=== PATIENT | female | born 1950 | race Caucasian/White ===

== ENCOUNTER → 2017-01-23 | Outpatient (CLI) | payer MEDICARE, BC ==
[2017-01-19 13:43] VITALS: BMI 47.7
[2017-01-23 12:02] VITALS: BP 133/73; PULSE 64; RESP 16
--- NOTE | 2017-01-23 12:37 | P.PN ---
Progress Note - Text Progress Note Date: 01/23/17 Patient returns for followup for chronic back pain without significant radiation and neck pain with mild radiation to left shoulder. Patient last went bilateral lumbar RFA in 2014 with excellent results and good pain relief. Patient continues on no regular pain medications and is requesting more injections. Patient denies adverse drug effects from medications. Today, pt denies new-onset weakness, bowel/bladder incontinence, or any other signs or symptoms of cauda equina syndrome. There are no signs of acute intoxication, and no indications of medication diversion or overuse. In addition to above, 13-point review of systems is also negative for chest pain , shortness of breath, changes in vision, changes in hearing, new onset weakness , abdominal pain, diarrhea, extreme fatigue, malaise, fever, skin changes, homicidal or suicidal ideation, or bowel or bladder incontinence. Vital Signs: Reviewed in EMR Gen: WDWN, AAOx3, NAD HEENT: NCAT, EOMI, hearing grossly normal Pulm: resp unlabored Abd: soft, NT, ND, obese Neck: supple, trachea midline ROM in flexion lumbar spine: reduced ROM in extension lumbar spine: reduced Lumbar paravertebral tenderness: + Facet loading: + bilateral, L > R SI joint tenderness: + bilateral Jasen's test: + L > R Straight leg raise: neg Neuro: CN II-XII grossly intact, muscle strength lower extremities PRESERVED Imaging: Reviewed in EMR Assessment: 1. lumbar spondylosis without myelopathy 2. morbid obesity 3. chronic pain syndrome Plan: 1. Explanation: Opioid and psychological risk scores were reviewed. Diagnoses , prognoses, and multiple treatment options including but not limited to physical therapy, interventional therapies, adjuvant medical therapies, narcotic medication therapies, and surgery were discussed with the patient and all questions were answered to the patient's satisfaction. 2. Opioid agreement: no opioids prescribed today 3. Counseling: The patient was counseled extensively on BODY MASS INDEX, EXERCISE. Specifically, the patient was instructed regarding the importance of weight control, and exercise in the context of both chronic pain and overall health. 4. Procedures: bilateral lumbar MBB L3-S1 5. Consultations: None 6. Investigations: None 7. Medications: none prescribed 8. Disposition: f/u for procedure as scheduled PQRS measures: 1-Patient's medications are documented in the chart. 2-Tobacco use is negative 3-Patient has had a pneumococcal vaccine. 4-Advanced care planning discussed, patient unable to give. 5-Opioid contract NOT signed with the patient. 6-Pain positive, follow-up visit or procedure scheduled 7-Patient's blood pressure measured and documented, and patient will follow up with the primary care due to hypertension. 8-Patient's weight was measured, and body mass index ABOVE the normal limits, and counseling was done. Patient instructed to follow up with PCP. 9-Patient WAS NOT identified as an unhealthy alcohol user.
== END | disposition home or self-care (01) ==
LOC: PNWHC3 11:23
PROVIDERS: ATTEND Anesthesiology
DX: M47.816 Spondylosis without myelopathy or radiculopathy, lumbar region (principal); E66.01 Morbid (severe) obesity due to excess calories; G89.4 Chronic pain syndrome
CPT/HCPCS: 99211

== ENCOUNTER → 2017-02-27 | Outpatient (CLI) | payer MEDICARE, BC ==
[2017-02-27 14:04] LABS: Appearance,Urine Clear (Clear); Bacteria,Urine Rare /hpf; Bilirubin,Urine Negative (Negative); Glucose,Urine (UA) Negative (Negative); Ketones,Urine Negative (Negative); Leukocyte Esterase,Urine Small (Negative); Nitrite,Urine Negative (Negative); PH, Urine 6.5 (5.0-8.0); Particle Count 1854; Protein,Urine Negative (Negative); RBC,Urine <1 /hpf (0-5); Specific Gravity,Urine 1.022 (1.001-1.035); Squamous Epithelial Cell,Urine 2 /hpf (0-4); UA Billing (MACRO vs. MICRO) MICRO; Urobilinogen,Urine <2.0 mg/dL (<2.0); WBC,Urine 29 /hpf (0-5)
== END | disposition home or self-care (01) ==
LOC: LABWHC1 13:27
PROVIDERS: ATTEND Internal Medicine
DX: N39.0 Urinary tract infection, site not specified (principal)
CPT/HCPCS: 81001; 87077; 87086; 87186

== ENCOUNTER → 2017-02-27 | Outpatient (CLI) | payer MEDICARE, BC ==
--- NOTE | 2017-02-27 14:54 | BD ---
EXAMINATION TYPE: MG DEXA axial skeleton. DATE OF EXAM: 02/27/2017 COMPARISON: Prior DEXA bone scan August 24, 2011 CLINICAL HISTORY: Disorder of bone density per order. Height: 65 Weight: 309.3 FRAX RISK QUESTIONS: Alcohol (3 or more units per day): NO Family History (Parent hip fracture): no Glucocorticoids (More than 3mos): no (Ex: prednisone, prednisolone, methylprednisolone, dexamethasone, and hydrocortisone). History of Fracture in Adulthood: no Secondary Osteoporosis: 1. Type 1 Diabetes: no 2. Hyperthyroidism: no 3. Menopause before 45: no 4. Malnutrition: no 5. Chronic liver disease: no Rheumatoid Arthritis: yes Current Tobacco Use: RISK FACTORS HISTORY OF: Hip Fracture (Right/Left): no Spine Fracture: no History of Wrist Fracture: no Surgery to Spine/Hip(right/left)/Wrist (right/left): no Family History of Osteoporosis: no Active: no Diet low in dairy products/other sources of calcium: no Postmenopausal woman: hysterectomy 45 Lost more than 2 inches in height since high school: no Frequent falls: no Poor Health: no Hyperparathyroidism: no Adrenal Insufficiency: no MEDICATIONS: Gabapentin Additional History: EXAM MEASUREMENTS: Bone mineral densitometry was performed using the [employer] System. Bone mineral density as measured about the Lumbar spine is: ----- L1-L4(G/cm2): 1.207 T Score Values are as follows: ----- L2: -0.6 ----- L3: 0.2 ----- L4: 0.7 ----- L1-L4: 0.2 Bone mineral density has: Decreased 6.3 % since study of: 08.24.2011 Bone mineral density about the R hip (g/cm2): 0.767 Bone mineral density about the L hip (g/cm2): 0.768 T Score values are as follows: -----R Neck: -2.0 -----L Neck: -1.9 -----R Total: -1.5 -----L Total: -0.9 Bone mineral density has: decreased -11.5 % since study of: 08.24.2011 IMPRESSION: Osteopenia (T Score between -2.5 and -1 as noted by T score values left femoral neck level of both hi ps is redemonstrated. Bone density is decreased or diminished from prior. There remains slightly incr eased risk of fracture and the patient may be considered for treatment. Re-Screen 2-5 years. NOTE: T-SCORE=SD OF THE YOUNG ADULT MEAN.
--- NOTE | 2017-03-01 14:02 | MM ---
Reason for exam: screening (asymptomatic). Last mammogram was performed 1 year and 4 months ago. History: Patient is postmenopausal, history of high-risk lesion on a previous biopsy, and had first child at age 34. Family history of breast cancer in grandmother at age 60. Silicone gel implants in both breasts, 2005. Saline implants in both breasts, 1995. Reduction of the left breast. Reduction of the right breast. 4 excisional biopsies of the left breast. 2 excisional biopsies of the right breast. Took estrogen for 13 years beginning at age 45. Physical Findings: A clinical breast exam by your physician is recommended on an annual basis and results should be correlated with mammographic findings. MG Screening Mammo Implant/CAD Bilateral CC, MLO, and ID view(s) were taken. Prior study comparison: November 11, 2015, bilateral MG 3d diag mammo imp w/cad [facility]. May 21, 2014, bilateral MG diagnostic mammo w CAD [facility]. There are scattered fibroglandular densities. No significant changes when compared with prior studies. ASSESSMENT: Benign, BI-RAD 2 RECOMMENDATION: Follow-up diagnostic mammogram of both breasts in 1 year.
== END | disposition home or self-care (01) ==
LOC: RADMAMWWP 13:28
PROVIDERS: ATTEND Obstetrics & Gynecology
DX: Z12.31 Encounter for screening mammogram for malignant neoplasm of breast (principal); M85.88 Other specified disorders of bone density and structure, other site
CPT/HCPCS: 77080; G0202

== ENCOUNTER → 2017-04-18 | Outpatient (CLI) | payer MEDICARE, BC ==
--- NOTE | 2017-04-18 15:05 | P.PN ---
Progress Note - Text Progress Note Date: 04/18/17 Patient returns for followup for chronic back pain without significant radiation and neck pain with mild radiation to left shoulder. Patient last underwent bilateral LMBB x 2 with good relief after undergoing bilateral lumbar RFA in 2014 with excellent relief for > 18 months. Patient continues on no regular pain medications and is requesting more injections; patient is still on Coumadin for A-fib. Patient denies adverse drug effects from medications. Today, pt denies new-onset weakness, bowel/bladder incontinence, or any other signs or symptoms of cauda equina syndrome. There are no signs of acute intoxication, and no indications of medication diversion or overuse. In addition to above, 13-point review of systems is also negative for chest pain , shortness of breath, changes in vision, changes in hearing, new onset weakness , abdominal pain, diarrhea, extreme fatigue, malaise, fever, skin changes, homicidal or suicidal ideation, or bowel or bladder incontinence. Vital Signs: Reviewed in EMR Gen: WDWN, AAOx3, NAD HEENT: NCAT, EOMI, hearing grossly normal Pulm: resp unlabored Abd: soft, NT, ND, obese Neck: supple, trachea midline ROM in flexion lumbar spine: reduced ROM in extension lumbar spine: reduced Lumbar paravertebral tenderness: + Facet loading: + bilateral, L > R SI joint tenderness: + bilateral Jasen's test: + L > R Straight leg raise: neg Neuro: CN II-XII grossly intact, muscle strength lower extremities PRESERVED Imaging: Reviewed in EMR Assessment: 1. lumbar spondylosis without myelopathy 2. morbid obesity 3. chronic pain syndrome Plan: 1. Explanation: Opioid and psychological risk scores were reviewed. Diagnoses , prognoses, and multiple treatment options including but not limited to physical therapy, interventional therapies, adjuvant medical therapies, narcotic medication therapies, and surgery were discussed with the patient and all questions were answered to the patient's satisfaction. 2. Opioid agreement: no opioids prescribed today 3. Counseling: The patient was counseled extensively on BODY MASS INDEX, EXERCISE. Specifically, the patient was instructed regarding the importance of weight control, and exercise in the context of both chronic pain and overall health. 4. Procedures: right lumbar RFA, then left lumbar RFA 5. Consultations: None 6. Investigations: None 7. Medications: naproxen 500 mg #10 with one refill 8. Disposition: f/u for procedure as scheduled PQRS measures: 1-Patient's medications are documented in the chart. 2-Tobacco use is negative 3-Patient has had a pneumococcal vaccine. 4-Advanced care planning discussed, patient unable to give. 5-Opioid contract NOT signed with the patient. 6-Pain positive, follow-up visit or procedure scheduled 7-Patient's blood pressure measured and documented, and patient will follow up with the primary care due to hypertension. 8-Patient's weight was measured, and body mass index ABOVE the normal limits, and counseling was done. Patient instructed to follow up with PCP. 9-Patient WAS NOT identified as an unhealthy alcohol user.
[2017-04-18 23:31] VITALS: BP 136/77; PULSE 57; RESP 16
== END | disposition home or self-care (01) ==
LOC: PNWHC3 14:19
PROVIDERS: ATTEND Anesthesiology
DX: M47.816 Spondylosis without myelopathy or radiculopathy, lumbar region (principal); E66.01 Morbid (severe) obesity due to excess calories; G89.4 Chronic pain syndrome; I48.91 Unspecified atrial fibrillation; Z79.01 Long term (current) use of anticoagulants; Z68.43 Body mass index [BMI] 50.0-59.9, adult
CPT/HCPCS: 99211

== ENCOUNTER 2017-06-12 06:59 | Day surgery (SDC) | payer MEDICARE, BC ==
[2017-06-07 15:15] VITALS: BMI 48.0
[2017-06-12] MEDS ORDERED: LACTATED RINGERS 1,000 ML IV SCH (07:15)
[2017-06-12 08:07] VITALS: TEMP 97.4
[2017-06-12] MEDS ORDERED: LIDOCAINE 1% 20 ML VIAL (10MG/ML) FOR IV START INTRADERMA ONE (08:22)
--- NOTE | 2017-06-12 09:36 | P.PCN ---
Date of Procedure: 06/12/17 Surgeon: Juan Sawyer Pathology: none sent Condition: stable Disposition: PACU Description of Procedure: PREOPERATIVE DIAGNOSIS: Lumbar spondylosis without myelopathy and facet arthropathy POSTOPERATIVE DIAGNOSIS: Lumbar spondylosis without myelopathy and facet arthropathy PROCEDURES: Right Radiofrequency thermocoagulation, L3-L4, L4-L5, and L5-S1 medial branch, with fluoroscopic guidance. ANESTHESIA: 1% lidocaine plain; Conscious sedation with versed/fentanyl EBL: Minimal PROCEDURE INDICATION: The patient with low back pain secondary to lumbar arthropathy who had more than 50% relief of pain with previous diagnostic lumbar medial branch block with bupivacaine. Patient presents for R lumbar RFA today; off Coumadin five days, INR 1.2. PROCEDURE DESCRIPTION / TECHNIQUE: The patient was seen and identified in the preoperative area. Risks, benefits, complications, and alternatives were discussed with the patient (including but not limited to incomplete pain relief , bleeding, infection, nerve damage, and allergies to medications), the patient agreed to proceed with the procedure and signed the consent after all questions were answered. Patient was taken to the OR and time out was completed to verify proper patient , position, laterality of pain, and allergies. Pt was placed in the prone position. IV was started. Vital signs remained stable throughout the procedure. A pillow was placed under the patients chest to decrease lordosis. The lumbosacral area was prepped and draped in the usual sterile fashion. Vital signs were closely monitored during the procedure. Conscious sedation was used during the procedure to decrease patients anxiety. Using AP and then oblique fluoroscopy, the eye of the Shelton dog corresponding to the connection between the superior and transverse articular processes of right L3, L4, L5 and top of the sacrum were identified, marked, and localized with 1% lidocaine. Subsequently, a 20 gauge, 150-mm radiofrequency cannula with a 10-mm active tip was advanced guided by fluoroscopy to each of the eyes of the Shelton dog at the levels of all four medial branches. Each site then underwent sensory testing at 50 Hz and 0 to 1 volt and motor testing at 2 Hz and 0 to 3 volt with local stimulation, but no radicular symptoms down the legs. Thereafter all four medial branch sites underwent radiofrequency thermocoagulation at 80 degrees Celsius for 90 seconds after injecting 0.5 ml of PF lidocaine 1%. After thermocoagulation, 1 ml of the block solution containing Kenalog 40 mg and 2 mL of preservative-free normal saline was injected at all four medial branch levels after negative aspiration of CSF and blood and with no paresthesias. Cannulas were retracted while injecting lidocaine 1% until the needles were removed. At the end of the procedure, the skin was cleansed and bandages were applied. COMPLICATIONS: Patient did have significant decrease in HR down to 30s and BP down to 80s systolic, but after the procedure was completed and the patient turned supine, her vital signs recovered without any intervention and she felt substantially better. DISPOSITION / PLANS: The patient was placed in a supine position and transferred to the recovery area in a stable condition for observation and was discharged from the recovery room after meeting discharge criteria. Home discharge instructions given to the patient by the staff. The patient was reexamined prior to discharge. The patient will schedule a left lumbar RFA at next visit.
[2017-06-12 09:39] VITALS: BP 141/68; PULSE 59; RESP 18
--- NOTE | 2017-06-12 13:41 | FL ---
EXAMINATION TYPE: FL guided pain mgmt statistic DATE OF EXAM: 06/12/2017 FLUOROSCOPY Fluoroscopy time of 24 seconds was used during right lumbar radiofrequency ablation. 3 image/s docum ent/s the procedure.
== END 2017-06-12 09:50 | disposition home or self-care (01) ==
LOC: ORPAIN 06:59
PROVIDERS: ATTEND Anesthesiology
DX: M47.816 Spondylosis without myelopathy or radiculopathy, lumbar region (principal); R00.1 Bradycardia, unspecified; I48.91 Unspecified atrial fibrillation; E66.9 Obesity, unspecified; Z68.42 Body mass index [BMI] 45.0-49.9, adult; Z79.01 Long term (current) use of anticoagulants; Z91.09 Other allergy status, other than to drugs and biological substances
CPT/HCPCS: 64635; 64636; J2250; J3301; J3010; 99152

== ENCOUNTER → 2017-06-12 | Outpatient (CLI) | payer MEDICARE, BC ==
[2017-06-12 07:04] LABS: INR 1.2 (<1.2); Prothrombin Time 11.1 sec (9.0-12.0)
== END | disposition home or self-care (01) ==
LOC: LABWHC1 06:43
PROVIDERS: ATTEND Anesthesiology
DX: Z51.81 Encounter for therapeutic drug level monitoring (principal); Z79.01 Long term (current) use of anticoagulants
CPT/HCPCS: 36415; 85610

== ENCOUNTER 2017-07-11 07:00 | Day surgery (SDC) | payer MEDICARE, BC ==
[2017-07-09 13:34] VITALS: BMI 48.2
[~2017-07-11 07:00] MED LIST: LACTATED RINGERS 1,000 ML IV SCH
[2017-07-11 07:14] LABS: INR 1.1 (<1.2); Prothrombin Time 10.8 sec (9.0-12.0)
[2017-07-11 07:53] VITALS: TEMP 97.9
[2017-07-11] MEDS ORDERED: LIDOCAINE 1% 20 ML VIAL (10MG/ML) FOR IV START INTRADERMA ONE (07:53)
[2017-07-11] MEDS ORDERED: LACTATED RINGERS 1,000 ML IV ONE (07:53)
--- NOTE | 2017-07-11 09:53 | P.PCN ---
Date of Procedure: 07/11/17 Procedure(s) Performed: PREOPERATIVE DIAGNOSIS: 1-Lumbar Spondylosis with Facet Arthropathy without myelopathy. 2- Lumber degenerative disc disease. POSTOPERATIVE DIAGNOSIS: 1- Lumbar Spondylosis with Facet Arthropathy without myelopathy. 2- Lumber degenerative disc disease. PROCEDURES : Left Radiofrequency thermocoagulation, L3-L4, L4-L5, and L5-S1 medial branch, with fluoroscopic guidance ANESTHESIA: Moderate sedation with intravenous versed 2 mg and fentaneyl 100 mcg and local infiltration with lidocaine 1% 6 ml EBL: Minimal PROCEDURE INDICATION: The patient with low back pain secondary to lumbar facet arthropathy who had more than 50% relief of her pain with previous diagnostic lumbar medial branch block with bupivacaine. PROCEDURE DESCRIPTION / TECHNIQUE: The patient was seen and identified in the preoperative area. Risks, benefits, complications, including but not limited to risk of infection ,bleeding , allergic reactions to the medications and no complete pain releife , and alternatives were discussed with the patient, the patient agreed to proceed with the procedure and signed the consent. IV was started. Vital signs remained stable throughout the procedure. Patient was taken to the OR and time out was completed. The patient was placed in the prone position on the procedure table. The lumber area was prepped and draped in the usual sterile fashion. . Vital signs were closely monitored during the procedure .IV sedation was used during the procedure to decrease patients anxiety. Using AP and then oblique fluoroscopy, the ``eye of the Shelton dog corresponding to the connection between the superior and transverse articular processes of left L3, L4, and L5 were identified, marked, and localized with 1 % lidocaine. Subsequently, a [id number] radiofrequency cannula with a 10- mm active tip was advanced guided by fluoroscopy to each of the ``eyes of the Shelton dog at left L3, L4, and L5. Each site then underwent sensory testing at 50 Hz and 0 to 1 volt and motor testing at 2.5 Hz and 0 to 3 volt with local stimulation, but no radicular symptoms down the legs. Thereafter the left L3-4, L4-5, and L5-S1 sites underwent radiofrequency thermocoagulation at 80 degrees celsius for 90 seconds after injecting 0.5 ml of PF lidocaine 1%. then After the thermocoagulation done , 1 ml of the block solution containing Kenalog 40 mg and 3 ml of marcain 0.5% was injected at the left L3-4 , L4-5 , and L5-S1, levels after negative aspiration of CSF and blood and with no paresthesias. Cannulas were retracted while injecting lidocaine 1% until the needle is out At the end of the procedure, the skin was cleansed and bandages were applied. COMPLICATIONS: No acute complications. DISPOSITION / PLANS: The patient was placed in a supine position and transferred to the recovery area in a stable condition for observation and was discharged from the recovery room after meeting discharge criteria. Home discharge instructions given to the patient by the staff. The patient was reexamined prior to discharge. The patient will schedule a follow up in the clinic in 2-4 weeks.
[2017-07-11] MEDS ORDERED: IV FLUID CONTINUATION 50 ML IV ONE (10:00)
[2017-07-11 10:15] VITALS: RESP 16
[2017-07-11 10:17] VITALS: BP 127/79; PULSE 59
--- NOTE | 2017-07-11 10:49 | FL ---
Fluoroscopy HISTORY: Pain 17 seconds fluoroscopy time supplied to the referring clinician. 4 intraoperative C-arm images docum ent the procedure. See dictated report from anesthesia.
== END 2017-07-11 10:30 | disposition home or self-care (01) ==
LOC: ORPAIN 07:00
PROVIDERS: ATTEND Specialist
DX: M47.816 Spondylosis without myelopathy or radiculopathy, lumbar region (principal); M51.36 Other intervertebral disc degeneration, lumbar region; I48.91 Unspecified atrial fibrillation; I10 Essential (primary) hypertension; G47.33 Obstructive sleep apnea (adult) (pediatric); M06.9 Rheumatoid arthritis, unspecified; Z79.01 Long term (current) use of anticoagulants; Z88.5 Allergy status to narcotic agent
CPT/HCPCS: 85610; 64635; 64636 ×2; J2250; J3301; J3010; 99152; 99153

== ENCOUNTER → 2017-08-07 | Outpatient (CLI) | payer MEDICARE, BC ==
[2017-08-07 11:49] VITALS: PULSE 69; RESP 18
--- NOTE | 2017-08-07 12:38 | P.PN ---
Progress Note - Text Progress Note Date: 08/07/17 Patient returns for followup for chronic back pain patient is status post bilateral lumbar efficiency ablations at L3 to S1. Patient reported good pain relief with the bilateral radio frequency ablation. Patient has 0 out of 10 pain with flexion and extension which was not the case prior to the RFA. Patient however is complaining of new type low back pain along this sacroiliac joint that radiates to her hip or groin and the lateral aspect of her thigh. She states that the pain is about a 5 out of 10 in severity. I discussed with her that her low back pain caused by facet arthropathy and spondylosis could've likely been masking her sacroiliac related joint pain. I discussed with her bilateral sacroiliac joint diagnostic injections, patient understands the risks and benefits and wishes to proceed the next available appointment. Patient is still on Coumadin for A-fib, and a request to hold anticoagulants to her prescribing physician and will be sent today. Patient denies adverse drug effects from medications. Today, pt denies new-onset weakness, bowel/bladder incontinence, or any other signs or symptoms of cauda equina syndrome. There are no signs of acute intoxication, and no indications of medication diversion or overuse. In addition to above, 13-point review of systems is also negative for chest pain , shortness of breath, changes in vision, changes in hearing, new onset weakness , abdominal pain, diarrhea, extreme fatigue, malaise, fever, skin changes, homicidal or suicidal ideation, or bowel or bladder incontinence. Vital Signs: Reviewed in EMR Gen: WDWN, AAOx3, NAD HEENT: NCAT, EOMI, hearing grossly normal Pulm: resp unlabored Abd: soft, NT, ND, obese Neck: supple, trachea midline ROM in flexion lumbar spine: Improved from previous exam ROM in extension lumbar spine: Improved from previous exam Lumbar paravertebral tenderness: Mild Facet loading: Mild bilateral facet loading SI joint tenderness: + bilateral Jasen's test: + L > R Straight leg raise: neg Neuro: CN II-XII grossly intact, muscle strength lower extremities PRESERVED Imaging: Reviewed in EMR Assessment: 1. Lumbar spondylosis without myelopathy 2. Sacroiliac joint dysfunction 3. Lumbosacral spondylosis 4.. morbid obesity 5. chronic pain syndrome Plan: 1. Explanation: Opioid and psychological risk scores were reviewed. Diagnoses , prognoses, and multiple treatment options including but not limited to physical therapy, interventional therapies, adjuvant medical therapies, narcotic medication therapies, and surgery were discussed with the patient and all questions were answered to the patient's satisfaction. 2. Opioid agreement: no opioids prescribed today 3. Counseling: The patient was counseled extensively on BODY MASS INDEX, EXERCISE. Specifically, the patient was instructed regarding the importance of weight control, and exercise in the context of both chronic pain and overall health. 4. Procedures: Sacroiliac joint injection, bilateral 5. Consultations: None 6. Investigations: Maps reviewed and appropriate with patient history 7. Medications: No medication given 8. Disposition: Bilateral sacroiliac joint injection, next available PQRS measures: 1-Patient's medications are documented in the chart. 2-Tobacco use is negative 3-Patient has had a pneumococcal vaccine. 4-Advanced care planning discussed, patient unable to give. 5-Opioid contract NOT signed with the patient. 6-Pain positive, follow-up visit or procedure scheduled 7-Patient's blood pressure measured and documented, and patient will follow up with the primary care due to hypertension. 8-Patient's weight was measured, and body mass index ABOVE the normal limits, and counseling was done. Patient instructed to follow up with PCP. 9-Patient WAS NOT identified as an unhealthy alcohol user.
== END | disposition home or self-care (01) ==
LOC: PNWHC3 11:27
PROVIDERS: ATTEND Anesthesiology
DX: G89.4 Chronic pain syndrome (principal); M54.9 Dorsalgia, unspecified; M47.817 Spondylosis without myelopathy or radiculopathy, lumbosacral region; M53.88 Other specified dorsopathies, sacral and sacrococcygeal region; E66.01 Morbid (severe) obesity due to excess calories; Z98.890 Other specified postprocedural states
CPT/HCPCS: 99211

== ENCOUNTER 2017-08-13 07:00 | Day surgery (SDC) | payer MEDICARE, BC ==
[2017-08-08 11:14] VITALS: BMI 48.1
[2017-08-13] MEDS ORDERED: LIDOCAINE 1% 20 ML VIAL (10MG/ML) FOR IV START INTRADERMA ONE (08:45)
[2017-08-13 08:59] VITALS: RESP 18; TEMP 97.9
[2017-08-13 09:18] LABS: INR 1.1 (<1.2); Prothrombin Time 10.7 sec (9.0-12.0)
--- NOTE | 2017-08-13 09:38 | P.PCN ---
Date of Procedure: 08/13/17 Procedure(s) Performed: Preoperative diagnoses= 1-lumbar spondylosis 2-bilateral sacroiliac joint dysfunction. Postoperative diagnoses= same as preoperative diagnosis. Procedure= bilateral sacroiliac joint steroid injection under fluoroscopic guidance. Anesthesia= moderate sedation with Versed 2 mg and fentanyl 100 micrograms and local infiltration with lidocaine 1% 4 ml Estimated blood loss=minimal. Procedure indication= the patient had a history of severe chronic low back pain , diagnosed with sacroiliac joint dysfunction, and lumbar sacral facet arthropathy unresponsive to conservative treatment. Procedure description= the patient was seen and identified in the preoperative holding area, risks and benefits and alternative of the procedure and possible complications discussed with the patient, and he agreed with the preceding, patient signed the consent, an IV was started, and vital signs were monitored and were stable throughout the procedure, patient was placed in the prone position or table and the lumbosacral area was prepped and draped with a sterile fashion, vital signs were closely monitored during the procedure, the fluoroscopy camera was placed in the contralateral oblique view on the right sacroiliac joint and the lower part of the joint was identified, local infiltration of the skin and subcutaneous tissue with lidocaine 1% 2 mL then a 22-gauge Quincke-type spinal needle advanced slowly under fluoroscopy and placed in the posterior and inferior border of the right sacroiliac joint, placement confirmed with AP and lateral view, and after appropriate needle placement confirmed and after negative aspiration for heme and CSF and there was no paresthesia during the injection, 3 ml of Marcaine 0.5% and 20 mg of Kenalog injected after negative aspiration, the needle removed, and the entire same procedure was repeated for the left sacroiliac joint Patient tolerated the procedure well without any complication, The patient returned to supine position after the back was cleaned and a Band- Aid applied, the patient transported to recovery room in stable condition and he was monitored for 30 minutes before he was discharged home and then patient was reexamined before going home and patient was discharged in stable condition and patient will follow up with the pain clinic in a few weeks
--- NOTE | 2017-08-13 09:47 | FL ---
EXAMINATION TYPE: FL guided pain mgmt statistic DATE OF EXAM: 08/13/2017 CLINICAL HISTORY: Low back and sacroiliac joint pain. TECHNIQUE: Fluoroscopy. COMPARISON: None. FINDINGS: Fluoroscopic guidance was provided during pain relief procedure performed by Dr. Sykes . A total of 16 seconds of fluoroscopic time was utilized during the procedure and two spot images a re acquired. Images acquired shows needle localization at level of bilateral sacroiliac joints. IMPRESSION: As Above.
[2017-08-13 09:49] VITALS: PULSE 62
[2017-08-13 10:04] VITALS: BP 112/67
[2017-08-13] MEDS ORDERED: IV FLUID CONTINUATION 1,000 ML IV ONE (10:04)
== END 2017-08-13 10:16 | disposition home or self-care (01) ==
LOC: ORPAIN 07:00
PROVIDERS: ATTEND Specialist
DX: M47.816 Spondylosis without myelopathy or radiculopathy, lumbar region (principal); M53.3 Sacrococcygeal disorders, not elsewhere classified; I10 Essential (primary) hypertension; I48.91 Unspecified atrial fibrillation; J45.909 Unspecified asthma, uncomplicated; Z88.5 Allergy status to narcotic agent
CPT/HCPCS: 85610; J2250; J3301; J3010; G0260

== ENCOUNTER 2017-08-30 08:59 | Day surgery (SDC) | payer MEDICARE, BC ==
[2017-08-27 13:29] VITALS: BMI 48.1
--- NOTE | 2017-08-30 10:52 | P.PCN ---
Date of Procedure: 08/30/17 Surgeon: Ronal Rodriguez Description of Procedure: Preoperative diagnoses: Bilateral sacroilitis Postoperative diagnoses: Bilateral sacroilitis. Procedure: Bilateral sacroiliac joint steroid injection under fluoroscopic guidance. Surgeon: Ronal Rodriguez MD Anesthesia: IV sedation per hospital guidelines EBL: None Procedure indication: The patient had a history of severe chronic low back pain , diagnosed with sacroiliitis and lumbar sacral facet arthropathy unresponsive to conservative treatment. Procedure description: The patient was seen and identified in the preoperative holding area, risks and benefits and alternative of the procedure and possible complications discussed with the patient, and he agreed with the preceding, patient signed the consent, an IV was started, and vital signs were monitored and were stable throughout the procedure, patient was placed in the prone position or table and the lumbosacral area was prepped and draped with a sterile fashion, vital signs were closely monitored during the procedure, the fluoroscopy camera was placed in the contralateral oblique view on the right sacroiliac joint and the lower part of the joint was identified a 2 mL then a 25 -gauge Quincke-type spinal needle advanced slowly under fluoroscopy and placed in the posterior and inferior border of the right sacroiliac joint, placement confirmed with AP and lateral view, and after appropriate needle placement confirmed and after negative aspiration for heme and CSF and there was , 3 ml of Marcaine 0.5% and 40 mg of Kenalog injected after negative aspiration, no paresthesia during the injection, no resistance to injection, and the needle was removed. The entire same procedure was repeated for the left sacroiliac joint Patient tolerated the procedure well without any complication. The patient returned to supine position after the back was cleaned and a Band- Aid applied, the patient transported to recovery room in stable condition and he was monitored for 30 minutes before he was discharged home and then patient was reexamined before going home and patient was discharged in stable condition and patient will follow up with the pain clinic in a few weeks
[2017-08-30 11:00] VITALS: TEMP 97.9
[2017-08-30] MEDS ORDERED: LACTATED RINGERS 1,000 ML IV ONE (11:05)
[2017-08-30] MEDS ORDERED: LIDOCAINE 1% 20 ML VIAL (10MG/ML) FOR IV START INTRADERMA ONE (11:06)
[2017-08-30 11:33] VITALS: BP 114/77
[2017-08-30] MEDS ORDERED: IV FLUID CONTINUATION 1,000 ML IV ONE (11:34)
[2017-08-30 11:41] VITALS: PULSE 61; RESP 18
--- NOTE | 2017-08-30 12:13 | FL ---
EXAMINATION TYPE: FL guided pain mgmt statistic DATE OF EXAM: 08/30/2017 COMPARISON: NONE HISTORY: Sacroiliac joint pain TECHNIQUE: Fluoroscopy. FINDINGS/IMPRESSION: Fluoroscopic guidance was provided during procedure performed by Dr. Rodriguez. A total of 4 seconds of fluoroscopic time was utilized during the procedure and 2 spot images was acqu ired demonstrating localization of the sacroiliac joint.
== END 2017-08-30 12:00 | disposition home or self-care (01) ==
LOC: ORPAIN 08:59
PROVIDERS: ATTEND Anesthesiology
DX: G89.29 Other chronic pain (principal); M46.1 Sacroiliitis, not elsewhere classified; M46.97 Unspecified inflammatory spondylopathy, lumbosacral region; Z88.5 Allergy status to narcotic agent; Z79.01 Long term (current) use of anticoagulants
CPT/HCPCS: J2250; J1030; G0260; 99152

== ENCOUNTER → 2017-08-30 | Outpatient (CLI) | payer MEDICARE, BC | END | disposition home or self-care (01) | LOC: LABWHC1 08:43 | PROVIDERS: ATTEND Specialist | DX: Z51.81 Encounter for therapeutic drug level monitoring (principal); Z79.01 Long term (current) use of anticoagulants | CPT/HCPCS: 36415; 85610 ==

== ENCOUNTER → 2017-09-26 | Outpatient (CLI) | payer MEDICARE, BC ==
[2017-09-26 12:39] VITALS: BP 145/84; PULSE 60; RESP 18
--- NOTE | 2017-09-26 13:01 | P.PN ---
Progress Note - Text Progress Note Date: 09/26/17 Patient returns for followup for chronic back pain without radiation to hips and neck pain with mild radiation to left shoulder. Patient last underwent bilateral SIJ injection x 2 with good relief. Patient continues on no regular pain medications and is requesting more injections; patient is still on Coumadin for A-fib. Patient denies adverse drug effects from medications. Today, pt denies new-onset weakness, bowel/bladder incontinence, or any other signs or symptoms of cauda equina syndrome. There are no signs of acute intoxication, and no indications of medication diversion or overuse. In addition to above, 13-point review of systems is also negative for chest pain , shortness of breath, changes in vision, changes in hearing, new onset weakness , abdominal pain, diarrhea, extreme fatigue, malaise, fever, skin changes, homicidal or suicidal ideation, or bowel or bladder incontinence. Vital Signs: Reviewed in EMR Gen: WDWN, AAOx3, NAD HEENT: NCAT, EOMI, hearing grossly normal Pulm: resp unlabored Abd: soft, NT, ND, obese Neck: supple, trachea midline ROM in flexion lumbar spine: reduced ROM in extension lumbar spine: reduced Lumbar paravertebral tenderness: + Facet loading: + bilateral, R > L SI joint tenderness: + bilateral Jasen's test: + R > L Straight leg raise: neg Neuro: CN II-XII grossly intact, muscle strength lower extremities PRESERVED Imaging: Reviewed in EMR Assessment: 1. lumbar spondylosis without myelopathy 2. morbid obesity 3. chronic pain syndrome Plan: 1. Explanation: Opioid and psychological risk scores were reviewed. Diagnoses , prognoses, and multiple treatment options including but not limited to physical therapy, interventional therapies, adjuvant medical therapies, narcotic medication therapies, and surgery were discussed with the patient and all questions were answered to the patient's satisfaction. 2. Opioid agreement: no opioids prescribed today 3. Counseling: The patient was counseled extensively on BODY MASS INDEX, EXERCISE. Specifically, the patient was instructed regarding the importance of weight control, and exercise in the context of both chronic pain and overall health. 4. Procedures: SIJ injection #3 bilateral 5. Consultations: None 6. Investigations: None 7. Medications: naproxen 500 mg #10 with one refill 8. Disposition: f/u for procedure as scheduled PQRS measures: 1-Patient's medications are documented in the chart. 2-Tobacco use is negative 3-Patient has had a pneumococcal vaccine. 4-Advanced care planning discussed, patient unable to give. 5-Opioid contract NOT signed with the patient. 6-Pain positive, follow-up visit or procedure scheduled 7-Patient's blood pressure measured and documented, and patient will follow up with the primary care due to hypertension. 8-Patient's weight was measured, and body mass index ABOVE the normal limits, and counseling was done. Patient instructed to follow up with PCP. 9-Patient WAS NOT identified as an unhealthy alcohol user.
== END | disposition home or self-care (01) ==
LOC: PNWHC3 12:06
PROVIDERS: ATTEND Anesthesiology
DX: G89.4 Chronic pain syndrome (principal); M54.9 Dorsalgia, unspecified; M47.816 Spondylosis without myelopathy or radiculopathy, lumbar region; E66.01 Morbid (severe) obesity due to excess calories; I48.91 Unspecified atrial fibrillation; Z79.01 Long term (current) use of anticoagulants
CPT/HCPCS: 99211

== ENCOUNTER 2017-10-04 07:10 | Day surgery (SDC) | payer MEDICARE, BC ==
[2017-10-01 14:47] VITALS: BMI 47.3
[2017-10-04 09:36] VITALS: TEMP 98.1
[2017-10-04] MEDS ORDERED: IV FLUID CONTINUATION 1,000 ML IV ONE (10:22)
--- NOTE | 2017-10-04 10:22 | P.PCN ---
Date of Procedure: 10/04/17 Procedure(s) Performed: Preoperative diagnoses= 1-bilateral sacroiliitis. 2-lumbar spondylosis with lumbar facet arthropathy without myelopathy Postoperative diagnoses= same as preoperative diagnosis. Procedure= bilateral sacroiliac joint steroid injection under fluoroscopic guidance. Anesthesia= moderate sedation with Versed 2 mg and fentanyl 100 micrograms and local infiltration with lidocaine 1% 4 ml Estimated blood loss=minimal. Procedure indication= the patient had a history of severe chronic low back pain , diagnosed with sacroiliitis and lumbar sacral facet arthropathy unresponsive to conservative treatment. Procedure description= the patient was seen and identified in the preoperative holding area, risks and benefits and alternative of the procedure and possible complications discussed with the patient, and he agreed with the preceding, patient signed the consent, an IV was started, and vital signs were monitored and were stable throughout the procedure, patient was placed in the prone position or table and the lumbosacral area was prepped and draped with a sterile fashion, vital signs were closely monitored during the procedure, the fluoroscopy camera was placed in the contralateral oblique view on the right sacroiliac joint and the lower part of the joint was identified, local infiltration of the skin and subcutaneous tissue with lidocaine 1% 2 mL then a 22-gauge 5 inches long Quincke-type spinal needle advanced slowly under fluoroscopy and placed in the posterior and inferior border of the right sacroiliac joint, placement confirmed with AP and lateral view, and after appropriate needle placement confirmed and after negative aspiration for heme and CSF and there was no paresthesia during the injection, 3 ml of Marcaine 0.5 % and 40 mg of Kenalog injected after negative aspiration, the needle removed, and the entire same procedure was repeated for the left sacroiliac joint Patient tolerated the procedure well without any complication, The patient returned to supine position after the back was cleaned and a Band- Aid applied, the patient transported to recovery room in stable condition and he was monitored for 30 minutes before he was discharged home and then patient was reexamined before going home and patient was discharged in stable condition and patient will follow up with the pain clinic in a few weeks
[2017-10-04 10:32] VITALS: RESP 16
[2017-10-04 10:44] VITALS: BP 107/61; PULSE 62
--- NOTE | 2017-10-04 13:12 | FL ---
Fluoroscopy INDICATION: Pain FINDINGS: Fluoroscopy time: 6 seconds. Images obtained: 1. IMPRESSIONS: 1. Documentation of fluoroscopy.
== END 2017-10-04 11:01 | disposition home or self-care (01) ==
LOC: ORPAIN 07:10
PROVIDERS: ATTEND Specialist
DX: G89.29 Other chronic pain (principal); M46.1 Sacroiliitis, not elsewhere classified; M47.816 Spondylosis without myelopathy or radiculopathy, lumbar region; I48.91 Unspecified atrial fibrillation; I10 Essential (primary) hypertension; J45.909 Unspecified asthma, uncomplicated; G47.33 Obstructive sleep apnea (adult) (pediatric); Z88.5 Allergy status to narcotic agent
CPT/HCPCS: J2250; J3301; J3010; G0260; 99152

== ENCOUNTER → 2017-10-04 | Outpatient (CLI) | payer MEDICARE, BC ==
[2017-10-04 07:26] LABS: INR 1.1 (<1.2); Prothrombin Time 10.9 sec (9.0-12.0)
== END | disposition home or self-care (01) ==
LOC: LABWHC1 06:50
PROVIDERS: ATTEND Anesthesiology
DX: Z01.812 Encounter for preprocedural laboratory examination (principal)
CPT/HCPCS: 36415; 85610

== ENCOUNTER → 2017-11-06 | Outpatient (CLI) | payer MEDICARE, BC ==
[2017-11-06 13:45] VITALS: BP 135/65; PULSE 64; RESP 16
--- NOTE | 2017-11-06 14:21 | P.PN ---
Subjective Progress Note Date: 11/06/17 This is a 67-year-old morbidly obese female with history of axial lower back pain and occasional radiation down to the left calf with no paresthesia in the lower extremities. She denies any bowel or bladder dysfunction or any new weakness in the lower extremities. She had immediate relief of pain after the last secreted injected steroid injection however she fell 3 days after the injection and her pain came back with vengeance. patient is still on Coumadin for A-fib. Patient denies adverse drug effects from medications. Today, pt denies new-onset weakness, bowel/bladder incontinence, or any other signs or symptoms of cauda equina syndrome. In addition to above, 13-point review of systems is also negative for chest pain , shortness of breath, changes in vision, changes in hearing, new onset weakness , abdominal pain, diarrhea, extreme fatigue, malaise, fever, skin changes, homicidal or suicidal ideation, or bowel or bladder incontinence. Vital Signs: Reviewed in EMR Gen: AAOx3, NAD HEENT: NCAT, EOMI, hearing grossly normal Pulm: resp unlabored Neck: supple, trachea midline Neuro exam of the lower extremities showed decreased but symmetrical muscle strength to 4 out of 5 bilaterally. Absent ankle and knee reflexes bilaterally. She has tenderness around the sacroiliac joint and at the lower part of the sacrum. Neuro: CN II-XII grossly intact Imaging: Reviewed in EMR Assessment: 1. lumbar spondylosis without myelopathy 2. morbid obesity 3. chronic pain syndrome 4. Left sacroiliitis Plan: 1. Explanation: Opioid and psychological risk scores were reviewed. Diagnoses , prognoses, and multiple treatment options including but not limited to physical therapy, interventional therapies, adjuvant medical therapies, narcotic medication therapies, and surgery were discussed with the patient and all questions were answered to the patient's satisfaction. 2. Opioid agreement: no opioids prescribed today 3. Counseling: The patient was counseled extensively on BODY MASS INDEX, EXERCISE. Specifically, the patient was instructed regarding the importance of weight control, and exercise in the context of both chronic pain and overall health. 4. Procedures: Left sacroiliac joint RFA under fluoroscopic guidance. I asked the patient to hold her Coumadin for 5 days as she did previously, however I told her to take aspirin once a day during this period of no Coumadin. 5. Consultations: None 6. Investigations: None 7. Medications: None 8. Disposition: f/u for procedure as scheduled Objective - Vital Signs Vital signs: Vital Signs Temp Pulse 64 11/06/17 13:41 Resp 16 11/06/17 13:41 BP 135/65 11/06/17 13:41 Pulse Ox 95 11/06/17 13:41 Intake & Output 11/05/17 11/06/17 11/06/17 18:59 06:59 18:59 Weight 134.717 kg
== END | disposition home or self-care (01) ==
LOC: PNWHC3 13:22
PROVIDERS: ATTEND Anesthesiology
DX: G89.4 Chronic pain syndrome (principal); M54.5 Low back pain; M47.816 Spondylosis without myelopathy or radiculopathy, lumbar region; M46.1 Sacroiliitis, not elsewhere classified; I48.91 Unspecified atrial fibrillation; E66.01 Morbid (severe) obesity due to excess calories; Z79.01 Long term (current) use of anticoagulants; Z68.42 Body mass index [BMI] 45.0-49.9, adult
CPT/HCPCS: 99211

== ENCOUNTER → 2017-12-05 | Outpatient (CLI) | payer MEDICARE, BC ==
[2017-12-05 14:32] LABS: Basophils % (A) 0 %; Eosinophils # (A) 0.1 k/uL (0-0.7); Eosinophils % (A) 2 %; HCT 42.5 % (34.0-46.0); HGB 13.4 gm/dL (11.4-16.0); Lymphocytes # (A) 1.1 k/uL (1.0-4.8); Lymphocytes % (A) 14 %; MCH 30.8 pg (25.0-35.0); MCHC 31.6 g/dL (31.0-37.0); MCV 97.4 fL (80.0-100.0); Mean Platelet Volume 8.3; Monocytes # (A) 0.5 k/uL (0-1.0); Monocytes % (A) 6 %; Neutrophils # (A) 6.3 k/uL (1.3-7.7); Neutrophils % (A) 77 %; Platelet Count 197 k/uL (150-450); RBC 4.36 m/uL (3.80-5.40); WBC 8.1 k/uL (3.8-10.6)
[2017-12-05 14:52] LABS: Albumin 3.6 g/dL (3.5-5.0); Calcium 9.1 mg/dL (8.4-10.2); Potassium 4.8 mmol/L (3.5-5.1); Total Bilirubin 1.6 mg/dL (0.2-1.3); Total Protein 6.1 g/dL (6.3-8.2)
[2017-12-05 15:08] LABS: T4, Free (Free Thyroxine) 1.13 ng/dL (0.78-2.19)
== END | disposition home or self-care (01) ==
LOC: LABWHC1 13:55
PROVIDERS: ATTEND Internal Medicine
DX: J45.20 Mild intermittent asthma, uncomplicated (principal); M06.00 Rheumatoid arthritis without rheumatoid factor, unspecified site; E78.00 Pure hypercholesterolemia, unspecified; M15.9 Polyosteoarthritis, unspecified; I48.91 Unspecified atrial fibrillation; Z86.59 Personal history of other mental and behavioral disorders
CPT/HCPCS: 36415; 80053; 80061; 82306; 84439; 84443; 85025

== ENCOUNTER → 2017-12-06 | Outpatient (CLI) | payer MEDICARE, BC ==
[2017-12-06 14:18] VITALS: BP 126/75; PULSE 58; RESP 16
--- NOTE | 2017-12-07 12:18 | P.PAINPG ---
Subjective Progress Note Date: 12/06/17 This is follow-up visit for this patient with a history of severe and chronic low back pain secondary to lumbar degenerative disc disease, lumbar facet arthropathy, sacroiliitis We have done an interventional pain procedure radiofrequency ablation of the medial branch lumbar area L3-S! , And recently we did bilateral sacroiliac joint steroid injectionsx2 He gets good pain relief after the sacroiliac joint steroid injection, currenely she is complaining of low back pain with radiation to the lower extremities, patient denies any excessive drowsiness or sleepiness, patient denies any suicidal ideation, Patient reported that the current medication is helping to control the pain and improve the activity of daily livings, Patient denies any motor or sensory deficit, denies any change in the bowel movement or urination, patient denies any fever or night sweats. Objective - Vital Signs Vital signs: Vital Signs Temp Pulse 58 L 12/06/17 14:07 Resp 16 12/06/17 14:07 BP 126/75 12/06/17 14:07 Pulse Ox 94 L 12/06/17 14:07 Intake & Output 12/06/17 12/07/17 12/07/17 18:59 06:59 18:59 Weight 135.171 kg - Exam Physical Examinations : 1-Constitutiona : Cooperative , not in acute distress . 2-HEENT : nech ; supple , no Lymphadenopathy , normal thyroid size . eyes : no ptosis , no icterus , no photophobia . ENT : normal of hearing , normal oropharynx , no Thrush . 3- Respiratory : Chest clear to auscultations Bilaterally , no wheezing , no Rhonchi . 4- Cardiovascular : regular rate and rhythem , S1 , S2 , no S3 , no S4. 5- Gastrointestinal : abdomen soft no tenderness , bowel sounds , no organomegally . 6- Genitourinary : Defferred . 7- neurologic : Cranial nerve II to XII intact , no focal neurological deffecit . 8-psychatric : alert , oriented X 3 , appropriate affect , intact judgment and insight . 9-Lymphatic : no Lymphadenopathy . 10- musculoskeltal : Lumber spine moter stegnth lower extremities ,thigh and legs 5/5 Right side , 5/5 Left side deep tendon reflexes : normal Knee Jerk , normal ankle Jerk positive lumber facet Loading Test Range of motion of the lumbar spine Flexion 30 degrees, extension 10 degrees strait leg raising test , positive at degree Fabere test positive RT and positive LT . Sever tenderness over the Sacroiliac joint on the R and L sides Assessment and Plan Plan: Assessment and plan= chronic low back pain secondary to lumbar degenerative disc disease , lumbar spondylosis with lumbar facet arthropathy . Sacroiliitis Status post radiofrequency ablation of the median branch lumbar area done more than 6 months ago, and status post bilateral sacroiliac joint steroid injections she had good results with the sacroiliac joint steroid injection but only for short term, Patient would be a good candidate to have lumbar epidural steroid injections under fluoroscopy guidance, we have to hold Coumadin for 5 days before the procedure, and we will check PT/INR for the procedure Time with Patient: Less than 30 PQRS Measure Charge Sheet Measure #130: Documentation of Current Meds in Medical Chart: Patient's medications documented in chart Measure #226: Tobacco Use: Screen & Cessation Intervention: Pt not a tobacco user Measure #111: Pneumonia Vaccination: Pneumococcal vaccine administered or previously received Measure #47: Advance Care Plan: Advance care planning discussed & documented, pt chose/unable to give Measure #412: Opioid Treatment Agreement: No documentation of signed opioid treatment agreement Measure #408: Opioid Therapy Follow-up Evaluation: Patient had NO f/u eval minimum every 3 months during opioid therapy Measure #317: Preventitive Care & Scrn High Bld Press & F/U: Normal blood pressure, f/u not required Measure #128: Body Mass Index (BMI) Screening & Follow-up: BMI documented ABOVE normal parameters - f/u documented Measure #131: Pain Assessment & Follow-up: Pain positive & plan documented, Follow-up scheduled Measure #431: Unhealthy Alcohol Use Preventative Care & Scrn: Patient not identified as an unhealthy alcohol user PQRS Narrative: Smoking Status Never smoker Do You Want the Pneumonia No Vaccine AT THIS TIME? Blood Pressure 126/75 Pain Intensity [Bilateral 4 Lower Back] Scale Used Numeric (1 - 10) Hx Alcohol Use (MH) No Home Medications: Ambulatory Orders Metoprolol Tartrate [Lopressor] 50 mg PO BID 02/10/14 Fexofenadine/Pseudoephedrine [Emma-D 12 Hour Tablet] 1 each PO BID PRN Simvastatin [Zocor] 20 mg PO HS 12/09/14 Cholecalciferol [Vitamin D3] 5,000 unit PO DAILY 01/19/17 Citalopram Hydrobromide [CeleXA] 40 mg PO DAILY 01/19/17 Gabapentin [Neurontin] 400 mg PO BID 01/19/17 LORazepam [Ativan] 0.5 mg PO HS 01/19/17 Meloxicam [Mobic] 7.5 mg PO DAILY 01/19/17 Mometasone Furoate [Nasonex Nasal [place]] 1 - 2 spray EA NOSTRIL DAILY PRN Warfarin Sodium [Coumadin] 4 mg PO MOFR 01/19/17 Warfarin Sodium [Coumadin] 8 mg PO SUTUWETHSA 01/19/17 amLODIPine [Norvasc] 5 mg PO BID 01/19/17 Fluticasone/Salmeterol [Advair 250-50 Diskus] 1 inhalation PO BID PRN 02/14/17 Metoprolol Tartrate [Lopressor] 25 mg PO AC-LUNCH 08/27/17 Controlled Substance Measures - Controlled Substance Measures Is patient prescribed a controlled substance at discharge?: No When asked, does pt state using other controlled substances?: No If prescribed controlled substance>3 days was MAPS reviewed?: No If Rx opioid, was Start Talking consent form obtained?: No If opioid is for acute pain is fill amount 7 days or less?: No Was information provided regarding opioid addiction?: No
== END | disposition home or self-care (01) ==
LOC: PNWHC3 13:53
PROVIDERS: ATTEND Specialist
DX: G89.29 Other chronic pain (principal); M51.36 Other intervertebral disc degeneration, lumbar region; M47.816 Spondylosis without myelopathy or radiculopathy, lumbar region; M46.96 Unspecified inflammatory spondylopathy, lumbar region; M46.1 Sacroiliitis, not elsewhere classified; Z98.890 Other specified postprocedural states; Z79.899 Other long term (current) drug therapy; Z79.1 Long term (current) use of non-steroidal anti-inflammatories (NSAID); Z79.01 Long term (current) use of anticoagulants
CPT/HCPCS: 99211

== ENCOUNTER 2017-12-10 07:12 | Day surgery (SDC) | payer MEDICARE, BC ==
[2017-12-07 11:59] VITALS: BMI 47.3
[2017-12-10 07:32] LABS: INR 1.1 (<1.2); Prothrombin Time 10.6 sec (9.0-12.0)
[2017-12-10 08:16] VITALS: RESP 16; TEMP 98
[2017-12-10] MEDS ORDERED: LIDOCAINE 1% 20 ML VIAL (10MG/ML) FOR IV START INTRADERMA ONE (08:25)
--- NOTE | 2017-12-10 08:48 | P.PCN ---
Date of Procedure: 12/10/17 Procedure(s) Performed: PREOPERATIVE DIAGNOSIS: 1- Lumbar Degenerative Disc Diseases 2-Lumbar spondylosis with Facet arthropathy without myelopathy 3-sacroiliitis POSTOPERATIVE DIAGNOSIS: 1-Lumber Degenerative Disc Diseases 2-Lumbar spondylosis with Facet arthropathy without myelopathy. 3-sacroiliitis PROCEDURE 1. Lumbar epidural steroid injection under fluoroscopic guidance at the L4-5 level. 2. Lumbar epidurogram. ANESTHESIA: Local with 1% lidocaine 3 ml and , moderate sedation with intravenous Versed 2 mg ,and fentanyle 100 Mcg EBL: Minimal PROCEDURE INDICATION: The patient with low back pain and radiculitis symptoms unresponsive to conservative treatment. Fluoroscopy was used to optimize visualization of the needle placement and to maximize safety. PROCEDURE DESCRIPTION / TECHNIQUE: The patient was seen and identified in the preoperative area. Risks, benefits , complications including but not limited to infections ,bleeding ,allergic reaction to the medications ,nerve damage and not complete pain releife , and alternatives were discussed with the patient. The patient agreed to proceed with the procedure and signed the consent. IV was started, and vital signs were stable. Patient was taken to the OR and time out was completed. The patient was placed in the prone position on procedure table and a pillow was placed under the abdomen to reduce lumbar lordosis. The lumbosacral area was prepped and draped in the usual sterile fashion.ere closely monitored during the procedure. Conscious sedation was used during the procedure to decrease patients anxiety. Vital signs was monitered during the entire procedure. Using anterior-posterior fluoroscopy, the L5-S1 interlaminar space was identified and the skin over this site was marked and then infiltrated with 1% lidocaine subcutaneously. Subsequently, a 20-gauge Tuohy epidural needle was inserted and advanced toward the epidural space using the ``Loss of resistance technique and guided by AP and lateral fluoroscopy. The correct needle position in the epidural space was verified with the injection of 2 mL of the water soluble contrast dye Isovue 200 contrast and observing an excellent epidurogram with the epidural spread of the dye, after negative aspiration for blood and CSF and in the absence of paresthesias. Again after negative aspiration, a 6 ml mixture containing 80 mg Depo- Medrol , and 2 ml of preservative free Normal Saline, and 2 ml of preservative free lidocaine 1% solution was injected and a washout of epidurogram was seen. Needle was withdrawn intact, skin was cleansed, and bandages were applied. COMPLICATIONS: None DISPOSITION / PLANS: The patient was placed in a supine position and transferred to the recovery area in a stable condition for observation. There was no evidence of lower extremity motor or sensory deficit after the procedure. Patient was discharged from the recovery room after meeting discharge criteria. Home discharge instructions were given to the patient by the staff. The patient was reexamined prior to discharge. The patient will schedule a follow up in the clinic in 2-4 weeks.
--- NOTE | 2017-12-10 08:57 | FL ---
EXAMINATION TYPE: FL guided pain mgmt statistic DATE OF EXAM: 12/10/2017 FLUOROSCOPY Fluoroscopy time of 5 seconds was used during lumbar epidural injection. 1 image/s document/s the pr jose juan.
[2017-12-10] MEDS ORDERED: IV FLUID CONTINUATION 1,000 ML IV ONE ×2 (09:00)
[2017-12-10 09:47] VITALS: BP 108/50; PULSE 88
== END 2017-12-10 09:59 | disposition home or self-care (01) ==
LOC: ORPAIN 07:12
PROVIDERS: ATTEND Specialist
DX: M47.816 Spondylosis without myelopathy or radiculopathy, lumbar region (principal); M46.1 Sacroiliitis, not elsewhere classified; M51.36 Other intervertebral disc degeneration, lumbar region; Z79.01 Long term (current) use of anticoagulants; Z79.899 Other long term (current) drug therapy
CPT/HCPCS: 99152; 85610; 36415; 62323; J2250; J1030; J3010; Q9966

== ENCOUNTER → 2018-01-11 | Outpatient (CLI) | payer MEDICARE, BC ==
--- NOTE | 2018-01-11 11:00 | XR ---
EXAMINATION TYPE: XR knee complete LT DATE OF EXAM: 01/11/2018 CLINICAL HISTORY: pain TECHNIQUE: Three views of the left knee are obtained. COMPARISON: None. FINDINGS: There is no acute fracture/dislocation. The tri-compartment joint spaces appear within no rmal limits. The overlying soft tissue appears unremarkable. IMPRESSION: There is no acute fracture or dislocation ICD 10 NO FRACTURE, INITIAL EVALUATION
--- NOTE | 2018-01-11 11:01 | XR ---
EXAMINATION TYPE: XR Hip Complete LT DATE OF EXAM: 01/11/2018 CLINICAL HISTORY: pain TECHNIQUE: AP and frogleg views of the left hip are obtained. COMPARISON: None. FINDINGS: There is no acute fracture/dislocation evident. The joint space appears [id number] joint space narrowing.. The overlying soft tissue appears unremarkable. IMPRESSION: 1. There is no acute fracture or dislocation.ICD 10 NO FRACTURE, INITIAL EVALUATION
--- NOTE | 2018-01-11 11:35 | XR ---
EXAMINATION TYPE: XR lumbosacral spine min 4V DATE OF EXAM: 01/11/2018 CLINICAL HISTORY: pain COMPARISON: NONE TECHNIQUE: Frontal, lateral, and oblique images of the lumbar spine are obtained. FINDINGS: There are 5 lumbar type vertebral bodies identified. The lumbar spine shows satisfactory alignment without evidence of acute fracture or dislocation. Vertebral body heights are within normal limits. Severe multilevel degenerative disc space narrowing and spondylosis. The overlying soft ti ssue appears unremarkable. IMPRESSION: No acute fracture or dislocation is seen in the lumbar spine.ICD 10 NO FRACTURE, INITIAL EVALUATION
== END ==
LOC: RADXRMAIN 09:36
PROVIDERS: ATTEND Internal Medicine
DX: M25.562 Pain in left knee (principal); M54.5 Low back pain; M25.552 Pain in left hip
CPT/HCPCS: 72110; 73502

== ENCOUNTER 2018-01-31 09:25 | Day surgery (SDC) | payer MEDICARE, BC ==
[2018-01-28 11:10] VITALS: BMI 47.3
[~2018-01-31 09:25] MED LIST changes: -LACTATED RINGERS 1,000 ML IV SCH; +SODIUM CHLORIDE 0.9% 500 ML 500 ML IV SCH
[2018-01-31 11:28] VITALS: RESP 16; TEMP 97.7
[2018-01-31] MEDS ORDERED: SODIUM CHLORIDE 0.9% 1,000 ML IV ONE (11:28)
--- NOTE | 2018-01-31 12:08 | P.PCN ---
Date of Procedure: 01/31/18 Procedure(s) Performed: PREOPERATIVE DIAGNOSIS: 1- Lumbar Degenerative Disc Diseases 2-Lumbar spondylosis with Facet arthropathy without myelopathy. 3-sacroiliitis POSTOPERATIVE DIAGNOSIS: 1-Lumber Degenerative Disc Diseases 2-Lumbar spondylosis with Facet arthropathy without myelopathy. 3-sacroiliitis PROCEDURE 1. Lumbar epidural steroid injection under fluoroscopic guidance at the L5-S1 level. 2. Lumbar epidurogram. ANESTHESIA: Local with 1% lidocaine 3 ml and , moderate sedation with intravenous Versed 2 mg ,and fentanyle 100 Mcg EBL: Minimal PROCEDURE INDICATION: The patient with low back pain and radiculitis symptoms unresponsive to conservative treatment. Fluoroscopy was used to optimize visualization of the needle placement and to maximize safety. PROCEDURE DESCRIPTION / TECHNIQUE: The patient was seen and identified in the preoperative area. Risks, benefits , complications including but not limited to infections ,bleeding ,allergic reaction to the medications ,nerve damage and not complete pain releife , and alternatives were discussed with the patient. The patient agreed to proceed with the procedure and signed the consent. IV was started, and vital signs were stable. Patient was taken to the OR and time out was completed. The patient was placed in the prone position on procedure table and a pillow was placed under the abdomen to reduce lumbar lordosis. The lumbosacral area was prepped and draped in the usual sterile fashion.ere closely monitored during the procedure. Conscious sedation was used during the procedure to decrease patients anxiety. Vital signs was monitered during the entire procedure. Using anterior-posterior fluoroscopy, the L5-S1 interlaminar space was identified and the skin over this site was marked and then infiltrated with 1% lidocaine subcutaneously. Subsequently, a 20-gauge Tuohy epidural needle was inserted and advanced toward the epidural space using the ``Loss of resistance technique and guided by AP and lateral fluoroscopy. The correct needle position in the epidural space was verified with the injection of 2 mL of the water soluble contrast dye Isovue 200 contrast and observing an excellent epidurogram with the epidural spread of the dye, after negative aspiration for blood and CSF and in the absence of paresthesias. Again after negative aspiration, a 6 ml mixture containing 80 mg of Depo-medrol ,and 2 ml of preservative free Normal Saline, and 2 ml of preservative free lidocaine 1% solution was injected and a washout of epidurogram was seen. Needle was withdrawn intact, skin was cleansed, and bandages were applied. COMPLICATIONS: None DISPOSITION / PLANS: The patient was placed in a supine position and transferred to the recovery area in a stable condition for observation. There was no evidence of lower extremity motor or sensory deficit after the procedure. Patient was discharged from the recovery room after meeting discharge criteria. Home discharge instructions were given to the patient by the staff. The patient was reexamined prior to discharge. The patient will schedule a follow up in the clinic in 2-4 weeks.
[2018-01-31 12:39] VITALS: BP 125/68; PULSE 69
--- NOTE | 2018-01-31 15:08 | FL ---
EXAMINATION TYPE: FL guided pain mgmt statistic DATE OF EXAM: 01/31/2018 COMPARISON: NONE HISTORY: Back pain TECHNIQUE: Fluoroscopy. FINDINGS/IMPRESSION: Fluoroscopic guidance was provided during procedure performed by Dr. Ann. A total of 4 seconds of fluoroscopic time was utilized during the procedure and 1 spot images was ac quired demonstrating localization of the lumbosacral spine.
== END 2018-01-31 13:01 | disposition home or self-care (01) ==
LOC: ORPAIN 09:25
PROVIDERS: ATTEND Specialist
DX: M51.16 Intervertebral disc disorders with radiculopathy, lumbar region (principal); M47.26 Other spondylosis with radiculopathy, lumbar region; M46.1 Sacroiliitis, not elsewhere classified; I48.91 Unspecified atrial fibrillation; Z88.5 Allergy status to narcotic agent; Z79.01 Long term (current) use of anticoagulants
CPT/HCPCS: 62323; J2250; J1030; J3010; Q9966; 36415; 85610

== ENCOUNTER → 2018-01-31 | Outpatient (CLI) | payer MEDICARE, BC ==
[2018-01-31 10:13] LABS: Prothrombin Time 9.7 sec (9.0-12.0)
== END ==
LOC: LABWHC1 09:14
PROVIDERS: ATTEND Specialist
DX: Z51.81 Encounter for therapeutic drug level monitoring (principal); Z79.01 Long term (current) use of anticoagulants
CPT/HCPCS: 36415; 85610

== ENCOUNTER → 2018-03-04 | Outpatient (CLI) | payer MEDICARE, BC ==
[2018-03-04 11:35] VITALS: BP 147/84; PULSE 96; RESP 18
--- NOTE | 2018-03-04 12:25 | P.PN ---
Subjective Progress Note Date: 03/04/18 Lisbet presents for follow-up today. She continues to have limited low back pain with pain down her left leg and into her left thigh. She reports the left thigh pain began after having a fall in December and she feels it is getting better. She had 2 epidural steroid injections over the past few months and feels significantly better. She denies any pain going down her leg to the foot. She continues to work out 3 times a week aqua therapy and is going physical therapy. She is also working on weight loss via [employer]. She does not use any pain medications at this time. Objective - Vital Signs Vital signs: Vital Signs Temp Pulse 96 03/04/18 11:22 Resp 18 03/04/18 11:22 BP 147/84 03/04/18 11:22 Pulse Ox 96 03/04/18 11:22 Intake & Output 03/03/18 03/04/18 03/04/18 18:59 06:59 18:59 Weight 135.171 kg - Exam General: Awake and alert oriented 3 no distress, obese Respiratory exam: No audible wheezing no accessory muscle usage Cardiovascular exam: regular rate, palpable bilateral pulses, 1+ lower extremity edema bilateral Abdominal exam: No distention nontender to palpation Cervical spine: Normal alignment, Spurling's negative, facet loading negative Lumbar spine: Loss of lumbar lordosis, normal alignment, tender to palpation over bilateral paraspinal muscles, facet loading is positive bilaterally. Straight leg raise is negative. Sacroiliac joints: Nontender to palpation, BRIANNA is negative, Gaenselon negative. + Tenderness to palpation left lateral thigh. Neuro exam: Normal sensation in bilateral upper extremities, deep tendon reflexes are 2+ bilateral upper extremities. Normal sensation in bilateral lower extremities. Deep tendon reflexes are 2+ in lower extremities Psych exam: Cooperative, appropriate mood Assessment and Plan Assessment: Lumbar spondylosis without myelopathy Lumbar radiculopathy Trochanteric bursitis of the left leg Plan: Plan is to follow up in May 2018. At that time we will reevaluate to see if her back pain is improved she may require repeat radiofrequency ablation of the lumbar spine. I have advised her to continue physical therapy and workout as described by the physical therapist. I advised continuing her weight loss efforts. I will also advise her to wear compression stockings through the day she has some swelling in her bilateral lower extremities. Time with Patient: Less than 30
== END | disposition home or self-care (01) ==
LOC: PNWHC3 11:08
PROVIDERS: ATTEND Hospitalist
DX: M47.26 Other spondylosis with radiculopathy, lumbar region (principal); M70.62 Trochanteric bursitis, left hip
CPT/HCPCS: 99211

== ENCOUNTER → 2018-04-26 | Outpatient (CLI) | payer MEDICARE, BC ==
--- NOTE | 2018-04-28 08:16 | MM ---
Reason for exam: additional evaluation requested from prior study. Last mammogram was performed 1 year and 2 months ago. History: Patient is postmenopausal, history of high-risk lesion on a previous biopsy, and had first child at age 34. Family history of breast cancer in grandmother at age 60. Silicone gel implants in both breasts, 2005. Saline implants in both breasts, 1995. Reduction of the left breast. Reduction of the right breast. 4 excisional biopsies of the left breast. 2 excisional biopsies of the right breast. Took estrogen for 13 years beginning at age 45. Physical Findings: Nurse did not find any significant physical abnormalities on exam. MG 3D Diag Mammo Imp W/Cad VANESSA Bilateral CC, MLO, and ID view(s) were taken. Prior study comparison: February 27, 2017, bilateral MG screening mammo implant/CAD. November 11, 2015, bilateral MG 3d diag mammo imp w/cad VANESSA. There are scattered fibroglandular densities. There are benign-appearing left breast calcifications. Bilateral saline implants are noted. No suspicious abnormality. No significant new finding when compared with prior studies. These results were verbally communicated with the patient and result sheet given to the patient on 04/26/18. ASSESSMENT: Negative, BI-RAD 1 RECOMMENDATION: Routine screening mammogram of both breasts in 1 year.
== END ==
LOC: RADMAMWWP 12:31
PROVIDERS: ATTEND Obstetrics & Gynecology
DX: Z09 Encounter for follow-up examination after completed treatment for conditions other than malignant neoplasm (principal); Z98.82 Breast implant status
CPT/HCPCS: 77066; G0279; 77062

== ENCOUNTER → 2018-05-07 | Outpatient (CLI) | payer MEDICARE, BC ==
[2018-05-07 11:09] VITALS: BP 110/72; PULSE 78; RESP 18
--- NOTE | 2018-05-07 15:25 | P.PN ---
Subjective Progress Note Date: 05/07/18 This is follow-up visit for this patient with a history of severe and chronic low back pain secondary to lumbar degenerative disc disease, lumbar facet arthropathy, sacroiliitis We have done an interventional pain procedure radiofrequency ablation of the medial branch lumbar area L3-S! , Which was done in May and June 2017 , , currenely she is complaining of low back pain with radiation to the buttock area bilaterally,, patient denies any excessive drowsiness or sleepiness, patient denies any suicidal ideation, Patient reported that the current medication is helping to control the pain and improve the activity of daily livings, Patient denies any motor or sensory deficit, denies any change in the bowel movement or urination, patient denies any fever or night sweats. Physical Examinations : 1-Constitutiona : Cooperative , not in acute distress . 2-HEENT : nech ; supple , no Lymphadenopathy , normal thyroid size . eyes : no ptosis , no icterus , no photophobia . ENT : normal of hearing , normal oropharynx , no Thrush . 3- Respiratory : Chest clear to auscultations Bilaterally , no wheezing , no Rhonchi . 4- Cardiovascular : regular rate and rhythem , S1 , S2 , no S3 , no S4. 5- Gastrointestinal : abdomen soft no tenderness , bowel sounds , no organomegally . 6- Genitourinary : Defferred . 7- neurologic : Cranial nerve II to XII intact , no focal neurological deffecit . 8-psychatric : alert , oriented X 3 , appropriate affect , intact judgment and insight . 9-Lymphatic : no Lymphadenopathy . 10- musculoskeltal : Lumber spine moter stegnth lower extremities ,thigh and legs 5/5 Right side , 5/5 Left side deep tendon reflexes : normal Knee Jerk , normal ankle Jerk positive lumber facet Loading Test Range of motion of the lumbar spine Flexion 30 degrees, extension 10 degrees strait leg raising test , positive at 60 degree Fabere test positive RT and positive LT . Sever tenderness over the Sacroiliac joint on the R and L sides Assessment and plan= chronic low back pain secondary to lumbar degenerative disc disease , lumbar spondylosis with lumbar facet arthropathy . Sacroiliitis Status post radiofrequency ablation of the median branch lumbar area done more than 6 months ago, currently patient having pain mostly secondary to sacroiliitis, she could benefit from bilateral sacroiliac joint steroid injection, if she continued to have pain after the sacroiliac joint steroid injection ,then we will schedule her to have radiofrequency ablation of the medial branch lumbar area , we have to hold Coumadin for 5 days before the procedure, and we will check PT/INR for the procedure Recommend to change Neurontin dose from 600 mg daily to 400 mg twice a day, patient getting prescription refill for her Neurontin from Time with Patient: Less than 30 PQRS Measure Charge Sheet Measure #130: Documentation of Current Meds in Medical Chart: Patient's medications documented in chart Measure #226: Tobacco Use: Screen & Cessation Intervention: Pt not a tobacco user Measure #111: Pneumonia Vaccination: Pneumococcal vaccine administered or previously received Measure #47: Advance Care Plan: Advance care planning discussed & documented, pt chose/unable to give Measure #412: Opioid Treatment Agreement: No documentation of signed opioid treatment agreement Measure #408: Opioid Therapy Follow-up Evaluation: Patient had NO f/u eval minimum every 3 months during opioid therapy Measure #317: Preventitive Care & Scrn High Bld Press & F/U: Normal blood pressure, f/u not required Measure #128: Body Mass Index (BMI) Screening & Follow-up: BMI documented ABOVE normal parameters - f/u documented Measure #131: Pain Assessment & Follow-up: Pain positive & plan documented, Follow-up scheduled Measure #431: Unhealthy Alcohol Use Preventative Care & Scrn: Patient not identified as an unhealthy alcohol user PQRS Narrative: - Controlled Substance Measures Is patient prescribed a controlled substance at discharge?: No When asked, does pt state using other controlled substances?: No If prescribed controlled substance>3 days was MAPS reviewed?: No If Rx opioid, was Start Talking consent form obtained?: No If opioid is for acute pain is fill amount 7 days or less?: No Was information provided regarding opioid addiction?: No Objective - Vital Signs Vital signs: Vital Signs Temp Pulse 78 05/07/18 11:02 Resp 18 05/07/18 11:02 BP 110/72 05/07/18 11:02 Pulse Ox 95 05/07/18 11:02 Intake & Output 05/06/18 05/07/18 05/07/18 18:59 06:59 18:59 Weight 135.171 kg
== END ==
LOC: PNWHC3 10:55
PROVIDERS: ATTEND Specialist
DX: G89.29 Other chronic pain (principal); M51.36 Other intervertebral disc degeneration, lumbar region; M47.816 Spondylosis without myelopathy or radiculopathy, lumbar region; M46.96 Unspecified inflammatory spondylopathy, lumbar region; M46.1 Sacroiliitis, not elsewhere classified; Z79.899 Other long term (current) drug therapy
CPT/HCPCS: 99211

== ENCOUNTER 2018-05-16 06:32 | Day surgery (SDC) | payer MEDICARE, BC ==
[2018-05-15 08:22] VITALS: BMI 48.1
[2018-05-16] MEDS ORDERED: SODIUM CHLORIDE 0.9% 500 ML 500 ML IV SCH (07:00)
[2018-05-16 07:43] VITALS: TEMP 97.5
[2018-05-16] MEDS ORDERED: LACTATED RINGERS 1,000 ML IV ONE (07:43)
[2018-05-16] MEDS ORDERED: LIDOCAINE 1% 20 ML VIAL (10MG/ML) FOR IV START INTRADERMA ONE (07:43)
--- NOTE | 2018-05-16 08:48 | P.PCN ---
Date of Procedure: 05/16/18 Procedure(s) Performed: Procedure= bilateral sacral iliac joints steroid injection under fluoroscopy guidance Preoperative diagnosis= 1-sacroiliitis 2-lumbar degenerative disc disease 3- lumbar facet arthropathy . Postoperative diagnosis=1-sacroiliitis 2-lumbar degenerative disc disease 3- lumbar facet arthropathy Complication = none Condition= stable Anesthesia= moderate sedation with intravenous Versed 2mg , and fentanyl 100 micrograms and local infiltration with lidocaine 1% 5 mL Indication for the procedure= patient complaining of low back pain , examination was positive for severe tenderness over the sacroiliac joints bilaterally and patient diagnosed with sacroiliitis, for this reason he/ she was good candidate for sacroiliac joint steroid injection. Description of the procedure= procedure risk and benefits discussed with the patient, including but not limited, risk of infection and bleeding, and ALLERGIC reaction to the medication and not complete pain relief and patient agreed with the preceding patient taken to the operating room, placed in prone position or standard monitors applied to the patient then after induction of anesthesia back prepped with chlorhexidine 3 times , Then under strict sterile technique, first I did the right sacroiliac joint the which was identified under fluoroscopy guidance been local infiltration of the skin and subcu interstitial with lidocaine 1% then 22-gauge Quincke Needle advanced slowly under fluoroscopy and placed in the right sacroiliac joint needle placement confirmed with AP and oblique and lateral view and after appropriate needle placement confirmed and after negative aspiration, or heme , then Ropivacaine 0.5% 4 mL, and 40 mg of Depo-Medrol mixed together and injected in the right sacroiliac joint after negative aspiration patient tolerated the procedure well without any complication. Then the left sacroiliac joint steroid injection done under strict sterile technique local infiltration of the skin and subcu interstitial at the location of the left sacroiliac joint then a 22-gauge Quincke Needle advanced slowly under fluoroscopy time placed in the left sacroiliac joint, needle placement confirmed with AP and oblique and lateral view then after appropriate needle placement confirmed and after negative aspiration 0.5% Marcaine 3 mL and 40 mg of Depo-Medrol injected in the left sacroiliac joint after negative aspiration patient tolerated the procedure well that any complications and she will follow up in clinic 3 weeks
[2018-05-16] MEDS ORDERED: IV FLUID CONTINUATION 1,000 ML IV ONE (08:52)
[2018-05-16] MEDS ORDERED: ONDANSETRON 4 MG/2 ML VIAL IVP ONE (09:09)
[2018-05-16 09:15] VITALS: BP 131/63; PULSE 65; RESP 18
== END 2018-05-16 09:30 | disposition home or self-care (01) ==
LOC: ORPAIN 06:32
PROVIDERS: ATTEND Specialist
DX: M46.1 Sacroiliitis, not elsewhere classified (principal); M51.36 Other intervertebral disc degeneration, lumbar region; M46.96 Unspecified inflammatory spondylopathy, lumbar region; Z88.5 Allergy status to narcotic agent; Z79.01 Long term (current) use of anticoagulants
CPT/HCPCS: J2250; J2405; J3010; G0260; 36415; 85610; 99152

== ENCOUNTER → 2018-05-16 | Outpatient (CLI) | payer MEDICARE, BC ==
[2018-05-16 06:58] LABS: INR 0.9 (<1.2); Prothrombin Time 10.1 sec (9.0-12.0)
--- NOTE | 2018-05-16 11:56 | FL ---
EXAMINATION TYPE: FL guided pain mgmt statistic DATE OF EXAM: 05/16/2018 FLUOROSCOPY Fluoroscopy time of 11 seconds was used during bilateral SI joint injection. 2 image/s document/s th e procedure.
== END | disposition home or self-care (01) ==
LOC: LABPAT 06:36 → LABWHC1 06:39
PROVIDERS: ATTEND Specialist
DX: Z51.81 Encounter for therapeutic drug level monitoring (principal); Z79.01 Long term (current) use of anticoagulants
CPT/HCPCS: 36415; 85610

== ENCOUNTER 2018-06-13 07:34 | Day surgery (SDC) | payer MEDICARE, BC ==
[2018-06-11 09:18] VITALS: BMI 47.9
[2018-06-13 09:01] VITALS: RESP 18; TEMP 96.7
[2018-06-13] MEDS ORDERED: LACTATED RINGERS 1,000 ML IV ONE (09:09)
[2018-06-13] MEDS ORDERED: LIDOCAINE 1% 20 ML VIAL (10MG/ML) FOR IV START INTRADERMA ONE (09:09)
[2018-06-13] MEDS ORDERED: ONDANSETRON 4 MG/2 ML VIAL IVP ONE (09:10)
--- NOTE | 2018-06-13 09:58 | P.PCN ---
Date of Procedure: 06/13/18 Surgeon: Marck Lewis Pathology: none sent Condition: stable Disposition: PACU Description of Procedure: Preoperative diagnoses= B/Lsacroiliac joint dysfunction and sacroiliitis Postoperative diagnoses= same as preoperative diagnosis. Procedure= B/L sacroiliac joint steroid injection under fluoroscopic guidance. Anesthesia= local anesthesia with lidocaine 1% and IV moderate conscious sedation with fentanyl and Versed Estimated blood loss=minimal. Procedure indication= the patient had a history of severe chronic low back pain , diagnosed with sacroiliitis and lumbar sacral facet arthropathy unresponsive to conservative treatment. Procedure description= the patient was seen and identified in the preoperative holding area, risks and benefits and alternative of the procedure and possible complications discussed with the patient, patient signed the consent. an IV was started, and vital signs were monitored and were stable throughout the procedure , patient was placed in the prone position or table and the lumbosacral area was prepped and draped with a sterile fashion, vital signs were closely monitored during the procedure.The Rt sacroiliac joint was identified on the AP view of fluoroscopy then the C-arm was tilted to the Lt oblique position to superimpose the anterior and posterior joint lines on each other and to have a unified joint line with the target point at the inferior one third of this line. I used 22-gauge 3-1/2 inch Quincke spinal needle for this procedure and after getting into the sacroiliac joint I injected 20 mg of Kenalog +1.5 MLS of Ropivacaine 0.5%. The procedure was repeated in the same way on the left side. The total dose of steroids used were 40 mg of Kenalog. Patient tolerated the procedure well without any complication, The patient returned to supine position after the back was cleaned and a Band- Aid applied, the patient transported to recovery room in stable condition and he was monitored for 30 minutes before he was discharged home and then patient was reexamined before going home and patient was discharged in stable condition and patient will follow up with the pain clinic in a few weeks
[2018-06-13] MEDS ORDERED: IV FLUID CONTINUATION 650 ML IV ONE (10:01)
[2018-06-13 10:39] VITALS: BP 110/66; PULSE 55
--- NOTE | 2018-06-13 12:13 | FL ---
Fluoroscopy HISTORY: Pain 10 seconds fluoroscopy time supplied to the referring clinician. 2 intraoperative C-arm images docum ent the procedure. See dictated report from anesthesia.
== END 2018-06-13 10:31 | disposition home or self-care (01) ==
LOC: ORPAIN 07:34
PROVIDERS: ATTEND Anesthesiology
DX: G89.29 Other chronic pain (principal); M46.1 Sacroiliitis, not elsewhere classified; I48.91 Unspecified atrial fibrillation; Z79.01 Long term (current) use of anticoagulants; E66.9 Obesity, unspecified; Z68.42 Body mass index [BMI] 45.0-49.9, adult
CPT/HCPCS: J2250; J3301; J2405; J3010; G0260

== ENCOUNTER → 2018-06-13 | Outpatient (CLI) | payer MEDICARE, BC ==
[2018-06-13 08:05] LABS: INR 0.9 (<1.2)
== END | disposition home or self-care (01) ==
LOC: LABWHC1 07:41
PROVIDERS: ATTEND Specialist
DX: Z51.81 Encounter for therapeutic drug level monitoring (principal); Z79.01 Long term (current) use of anticoagulants
CPT/HCPCS: 36415; 85610

== ENCOUNTER → 2018-07-02 | Outpatient (CLI) | payer MEDICARE, BC ==
[2018-07-02 12:12] VITALS: BP 100/71; PULSE 62; RESP 18
--- NOTE | 2018-07-02 12:43 | P.PAINPG ---
Subjective Progress Note Date: 07/02/18 Principal diagnosis: Bilateral sacroiliitis This is a very pleasant 67-year-old woman with a history of bilateral sacroiliac pain. She is recently undergone 2 sets of sacroiliac joint injections. She reports these been very helpful reducing her pain. They have reduced her pain by well more than 50% each time she had them done. She is interested in pursuing radio frequency ablation. She's had this done over her lumbar facet joints in the past and is been very helpful. She does take Coumadin. She would need to discontinue this for her injections. She has done this in the past. Objective - Vital Signs Vital signs: Vital Signs Temp Pulse 62 07/02/18 12:04 Resp 18 07/02/18 12:04 BP 100/71 07/02/18 12:04 Pulse Ox 94 L 07/02/18 12:04 Intake & Output 07/01/18 07/02/18 07/02/18 18:59 06:59 18:59 Weight 139.253 kg - Exam General: The patient is alert and oriented. Patient is not sedated Patient answers all question appropriately. Cardiac: Heart is regular in rate and rhythm Respiratory: Clear to auscultation. No audible wheezes. Abdomen: Soft nontender nondistended. Musculoskeletal: Strength is normal bilaterally. Sensation is normal bilaterally. Straight leg raise is negative bilaterally. She is tender to palpation over her sacroiliac joints bilaterally. Neurological: Reflexes are preserved and symmetric bilaterally. Assessment and Plan (1) Bilateral sacroiliitis Narrative/Plan: We will schedule the patient for bilateral sacroiliac joint injections. She will need to discontinue her Coumadin. She does have approval from her prescribing physician to do this. I have again discussed with her the risks of discontinuing her medication including blood clots, heart attack stroke and . I would recommend that she have both sides of her radiofrequency done at the same time. This will minimize her time off of anticoagulants. We will give her a prescription to have her INR checked prior to the procedure. We will also allow for extra time for this procedure given the bilateral nature of the planned event. Current Visit: Yes Status: Acute Code(s): M46.1 - SACROILIITIS, NOT ELSEWHERE CLASSIFIED SNOMED Code(s): 44885820 PQRS Measure Charge Sheet Measure #130: Documentation of Current Meds in Medical Chart: Patient not eligible for medications to be documented Measure #226: Tobacco Use: Screen & Cessation Intervention: Pt not a tobacco user Measure #111: Pneumonia Vaccination: Pneumococcal vaccine administered or previously received Measure #47: Advance Care Plan: Advance care planning discussed & documented, plan or surrogate given Measure #412: Opioid Treatment Agreement: No documentation of signed opioid treatment agreement Measure #408: Opioid Therapy Follow-up Evaluation: Patient had NO f/u eval minimum every 3 months during opioid therapy Measure #317: Preventitive Care & Scrn High Bld Press & F/U: Pre-hypertensive or hypertensive BP documented, pt will f/u with PCP Measure #128: Body Mass Index (BMI) Screening & Follow-up: BMI documented ABOVE normal parameters - f/u documented Measure #131: Pain Assessment & Follow-up: Pain positive & plan documented Measure #431: Unhealthy Alcohol Use Preventative Care & Scrn: Patient not identified as an unhealthy alcohol user PQRS Narrative: Smoking Status Never smoker Do You Want the Pneumonia Vaccine Up to Date Vaccine AT THIS TIME? Blood Pressure 100/71 Pain Intensity [Bilateral 4 Lower Back] Scale Used Numeric (1 - 10) Hx Alcohol Use (MH) No Home Medications: Ambulatory Orders Metoprolol Tartrate [Lopressor] 50 mg PO BID 02/10/14 Fexofenadine/Pseudoephedrine [Emma-D 12 Hour Tablet] 1 each PO BID PRN 12/09/14 Simvastatin [Zocor] 20 mg PO HS 12/09/14 Cholecalciferol [Vitamin D3] 5,000 unit PO DAILY 01/19/17 Citalopram Hydrobromide [CeleXA] 40 mg PO DAILY 01/19/17 LORazepam [Ativan] 0.5 mg PO HS 01/19/17 Meloxicam [Mobic] 7.5 mg PO DAILY 01/19/17 Mometasone Furoate [Nasonex Nasal [place]] 1 - 2 spray EA NOSTRIL DAILY PRN 01/19/17 amLODIPine [Norvasc] 5 mg PO BID 01/19/17 Fluticasone/Salmeterol [Advair 250-50 Diskus] 1 inhalation PO BID PRN 02/14/17 Metoprolol Tartrate [Lopressor] 25 mg PO AC-LUNCH 08/27/17 Gabapentin 1 tab PO DAILY 05/07/18 Warfarin Sodium [Coumadin] 4 mg PO MOWEFR 05/15/18 Warfarin Sodium [Coumadin] 8 mg PO SUTUTHSA 05/15/18 Controlled Substance Measures - Controlled Substance Measures Is patient prescribed a controlled substance at discharge?: No
== END ==
LOC: PNWHC3 11:42
PROVIDERS: ATTEND Pain Medicine Pain Medicine
DX: M46.1 Sacroiliitis, not elsewhere classified (principal); Z79.891 Long term (current) use of opiate analgesic; Z79.899 Other long term (current) drug therapy; Z79.1 Long term (current) use of non-steroidal anti-inflammatories (NSAID); Z79.01 Long term (current) use of anticoagulants
CPT/HCPCS: 99211

== ENCOUNTER 2018-07-08 05:54 | Day surgery (SDC) | payer MEDICARE, BC ==
[2018-07-04 18:03] VITALS: BMI 49.5
[2018-07-08] MEDS ORDERED: SODIUM CHLORIDE 0.9% 500 ML 500 ML IV SCH (06:45)
[2018-07-08 07:07] LABS: Glucose,Whole Blood 103 mg/dL (75-99)
[2018-07-08] MEDS ORDERED: LACTATED RINGERS 1,000 ML IV ONE (07:08)
[2018-07-08 07:11] VITALS: RESP 20; TEMP 98.3
[2018-07-08 07:25] LABS: INR 0.9 (<1.2); Prothrombin Time 10.1 sec (9.0-12.0)
[2018-07-08] MEDS ORDERED: IV FLUID CONTINUATION 1,000 ML IV ONE (08:30)
--- NOTE | 2018-07-08 08:31 | P.PCN ---
Date of Procedure: 07/08/18 Procedure(s) Performed: PREOPERATIVE DIAGNOSIS: 1-Lumbosacral spondylosis with facet arthropathy without myelopathy. 2-Bilateral sacroiliit. post operative Diagnosis: . 1-Lumbosacral spondylosis with facet arthropathy without myelopathy. 2-Bilateral sacroiliit. PROCEDURES: 1- Left radiofrequency thermocoagulation/ablation of the L5 dorsal ramus. 2- Left multi-site radiofrequency thermocoagulation/ablation of the S1, S2, lateral branchs. ( S3 was not done ,Because I did not visualize the S3 foramina ) The procedure was performed using fluoroscopic guidance during needle placement to assure proper position and maximize safety . ANESTHESIA: LOCAL ANESTHESIA = moderate sedation with intravenous versed 1 mg and Fentanyle 50 mcg EBL: NONE INDICATION/MEDICAL NECESSITY: History of low back pain secondary to left right bilateral sacroiliitis and lumbosacral arthropathy unresponsive to more conservative treatments. The patient reported more than 50% relief of pain symptoms following 2 previous diagnostic blocks with Bupivacaine. PROCEDURE DESCRIPTION: The patient was seen and identified in the preoperative area. Risks, benefits, complications, and alternatives were discussed with the patient. The patient agreed to proceed with the procedure and signed the consent. Vital signs were checked before and after the procedure and they remained stable. Patient ambulated to the procedure room and time out was completed. The patient was placed in the prone position on the procedure table and a pillow was placed under the abdomen to reduce lumbar lordosis. The lumbosacral area was prepped and draped in the usual sterile fashion. Critical pause was taken. L5 Dorsal Ramus RF: Using right oblique fluoroscopy, the junction of the transverse process and the superior articular process of the Left S1 vertebra, which correspond to the fluoroscopic image of the "eye of the Shel[place] dog" was identified. Subsequently, a 10-cm 20 -gauge radiofrequency cannula with a 10-mm active tip was advanced under fluoroscopic guidance until contact was made with periosteum. At this level, the Sensory testing of the L5 dorsal ramus was performed at 50 Hz and 0 to 1 volt with production of concordant pain starting at 0.5 volt. Motor stimulation was done at 2.5 Hz with stimulation of mulitifidus muscle contra tion . No radicular symptoms or paresthesias were produced during the testing. Subsequently, the L5 dorsal ramus was subjected to a radiofrequency ablation at 80 degree celsius for 90 seconds . after 0.5% Ropivacaine 1 ml injected at each level after negative aspirations .. S1, S2 Lateral Branch RF: The lateral margins of the Left S1, S2, foramina were identified using AP fluoroscopy. Under fluoroscopic guidance, three 10-cm 20 -gauge radiofrequency cannula with a 10-mm active tip were inserted at 8-10 mm peripheral to the posterior S1 foramen, at various locations using clock-face coordinates. The center of the clock was registered at the lateral margin of the foramen. The 9:30, 8:00, and 6:30 oclock positions were used. At this level, the sensory testing of the S1 lateral branch was performed at 50 Hz and 0 to 1 volt at the three levels with production of concordant pain starting at 0.5 volt. Motor stimulation was done at 2.5 Hz. No radicular symptoms or paresthesias were produced during the testing. Subsequently, the S1 lateral branch was subjected to a radiofrequency ablation at a mode of 90 seconds at 80 degrees Celsius at the 3 levels after negative motor and sensory testing and after injecting 0.5 ml of preservative free Ropivacaine 0.5 %. The same procedure was performed at the level of the S2 foramen. ( I was not able to Visualize the S3 Foramina ) The needle was withdrawn intact after each injection. COMPLICATIONS: The patient tolerated the procedure well without any acute compli cations. DISPOSTION/PLAN: The patient ambulated to the recovery area after the procedure in a stable condition for observation. Patient was reexamined prior to discharge. Patient was observed for 30 minutes in the recovery area and was discharged home, accompanied by an adult, after meeting discharged criteria. Discharge instructions were give to the patient by the staff. Patient was specifically instructed not to drive today and to rest for the rest of the day. The patient will schedule a follow up visit in the clinic in weeks or earlier if needed.
--- NOTE | 2018-07-08 08:50 | FL ---
Fluoroscopy INDICATION: Pain FINDINGS: Fluoroscopy time: 35 seconds. Images obtained: 9. IMPRESSIONS: 1. Documentation of fluoroscopy.
[2018-07-08 08:53] VITALS: BP 119/79; PULSE 62
== END 2018-07-08 09:09 | disposition home or self-care (01) ==
LOC: ORPAIN 05:54
PROVIDERS: ATTEND Specialist
DX: M46.1 Sacroiliitis, not elsewhere classified (principal); M47.817 Spondylosis without myelopathy or radiculopathy, lumbosacral region; I48.91 Unspecified atrial fibrillation; Z79.01 Long term (current) use of anticoagulants; I10 Essential (primary) hypertension; G47.33 Obstructive sleep apnea (adult) (pediatric); J45.909 Unspecified asthma, uncomplicated; Z88.5 Allergy status to narcotic agent
CPT/HCPCS: 85610; 64640 ×2; 64635; J2250; J3010; 64636; 99152; 99153

== ENCOUNTER 2018-07-25 05:57 | Day surgery (SDC) | payer MEDICARE, BC ==
[2018-07-23 11:51] VITALS: BMI 49.2
[~2018-07-25 05:57] MED LIST changes: +LACTATED RINGERS 1,000 ML IV SCH; -SODIUM CHLORIDE 0.9% 500 ML 500 ML IV SCH
[2018-07-25 06:47] VITALS: TEMP 97.3
[2018-07-25 07:05] LABS: Prothrombin Time 10.7 sec (9.0-12.0)
--- NOTE | 2018-07-25 08:16 | P.PCN ---
Date of Procedure: 07/25/18 Procedure(s) Performed: PREOPERATIVE DIAGNOSIS: 1-Lumbosacral spondylosis with facet arthropathy without myelopathy. 2-Bilateral sacroiliit. post operative Diagnosis: . 1-Lumbosacral spondylosis with facet arthropathy without myelopathy. 2-Bilateral sacroiliit. PROCEDURES: 1- Right radiofrequency thermocoagulation/ablation of the L5 dorsal ramus. 2- Right multi-site radiofrequency thermocoagulation/ablation of the S1, S2, lateral branchs. ( S3 was not done ,Because I did not visualize the S3 foramina ) The procedure was performed using fluoroscopic guidance during needle placement to assure proper position and maximize safety . ANESTHESIA: LOCAL ANESTHESIA = moderate sedation with intravenous versed 1 mg and Fentanyle 50 mcg EBL: NONE INDICATION/MEDICAL NECESSITY: History of low back pain secondary to left right bilateral sacroiliitis and lumbosacral arthropathy unresponsive to more conservative treatments. The patient reported more than 50% relief of pain symptoms following 2 previous diagnostic blocks with Bupivacaine. PROCEDURE DESCRIPTION: The patient was seen and identified in the preoperative area. Risks, benefits, complications, and alternatives were discussed with the patient. The patient agreed to proceed with the procedure and signed the consent. Vital signs were checked before and after the procedure and they remained stable. Patient ambulated to the procedure room and time out was completed. The patient was placed in the prone position on the procedure table and a pillow was placed under the abdomen to reduce lumbar lordosis. The lumbosacral area was prepped and draped in the usual sterile fashion. Critical pause was taken. Right L5 Dorsal Ramus RF: Using right oblique fluoroscopy, the junction of the transverse process and the superior articular process of the Right S1 vertebra, which correspond to the fluoroscopic image of the "eye of the Shel[place] dog" was identified. Subsequently, a 10-cm 20 -gauge radiofrequency cannula with a 10-mm active tip was advanced under fluoroscopic guidance until contact was made with periosteum. At this level, the Sensory testing of the L5 dorsal ramus was performed at 50 Hz and 0 to 1 volt with production of concordant pain starting at 0.5 volt. Motor stimulation was done at 2.5 Hz with stimulation of mulitifidus muscle contration . No radicular symptoms or paresthesias were produced during the testing. Subsequently, the L5 dorsal ramus was subjected to a radiofrequency ablation at 80 degree celsius for 90 seconds . after 0.5% Ropivacaine 1 ml injected at each level after negative aspirations .. Right S1, S2 Lateral Branch RF: The lateral margins of the Right S1, S2, foramina were identified using AP fluoroscopy. Under fluoroscopic guidance, three 10-cm 20 -gauge radiofrequency cannula with a 10-mm active tip were inserted at 8-10 mm peripheral to the posterior S1 foramen, at various locations using clock-face coordinates. The center of the clock was registered at the lateral margin of the foramen. The 5:30, 4:00, and 2:30 oclock positions were used. At this level, the sensory testing of the S1 lateral branch was performed at 50 Hz and 0 to 1 volt at the three levels with production of concordant pain starting at 0.5 volt. Motor stimulation was done at 2.5 Hz. No radicular symptoms or paresthesias were produced during the testing. Subsequently, the S1 lateral branch was subjected to a radiofrequency ablation at a mode of 90 seconds at 80 degrees Celsius at the 3 levels after negative motor and sensory testing and after injecting 0.5 ml of preservative free Ropivacaine 0.5 %. The same procedure was performed at the level of the S2 foramen. ( I was not able to Visualize the S3 Foramina ) The needle was withdrawn intact after each injection. COMPLICATIONS: The patient tolerated the procedure well without any acute complications. DISPOSTION/PLAN: The patient ambulated to the recovery area after the procedure in a stable condition for observation. Patient was reexamined prior to discharge. Patient was observed for 30 minutes in the recovery area and was discharged home, accompanied by an adult, after meeting discharged criteria. Discharge instructions were give to the patient by the staff. Patient was specifically instructed not to drive today and to rest for the rest of the day. The patient will schedule a follow up visit in the clinic in weeks or earlier if needed.
[2018-07-25 08:27] VITALS: PULSE 57; RESP 18
[2018-07-25] MEDS ORDERED: IV FLUID CONTINUATION 1,000 ML IV ONE (08:32)
[2018-07-25 08:51] VITALS: BP 132/78
--- NOTE | 2018-07-25 10:21 | FL ---
Fluoroscopy INDICATION: Pain FINDINGS: Fluoroscopy time: 44 seconds. Images obtained: 7. IMPRESSIONS: 1. Documentation of fluoroscopy.
== END 2018-07-25 08:56 | disposition home or self-care (01) ==
LOC: ORPAIN 05:57
PROVIDERS: ATTEND Specialist
DX: M47.817 Spondylosis without myelopathy or radiculopathy, lumbosacral region (principal); M46.1 Sacroiliitis, not elsewhere classified; I48.91 Unspecified atrial fibrillation; Z79.01 Long term (current) use of anticoagulants; Z88.5 Allergy status to narcotic agent
CPT/HCPCS: 85610; 64635; 64636; J2250; J1030; J3010; 99152; 99153

== ENCOUNTER → 2018-08-19 | Outpatient (CLI) | payer MEDICARE, BC ==
[2018-08-19 13:25] VITALS: BP 117/72; PULSE 67; RESP 16
--- NOTE | 2018-08-19 13:53 | P.PN ---
Subjective Progress Note Date: 08/19/18 This is follow-up visit for this patient with a history of severe and chronic low back pain secondary to lumbar degenerative disc disease, lumbar facet arthropathy, sacroiliitis We have done an interventional pain procedure radiofrequency ablation of the medial branch lumbar area L3-S1 , And radiofrequency of the sacroiliac joint she had gets good pain relief after the radiofrequency of the sacroiliac joint, and she is complaining of severe neck pain mainly on the left side radiated to the left shoulder blade area the pain is constant and increases with any neck movement ,patient denies any excessive drowsiness or sleepiness, patient denies any suicidal ideation, Patient currently uses Neurontin 600 mg daily at bedtime ,and she reported that she had side effects from it and she has no benefit during the daytime Patient denies any motor or sensory deficit, denies any change in the bowel movement or urination, patient denies any fever or night sweats. Physical Examinations : -Constitutiona : Cooperative , not in acute distress . -HEENT : nech ; supple , no Lymphadenopathy , normal thyroid size . eyes : no ptosis , no icterus, no photophobia . ENT : normal of hearing , normal oropharynx , no Thrush . - Respiratory : Chest clear to auscultations Bilaterally , no wheezing , no Rhonchi . - Cardiovascula : regular rate and rhythem , S1 , S2 , no S3 , no S4. - Gastrointestina : abdomen soft no tenderness , bowel sounds , no organomegally . - Genitourinary : Defferred . - neurologic : Cranial nerve II to XII intact , no focal neurological deffecit . -psychatric : alert , oriented X 3 , appropriate affect , intact judgment and insight . -Lymphatic : no Lymphadenopathy . - musculoskeltal : Cervical Spine motor stregnth in the deltoid and biceps, normal right side , normal Left side motor stregnth biceps and the wrist extensors normal right side ,normal left side . motor stregnth in the triceps muscle . normal Right side , normal Left side deep tendon reflexes normal at the biceps , normal at Brachioradialis , normal at triceps. cervical facet loading test . Positive the left side, negative on the right side Spurling test negative bilaterally. Lumber spine moter stegnth lower extremities ,thigh and legs 5/5 Right side , 5/5 Left side Assessment and plan= chronic low back pain secondary to lumbar degenerative disc disease , lumbar spondylosis with lumbar facet arthropathy . Sacroiliitis Low back pain improved after the radiofrequency ablation of the medial branch lumbar area on the left than the radiofrequency of the sacroiliac joint Currently patient have symptoms of cervical spondylosis with cervical facet arthropathy, we'll order a computed tomography scan of the cervical spine without contrast And she will come for follow-up visit, after reconfirming the results of the computed tomography scan. Initial currently getting prescription for Neurontin 600 mg daily at bedtime, she reported that she had side effects from it and she feels that she is not benefiting from the Neurontin during the daytime, I recommend to change the dose of Neurontin to 300 mg twice a day and it could be increased To 300 Mg Every 8 Hours PQRS Measure Charge Sheet Measure #130: Documentation of Current Meds in Medical Chart: Patient's medications documented in chart Measure #226: Tobacco Use: Screen & Cessation Intervention: Pt not a tobacco user Measure #111: Pneumonia Vaccination: Pneumococcal vaccine administered or previously received Measure #47: Advance Care Plan: Advance care planning discussed & documented, pt chose/unable to give Measure #412: Opioid Treatment Agreement: No documentation of signed opioid treatment agreement Measure #408: Opioid Therapy Follow-up Evaluation: Patient had NO f/u eval minimum every 3 months during opioid therapy Measure #317: Preventitive Care & Scrn High Bld Press & F/U: Normal blood pressure, f/u not required Measure #128: Body Mass Index (BMI) Screening & Follow-up: BMI documented ABOVE normal parameters - f/u documented Measure #131: Pain Assessment & Follow-up: Pain positive & plan documented, Follow-up scheduled Measure #431: Unhealthy Alcohol Use Preventative Care & Scrn: Patient not identified as an unhealthy alcohol user PQRS Narrative: Objective - Vital Signs Vital signs: Vital Signs Temp Pulse 67 08/19/18 13:22 Resp 16 08/19/18 13:22 BP 117/72 08/19/18 13:22 Pulse Ox 95 08/19/18 13:22 Intake & Output 08/18/18 08/19/18 08/19/18 18:59 06:59 18:59 Weight 138.346 kg
== END | disposition home or self-care (01) ==
LOC: PNWHC3 12:55
PROVIDERS: ATTEND Specialist
DX: G89.29 Other chronic pain (principal); M51.36 Other intervertebral disc degeneration, lumbar region; M47.816 Spondylosis without myelopathy or radiculopathy, lumbar region; M46.96 Unspecified inflammatory spondylopathy, lumbar region; M46.1 Sacroiliitis, not elsewhere classified; Z98.890 Other specified postprocedural states; Z79.899 Other long term (current) drug therapy
CPT/HCPCS: 99211

== ENCOUNTER → 2018-08-21 | Outpatient (CLI) | payer MEDICARE, BC ==
--- NOTE | 2018-08-21 16:33 | CT ---
EXAMINATION TYPE: CT cervical spine wo con DATE OF EXAM: 08/21/2018 COMPARISON: None HISTORY: Spondylosis w/out myelopathy or radiculopathy. PT c/o of pain in cervical region on Lt side, anamaria. when in pushing up/ reaching motion CT DLP: 635.[address] of the cervical spine was performed with bone and soft tissue window settings submitted . Coronal and sagittal reconstruction is obtained. C2-3, C3-4 and C4-5: Within normal limits At C5-6: Severe degenerative disc space narrowing. Posterior disc bulge with a partial encapsulating spur resulting in disc endplate complex posterocentrally. No evidence for herniation or central steno sis. Degenerative change cervical apophyseal joints with foraminal encroachment right greater than le ft. C6-7:Severe degenerative disc space narrowing. Posterior disc bulge with a partial encapsulating spur resulting in disc endplate complex posterocentrally. There is mild central stenosis noted. Right gre ater than left foraminal encroachment. C7-T1: Mild degenerative disc space narrowing. Mild posterior disc bulge. No herniation or central st enosis. Foramina are patent. Some of this blood left apical region. IMPRESSION: 1. Multilevel degenerative disc disease with disc bulging and disc endplate complex. Mild central kamini nosis at C6-7. Bilateral foraminal encroachment as noted.
== END ==
LOC: RADCTMAIN 15:51
PROVIDERS: ATTEND Specialist
DX: M47.812 Spondylosis without myelopathy or radiculopathy, cervical region (principal); M50.30 Other cervical disc degeneration, unspecified cervical region; M48.02 Spinal stenosis, cervical region
CPT/HCPCS: 72125

== ENCOUNTER → 2018-09-19 | Outpatient (CLI) | payer MEDICARE, BC ==
[2018-09-19 11:55] VITALS: BP 93/67; PULSE 68; RESP 20
--- NOTE | 2018-09-19 12:11 | P.PN ---
Subjective Progress Note Date: 09/19/18 Lisbet's a very pleasant 68-year-old female presenting today for follow-up. Our last visit she was given a description to have a computed tomography scan of her cervical spine done. She presents today with the report for evaluation. The computed tomography scan shows significant degeneration of the cervical spine including C6-C7 and C7-T1 degenerative disc disease. She presents with a chief complaint of pain across her neck mostly over the left side and into the left shoulder. She denies any numbness or tingling down her arm. She denies any weakness in her hand. She does have limited range of motion when raising the left arm above her head. She reports that she is in pool therapy sometimes has challenges lifting her arm above her head. Denies any headaches. Denies any lower extremity weakness. Denies any bowel or bladder incontinence. Objective - Vital Signs Vital signs: Vital Signs Temp Pulse 68 09/19/18 11:48 Resp 20 09/19/18 11:48 BP 93/67 09/19/18 11:48 Pulse Ox 95 09/19/18 11:48 - Exam General: Awake and alert oriented 3 no distress Respiratory exam: No audible wheezing no accessory muscle usage Cardiovascular exam: regular rate, palpable bilateral pulses, no lower extremity edema Abdominal exam: No distention nontender to palpation Cervical spine: Normal alignment, Spurling's negative, facet loading negative, there is limited range of motion with left lateral sidebending Process Controller strength is 5/5, mae negative, independent crop consultant strength is normal Right shoulder: Tender palpation over the clavicle. There is limited range of motion in the abduction and overhead range of motion. Impingement signs are negative. Lumbar spine: Loss of lumbar lordosis, normal alignment, tender to palpation over bilateral paraspinal muscles, facet loading is positive bilaterally. Straight leg raise is negative. Limited range of motion due to pain with flexion, extension and side bending. Sacroiliac joints: Nontender to palpation, BRIANNA is negative, Ga[place]elon negative Neuro exam: Normal sensation in bilateral upper extremities, deep tendon reflexes are 2+ bilateral upper extremities. Normal sensation in bilateral lower extremities. Deep tendon reflexes are 2+ in lower extremities Psych exam: Cooperative, appropriate mood Assessment and Plan Assessment: #1 lumbar spondylosis without myelopathy #2 cervical degenerative disc disease #3 shoulder osteoarthritis Plan: At this point she reports that her shoulder pain and neck pain are not that severe. She like to hold off on having any interventions. She reports that her clammer Dr. Velazco has given HER-2 injections in her shoulder which improved her pain. At this point she does not wanted do anything and we will follow-up with her as needed. Computed tomography scan is in the EMR
== END ==
LOC: PNWHC3 11:24
PROVIDERS: ATTEND Hospitalist
DX: M50.30 Other cervical disc degeneration, unspecified cervical region (principal); M47.816 Spondylosis without myelopathy or radiculopathy, lumbar region; M19.012 Primary osteoarthritis, left shoulder
CPT/HCPCS: 99211

== ENCOUNTER 2019-08-26 15:04 | Emergency (ER) | payer MEDICARE, BC ==
[2019-08-26 16:36] LABS: Basophils % (A) 0 %; Eosinophils # (A) 0.3 k/uL (0-0.7); Eosinophils % (A) 4 %; HCT 41.9 % (34.0-46.0); HGB 13.4 gm/dL (11.4-16.0); Lymphocytes # (A) 1.1 k/uL (1.0-4.8); Lymphocytes % (A) 16 %; MCH 31.7 pg (25.0-35.0); MCHC 32.1 g/dL (31.0-37.0); MCV 98.8 fL (80.0-100.0); Mean Platelet Volume 9.4; Monocytes # (A) 0.5 k/uL (0-1.0); Monocytes % (A) 8 %; Neutrophils # (A) 4.8 k/uL (1.3-7.7); Neutrophils % (A) 68 %; Platelet Count 190 k/uL (150-450); RBC 4.24 m/uL (3.80-5.40); RDW 13.2 % (11.5-15.5)
[2019-08-26 16:39] LABS: Albumin 3.7 g/dL (3.5-5.0); Calcium 9.1 mg/dL (8.4-10.2); Magnesium 1.7 mg/dL (1.6-2.3); Phosphorus 4.4 mg/dL (2.5-4.5); Potassium 4.4 mmol/L (3.5-5.1); Total Bilirubin 1.4 mg/dL (0.2-1.3); Total Protein 6.5 g/dL (6.3-8.2)
--- NOTE | 2019-08-26 16:44 | CT ---
EXAMINATION TYPE: CT brain wo con DATE OF EXAM: 08/26/2019 COMPARISON: None HISTORY: Hypotension CT DLP: 1137.[address] of the brain was performed. The ventricles, basal cisterns and sulci overlying the cerebral convexities demonstrate mild enlargem ent. There is no evidence for intracranial hemorrhage or sulcal effacement. There is decreased attenuation about the periventricular white matter and deep white matter of both c erebral hemispheres, compatible with chronic small vessel ischemia. Differential diagnosis does inclu de demyelination. No mass effects are seen.No midline shift. Osseous calvarium is intact. If symptoms persist consider MRI. IMPRESSION: 1. Age related atrophic and chronic small vessel ischemic change without acute intracranial process s een at this time.
[2019-08-26 17:55] VITALS: TEMP 98.5
--- NOTE | 2019-08-26 18:32 | ED ---
General Adult HPI - General Chief complaint: Headache Stated complaint: headaches/low BP-sent by Time Seen by Provider: 08/26/19 15:43 Source: patient, RN notes reviewed, old records reviewed Mode of arrival: ambulatory Limitations: no limitations - History of Present Illness Initial comments: 69-year-old female patient presents to ED for chief complaint of headache. Patient reports that she has been experiencing for the last few days when she exerts herself she has been having a generalized headache radiating down to her left neck injuring the left shoulder as well. Denies any chest pain. Patient reports that she does take her blood pressure was noted to be low. Reports that with restlessness resolves. At time of evaluation patient did not have any complaints and is asymptomatic. Systemic: Pt denies fatigue, fever/chills, rash. Pt denies weakness, night sweats, weight loss. Neuro: Pt denies headache, visual disturbances, syncope or pre-syncope. HEENT: Pt denies ocular discharge or irritation, otalgia, rhinorrhea, pharyngitis or notable lymphadenopathy. Cardiopulmonary: Pt denies chest pain, SOB, heart palpitations, dyspnea on e xertion. Abdominal/GI: Pt denies abdominal pain, n/v/d. : Pt denies dysuria, burning w/ urination, frequency/urgency. Denies new onset urinary or bowel incontinence. MSK: Pt denies myalgia, loss of strength or function in extremities. Neuro: Pt denies new onset weakness, paresthesias. - Related Data Home Medications Medication Instructions Recorded Confirmed Metoprolol Tartrate [Lopressor] 50 mg PO BID 02/10/14 08/19/18 Fexofenadine/Pseudoephedrine 1 each PO BID PRN 12/09/14 08/19/18 [Emma-D 12 Hour Tablet] Simvastatin [Zocor] 20 mg PO HS 12/09/14 08/19/18 Cholecalciferol [Vitamin D3] 5,000 unit PO DAILY 01/19/17 08/19/18 Citalopram Hydrobromide [CeleXA] 40 mg PO DAILY 01/19/17 08/19/18 LORazepam [Ativan] 0.5 mg PO HS 01/19/17 08/19/18 Meloxicam [Mobic] 7.5 mg PO DAILY 01/19/17 08/19/18 Mometasone Furoate [Nasonex Nasal 1 - 2 spray EA NOSTRIL DAILY PRN 01/19/17 08/19/18 [place]] amLODIPine [Norvasc] 5 mg PO BID 01/19/17 08/19/18 Fluticasone/Salmeterol [Advair 1 inhalation PO BID PRN 02/14/17 08/19/18 250-50 Diskus] Metoprolol Tartrate [Lopressor] 25 mg PO AC-LUNCH 08/27/17 08/19/18 Gabapentin 600 mg PO DAILY 05/07/18 08/19/18 Warfarin Sodium [Coumadin] 4 mg PO MOWEFR 05/15/18 08/19/18 Warfarin Sodium [Coumadin] 8 mg PO SUTUTHSA 05/15/18 08/19/18 Allergies Allergy/AdvReac Type Severity Reaction Status Date / Time meperidine HCl [From Demerol] AdvReac Nausea Verified 08/26/19 15:19 Review of Systems ROS Statement: Those systems with pertinent positive or pertinent negative responses have been documented in the HPI. ROS Other: All systems not noted in ROS Statement are negative. Past Medical History Past Medical History: Atrial Fibrillation, Asthma, Eye Disorder, Hearing Disorder / Deafness, Hyperlipidemia, Hypertension, Osteoarthritis (OA), Rheumatoid Arthritis (RA), Sleep Apnea/CPAP/BIPAP Additional Past Medical History / Comment(s): BACK PAIN, current Sciaticia bilateral legs. Hx FX back. ADIE[employer]S TONIC PUPIL/FIXED PUPILS; HAS IMPLANT RT EYE. HX "PRE-CA OF BREAST." OVERACTIVE BLADDER. DEAF RT EAR. CPAP use. Fall 01/01. History of Any Multi-Drug Resistant Organisms: None Reported Past Surgical History: Bladder Surgery, Cholecystectomy, Heart Catheterization, Hysterectomy, Joint Replacement, Orthopedic Surgery Additional Past Surgical History / Comment(s): RT KNEE REPLACEMENT, VANESSA BREAST MASTECTOMY W/ RECONSTRUCTION. IMPLANTS VANESSA BREAST, RT EYE LENS IMPLANT, EXC VANESSA CATARACTS WITH LENS IMPLANT. RT. CARPAL TUNNEL RELEASE, arthroscopy of knee. pain clinic Past Anesthesia/Blood Transfusion Reactions: Family History of Problems w/ Anesthesia, Postoperative Nausea & Vomiting (PONV) Additional Past Anesthesia/Blood Transfusion Reaction / Comment(s): Mother- PONV. Past Psychological History: Anxiety, Panic Disorder Smoking Status: Never smoker Past Alcohol Use History: Rare Past Drug Use History: None Reported - Past Family History Brother(s) Family Medical History: Cancer Additional Family Medical History / Comment(s): Testicular Cancer. General Exam - General Exam Comments Initial Comments: Constitutional: NAD, AOX3, Pt has pleasant affect. HEENT: NC/AT, trachea midline, neck supple, no lymphadenopathy. Posterior pharynx non erythematous, without exudates. External ears appear normal, without discharge. Mucous membranes moist. Eyes PERRLA, EOM intact. There is no scleral icterus. No pallor noted. Cardiopulmonary: RRR, no murmurs, rubs or gallops, no JVD noted. Lungs CTAB in anterior and posterior watson. No peripheral edema. Abdominal exam: Abdomen soft and non-distended. Abdomen non-tender to palpation in all 4 quadrants. Bowel sounds active in LLQ. No hepatosplenomegaly. No ecchymosis Neuro: CN II-XII intact. No nuchal rigidity. No raccon eyes, no bee sign, no hemotympanum. No cervical spinal tenderness. NIH 0. MSK: No posterior calf tenderness bilaterally, homans sign negative bilaterally. Posterior tibialis and radial pulse +2 bilaterally. Sensation intact in upper and lower extremities. Full active ROM in upper and lower extremities, 5/5 stregnth. Limitations: no limitations Course Vital Signs 08/26/19 08/26/19 08/26/19 15:15 15:36 16:00 Temperature 98.6 F Pulse Rate 75 72 72 Pulse Rate [ Manager Van ] Respiratory 18 18 17 Rate Blood Pressure 108/75 124/66 124/66 Blood Pressure [Right Arm Sitting] Blood Pressure [Right Arm Standing] Blood Pressure [Right Arm Supine] O2 Sat by Pulse 99 93 L 95 Oximetry 08/26/19 08/26/19 08/26/19 16:09 16:30 17:00 Temperature Pulse Rate 70 71 Pulse Rate [ Manager Van ] Respiratory 17 17 Rate Blood Pressure 103/61 115/60 Blood Pressure 110/70 [Right Arm Sitting] Blood Pressure 103/61 [Right Arm Standing] Blood Pressure 108/69 [Right Arm Supine] O2 Sat by Pulse 95 93 L Oximetry 08/26/19 08/26/19 08/26/19 17:30 17:54 18:00 Temperature 98.5 F Pulse Rate 70 70 Pulse Rate [ 73 Manager Van ] Respiratory 17 17 18 Rate Blood Pressure 118/61 104/57 Blood Pressure [Right Arm Sitting] Blood Pressure 118/61 [Right Arm Standing] Blood Pressure [Right Arm Supine] O2 Sat by Pulse 95 95 93 L Oximetry 08/26/19 18:30 Temperature Pulse Rate 74 Pulse Rate [ Manager Van ] Respiratory 18 Rate Blood Pressure 110/63 Blood Pressure [Right Arm Sitting] Blood Pressure [Right Arm Standing] Blood Pressure [Right Arm Supine] O2 Sat by Pulse 92 L Oximetry Medical Decision Making - Medical Decision Making 69-year-old female patient presents to ED for chief complaint of headache. Patient reports that she has been experiencing for the last few days when she exerts herself she has been having a generalized headache radiating down to her left neck injuring the left shoulder as well. Denies any chest pain. Patient reports that she does take her blood pressure was noted to be low. Reports that with restlessness resolves. At time of evaluation patient did not have any complaints and is asymptomatic. Physical exam didn't sleep acute pathology. Neurologic exam is within normal limits. Orthostatics did not display significant change. Labs are investigations are unremarkable. BUN is mildly elevated. Troponin is negative. EKG is nonischemic. CT brain without contrast displayed age-related atrophic and chronic small vessel ischemic changes without acute cranial process noted. Patient is asymptomatic. Patient request to be discharged. Will follow up with primary care provider tomorrow and will return to ER if condition worsens in any way. - Lab Data Result diagrams: 08/26/19 16:00 08/26/19 16:00 Lab Results 08/26/19 08/26/19 08/26/19 Range/Units 16:00 16:00 16:00 WBC 7.0 (3.8-10.6) k/uL RBC 4.24 (3.80-5.40) m/uL Hgb 13.4 (11.4-16.0) gm/dL Hct 41.9 (34.0-46.0) % MCV 98.8 (80.0-100.0) fL MCH 31.7 (25.0-35.0) pg MCHC 32.1 (31.0-37.0) g/dL RDW 13.2 (11.5-15.5) % Plt Count 190 (150-450) k/uL Neutrophils % 68 % Lymphocytes % 16 % Monocytes % 8 % Eosinophils % 4 % Basophils % 0 % Neutrophils # 4.8 (1.3-7.7) k/uL Lymphocytes # 1.1 (1.0-4.8) k/uL Monocytes # 0.5 (0-1.0) k/uL Eosinophils # 0.3 (0-0.7) k/uL Basophils # 0.0 (0-0.2) k/uL PT (9.0-12.0) sec INR (<1.2) Sodium 136 L (137-145) mmol/L Potassium 4.4 (3.5-5.1) mmol/L Chloride 105 (98-107) mmol/L Carbon Dioxide 25 (22-30) mmol/L Anion Gap 6 mmol/L BUN 33 H (7-17) mg/dL Creatinine 1.04 (0.52-1.04) mg/dL Est GFR (CKD-EPI)AfAm 63 (>60 ml/min/1.73 sqM) Est GFR (CKD-EPI)NonAf 54 (>60 ml/min/1.73 sqM) Glucose 122 H (74-99) mg/dL Calcium 9.1 (8.4-10.2) mg/dL Phosphorus 4.4 (2.5-4.5) mg/dL Magnesium 1.7 (1.6-2.3) mg/dL Total Bilirubin 1.4 H (0.2-1.3) mg/dL AST 26 (14-36) U/L ALT 16 (4-34) U/L Alkaline Phosphatase 63 (38-126) U/L Troponin I <0.012 (0.000-0.034) ng/mL Total Protein 6.5 (6.3-8.2) g/dL Albumin 3.7 (3.5-5.0) g/dL 08/26/19 Range/Units 16:00 WBC (3.8-10.6) k/uL RBC (3.80-5.40) m/uL Hgb (11.4-16.0) gm/dL Hct (34.0-46.0) % MCV (80.0-100.0) fL MCH (25.0-35.0) pg MCHC (31.0-37.0) g/dL RDW (11.5-15.5) % Plt Count (150-450) k/uL Neutrophils % % Lymphocytes % % Monocytes % % Eosinophils % % Basophils % % Neutrophils # (1.3-7.7) k/uL Lymphocytes # (1.0-4.8) k/uL Monocytes # (0-1.0) k/uL Eosinophils # (0-0.7) k/uL Basophils # (0-0.2) k/uL PT 20.9 H (9.0-12.0) sec INR 2.1 H (<1.2) Sodium (137-145) mmol/L Potassium (3.5-5.1) mmol/L Chloride (98-107) mmol/L Carbon Dioxide (22-30) mmol/L Anion Gap mmol/L BUN (7-17) mg/dL Creatinine (0.52-1.04) mg/dL Est GFR (CKD-EPI)AfAm (>60 ml/min/1.73 sqM) Est GFR (CKD-EPI)NonAf (>60 ml/min/1.73 sqM) Glucose (74-99) mg/dL Calcium (8.4-10.2) mg/dL Phosphorus (2.5-4.5) mg/dL Magnesium (1.6-2.3) mg/dL Total Bilirubin (0.2-1.3) mg/dL AST (14-36) U/L ALT (4-34) U/L Alkaline Phosphatase (38-126) U/L Troponin I (0.000-0.034) ng/mL Total Protein (6.3-8.2) g/dL Albumin (3.5-5.0) g/dL - EKG Data -: EKG Interpreted by Me (and Dr. Kay ) EKG Comments: Ventricular rate 68,. Flow 188, QRS 1:30, QT/QTc 436 S4 63. Normal sinus rhythm, left axis deviation, LVH with qrs widening. No concern for acute ischemia at this time. Disposition Clinical Impression: Headache Disposition: HOME SELF-CARE Condition: Stable Instructions (If sedation given, give patient instructions): Acute Headache (ED) Additional Instructions: Follow-up with primary care provider tomorrow. Return to ER if condition worsens in any way. Is patient prescribed a controlled substance at d/c from ED?: No Referrals: Lucia Gonzalez MD [Primary Care Provider] - 1-2 days
[2019-08-26 18:42] VITALS: BP 110/63; PULSE 74; RESP 18
[2019-08-26 18:55] LABS: INR 2.1 (<1.2); Prothrombin Time 20.9 sec (9.0-12.0)
== END 2019-08-26 18:52 | disposition home or self-care (01) ==
LOC: EC 15:04
DX: R51 Headache (principal); R79.89 Other specified abnormal findings of blood chemistry; G31.9 Degenerative disease of nervous system, unspecified; I67.82 Cerebral ischemia; E78.5 Hyperlipidemia, unspecified; F41.9 Anxiety disorder, unspecified; J45.909 Unspecified asthma, uncomplicated; I48.91 Unspecified atrial fibrillation; I10 Essential (primary) hypertension; M06.9 Rheumatoid arthritis, unspecified; G47.30 Sleep apnea, unspecified; H91.92 Unspecified hearing loss, left ear; Z79.1 Long term (current) use of non-steroidal anti-inflammatories (NSAID); Z79.01 Long term (current) use of anticoagulants; Z79.51 Long term (current) use of inhaled steroids; Z79.899 Other long term (current) drug therapy; Z88.5 Allergy status to narcotic agent; Z95.5 Presence of coronary angioplasty implant and graft; Z99.89 Dependence on other enabling machines and devices; Z85.3 Personal history of malignant neoplasm of breast; Z96.651 Presence of right artificial knee joint; Z90.13 Acquired absence of bilateral breasts and nipples
CPT/HCPCS: 36415; 70450; 80053; 83735; 84100; 84484; 85025; 85610; 93005; 99285

== ENCOUNTER → 2019-09-18 | Outpatient (CLI) | payer MEDICARE, BC ==
[2019-09-18 11:29] LABS: Basophils % (A) 0 %; Eosinophils # (A) 0.1 k/uL (0-0.7); Eosinophils % (A) 2 %; HGB 13.8 gm/dL (11.4-16.0); Lymphocytes # (A) 1.1 k/uL (1.0-4.8); Lymphocytes % (A) 16 %; MCH 30.5 pg (25.0-35.0); MCHC 30.7 g/dL (31.0-37.0); MCV 99.4 fL (80.0-100.0); Mean Platelet Volume 9.3; Monocytes # (A) 0.4 k/uL (0-1.0); Monocytes % (A) 6 %; Neutrophils # (A) 5.3 k/uL (1.3-7.7); Neutrophils % (A) 75 %; Platelet Count 249 k/uL (150-450); RBC 4.52 m/uL (3.80-5.40); RDW 12.9 % (11.5-15.5); WBC 7.1 k/uL (3.8-10.6)
[2019-09-18 12:51] LABS: Erythrocyte Sedimentation Rate 13 mm/hr (0-20)
[2019-09-18 18:10] LABS: ALT 21 U/L (8-44); AST 24 U/L (13-35); African American GFR (CKD) 65.6 (60.0-200.0); C Reactive Protein <0.4 mg/dL (0.0-0.8); Cholesterol 176 mg/dL (0-200); Non-African American GFR(CKD) 56.6 (60.0-200.0)
== END | disposition home or self-care (01) ==
LOC: LABWHC1 11:01
PROVIDERS: ATTEND Nurse Practitioner Family
DX: M06.9 Rheumatoid arthritis, unspecified (principal)
CPT/HCPCS: 36415; 82465; 82565; 84450; 84460; 84520; 85025; 85652; 86140

== ENCOUNTER → 2019-10-23 | Outpatient (CLI) | payer MEDICARE, BC ==
--- NOTE | 2019-10-23 13:46 | XR ---
EXAMINATION TYPE: XR cervical spine w flex/ext DATE OF EXAM: 10/23/2019 TECHNIQUE: Frontal, lateral, oblique, swimmers, and open mouth view of the cervical spine are obtaine d. Additional flexion and extension views are submitted. HISTORY: M54.2 NECK PAIN COMPARISON: None FINDINGS: There is severe degenerative narrowing noted at C5-6 and C6-7 with ventral and dorsal spond ylosis. Mild degenerative narrowing at C4-5. There is a 3 mm anterior subluxation of C4 and C5 which is stable at flexion however reduces at extension. No evidence for fracture. Scattered ventral spondy losis. Bilateral C5-6 foraminal encroachment. IMPRESSION: Degenerative changes with anterior subluxation at C4-5 which reduces upon extension.
== END | disposition home or self-care (01) ==
LOC: RADXRMAIN 13:04
PROVIDERS: ATTEND Internal Medicine Rheumatology
DX: M47.812 Spondylosis without myelopathy or radiculopathy, cervical region (principal); S13.150A Subluxation of C4/C5 cervical vertebrae, initial encounter
CPT/HCPCS: 72052

== ENCOUNTER → 2019-11-17 | Outpatient (CLI) | payer MEDICARE, BC ==
--- NOTE | 2019-11-18 06:52 | US ---
EXAMINATION TYPE: US thyroid st tissue head/neck DATE OF EXAM: 11/17/2019 COMPARISON: x-ray dated 10/23/2019 CLINICAL HISTORY: ABN Findings R93.89. Order states please see lesion posterior jane on imaging from 10/23/2019 Patient's left posterior neck was scanned, no definite abnormality noted. IMPRESSION: Distinct abnormalities appreciated.
== END | disposition home or self-care (01) ==
LOC: RADUSWWP 16:07
PROVIDERS: ATTEND Nurse Practitioner Family
DX: R93.89 Abnormal findings on diagnostic imaging of other specified body structures (principal)
CPT/HCPCS: 76536

== ENCOUNTER → 2019-12-25 | Outpatient (CLI) | payer MEDICARE, BC ==
[2019-12-25 11:13] LABS: Basophils % (A) 1 %; Eosinophils # (A) 0.3 k/uL (0-0.7); Eosinophils % (A) 6 %; HCT 48.4 % (34.0-46.0); Lymphocytes # (A) 1.3 k/uL (1.0-4.8); Lymphocytes % (A) 28 %; MCHC 31.1 g/dL (31.0-37.0); MCV 99.9 fL (80.0-100.0); Mean Platelet Volume 9.1; Monocytes # (A) 0.4 k/uL (0-1.0); Monocytes % (A) 9 %; Neutrophils # (A) 2.4 k/uL (1.3-7.7); Neutrophils % (A) 53 %; Platelet Count 172 k/uL (150-450); RBC 4.84 m/uL (3.80-5.40); RDW 13.1 % (11.5-15.5); WBC 4.6 k/uL (3.8-10.6)
[2019-12-25 15:32] LABS: ALT 19 U/L (8-44); AST 21 U/L (13-35); African American GFR (CKD) 52.7 (60.0-200.0); C Reactive Protein <0.4 mg/dL (0.0-0.8); Non-African American GFR(CKD) 45.4 (60.0-200.0)
[2019-12-25 21:08] LABS: Erythrocyte Sedimentation Rate 2 mm/Hr (0-30)
== END | disposition home or self-care (01) ==
LOC: LABWHC1 10:20
PROVIDERS: ATTEND Nurse Practitioner Family
DX: M05.79 Rheumatoid arthritis with rheumatoid factor of multiple sites without organ or systems involvement (principal); M06.09 Rheumatoid arthritis without rheumatoid factor, multiple sites
CPT/HCPCS: 36415; 82565; 84450; 84460; 84520; 85025; 85652; 86140

== ENCOUNTER → 2020-03-26 | Outpatient (CLI) | payer MEDICARE, BC ==
[2020-03-26 08:10] LABS: Basophils % (A) 1 %; Eosinophils # (A) 0.5 k/uL (0-0.7); Eosinophils % (A) 9 %; HGB 16.1 gm/dL (11.4-16.0); Lymphocytes # (A) 1.5 k/uL (1.0-4.8); Lymphocytes % (A) 28 %; MCH 32.1 pg (25.0-35.0); MCHC 32.7 g/dL (31.0-37.0); MCV 98.1 fL (80.0-100.0); Mean Platelet Volume 9.3; Monocytes # (A) 0.6 k/uL (0-1.0); Monocytes % (A) 11 %; Neutrophils # (A) 2.6 k/uL (1.3-7.7); Neutrophils % (A) 48 %; Platelet Count 183 k/uL (150-450); WBC 5.5 k/uL (3.8-10.6)
[2020-03-26 09:34] LABS: Erythrocyte Sedimentation Rate 3 mm/hr (0-20)
[2020-03-26 11:17] LABS: ALT 22 U/L (8-44); AST 27 U/L (13-35); African American GFR (CKD) 52.7 (60.0-200.0); C Reactive Protein <0.4 mg/dL (0.0-0.8); Calcium 9.8 mg/dL (8.7-10.3); Non-African American GFR(CKD) 45.4 (60.0-200.0)
== END | disposition home or self-care (01) ==
LOC: LABWHC1 07:03
PROVIDERS: ATTEND Nurse Practitioner Family
DX: M05.79 Rheumatoid arthritis with rheumatoid factor of multiple sites without organ or systems involvement (principal); M06.09 Rheumatoid arthritis without rheumatoid factor, multiple sites
CPT/HCPCS: 36415; 82306; 82310; 82565; 84450; 84460; 84520; 85025; 85652; 86140; 86480

== ENCOUNTER → 2020-06-16 | Outpatient (CLI) | payer MEDICARE, BC ==
[2020-06-16 23:42] LABS: Basophils # (A) 0.04 X 10*3/uL (0.00-0.10); Basophils % (A) 0.8 %; Eosinophils # (A) 0.57 X 10*3/uL (0.04-0.35); Eosinophils % (A) 12.1 %; HCT 47.6 % (37.2-46.3); HGB 15.2 g/dL (12.0-15.0); Lymphocytes # (A) 1.28 X 10*3/uL (0.90-5.00); Lymphocytes % (A) 27.2 %; MCH 31.1 pg (27.0-32.0); MCHC 31.9 g/dL (32.0-37.0); MCV 97.5 fL (80.0-97.0); Mean Platelet Volume 12.6 fL (9.5-12.2); Monocytes # (A) 0.79 X 10*3/uL (0.20-1.00); Monocytes % (A) 16.8 %; Neutrophils # (A) 2.02 X 10*3/uL (1.80-7.70); Neutrophils % (A) 42.9 %; Platelet Count 157 X 10*3/uL (140-440); RBC 4.88 X 10*6/uL (4.10-5.20); RDW 12.7 % (11.5-14.5); WBC 4.71 X 10*3/uL (4.50-10.00)
[2020-06-17 00:22] LABS: Erythrocyte Sedimentation Rate 1 mm/Hr (0-30)
[2020-06-17 01:24] LABS: ALT 23 U/L (8-44); AST 26 U/L (13-35); African American GFR (CKD) 58.5 (60.0-200.0); C Reactive Protein <0.4 mg/dL (0.0-0.8); Non-African American GFR(CKD) 50.5 (60.0-200.0)
== END | disposition home or self-care (01) ==
LOC: LABWHC1 14:29
PROVIDERS: ATTEND Nurse Practitioner Family
DX: M05.79 Rheumatoid arthritis with rheumatoid factor of multiple sites without organ or systems involvement (principal); M06.09 Rheumatoid arthritis without rheumatoid factor, multiple sites
CPT/HCPCS: 36415; 82565; 84450; 84460; 84520; 85025; 85652; 86140

== ENCOUNTER → 2020-08-30 | Outpatient (CLI) | payer MEDICARE, BC ==
[2020-08-30 12:47] VITALS: BP 131/80; PULSE 68; RESP 16; TEMP 97.9
--- NOTE | 2020-08-30 13:27 | P.PAINPG ---
Subjective Progress Note Date: 08/30/20 And this is a 70 years old female with a chronic history of severe neck pain with radiation to the upper extremity associated with numbness and tingling sensation, after several months ago she denies any initiating event she denies any history of abnormal or heavy lifting, he reported that the intensity of the pain increased over time and currently is constant, increases with any neck movement associated with numbness and tingling sensation, she has no motor or sensory deficit, she denies any change in the bowel movement or urination, Objective - Vital Signs Vital signs: Vital Signs Temp 97.9 F 08/30/20 12:43 Pulse 68 08/30/20 12:43 Resp 16 08/30/20 12:43 BP 131/80 08/30/20 12:43 Pulse Ox 95 08/30/20 12:43 - Exam Physical Examinations : -Constitutiona : Cooperative , not in acute distress . -HEENT : nech : supple , no Lymphadenopathy , normal thyroid size . : eyes : no ptosis , no icterus, no photophobia . - neurologic : Cranial nerve II to XII intact , no focal neurological deffecit . -psychatric : alert , oriented X 3 , appropriate affect , intact judgment and insight . -Lymphatic : no Lymphadenopathy . - musculoskeltal : Cervical Spine motor stregnth in the deltoid and biceps, normal right side , normal Left side motor stregnth biceps and the wrist extensors normal right side ,normal left side . motor stregnth in the triceps muscle . normal Right side , normal Left side deep tendon reflexes normal at the biceps , normal at Brachioradialis , normal at triceps. cervical facet loading test: Positive Bilaterally Spurling test= positive Right , positive left. Neck distraction test= positive Right , positive left. Lito sign= positive right, positive left . Lumber spine moter stegnth lower extremities ,thigh and legs 5/5 Right side , 5/5 Left side Assessment and Plan Plan: Assessment and plan=1-cervical radiculopathy. 2-cervical spondylosis with cervical facet arthropathy. 3-atrial fibrillation ,chronic use of Coumadin. I will order MRI of the cervical spine. Patient will follow up in the pain clinic in 3 weeks Time with Patient: Greater than 30 PQRS Measure Charge Sheet Measure #130: Documentation of Current Meds in Medical Chart: Patient's medications documented in chart Measure #226: Tobacco Use: Screen & Cessation Intervention: Pt not a tobacco user Measure #111: Pneumonia Vaccination: Pneumococcal vaccine NOT administered or previously given Measure #47: Advance Care Plan: Advance care planning discussed & documented, pt chose/unable to give Measure #412: Opioid Treatment Agreement: No documentation of signed opioid treatment agreement Measure #408: Opioid Therapy Follow-up Evaluation: Patient had NO f/u eval minimum every 3 months during opioid therapy Measure #317: Preventitive Care & Scrn High Bld Press & F/U: Normal blood pressure, f/u not required Measure #128: Body Mass Index (BMI) Screening & Follow-up: BMI documented ABOVE normal parameters - f/u documented Measure #131: Pain Assessment & Follow-up: Pain positive & plan documented, Follow-up scheduled Measure #431: Unhealthy Alcohol Use Preventative Care & Scrn: Patient not identified as an unhealthy alcohol user PQRS Narrative: Smoking Status Never smoker Blood Pressure 131/80 Pain Intensity [Neck] 4 Scale Used Numeric (1 - 10) Hx Alcohol Use (MH) Yes: Rare Home Medications: Ambulatory Orders Simvastatin [Zocor] 20 mg PO HS 12/09/14 Cholecalciferol [Vitamin D3] 3,000 unit PO DAILY 01/19/17 LORazepam [Ativan] 0.5 mg PO HS PRN 01/19/17 Meloxicam [Mobic] 7.5 mg PO Q48H 01/19/17 Mometasone Furoate [Nasonex Nasal [place]] 1 - 2 spray EA NOSTRIL DAILY PRN 01/19/17 amLODIPine [Norvasc] 5 mg PO DAILY 01/19/17 Albuterol Inhaler [Ventolin Hfa Inhaler] 1 puff INHALATION DIRECTED PRN 08/24/20 DULoxetine HCL [Cymbalta] 30 mg PO BID 08/24/20 Fexofenadine/Pseudoephedrine [Emma-D 24 Hour Tablet] 1 each PO DAILY PRN 08/24/20 Metoprolol Tartrate [Lopressor] 50 mg PO TID 08/24/20 Warfarin [Coumadin] 6 mg PO DAILY 08/24/20 Controlled Substance Measures - Controlled Substance Measures Is patient prescribed a controlled substance at discharge?: No
== END ==
LOC: PNWHC3 12:25
PROVIDERS: ATTEND Specialist
DX: M47.22 Other spondylosis with radiculopathy, cervical region (principal); I48.91 Unspecified atrial fibrillation; Z79.01 Long term (current) use of anticoagulants; Z88.6 Allergy status to analgesic agent
CPT/HCPCS: 99211

== ENCOUNTER → 2020-08-30 | Outpatient (CLI) | payer MEDICARE, BC ==
[2020-08-30 19:23] LABS: HCT 45.5 % (37.2-46.3); HGB 14.2 g/dL (12.0-15.0); MCH 30.7 pg (27.0-32.0); MCHC 31.2 g/dL (32.0-37.0); MCV 98.5 fL (80.0-97.0); Mean Platelet Volume 12.5 fL (9.5-12.2); Platelet Count 234 X 10*3/uL (140-440); RBC 4.62 X 10*6/uL (4.10-5.20); WBC 6.83 X 10*3/uL (4.50-10.00)
[2020-08-30 21:28] LABS: African American GFR (CKD) 85.4 (60.0-200.0); Albumin/Globulin Ratio 1.54 (1.60-3.17); Anion Gap 8.8 mmol/L (4.00-12.00); BUN/Creat Ratio 21.25 Ratio (12.00-20.00); Calcium 9.2 mg/dL (8.7-10.3); Carbon Dioxide 27.2 mmol/L (21.6-31.8); Chol/HDL Ratio 3.26; Globulin 2.6 g/dL (1.6-3.3); Magnesium 1.8 mg/dL (1.5-2.4); Non-African American GFR(CKD) 73.7 (60.0-200.0); Potassium 4.4 mmol/L (3.5-5.5); Total Bilirubin 1.5 mg/dL (0.2-1.2); Total Protein 6.6 g/dL (6.2-8.2)
== END | disposition home or self-care (01) ==
LOC: LABWHC1 13:35
PROVIDERS: ATTEND Nurse Practitioner Adult Health
DX: I10 Essential (primary) hypertension (principal); I48.0 Paroxysmal atrial fibrillation; E78.5 Hyperlipidemia, unspecified
CPT/HCPCS: 36415; 80053; 80061; 83735; 84443; 84481; 85027

== ENCOUNTER → 2020-09-22 | Outpatient (CLI) | payer MEDICARE, BC ==
[2020-09-22 12:15] VITALS: BP 128/79; PULSE 70; RESP 18; TEMP 98
--- NOTE | 2020-09-22 12:37 | P.PN ---
Subjective Progress Note Date: 09/22/20 This is a 70 years old female with a chronic history of severe neck pain with radiation to the upper extremity associated with numbness and tingling sensation, started several months ago, she denies any initiating event, she denies any history of heavy lifting, she reported, that the intensity of the pain increased over time ,and currently is constant, increases with any neck movement associated with numbness, and tingling sensation, she has no motor or sensory deficit, she denies any change in the bowel movement or urination, patient had MRI of the cervical spine done recently and she is here to review the MRI report Objective - Vital Signs Vital signs: Vital Signs Temp 98.0 F 09/22/20 12:09 Pulse 70 09/22/20 12:09 Resp 18 09/22/20 12:09 BP 128/79 09/22/20 12:09 Pulse Ox 92 L 09/22/20 12:09 - Exam Physical Examinations : -Constitutiona : Cooperative , not in acute distress . -HEENT : nech : supple , no Lymphadenopathy , normal thyroid size . : eyes : no ptosis , no icterus, no photophobia . - neurologic : Cranial nerve II to XII intact , no focal neurological deffecit . -psychatric : alert , oriented X 3 , appropriate affect , intact judgment and insight . -Lymphatic : no Lymphadenopathy . - musculoskeltal : Cervical Spine motor stregnth in the deltoid and biceps, normal right side , normal Left side motor stregnth biceps and the wrist extensors normal right side ,normal left side . motor stregnth in the triceps muscle . normal Right side , normal Left side deep tendon reflexes normal at the biceps , normal at Brachioradialis , normal at triceps. cervical facet loading test: Positive Bilaterally Spurling test= positive Right , positive left. Neck distraction test= positive Right , positive left. Lito sign= positive right, positive left . Lumber spine moter stegnth lower extremities ,thigh and legs 5/5 Right side , 5/5 Left shakeel MRI of the cervical spine C3 4 right paracentral foraminal spur disc complex and facet joint degeneration C4 5 cervical degenerative disc disease and facet joint degeneration C5 6 cervical spondylosis and facet joint degeneration Assessment and Plan Plan: Assessment and plan= 1-cervical radiculopathy. 2-cervical spondylosis with cervical facet arthropathy. 3-atrial fibrillation ,chronic use of Coumadin. Patient will be good candidate for diagnostic medial branch block cervical area at C3, C4, C5 x2 if is possible proceed with RFA Description has to hold her Coumadin for 4 days before the procedure Time with Patient: Greater than 30 PQRS Measure Charge Sheet Measure #130: Documentation of Current Meds in Medical Chart: Patient's medications documented in chart Measure #226: Tobacco Use: Screen & Cessation Intervention: Pt not a tobacco user Measure #111: Pneumonia Vaccination: Pneumococcal vaccine NOT administered or previously given Measure #47: Advance Care Plan: Advance care planning discussed & documented, pt chose/unable to give Measure #412: Opioid Treatment Agreement: No documentation of signed opioid treatment agreement Measure #408: Opioid Therapy Follow-up Evaluation: Patient had NO f/u eval minimum every 3 months during opioid therapy Measure #317: Preventitive Care & Scrn High Bld Press & F/U: Normal blood pressure, f/u not required Measure #128: Body Mass Index (BMI) Screening & Follow-up: BMI documented ABOVE normal parameters - f/u documented Measure #131: Pain Assessment & Follow-up: Pain positive & plan documented, Follow-up scheduled Measure #431: Unhealthy Alcohol Use Preventative Care & Scrn: Patient not identified as an unhealthy alcohol user PQRS Narrative: Time with Patient: Less than 30
== END ==
LOC: PNWHC3 11:55
PROVIDERS: ATTEND Specialist
DX: M47.22 Other spondylosis with radiculopathy, cervical region (principal); I48.91 Unspecified atrial fibrillation; Z79.01 Long term (current) use of anticoagulants; Z88.6 Allergy status to analgesic agent; Z88.8 Allergy status to other drugs, medicaments and biological substances
CPT/HCPCS: 99211

== ENCOUNTER 2020-10-12 06:19 | Day surgery (SDC) | payer MEDICARE, BC ==
[2020-10-07 15:13] VITALS: BMI 48.2
[2020-10-12 07:10] VITALS: RESP 16; TEMP 98.7
[2020-10-12 07:17] LABS: INR 1.1 (<1.2); Prothrombin Time 11.8 sec (9.0-12.0)
[2020-10-12] MEDS ORDERED: LIDOCAINE 1% (10MG/ML) FOR IV START INTRADERMA ONE (07:17)
[2020-10-12] MEDS ORDERED: methylPREDNISolone ACETATE 40 MG/ML 1 ML VIAL ONE (07:43)
[2020-10-12] MEDS ORDERED: MIDAZOLAM 2 MG/2 ML VIAL ONE (07:43)
[2020-10-12] MEDS ORDERED: fentaNYL (PF) 50 MCG/ML 2 ML AMP ONE (07:43)
[2020-10-12] MEDS ORDERED: ROPIVACAINE 5MG/ML 20ML VIAL ONE (07:43)
--- NOTE | 2020-10-12 08:14 | P.PCN ---
Date of Procedure: 10/12/20 Procedure(s) Performed: PREOPERATIVE DIAGNOSIS: Cervical Spondylosis with Facet Arthropathy.without myelopathy POSTOPERATIVE DIAGNOSIS: Cervical Spondylosis Facet Arthropathy. Without myelopathy. PROCEDURES: Diagnostic bilateral C3, C4 , C5 medial branch blocks, with fluoroscopic guidance (fluoroscopy images available in radiology department ) ( to target the facet joint at bilateral C3-4 , C4- 5 ) ANESTHESIA: moderate sedation with Versed 1 mg , and fentanyl 50 micrograms EBL: Minimal PROCEDURE INDICATION: The patient with neck pain secondary to cervical arthropathy unresponsive to more conservative treatments. PROCEDURE DESCRIPTION / TECHNIQUE: The patient was seen and identified in the preoperative area. Risks, benefits, complications, and alternatives were discussed with the patient, the patient agreed to proceed with the procedure and signed the consent. IV was started. Vital signs remained stable throughout the procedure. Patient was taken to the OR and time out was completed. The patient was placed in the supine position on the procedure table.. The cervical area was prepped and draped in the usual sterile fashion. Critical pause was taken. Vital signs were closely monitored during the procedure. Conscious sedation was used during the procedure to decrease patients anxiety. Using cross-table lateral fluoroscopy, the centroid of the trapezoid of right C3, C4 , C5 was identified, marked, and localized with 1% lidocaine 1 ml at each level for skin and Sub Q infiltrations . Subsequently, a 25 G 3 spinal needle was advanced guided by fluoroscopy to the centroid of the trapezoid of Right C3, C4 , C5, [place] tip position was confirmed at the centroid of the trapezoids of Right C3 , C4 , C5 , with anteroposterior fluoroscopy. Subsequently, 1.5 ml of preservative-free Ropivacaine 0.5% mixed with Depo- Medrol 20 mg and half ml of the mixture was injected after negative aspiration for blood and CSF. [place] was then removed intact the same procedure was repeated at the left C3 , C4 , C5 levels. COMPLICATIONS: No acute complications. DISPOSITION / PLANS: The patient was placed in a supine position and transferred to the recovery area in a stable condition for observation and was discharged from the recovery room after meeting discharge criteria. Home discharge instructions given to the patient by the staff. The patient was reexamined prior to discharge. The patient will schedule a follow up in the clinic in 2-4 weeks.
[2020-10-12] MEDS ORDERED: IV FLUID CONTINUATION 400 ML IV ONE (08:17)
[2020-10-12 08:36] VITALS: BP 126/74; PULSE 65
--- NOTE | 2020-10-12 09:16 | FL ---
EXAMINATION TYPE: FL guided pain mgmt statistic DATE OF EXAM: 10/12/2020 HISTORY: [place] Cerv Facet Inj 13sec fluoro time 2 images to PACS
== END 2020-10-12 09:05 | disposition home or self-care (01) ==
LOC: ORPAIN 06:19
PROVIDERS: ATTEND Specialist
DX: M47.812 Spondylosis without myelopathy or radiculopathy, cervical region (principal); Z88.5 Allergy status to narcotic agent; I48.91 Unspecified atrial fibrillation
CPT/HCPCS: 64490; 64491; 85610; J2250; J1030; J3010; J2795; 99152; 99153

== ENCOUNTER → 2020-11-25 | Outpatient (CLI) | payer MEDICARE, BC ==
[2020-11-25 15:14] LABS: INR 1.1 (<1.2); Prothrombin Time 11.8 sec (9.0-12.0)
== END | disposition home or self-care (01) ==
LOC: LABWHC1 14:52
PROVIDERS: ATTEND Internal Medicine Gastroenterology
DX: Z79.01 Long term (current) use of anticoagulants (principal)
CPT/HCPCS: 36415; 85610

== ENCOUNTER 2020-11-26 06:04 | Day surgery (SDC) | payer MEDICARE, BC ==
[2020-11-25 09:50] VITALS: BMI 48.7
[2020-11-26] MEDS ORDERED: LACTATED RINGERS 1,000 ML IV ONE (06:23)
[2020-11-26 06:24] VITALS: TEMP 97.8
[2020-11-26] MEDS ORDERED: MIDAZOLAM 2 MG/2 ML VIAL ONE (07:00)
[2020-11-26] MEDS ORDERED: ROPIVACAINE 5MG/ML 20ML VIAL ONE (07:00)
[2020-11-26] MEDS ORDERED: DEXAMETHASONE SOD PHOSPHATE 10 MG/ML 1 ML VIAL ONE (07:00)
[2020-11-26] MEDS ORDERED: fentaNYL (PF) 50 MCG/ML 2 ML AMP ONE (07:00)
--- NOTE | 2020-11-26 07:21 | P.PCN ---
Date of Procedure: 11/26/20 Description of Procedure: PREOPERATIVE DIAGNOSIS: Cervical Spondylosis with Facet Arthropathy.without myelopathy POSTOPERATIVE DIAGNOSIS: Cervical Spondylosis Facet Arthropathy. Without myelopathy. PROCEDURES: Diagnostic bilateral C3, C4 , C5 medial branch blocks, with fluoroscopic guidance (fluoroscopy images available in radiology department ) ( to target the facet joint at bilateral C3-4 , C4- 5 ) #2 ANESTHESIA: moderate sedation with anesthesia team EBL: Minimal PROCEDURE INDICATION: The patient with neck pain secondary to cervical arthropathy unresponsive to more conservative treatments. PROCEDURE DESCRIPTION / TECHNIQUE: The patient was seen and identified in the preoperative area. Risks, benefits, complications, and alternatives were discussed with the patient, the patient agreed to proceed with the procedure and signed the consent. IV was started. Vital signs remained stable throughout the procedure. Patient was taken to the OR and time out was completed. The patient was placed in the supine position on the procedure table.. The cervical area was prepped and draped in the usual sterile fashion. Critical pause was taken. Vital signs were closely monitored during the procedure. Conscious sedation was used during the procedure to decrease patients anxiety. Using cross-table lateral fluoroscopy, the centroid of the trapezoid of right C3, C4 , C5 was identified, marked, and localized with 1% lidocaine 1 ml at each level for skin and Sub Q infiltrations . Subsequently, a 25 G 3 spinal needle was advanced guided by fluoroscopy to the centroid of the trapezoid of Right C3, C4 , C5, [place] tip position was confirmed at the centroid of the trapezoids of Right C3 , C4 , C5 , with anteroposterior fluoroscopy. Subsequently, 1.5 ml of preservative-free with 5 mg dexamethasone mixed, and half ml of the mixture was injected after negative aspiration for blood and CSF. [place] was then removed intact the same procedure was repeated at the left C3 , C4 , C5 levels. COMPLICATIONS: No acute complications. DISPOSITION / PLANS: The patient was placed in a supine position and transferred to the recovery area in a stable condition for observation and was discharged from the recovery room after meeting discharge criteria. Home discharge instructions given to the patient by the staff. The patient was reexamined prior to discharge. The patient will schedule a follow up in the clinic in 2-4 weeks.
[2020-11-26 07:31] VITALS: RESP 16
--- NOTE | 2020-11-26 07:32 | FL ---
EXAMINATION TYPE: FL guided pain mgmt statistic DATE OF EXAM: 11/26/2020 CLINICAL HISTORY: Neck pain. TECHNIQUE: Fluoroscopy. COMPARISON: None. FINDINGS: Fluoroscopic guidance was provided during pain relief procedure performed by Dr. Sykes . A total of 21 seconds of fluoroscopic time was utilized during the procedure and 6 spot images are acquired. Images acquired shows needle localization at several levels in the cervical spine. IMPRESSION: As Above.
[2020-11-26 07:47] VITALS: BP 105/70; PULSE 60
[2020-11-26] MEDS ORDERED: IV FLUID CONTINUATION 1,000 ML IV ONE (07:48)
== END 2020-11-26 08:08 | disposition home or self-care (01) ==
LOC: ORPAIN 06:04
PROVIDERS: ATTEND Anesthesiology
DX: M47.812 Spondylosis without myelopathy or radiculopathy, cervical region (principal); Z88.5 Allergy status to narcotic agent; I10 Essential (primary) hypertension; I48.91 Unspecified atrial fibrillation; Z79.01 Long term (current) use of anticoagulants; K21.9 Gastro-esophageal reflux disease without esophagitis; G47.33 Obstructive sleep apnea (adult) (pediatric); Z79.899 Other long term (current) drug therapy
CPT/HCPCS: 64490; 64491; J2250; J1100; J3010; J2795

== ENCOUNTER → 2021-01-05 | Outpatient (CLI) | payer MEDICARE, BC ==
[2021-01-05 13:00] VITALS: BP 136/82; PULSE 66; RESP 18; TEMP 98.4
--- NOTE | 2021-01-05 13:32 | P.PN ---
Subjective Progress Note Date: 01/05/21 This is a visit for this 70 years old female, with a chronic history of severe neck pain , she is diagnosed with cervical spondylosis with cervical facet arthropathy, recently we have done diagnostic medial branch block cervical area , her VAS before the block was 7-8/10 dropped to 0/10 after the block, and the pain relief was for a few days and she gets similar result after the second diagnostic medial branch block, she denies any initiating event, she denies any history of heavy lifting, she reported, that the intensity of the pain increased over time ,and currently is constant, increases with any neck movement associated with numbness, and tingling sensation, she has no motor or sensory deficit, she denies any change in the bowel movement or urination. Physical Examinations : -Constitutiona : Cooperative , not in acute distress . -HEENT : nech : supple , no Lymphadenopathy , normal thyroid size . : eyes : no ptosis , no icterus, no photophobia . - neurologic : Cranial nerve II to XII intact , no focal neurological deffecit . -psychatric : alert , oriented X 3 , appropriate affect , intact judgment and insight . -Lymphatic : no Lymphadenopathy . - musculoskeltal : Cervical Spine motor stregnth in the deltoid and biceps, normal right side , normal Left side motor stregnth biceps and the wrist extensors normal right side ,normal left side . motor stregnth in the triceps muscle . normal Right side , normal Left side deep tendon reflexes normal at the biceps , normal at Brachioradialis , normal at triceps. cervical facet loading test: Positive Bilaterally Spurling test= positive Right , positive left. Neck distraction test= positive Right , positive left. Lito sign= positive right, positive left . Lumber spine moter stegnth lower extremities ,thigh and legs 5/5 Right side , 5/5 Left shakeel MRI of the cervical spine C3 4 right paracentral foraminal spur disc complex and facet joint degeneration C4 5 cervical degenerative disc disease and facet joint degeneration C5 6 cervical spondylosis and facet joint degeneration Assessment and plan= 1-cervical radiculopathy. 2-cervical spondylosis with cervical facet arthropathy. 3-atrial fibrillation ,chronic use of Coumadin. Patient will be good candidate for RFA medial branch block cervical area at C3, C4, C5 (She had 100% relief of her pain after diagnostic medial branch block done twice ) Description has to hold her Coumadin for 4 days before the procedure Time with Patient: Greater than 30 PQRS Measure Charge Sheet Measure #130: Documentation of Current Meds in Medical Chart: Patient's medications documented in chart Measure #226: Tobacco Use: Screen & Cessation Intervention: Pt not a tobacco user Measure #111: Pneumonia Vaccination: Pneumococcal vaccine NOT administered or previously given Measure #47: Advance Care Plan: Advance care planning discussed & documented, pt chose/unable to give Measure #412: Opioid Treatment Agreement: No documentation of signed opioid treatment agreement Measure #408: Opioid Therapy Follow-up Evaluation: Patient had NO f/u eval minimum every 3 months during opioid therapy Measure #317: Preventitive Care & Scrn High Bld Press & F/U: Normal blood pressure, f/u not required Measure #128: Body Mass Index (BMI) Screening & Follow-up: BMI documented ABOVE normal parameters - f/u documented Measure #131: Pain Assessment & Follow-up: Pain positive & plan documented, Follow-up scheduled Measure #431: Unhealthy Alcohol Use Preventative Care & Scrn: Patient not iden Objective - Vital Signs Vital signs: Vital Signs Temp 98.4 F 01/05/21 12:55 Pulse 66 01/05/21 12:55 Resp 18 01/05/21 12:55 BP 136/82 01/05/21 12:55 Pulse Ox 94 L 01/05/21 12:55 Intake & Output 01/04/21 01/05/21 01/05/21 18:59 06:59 18:59 Weight 135.624 kg
== END ==
LOC: PNWHC3 12:48
PROVIDERS: ATTEND Specialist
DX: M47.22 Other spondylosis with radiculopathy, cervical region (principal); I48.91 Unspecified atrial fibrillation; Z79.01 Long term (current) use of anticoagulants; Z88.1 Allergy status to other antibiotic agents; Z88.8 Allergy status to other drugs, medicaments and biological substances
CPT/HCPCS: 99211

== ENCOUNTER 2021-02-04 07:23 | Day surgery (SDC) | payer MEDICARE, BC ==
[2021-02-03 09:26] VITALS: BMI 48.2
[2021-02-04] MEDS ORDERED: LACTATED RINGERS 1,000 ML IV ONE (08:01)
[2021-02-04] MEDS ORDERED: ONDANSETRON 4 MG/2 ML VIAL ONE (08:46)
[2021-02-04] MEDS ORDERED: fentaNYL (PF) 50 MCG/ML 2 ML AMP ONE (08:46)
[2021-02-04] MEDS ORDERED: MIDAZOLAM 2 MG/2 ML VIAL ONE (08:46)
[2021-02-04] MEDS ORDERED: TRIAMCINOLONE ACETONIDE 40 MG/ML 1 ML VIAL ONE (08:46)
[2021-02-04] MEDS ORDERED: ROPIVACAINE 5MG/ML 20ML VIAL ONE (08:46)
--- NOTE | 2021-02-04 09:37 | P.PCN ---
Date of Procedure: 02/04/21 Procedure(s) Performed: PREOPERATIVE DIAGNOSIS: Cervical spondylosis with Facet Arthropathy without myelopathy. POSTOPERATIVE DIAGNOSIS: Cervical spondylosis with Facet Arthropathy without myelopathy. PROCEDURES: Radiofrequency thermocoagulation,Bilateral C3, C4, C5 medial branch with Fluroscopy [place](fluoroscopy was available in etiology department ) (to denervate the facet joint at bilateral C3- 4 , C4- 5 ) ANESTHESIA: monitered anesthesia care. EBL: Minimal PROCEDURE INDICATION: The patient with neck pain secondary to cervical arthropathy who had more than 50% relief of her pain with previous diagnostic cervical medial branch block. PROCEDURE DESCRIPTION / TECHNIQUE: The patient was seen and identified in the preoperative area. Risks, benefits, complications, and alternatives were discussed with the patient, the patient agreed to proceed with the procedure and signed the consent. IV was started. Vital signs remained stable throughout the procedure. Patient was taken to the OR and time out was completed. The patient was placed in the supine position on the procedure table. The cervical area was prepped and draped in the usual sterile fashion. Critical pause was taken. Vital signs were closely monitored during the procedure. Conscious sedation was used during the procedure to decrease patients anxiety. Using cross-table lateral fluoroscopy, the centroid of the trapezoid of left C3, C4, C5, were identified, marked, and localized with 1% lidocaine. Subsequently, a 20 -fs radiofrequency cannula with a 10-mm active tip was advanced guided by fluoroscopy to the centroid of the trapezoid of left C3, C4, C5 . Needle tip position was confirmed at the centroid of the trapezoids of left C3, C4, C5, with anteroposterior fluoroscopy. Each site then underwent sensory testing at 50 Hz and 0 to 1 volt and motor testing at 2 Hz and 0 to 3 volt with local stimulation, but no radicular symptoms down the arm. Thereafter each sites underwent radiofrequency thermocoagulation at 80 degrees celsius for 90 seconds after injecting 0.5 ml of PF Ropivacaine 0.5 %. After thermocoagulation, 1 ml of the block solution containing Kenalog 20 mg and 3 mL of preservative-free normal saline was injected at the left C3, C4, C5, levels after negative aspiration of CSF and blood and with no paresthesias. Cannulas were retracted while injecting lidocaine 1% until the needle is out. Then the exact same procedure was done for the right side the right side C3 ,C4 and C5 the end of the procedure ,the Skin was cleansed and bandages were applied. COMPLICATIONS: No acute complications. DISPOSITION / PLANS: The patient was placed in a supine position and transferred to the recovery area in a stable condition for observation and was discharged from the recovery room after meeting discharge criteria. Home discharge instructions given to the patient by the staff. The patient was reexamined prior to discharge. The patient will schedule a follow up in the clinic in 2-4 weeks.
[2021-02-04] MEDS ORDERED: IV FLUID CONTINUATION 1,000 ML IV ONE (09:39)
[2021-02-04 09:56] VITALS: BP 120/84; PULSE 71; RESP 20
== END 2021-02-04 10:08 | disposition home or self-care (01) ==
LOC: ORPAIN 07:23
PROVIDERS: ATTEND Specialist
DX: M47.812 Spondylosis without myelopathy or radiculopathy, cervical region (principal)
CPT/HCPCS: 64633; 64634; 85610; 36415; J2250; J3301; J2405; J3010; J2795

== ENCOUNTER → 2021-02-04 | Outpatient (CLI) | payer MEDICARE, BC ==
--- NOTE | 2021-02-04 10:33 | FL ---
EXAMINATION TYPE: FL guided pain mgmt statistic DATE OF EXAM: 02/04/2021 FLUOROSCOPY Fluoroscopy time of 22 seconds was used during cervical region frequency ablation. 4 image/s documen t/s the procedure.
== END | disposition home or self-care (01) ==
LOC: LABWHC1 06:58
PROVIDERS: ATTEND Specialist
DX: Z79.01 Long term (current) use of anticoagulants (principal)
CPT/HCPCS: 36415; 85610

== ENCOUNTER → 2021-02-23 | Outpatient (CLI) | payer MEDICARE, BC ==
[2021-02-23 13:01] VITALS: BP 130/64; PULSE 64; RESP 18; TEMP 97
--- NOTE | 2021-02-23 13:27 | P.PN ---
Subjective Progress Note Date: 02/23/21 Lisbet is a 70-year-old female presented to clinic today for follow-up appointment after a bilateral cervical radiofrequency ablation at C3 4 and C4 5. She had this procedure 02/04/2021. SHe has a history of cervical spondylosis and facet arthropathy without myelopathy and cervical radiculopathy. Since procedure she reports greater than 80% pain relief which is allowed to do her daily activities without interruption from pain. She increases her activity supine does increase. She rates that pain as 5 out of 10 on a 0-to-10 scale. Pain is made better with interventions [id number] Tylenol and eating patterns. Reports that she has upcoming follow-up appointment with rheumatology and is still trying different biologic's be most effective for her. She denies any bowel or bladder dysfunction, saddle anesthesia, or any other red flag symptoms. She had no other questions or concerns at this point. Objective - Exam Physical Examinations : -Constitutiona : Cooperative , not in acute distress . -HEENT : nech : supple , no Lymphadenopathy , normal thyroid size . : eyes : no ptosis , no icterus, no photophobia . - neurologic : Cranial nerve II to XII intact , no focal neurological deffecit . -psychatric : alert , oriented X 3 , appropriate affect , intact judgment and insight . -Lymphatic : no Lymphadenopathy . - musculoskeltal : Cervical Spine motor stregnth in the deltoid and biceps, normal right side , normal Left side motor stregnth biceps and the wrist extensors normal right side ,normal left side . motor stregnth in the triceps muscle . normal Right side , normal Left side deep tendon reflexes normal at the biceps , normal at Brachioradialis , normal at triceps. cervical facet loading test: Negative Bilaterally Lito sign= negative. Assessment and Plan Assessment: Assessment and plan Assessment: Cervical spondylosis and facet arthropathy without myelopathy Cervical radiculopathy Obesity Rheumatoid arthritis SLE Plan: Return to clinic as needed for repeat cervical radiofrequency ablation bilaterally at C3 [address] Sykes was available by phone for consultation during his visit. I have spent 20 minutes on patient care today. The time was used to review the medical records including relevant urine studies and Prescription history (MAPs) , review of the available imaging, evaluation and examination of the patient, coordination of care with the medical staff and if applicable referring physicians, as well as creation of the medical record. - PQRS measures = - Patient's medications are documented in the chart. -Tobacco use is negative -Patient's has not received pneumococcal vaccine. -Advanced care planning discussed, patient not eligible. -Opiate contract not signed. -Pain positive and follow-up visit/procedure is scheduled. -Patient's blood pressure measured 130/64, and documented in the record ,and patient will follow up with the primary care. -Patient was not identified as an unhealthy alcohol user Time with Patient: Less than 30
== END ==
LOC: PNWHC3 12:49
PROVIDERS: ATTEND Student in an Organized Health Care Education/Training Program
DX: M47.22 Other spondylosis with radiculopathy, cervical region (principal); M06.9 Rheumatoid arthritis, unspecified; E66.9 Obesity, unspecified; M32.9 Systemic lupus erythematosus, unspecified; Z88.5 Allergy status to narcotic agent; Z88.8 Allergy status to other drugs, medicaments and biological substances; Z68.42 Body mass index [BMI] 45.0-49.9, adult
CPT/HCPCS: 99211

== ENCOUNTER 2021-03-03 09:40 | Emergency (ER) | payer MEDICARE, BC ==
[~2021-03-03 09:40] MED LIST changes: -LACTATED RINGERS 1,000 ML IV SCH; +SODIUM CHLORIDE 0.9% 500 ML 500 ML in EMPTY BAG 1 BAG IV PRN
[2021-03-03 10:03] VITALS: RESP 18
--- NOTE | 2021-03-03 10:03 | ED ---
General Adult HPI - General Stated complaint: Covid+, here for antibodies Time Seen by Provider: 03/03/21 09:45 Source: patient, RN notes reviewed Mode of arrival: ambulatory Limitations: no limitations - History of Present Illness Initial comments: 70-year-old female presents emergency Department with chief complaint of COVID- 19. Patient states she just tested positive. Patient did have prior vaccination. Patient was sent here for antibodies. She has mild cough, congestion, fevers chills body aches. No chest pain or shortness breath - Related Data Home Medications Medication Instructions Recorded Confirmed Simvastatin [Zocor] 20 mg PO HS 12/09/14 03/03/21 Cholecalciferol [Vitamin D3] 3,000 unit PO DAILY 01/19/17 03/03/21 LORazepam [Ativan] 0.5 mg PO HS PRN 01/19/17 03/03/21 Meloxicam [Mobic] 7.5 mg PO Q48H 01/19/17 03/03/21 Mometasone Furoate [Nasonex Nasal 1 - 2 spray EA NOSTRIL DAILY PRN 01/19/17 03/03/21 [place]] amLODIPine [Norvasc] 5 mg PO DAILY 01/19/17 03/03/21 Albuterol Inhaler [Ventolin Hfa 1 puff INHALATION DIRECTED PRN 08/24/20 03/03/21 Inhaler] Fexofenadine/Pseudoephedrine 1 each PO DAILY PRN 08/24/20 03/03/21 [Emma-D 24 Hour Tablet] Metoprolol Tartrate [Lopressor] 50 mg PO TID 08/24/20 03/03/21 Warfarin [Coumadin] 6 mg PO HS 08/24/20 03/03/21 Citalopram Hydrobromide [CeleXA] 40 mg PO DAILY 11/25/20 03/03/21 Allergies Allergy/AdvReac Type Severity Reaction Status Date / Time tocilizumab [From Actemra] Allergy Severe Dyspnea, Verified 03/03/21 11:02 sores, itching, sore throat meperidine HCl [From Demerol] AdvReac Nausea Verified 03/03/21 11:02 Review of Systems ROS Statement: Those systems with pertinent positive or pertinent negative responses have been documented in the HPI. ROS Other: All systems not noted in ROS Statement are negative. Past Medical History Past Medical History: Atrial Fibrillation, Asthma, Eye Disorder, GERD/Reflux, Hearing Disorder / Deafness, Hyperlipidemia, Hypertension, Osteoarthritis (OA), Rheumatoid Arthritis (RA), Sleep Apnea/CPAP/BIPAP Additional Past Medical History / Comment(s): HX BACK PAIN, hx Sciaticia bilateral legs. Hx FX lower back. ADIE'S TONIC PUPIL/FIXED PUPILS- BILATERAL EYES, HAS LENS IMPLANT IN RT EYE. HX "PRE-CANCER OF BREAST." OVERACTIVE BLADDER. DEAF RT EAR. CPAP use., Varicose veins. Swelling in top of feet, di scoloration around left ankle, neck pain radiates to arms and hands. History of Any Multi-Drug Resistant Organisms: None Reported Past Surgical History: Bladder Surgery, Cholecystectomy, Heart Catheterization, Hysterectomy, Joint Replacement, Orthopedic Surgery Additional Past Surgical History / Comment(s): RT KNEE REPLACEMENT, VANESSA BREAST MASTECTOMY W/ RECONSTRUCTION. IMPLANTS VANESSA BREAST, RT EYE LENS IMPLANT, EXC VANESSA CATARACTS WITH LENS IMPLANT. RT. CARPAL TUNNEL RELEASE, arthroscopy of knee, pain clinic procedure. Past Anesthesia/Blood Transfusion Reactions: Postoperative Nausea & Vomiting (PONV) Additional Past Anesthesia/Blood Transfusion Reaction / Comment(s): Mother- PONV. Past Psychological History: Anxiety, Panic Disorder Smoking Status: Never smoker Past Alcohol Use History: Rare Past Drug Use History: None Reported - Past Family History Brother(s) Family Medical History: Cancer Additional Family Medical History / Comment(s): Testicular Cancer. Prostate cancer. General Exam General appearance: alert, in no apparent distress Head exam: Present: atraumatic, normocephalic, normal inspection Eye exam: Present: normal appearance, PERRL, EOMI. Absent: scleral icterus, conjunctival injection, periorbital swelling ENT exam: Present: normal exam, normal oropharynx, mucous membranes moist Neck exam: Present: normal inspection, full ROM. Absent: tenderness, meningismus, lymphadenopathy Respiratory exam: Present: normal lung sounds bilaterally. Absent: respiratory distress, wheezes, rales, rhonchi, stridor Cardiovascular Exam: Present: regular rate, normal rhythm, normal heart sounds. Absent: systolic murmur, diastolic murmur, rubs, gallop, clicks GI/Abdominal exam: Present: soft, normal bowel sounds. Absent: distended, tenderness, guarding, rebound, rigid Medical Decision Making - Medical Decision Making She received monoclonal antibodies will be discharged in stable condition Disposition Clinical Impression: COVID-19 Disposition: HOME SELF-CARE Condition: Stable Is patient prescribed a controlled substance at d/c from ED?: No Time of Disposition: 10:03
[2021-03-03] MEDS ORDERED: BAMLANIVIMAB (EUA) 700 MG, ETESEVIMAB (EUA) 1,400 MG in SODIUM CHLORIDE 0.9% 50 ML IVPB ONE (10:30)
[2021-03-03] MEDS ORDERED: SODIUM CHLORIDE 0.9% 50 ML IVPB ONE (10:30)
[2021-03-03] MEDS ORDERED: SODIUM CHLORIDE 0.9% 500 ML 500 ML in EMPTY BAG 1 BAG IV PRN ×2 (10:38→10:39)
[2021-03-03 11:26] VITALS: BP 147/88; PULSE 54
[2021-03-03 11:41] VITALS: TEMP 98.6
== END 2021-03-03 12:30 | disposition home or self-care (01) ==
LOC: PROCWHC3 09:40 → EC 09:40 → EDSTATUS 09:41 → PROCWHC3 12:30
DX: U07.1 COVID-19 (principal); I48.91 Unspecified atrial fibrillation; J45.909 Unspecified asthma, uncomplicated; K21.9 Gastro-esophageal reflux disease without esophagitis; E78.5 Hyperlipidemia, unspecified; I10 Essential (primary) hypertension; M19.90 Unspecified osteoarthritis, unspecified site; F41.9 Anxiety disorder, unspecified; Z79.01 Long term (current) use of anticoagulants; Z88.1 Allergy status to other antibiotic agents; Z85.3 Personal history of malignant neoplasm of breast; Z90.49 Acquired absence of other specified parts of digestive tract; Z90.710 Acquired absence of both cervix and uterus; Z96.651 Presence of right artificial knee joint
CPT/HCPCS: 99283; 96360; J3490; M0243

== ENCOUNTER → 2021-03-18 | Outpatient (CLI) | payer MEDICARE, BC ==
--- NOTE | 2021-03-18 15:44 | XR ---
EXAMINATION TYPE: XR foot complete bilateral DATE OF EXAM: 03/18/2021 COMPARISON: None HISTORY: Chronic pain, fibromyalgia TECHNIQUE: 3 view bilateral feet FINDINGS: Right foot: Degenerative joint changes are present. There is loss of joint space first metatarsophala ngeal joint space. Subluxation of the proximal phalanx on the metatarsal is evident at the second thi rd and fourth digits. Tiny curvilinear calcifications adjacent to the proximal phalanx second digit c ould be a small avulsion. There is mild soft tissue swelling over the dorsum of foot. Tarsal metatar kae junction hypertrophy is present. Plantar calcaneal heel spur is present. Left foot: Mild degenerative joint changes present throughout the left foot. Mild soft tissue swellin g over the dorsum of the foot distally. Small plantar calcaneal heel spurs present. IMPRESSION: 1. Small avulsion from the proximal phalanx second digit right foot may be present. Cord of the loca tion of the patient's pain. 2. Multiple degenerative joint changes through the right foot. Subluxation of the second through four th digits may be present on the right foot. 3. Milder degenerative joint changes. 4. Bilateral plantar calcaneal heel spurs.
--- NOTE | 2021-03-18 16:01 | XR ---
EXAMINATION TYPE: XR hand complete bilateral DATE OF EXAM: 03/18/2021 COMPARISON: None HISTORY: Chronic pain TECHNIQUE: 3 view right foot FINDINGS: Right hand: Advanced degenerative joint changes present at the first carpal carpal junction. There is mild diffuse degenerative joint changes at the metacarpophalangeal joint spaces and the proximal dis bharati interphalangeal joint spaces. Structures appear somewhat osteopenic. This could be correlated wit h bone density. No acute fractures or dislocations are evident. Soft tissues appear normal. Left hand: There is diffuse narrowing of the proximal and distal interphalangeal joint spaces. No acu te fracture or dislocation is evident. There is advanced degenerative change first carpal metacarpal junction. Soft tissues appear normal. IMPRESSION: 1. Diffuse degenerative joint changes, greatest at the first carpal metacarpal junctions bilateral h ands.
== END | disposition home or self-care (01) ==
LOC: RADXRMAIN 13:41
PROVIDERS: ATTEND Internal Medicine Rheumatology
DX: M18.0 Bilateral primary osteoarthritis of first carpometacarpal joints (principal); M77.31 Calcaneal spur, right foot; M77.32 Calcaneal spur, left foot; M19.071 Primary osteoarthritis, right ankle and foot; M19.072 Primary osteoarthritis, left ankle and foot

== ENCOUNTER 2021-04-17 00:30 | Inpatient (IN) | payer MEDICARE, BC ==
[2021-04-17] MEDS ORDERED: SODIUM CHLORIDE 0.9% 500 ML 500 ML IV STA (00:55)
[2021-04-17] MEDS ORDERED: DILTIAZEM DRIP BOLUS FROM BAG 1 MG SOLN IV ONE (01:08)
[2021-04-17] MEDS ORDERED: ONDANSETRON 4 MG/2 ML VIAL IVP STA (01:08)
[2021-04-17 01:23] LABS: Basophils % (A) 0 %; Eosinophils % (A) 0 %; HCT 46.3 % (34.0-46.0); HGB 14.8 gm/dL (11.4-16.0); Lymphocytes # (A) 0.6 k/uL (1.0-4.8); Lymphocytes % (A) 7 %; MCH 30.9 pg (25.0-35.0); MCHC 31.9 g/dL (31.0-37.0); MCV 96.6 fL (80.0-100.0); Mean Platelet Volume 9.8; Monocytes # (A) 0.7 k/uL (0-1.0); Monocytes % (A) 8 %; Neutrophils # (A) 7.6 k/uL (1.3-7.7); Neutrophils % (A) 83 %; Platelet Count 154 k/uL (150-450); RBC 4.79 m/uL (3.80-5.40); RDW 13.2 % (11.5-15.5); WBC 9.1 k/uL (3.8-10.6)
--- NOTE | 2021-04-17 01:26 | XR ---
EXAMINATION TYPE: XR chest 2V DATE OF EXAM: 04/17/2021 COMPARISON: 08/29/2019 HISTORY: Chest pain TECHNIQUE: 2 views FINDINGS: There is no heart failure nor confluent pneumonic infiltrate. Costophrenic angles are clear . There are chest leads. There are no hilar masses. Heart appears slightly enlarged. IMPRESSION: No active cardiopulmonary disease. There is clearing of a small infiltrate right lung bas e compared to old exam.
[2021-04-17] MEDS: DILTIAZEM 125 MG in SODIUM CHLORIDE 0.9% 100 ML IV SCH (01:30)
[2021-04-17 01:38] LABS: ALT 16 U/L (4-34); AST 34 U/L (14-36); African American GFR (CKD) >90 (>60 ml/min/1.73 sqM); Albumin 3.8 g/dL (3.5-5.0); Alkaline Phosphatase 75 U/L (38-126); Anion Gap 9 mmol/L; Blood Urea Nitrogen 19 mg/dL (7-17); Calcium 8.8 mg/dL (8.4-10.2); Carbon Dioxide 25 mmol/L (22-30); Chloride 100 mmol/L (98-107); Glucose 156 mg/dL (74-99); Magnesium 1.5 mg/dL (1.6-2.3); Non-African American GFR(CKD) 85 (>60 ml/min/1.73 sqM); Potassium 4.4 mmol/L (3.5-5.1); Sodium 134 mmol/L (137-145); Total Bilirubin 2.3 mg/dL (0.2-1.3); Total Protein 6.9 g/dL (6.3-8.2)
[2021-04-17 01:40] LABS: INR 1.7 (<1.2); Partial Thromboplastin Time 28.9 sec (22.0-30.0); Prothrombin Time 17.2 sec (9.0-12.0)
--- NOTE | 2021-04-17 01:43 | ED ---
General Adult HPI - General Chief complaint: Shortness of Breath Stated complaint: Shortness of Breath Time Seen by Provider: 04/17/21 00:55 Source: patient, EMS, RN notes reviewed Mode of arrival: EMS Limitations: no limitations - History of Present Illness Initial comments: 70-year-old female presents emergency from chief complaint of shortness breath, weakness, nausea and fever. Patient states symptoms started last couple days. She states she just has not felt well. She did take it at home covid test which was negative. Patient states that she saw her has been racing. Patient did take Tylenol approximately 4 hours ago. Patient states that she's had nausea and vomiting. Patient states she just she'll week. Patient states she is on Coumadin for her atrial fibrillation. - Related Data Home Medications Medication Instructions Recorded Confirmed Simvastatin [Zocor] 20 mg PO HS 12/09/14 03/03/21 Cholecalciferol [Vitamin D3] 3,000 unit PO DAILY 01/19/17 03/03/21 LORazepam [Ativan] 0.5 mg PO HS PRN 01/19/17 03/03/21 Meloxicam [Mobic] 7.5 mg PO Q48H 01/19/17 03/03/21 Mometasone Furoate [Nasonex Nasal 1 - 2 spray EA NOSTRIL DAILY PRN 01/19/17 03/03/21 [place]] amLODIPine [Norvasc] 5 mg PO DAILY 01/19/17 03/03/21 Albuterol Inhaler [Ventolin Hfa 1 puff INHALATION DIRECTED PRN 08/24/20 03/03/21 Inhaler] Fexofenadine/Pseudoephedrine 1 each PO DAILY PRN 08/24/20 03/03/21 [Emma-D 24 Hour Tablet] Metoprolol Tartrate [Lopressor] 50 mg PO TID 08/24/20 03/03/21 Warfarin [Coumadin] 6 mg PO HS 08/24/20 03/03/21 Citalopram Hydrobromide [CeleXA] 40 mg PO DAILY 11/25/20 03/03/21 Allergies Allergy/AdvReac Type Severity Reaction Status Date / Time tocilizumab [From Actemra] Allergy Severe Dyspnea, Verified 04/17/21 00:40 sores, itching, sore throat meperidine HCl [From Demerol] AdvReac Nausea Verified 04/17/21 00:40 Review of Systems ROS Statement: Those systems with pertinent positive or pertinent negative responses have been documented in the HPI. ROS Other: All systems not noted in ROS Statement are negative. Past Medical History Past Medical History: Atrial Fibrillation, Asthma, Eye Disorder, GERD/Reflux, Hearing Disorder / Deafness, Hyperlipidemia, Hypertension, Osteoarthritis (OA), Rheumatoid Arthritis (RA), Sleep Apnea/CPAP/BIPAP Additional Past Medical History / Comment(s): HX BACK PAIN, hx Sciaticia bilateral legs. Hx FX lower back. ADIE'S TONIC PUPIL/FIXED PUPILS- BILATERAL EYES, HAS LENS IMPLANT IN RT EYE. HX "PRE-CANCER OF BREAST." OVERACTIVE BLADDER. DEAF RT EAR. CPAP use., Varicose veins. Swelling in top of feet, discoloration around left ankle, neck pain radiates to arms and hands. History of Any Multi-Drug Resistant Organisms: None Reported Past Surgical History: Bladder Surgery, Cholecystectomy, Heart Catheterization, Hysterectomy, Joint Replacement, Orthopedic Surgery Additional Past Surgical History / Comment(s): RT KNEE REPLACEMENT, VANESSA BREAST MASTECTOMY W/ RECONSTRUCTION. IMPLANTS VANESSA BREAST, RT EYE LENS IMPLANT, EXC VANESSA CATARACTS WITH LENS IMPLANT. RT. CARPAL TUNNEL RELEASE, arthroscopy of knee, pain clinic procedure. Past Anesthesia/Blood Transfusion Reactions: Postoperative Nausea & Vomiting (PONV) Additional Past Anesthesia/Blood Transfusion Reaction / Comment(s): Mother- PONV. Past Psychological History: Anxiety, Panic Disorder Smoking Status: Never smoker Past Alcohol Use History: Rare Past Drug Use History: None Reported - Past Family History Brother(s) Family Medical History: Cancer Additional Family Medical History / Comment(s): Testicular Cancer. Prostate cancer. General Exam Limitations: no limitations General appearance: alert, in no apparent distress Head exam: Present: atraumatic, normocephalic, normal inspection Eye exam: Present: normal appearance, PERRL, EOMI. Absent: scleral icterus, conjunctival injection, periorbital swelling ENT exam: Present: normal exam, normal oropharynx, mucous membranes moist Neck exam: Present: normal inspection, full ROM. Absent: tenderness, meningismus, lymphadenopathy Respiratory exam: Present: normal lung sounds bilaterally. Absent: respiratory distress, wheezes, rales, rhonchi, stridor Cardiovascular Exam: Present: tachycardia, irregular rhythm, normal heart sounds. Absent: regular rate, normal rhythm, systolic murmur, diastolic murmur, rubs, gallop, clicks GI/Abdominal exam: Present: soft, normal bowel sounds. Absent: distended, tenderness, guarding, rebound, rigid Neurological exam: Present: alert, oriented X3 Skin exam: Present: warm, dry, intact, normal color. Absent: rash Course Vital Signs 04/17/21 04/17/21 00:32 01:30 Temperature 98.7 F Pulse Rate 73 132 H Respiratory 18 20 Rate Blood Pressure 120/76 117/76 O2 Sat by Pulse 92 L 94 L Oximetry EKG Findings - EKG Comments: EKG Findings:: EKG performed at 0:50 atrial fibrillation with RVR rate of 144 QRS 108 QT/QTC 3:30/505 Medical Decision Making - Medical Decision Making 70-year-old presented for shortness breath denies feeling well. Patient's found in A. fib RVR. Patient is on warfarin. INR is 1.7 patient was started on Cardizem including bolus of Cardizem. Patient found to have mild hypo-magnesium anemia patient's magnesium was replaced will be admitted for rate control. - Lab Data Result diagrams: 04/17/21 01:01 04/17/21 01:01 Lab Results 04/17/21 04/17/21 04/17/21 Range/Units 01:01 01:01 01:01 WBC 9.1 (3.8-10.6) k/uL RBC 4.79 (3.80-5.40) m/uL Hgb 14.8 (11.4-16.0) gm/dL Hct 46.3 H (34.0-46.0) % MCV 96.6 (80.0-100.0) fL MCH 30.9 (25.0-35.0) pg MCHC 31.9 (31.0-37.0) g/dL RDW 13.2 (11.5-15.5) % Plt Count 154 (150-450) k/uL MPV 9.8 Neutrophils % 83 % Lymphocytes % 7 % Monocytes % 8 % Eosinophils % 0 % Basophils % 0 % Neutrophils # 7.6 (1.3-7.7) k/uL Lymphocytes # 0.6 L (1.0-4.8) k/uL Monocytes # 0.7 (0-1.0) k/uL Eosinophils # 0.0 (0-0.7) k/uL Basophils # 0.0 (0-0.2) k/uL PT 17.2 H (9.0-12.0) sec INR 1.7 H (<1.2) APTT 28.9 (22.0-30.0) sec Sodium 134 L (137-145) mmol/L Potassium 4.4 (3.5-5.1) mmol/L Chloride 100 (98-107) mmol/L Carbon Dioxide 25 (22-30) mmol/L Anion Gap 9 mmol/L BUN 19 H (7-17) mg/dL Creatinine 0.72 (0.52-1.04) mg/dL Est GFR (CKD-EPI)AfAm >90 (>60 ml/min/1.73 sqM) Est GFR (CKD-EPI)NonAf 85 (>60 ml/min/1.73 sqM) Glucose 156 H (74-99) mg/dL Calcium 8.8 (8.4-10.2) mg/dL Magnesium 1.5 L (1.6-2.3) mg/dL Total Bilirubin 2.3 H (0.2-1.3) mg/dL AST 34 (14-36) U/L ALT 16 (4-34) U/L Alkaline Phosphatase 75 (38-126) U/L Troponin I (0.000-0.034) ng/mL Total Protein 6.9 (6.3-8.2) g/dL Albumin 3.8 (3.5-5.0) g/dL Coronavirus (PCR) (Not Detectd) 04/17/21 04/17/21 Range/Units 01:01 01:01 WBC (3.8-10.6) k/uL RBC (3.80-5.40) m/uL Hgb (11.4-16.0) gm/dL Hct (34.0-46.0) % MCV (80.0-100.0) fL MCH (25.0-35.0) pg MCHC (31.0-37.0) g/dL RDW (11.5-15.5) % Plt Count (150-450) k/uL MPV Neutrophils % % Lymphocytes % % Monocytes % % Eosinophils % % Basophils % % Neutrophils # (1.3-7.7) k/uL Lymphocytes # (1.0-4.8) k/uL Monocytes # (0-1.0) k/uL Eosinophils # (0-0.7) k/uL Basophils # (0-0.2) k/uL PT (9.0-12.0) sec INR (<1.2) APTT (22.0-30.0) sec Sodium (137-145) mmol/L Potassium (3.5-5.1) mmol/L Chloride (98-107) mmol/L Carbon Dioxide (22-30) mmol/L Anion Gap mmol/L BUN (7-17) mg/dL Creatinine (0.52-1.04) mg/dL Est GFR (CKD-EPI)AfAm (>60 ml/min/1.73 sqM) Est GFR (CKD-EPI)NonAf (>60 ml/min/1.73 sqM) Glucose (74-99) mg/dL Calcium (8.4-10.2) mg/dL Magnesium (1.6-2.3) mg/dL Total Bilirubin (0.2-1.3) mg/dL AST (14-36) U/L ALT (4-34) U/L Alkaline Phosphatase (38-126) U/L Troponin I 0.022 (0.000-0.034) ng/mL Total Protein (6.3-8.2) g/dL Albumin (3.5-5.0) g/dL Coronavirus (PCR) Not Detected (Not Detectd) Critical Care Time Critical Care Time: Yes Total Critical Care Time: 35 Disposition Clinical Impression: Atrial fibrillation with RVR, Hypomagnesemia Disposition: ADMITTED IP TO THIS [facility] Condition: Fair Referrals: Minerva Albright DO [REFERRING] - 1-2 days
[2021-04-17] MEDS ORDERED: MAGNESIUM OXIDE 400 MG TAB PO STA (02:37)
[2021-04-17] MEDS ORDERED: DIAZEPAM 5 MG/ML 2 ML INJ IVP STA (02:43)
[2021-04-17] MEDS ORDERED: NALOXONE 0.4 MG/ML 1 ML VIAL IV PRN (02:45)
--- NOTE | 2021-04-17 03:36 | XR ---
EXAMINATION TYPE: XR cervical spine comp DATE OF EXAM: 04/17/2021 COMPARISON: 10/23/2019 HISTORY: Neck pain TECHNIQUE: 6 views FINDINGS: Cervical vertebra show mild straightening. There is a few millimeter anterior subluxation o f C4 in relation to C5 unchanged. There is some degenerative disc space narrowing at C5-6 with spurri ng. There are no cervical ribs. Atlantoaxial facet joint is normal. There is uncovertebral spurring a nd neural foraminal impingement bilaterally in the lower cervical spine. IMPRESSION: There are some spondylotic changes of the lower cervical spine. Exam limited by the shoul ders. There is not a significant progression compared to old exam. No fracture.
[2021-04-17] MEDS: ACETAMINOPHEN TAB 325 MG TAB PO PRN ×2 (08:21→16:04)
[2021-04-17] MEDS: ONDANSETRON 4 MG/2 ML VIAL IVP PRN ×2 (08:25→16:05)
[2021-04-17] MEDS ORDERED: METOPROLOL TARTRATE 50 MG TAB PO SCH (11:15)
[2021-04-17] MEDS ORDERED: METOPROLOL TARTRATE 25 MG TAB PO STA (13:05)
--- NOTE | 2021-04-17 13:14 | P.CRDCN ---
History of Present Illness History of present illness: HISTORY OF PRESENTING ILLNESS Patient is a pleasant 70-year-old female with history of paroxysmal atrial fibrillation, hypertension, depression who presents with 3 days of not feeling well. She states she has been having fevers with fever today up to 102.3. She denies any cough however has been somewhat more short of breath as well as her last 3 days. She has felt somewhat nauseous and denies any diarrhea or epigastric pain. She denies any actual chest pain or pressure. She is feeling fairly short of breath and therefore came to emergency department. She was noted to be in A. fib with RVR with heart rates from 100 up to 130s. She follows in the office with Dr. Grossman. She had initially been on the metoprolol 50mg daily and then this was increased to twice a day and then 3 times a day. Denies any changes in her medications. She was started on a Cardizem drip currently at 5 with heart rates somewhat better controlled however 120s to 130s currently. REVIEW OF SYSTEMS At the time of my exam: CONSTITUTIONAL: Denies fever or chills. CARDIOVASCULAR: Denies chest pain, +shortness of breath, no orthopnea, PND or palpitations. RESPIRATORY: Denies cough. GASTROINTESTINAL: Denies abdominal pain, diarrhea, constipation, nausea or vomiting. MUSCULOSKELETAL: Denies myalgias. NEUROLOGIC: Denies numbness, tingling or weakness. ENDOCRINE: Denies fatigue, weight change, polydipsia or polyurina. GENITOURINARY: Denies burning, hematuria or urgency with micturation. HEMATOLOGIC: Denies history of anemia or bleeding. PHYSICAL EXAMINATION Vital signs reviewed. CONSTITUTIONAL: No apparent distress. HEENT: Head is normocephalic. Pupils are equal, round. Sclerae anicteric. Mucous membranes of the mouth are moist. No JVD. No carotid bruit. CHEST EXAMINATION: Lungs are clear to auscultation. No chest wall tenderness is noted on palpation or with deep breathing. HEART EXAMINATION: Irregular rate and rhythm. S1, S2 heard. No murmurs, gallops or rub. ABDOMEN: Soft, nontender. Positive bowel sounds. EXTREMITIES: 2+ peripheral pulses, no lower extremity edema and no calf tenderness. NEUROLOGIC EXAMINATION: Patient is awake, alert and oriented x3. ASSESSMENT 1. Paroxysmal atrial fibrillation with RVR 2. Hypertension 3. Dyspnea possible some component of acute diastolic heart failure, A. fib with RVR 4. SIRS, fever concerning for infectious etiology, source unclear PLAN Patient with new onset of dyspnea however also has been having fevers. Chest x- ray unrevealing however may be some component of bronchitis however denies any recent chills or cough. Heart rates are expected be somewhat higher with fever. We will however increase metoprolol from 50 mg to 75 mg 3 times a day and monitor response. Continue with anticoagulation with Coumadin with goal INR 2- 3. Past Medical History Past Medical History: Atrial Fibrillation, Asthma, Eye Disorder, GERD/Reflux, Hearing Disorder / Deafness, Hyperlipidemia, Hypertension, Osteoarthritis (OA), Rheumatoid Arthritis (RA), Sleep Apnea/CPAP/BIPAP Additional Past Medical History / Comment(s): HX BACK PAIN, hx Sciaticia bilateral legs. Hx FX lower back. ADIE'S TONIC PUPIL/FIXED PUPILS- BILATERAL EYES, HAS LENS IMPLANT IN RT EYE. HX "PRE-CANCER OF BREAST." OVERACTIVE BLADDER. DEAF RT EAR. CPAP use., Varicose veins. Swelling in top of feet, discoloration around left ankle, neck pain radiates to arms and hands. History of Any Multi-Drug Resistant Organisms: None Reported Past Surgical History: Bladder Surgery, Cholecystectomy, Heart Catheterization, Hysterectomy, Joint Replacement, Orthopedic Surgery Additional Past Surgical History / Comment(s): RT KNEE REPLACEMENT, VANESSA BREAST MASTECTOMY W/ RECONSTRUCTION. IMPLANTS VANESSA BREAST, RT EYE LENS IMPLANT, EXC VANESSA CATARACTS WITH LENS IMPLANT. RT. CARPAL TUNNEL RELEASE, arthroscopy of knee, pain clinic procedure. Past Anesthesia/Blood Transfusion Reactions: Postoperative Nausea & Vomiting (PONV) Additional Past Anesthesia/Blood Transfusion Reaction / Comment(s): Mother- PONV. Past Psychological History: Anxiety, Panic Disorder Smoking Status: Never smoker Past Alcohol Use History: Rare Past Drug Use History: None Reported - Past Family History Brother(s) Family Medical History: Cancer Additional Family Medical History / Comment(s): Testicular Cancer. Prostate cancer. Medications and Allergies Home Medications Medication Instructions Recorded Confirmed Type Simvastatin [Zocor] 20 mg PO HS 12/09/14 04/17/21 History LORazepam [Ativan] 0.5 mg PO HS PRN 01/19/17 04/17/21 History Meloxicam [Mobic] 7.5 mg PO Q48H 01/19/17 04/17/21 History Mometasone Furoate [Nasonex Nasal 1 - 2 spray EA NOSTRIL DAILY PRN 01/19/1706/07 History [place]] amLODIPine [Norvasc] 5 mg PO DAILY 01/19/17 04/17/21 History Albuterol Inhaler [Ventolin Hfa 1 - 2 puff INHALATION Q6H PRN 08/24/20 04/17/21 History Inhaler] Fexofenadine/Pseudoephedrine 1 tab PO DAILY PRN 08/24/20 04/17/21 History [Emma-D 24 Hour Tablet] Metoprolol Tartrate [Lopressor] 50 mg PO TID 08/24/20 04/17/21 History Warfarin [Coumadin] 6 mg PO HS 08/24/20 04/17/21 History Citalopram Hydrobromide [CeleXA] 40 mg PO DAILY 11/25/20 04/17/21 History Cholecalciferol (Vitamin D3) 75 mcg PO DAILY 04/17/21 04/17/21 History [Vitamin D3 (3000 Iu)] Allergies Allergy/AdvReac Type Severity Reaction Status Date / Time tocilizumab [From Actemra] Allergy Severe Dyspnea, Verified 04/17/21 07:26 sores, itching, sore throat meperidine HCl [From Demerol] AdvReac Nausea Verified 04/17/21 07:26 Physical Exam Vitals: Vital Signs Temp Pulse Resp BP Pulse Ox 04/17/21 08:00 102.3 F H 123 H 18 106/62 97 04/17/21 04:17 99 18 116/72 97 04/17/21 01:30 132 H 20 117/76 94 L 04/17/21 00:32 98.7 F 73 18 120/76 92 L Intake and Output 04/16/21 04/17/21 04/17/21 22:59 06:59 14:59 Other: Weight 136.078 kg Results 04/17/21 01:01 04/17/21 01:01 Cardiac Enzymes 04/17/21 04/17/21 04/17/21 Range/Units 01:01 01:01 04:05 AST 34 (14-36) U/L Troponin I 0.022 0.025 (0.000-0.034) ng/mL 04/17/21 Range/Units 07:57 AST (14-36) U/L Troponin I 0.019 (0.000-0.034) ng/mL Coagulation 04/17/21 Range/Units 01:01 PT 17.2 H (9.0-12.0) sec APTT 28.9 (22.0-30.0) sec CBC 04/17/21 Range/Units 01:01 WBC 9.1 (3.8-10.6) k/uL RBC 4.79 (3.80-5.40) m/uL Hgb 14.8 (11.4-16.0) gm/dL Hct 46.3 H (34.0-46.0) % Plt Count 154 (150-450) k/uL Comprehensive Metabolic Panel 04/17/21 Range/Units 01:01 Sodium 134 L (137-145) mmol/L Potassium 4.4 (3.5-5.1) mmol/L Chloride 100 (98-107) mmol/L Carbon Dioxide 25 (22-30) mmol/L BUN 19 H (7-17) mg/dL Creatinine 0.72 (0.52-1.04) mg/dL Glucose 156 H (74-99) mg/dL Calcium 8.8 (8.4-10.2) mg/dL AST 34 (14-36) U/L ALT 16 (4-34) U/L Alkaline Phosphatase 75 (38-126) U/L Total Protein 6.9 (6.3-8.2) g/dL Albumin 3.8 (3.5-5.0) g/dL Current Medications Generic Name Dose Route Start Last Admin Trade Name Freq PRN Reason Stop Dose Admin Acetaminophen 650 mg 04/17/21 02:45 04/17/21 08:21 Acetaminophen Tab 325 Mg Tab PO 650 mg Q6HR PRN Administration Mild Pain or Fever > 100.5 Hydrocodone Bitart/Acetaminophen 1 each 04/17/21 02:45 Hydrocodone/Apap 5-325mg 1 Each Tab PO Q4HR PRN Moderate Pain Atorvastatin Calcium 10 mg 04/17/21 21:00 Atorvastatin 10 Mg Tab PO HS NABEEL Citalopram Hydrobromide 40 mg 04/17/21 11:15 Citalopram Hydrobromide 20 Mg Tab PO DAILY NABEEL Diltiazem HCl 125 mg/ Sodium 125 mls @ 5 mls/hr 04/17/21 01:15 04/17/21 01:30 Chloride IV 5 mg/hr .Q24H NABEEL 5 mls/hr Administration 5 MG/HR Metoprolol Tartrate 75 mg 04/17/21 16:00 Metoprolol Tartrate 25 Mg Tab PO TID [facility] Miscellaneous Information 1 each 04/17/21 11:07 Warfarin Per Pharmacy MISCELLANE DIRECTED PRN Per Protocol Protocol Naloxone HCl 0.2 mg 04/17/21 02:45 Naloxone 0.4 Mg/Ml 1 Ml Vial IV Q2M PRN Opioid Reversal Ondansetron HCl 4 mg 04/17/21 02:45 04/17/21 08:25 Ondansetron 4 Mg/2 Ml Vial IVP 4 mg Q8HR PRN Administration Nausea And Vomiting Warfarin Sodium 6 mg 04/17/21 18:00 Warfarin 3 Mg Tab PO 04/17/21 18:01 ONCE ONE Intake and Output 04/16/21 04/17/21 04/17/21 22:59 06:59 14:59 Other: Weight 136.078 kg 04/17/21 01:01 04/17/21 01:01
[2021-04-17] MEDS: METOPROLOL TARTRATE 25 MG TAB PO SCH ×2 (16:04→21:12)
[2021-04-17] MEDS: CITALOPRAM HYDROBROMIDE 20 MG TAB PO SCH (16:09)
[2021-04-17] MEDS ORDERED: WARFARIN 3 MG TAB PO ONE (18:00)
[2021-04-17] MEDS: ATORVASTATIN 10 MG TAB PO SCH (21:11)
[2021-04-17] MEDS: HYDROcodone/APAP 5-325MG 1 EACH TAB PO PRN (21:11)
--- NOTE | 2021-04-17 22:07 | P.HPIM ---
History of Present Illness H&P Date: 04/17/21 Chief Complaint: Shortness of breath Patient is a 70-year-old female with a known history of hypertension, hyperlipidemia, osteoarthritis, rheumatoid arthritis, obstructive sleep apnea on CPAP at home, paroxysmal atrial fibrillation,, Anxiety and panic disorder and history of cardiac catheterization presents to ER with complaints of shortness of breath, fever and chills for the past 2 days. Patient states that she has not been feeling very well last 2 days. Patient states that she had Covid diagnosed on February 28, 2021. She did take Tylenol for fever at home. She is also having nausea and episode of vomiting. Denies any complaints of chest pain. No leg swelling. No abdominal pain or diarrhea or dysuria. On admission patient was tachycardic and T-max was 102.3. Patient denied any neck stiffness. No headache or dizziness. Chest x-ray showed no active cardiopulmonary disease. There is clearing of a small infiltrate right lung base compared to old exam. EKG showed atrial fibrillation with rapid ventricular response. Laboratory data showed WBC 9.1 hemoglobin 14.8 and platelets 154 INR 1.7 Sodium 134 potassium 4.4 chloride 100 BUN 19 and creatinine 0.72 blood sugar is 156 and magnesium 1.5 Troponin 0 0.022, 0.0250.019 proBNP 3010 Coronavirus PCR not detected. Review of Systems Constitutional: Patient does have fever and chills and generalized weakness.. Abdomen: Patient does complain of nausea and vomiting. No diarrhea or abdominal pain. Cardiovascular: Patient denies any chest pain or short of breath no palpitations. Respiratory: Patient does have mild cough. No sputum production. Shortness of breath. Neurologic: Patient denied any numbness or tingling headache. Musculoskeletal: Patient denies any complaints of joint swelling or deformity. Skin: Negative Psychiatric: Negative Endocrine: No heat or cold intolerance. No recent weight gain. Genitourinary: No dysuria or hematuria. All other 14 point ROS negative except the above Past Medical History Past Medical History: Atrial Fibrillation, Asthma, Eye Disorder, GERD/Reflux, Hearing Disorder / Deafness, Hyperlipidemia, Hypertension, Osteoarthritis (OA), Rheumatoid Arthritis (RA), Sleep Apnea/CPAP/BIPAP Additional Past Medical History / Comment(s): HX BACK PAIN, hx Sciaticia bilateral legs. Hx FX lower back. ADIE'S TONIC PUPIL/FIXED PUPILS- BILATERAL EYES, HAS LENS IMPLANT IN RT EYE. HX "PRE-CANCER OF BREAST." OVERACTIVE BLADDER. DEAF RT EAR. CPAP use., Varicose veins. Swelling in top of feet, discoloration around left ankle, neck pain radiates to arms and hands. History of Any Multi-Drug Resistant Organisms: None Reported Past Surgical History: Bladder Surgery, Cholecystectomy, Heart Catheterization, Hysterectomy, Joint Replacement, Orthopedic Surgery Additional Past Surgical History / Comment(s): RT KNEE REPLACEMENT, VANESSA BREAST MASTECTOMY W/ RECONSTRUCTION. IMPLANTS VANESSA BREAST, RT EYE LENS IMPLANT, EXC VANESSA CATARACTS WITH LENS IMPLANT. RT. CARPAL TUNNEL RELEASE, arthroscopy of knee, pain clinic procedure. Past Anesthesia/Blood Transfusion Reactions: Postoperative Nausea & Vomiting (PONV) Additional Past Anesthesia/Blood Transfusion Reaction / Comment(s): Mother- PONV. Past Psychological History: Anxiety, Panic Disorder Smoking Status: Never smoker Past Alcohol Use History: Rare Past Drug Use History: None Reported - Past Family History Brother(s) Family Medical History: Cancer Additional Family Medical History / Comment(s): Testicular Cancer. Prostate cancer. Medications and Allergies Home Medications Medication Instructions Recorded Confirmed Type Simvastatin [Zocor] 20 mg PO HS 12/09/14 04/17/21 History LORazepam [Ativan] 0.5 mg PO HS PRN 01/19/17 04/17/21 History Meloxicam [Mobic] 7.5 mg PO Q48H 01/19/17 04/17/21 History Mometasone Furoate [Nasonex Nasal 1 - 2 spray EA NOSTRIL DAILY PRN 01/19/17 04/17/21 History [facility]] amLODIPine [Norvasc] 5 mg PO DAILY 01/19/17 04/17/21 History Albuterol Inhaler [Ventolin Hfa 1 - 2 puff INHALATION Q6H PRN 08/24/20 04/17/21 History Inhaler] Fexofenadine/Pseudoephedrine 1 tab PO DAILY PRN 08/24/20 04/17/21 History [Emma-D 24 Hour Tablet] Metoprolol Tartrate [Lopressor] 50 mg PO TID 08/24/20 04/17/21 History Warfarin [Coumadin] 6 mg PO HS 08/24/20 04/17/21 History Citalopram Hydrobromide [CeleXA] 40 mg PO DAILY 11/25/20 04/17/21 History Cholecalciferol (Vitamin D3) 75 mcg PO DAILY 04/17/21 04/17/21 History [Vitamin D3 (3000 Iu)] Allergies Allergy/AdvReac Type Severity Reaction Status Date / Time tocilizumab [From Actemra] Allergy Severe Dyspnea, Verified 04/17/21 07:26 sores, itching, sore throat meperidine HCl [From Demerol] AdvReac Nausea Verified 04/17/21 07:26 Physical Exam Vitals: Vital Signs Temp Pulse Resp BP Pulse Ox 04/17/21 08:00 102.3 F H 123 H 18 106/62 97 04/17/21 04:17 99 18 116/72 97 04/17/21 01:30 132 H 20 117/76 94 L 04/17/21 00:32 98.7 F 73 18 120/76 92 L Intake and Output 04/16/21 04/17/21 04/17/21 22:59 06:59 14:59 Other: Weight 136.078 kg PHYSICAL EXAMINATION: Patient is lying in the bed comfortably, no acute distress, awake alert and oriented.. HEENT: Normocephalic. Neck is supple. Pupils reactive. Nostrils clear. Oral cavity is moist. Neck reveals no JVD, carotid bruits, or thyromegaly. CHEST EXAMINATION: Trachea is central. Symmetrical expansion. Lung watson clear to auscultation and percussion. CARDIAC: Normal S1, S2 with no gallops. No murmurs ABDOMEN: Soft. Bowel sounds normal. No organomegaly. No abdominal bruits. Extremities: reveal no edema. No clubbing or cyanosis Neurologically awake, alert, oriented x3 with well-coordinated movements. No focal deficits noted Skin: No rash or skin lesions. Psychiatric: Cooperative. Nonsuicidal Musculoskeletal: No joint swelling or deformity. Normal range of motion. Results CBC & Chem 7: 04/17/21 01:04/17/21 01:01 Labs: Abnormal Lab Results - Last 24 Hours (Table) 04/17/21 04/17/21 04/17/21 Range/Units 01:01 01:01 01:01 Hct 46.3 H (34.0-46.0) % Lymphocytes # 0.6 L (1.0-4.8) k/uL PT 17.2 H (9.0-12.0) sec INR 1.7 H (<1.2) Sodium 134 L (137-145) mmol/L BUN 19 H (7-17) mg/dL Glucose 156 H (74-99) mg/dL Magnesium 1.5 L (1.6-2.3) mg/dL Total Bilirubin 2.3 H (0.2-1.3) mg/dL Thrombosis Risk Factor Assmnt - DVT/VTE Prophylaxis DVT/VTE Prophylaxis: Pharmacologic Prophylaxis ordered Assessment and Plan Assessment: Atrial fibrillation with rapid ventricular rate Shortness of breath likely secondary to acute CHF with preserved ejection fraction. Elevated BNP. Fever and chills with no evidence of source of infection. Chest x-ray is negative for pneumonia. Urinalysis was sent. Rheumatoid arthritis Paroxysmal atrial fibrillation on anticoagulation with Coumadin Hypertension Hyperlipidemia Obstructive sleep apnea on CPAP at home History of overactive bladder Anxiety and panic disorder Coumadin monitoring Plan: Patient was started on Cardizem drip due to atrial fibrillation with rapid regular rate. Patient will be started IV hydration with normal saline and start back on metoprolol. Increase the dose to 75 mg 3 times daily as per cardiology recommendations. Continue with Coumadin monitoring. Urinalysis will be sent. We will repeat chest x-ray. COVID-19 PCR is negative. Follow-up culture reports. Procalcitonin level will be sent. Continued home medications and follow-up closely. Coumadin dosing as per pharmacy.
[2021-04-18 00:01] LABS: Appearance,Urine Cloudy (Clear); Bacteria,Urine Occasional /hpf; Bilirubin,Urine Negative (Negative); Blood,Urine Moderate (Negative); Color,Urine Yellow; Glucose,Urine (UA) Negative (Negative); Ketones,Urine Negative (Negative); Leukocyte Esterase,Urine Large (Negative); Mucus,Urine Occasional /hpf; Nitrite,Urine Positive (Negative); PH, Urine 5.5 (5.0-8.0); Protein,Urine 1+ (Negative); RBC,Urine 11 /hpf (0-5); Specific Gravity,Urine 1.022 (1.001-1.035); Squamous Epithelial Cell,Urine 1 /hpf (0-4); WBC,Urine 91 /hpf (0-5)
[2021-04-18] MEDS: SODIUM CHLORIDE 0.9% 1,000 ML IV SCH ×3 (00:17→16:54)
[2021-04-18] MEDS: HYDROcodone/APAP 5-325MG 1 EACH TAB PO PRN (03:15)
[2021-04-18 07:29] LABS: INR 1.3 (<1.2); Prothrombin Time 13.7 sec (9.0-12.0)
[2021-04-18 07:30] LABS: Basophils % (A) 0 %; Eosinophils % (A) 0 %; HCT 43.8 % (34.0-46.0); HGB 13.7 gm/dL (11.4-16.0); Hypochromasia Slight; Lymphocytes # (A) 0.7 k/uL (1.0-4.8); Lymphocytes % (A) 11 %; MCH 31.3 pg (25.0-35.0); MCHC 31.2 g/dL (31.0-37.0); MCV 100.2 fL (80.0-100.0); Monocytes # (A) 0.7 k/uL (0-1.0); Monocytes % (A) 9 %; Neutrophils # (A) 5.3 k/uL (1.3-7.7); Neutrophils % (A) 76 %; Platelet Count 141 k/uL (150-450); RBC 4.38 m/uL (3.80-5.40); RDW 13.6 % (11.5-15.5); WBC 6.9 k/uL (3.8-10.6)
[2021-04-18 07:35] LABS: Calcium 8.7 mg/dL (8.4-10.2); Potassium 4.5 mmol/L (3.5-5.1)
[2021-04-18] MEDS: METOPROLOL TARTRATE 25 MG TAB PO SCH ×3 (07:56→21:41)
[2021-04-18] MEDS: CITALOPRAM HYDROBROMIDE 20 MG TAB PO SCH (09:39)
[2021-04-18] MEDS: ACETAMINOPHEN TAB 325 MG TAB PO PRN ×2 (11:28→21:42)
[2021-04-18] MEDS: DILTIAZEM 125 MG in SODIUM CHLORIDE 0.9% 100 ML IV SCH (11:30)
[2021-04-18] MEDS ORDERED: METOPROLOL TARTRATE 25 MG TAB PO STA (13:48)
--- NOTE | 2021-04-18 14:34 | P.PN ---
Subjective Progress Note Date: 04/18/21 HISTORY OF PRESENT ILLNESS: Patient is a pleasant 70-year-old female with history of paroxysmal atrial fibrillation, hypertension, depression who presents with 3 days of not feeling well. She states she has been having fevers with fever today up to 102.3. She denies any cough however has been somewhat more short of breath as well as her last 3 days. She has felt somewhat nauseous and denies any diarrhea or epigastric pain. She denies any actual chest pain or pressure. She is feeling fairly short of breath and therefore came to emergency department. She was noted to be in A. fib with RVR with heart rates from 100 up to 130s. She follows in the office with Dr. Grossman. She had initially been on the metoprolol 50mg daily and then this was increased to twice a day and then 3 times a day. Denies any changes in her medications. She was started on a Cardizem drip yessy longo at 5 with heart rates somewhat better controlled however 120s to 130s currently. 04/18/2021 Patient examined in the emergency room. Patient denies chest pain or pressure. Reports mild SOB. She remains in atrial fibrillation with a heart rate around 80-100. She remains on a cardizem drip at 5mg/hr. PHYSICAL EXAM: VITAL SIGNS: Reviewed. GENERAL: Well-developed in no acute distress. NECK: Supple. No JVD or thyromegaly LUNGS: Respirations even and unlabored. Lungs essentially clear to auscultation bilaterally. HEART: Regular rate and rhythm. S1 and S2 heard. EXTREMITIES: Normal range of motion. No clubbing or cyanosis. Peripheral pulses intact. No lower extremity edema ASSESSMENT: 1. Paroxysmal atrial fibrillation with RVR 2. Hypertension 3. Dyspnea possible some component of acute diastolic heart failure, A. fib with RVR 4. SIRS, fever concerning for infectious etiology, source unclear PLAN: Continue current cardiac medications Give additional 25mg metoprolol now Wean off Cardizem drip Anticipate improvement in heart rate with resolution of infectious process and fevers Further recommendations pending patient course Nurse practitioner note has been reviewed by physician. Signing provider agrees with the documented findings, assessment, and plan of care. Objective - Vital Signs Vital signs: Vital Signs Temp 101.4 F H 04/18/21 11:01 Pulse 111 H 04/18/21 11:01 Resp 18 04/18/21 11:01 BP 111/77 04/18/21 11:01 Pulse Ox 93 L 04/18/21 11:01 Intake & Output 04/17/21 04/18/21 04/18/21 18:59 06:59 18:59 Intake Total 115 Balance 115 Intake: Intake, IV Titration 115 Amount Diltiazem 125 mg In 15 Sodium Chloride 0.9% 100 ml @ 5 MG/HR 5 mls/hr IV .Q24H NABEEL Rx#:[id number] Sodium Chloride 0.9% 1, 100 000 ml @ 100 mls/hr IV . Q10H NABEEL Rx#:[id number] Other: Voiding Method Bedside Commode Bedside Commode # Voids 1 - Labs CBC & Chem 7: 04/18/21 06:44 04/18/21 06:44 Labs: Abnormal Lab Results - Last 24 Hours (Table) 04/17/21 04/18/21 04/18/21 Range/Units 23:46 06:44 06:44 MCV (80.0-100.0) fL Plt Count (150-450) k/uL Lymphocytes # (1.0-4.8) k/uL PT 13.7 H (9.0-12.0) sec INR 1.3 H (<1.2) Carbon Dioxide (22-30) mmol/L BUN (7-17) mg/dL Creatinine (0.52-1.04) mg/dL Glucose (74-99) mg/dL Procalcitonin 0.69 H (0.02-0.09) ng/mL Urine Appearance Cloudy H (Clear) Urine Protein 1+ H (Negative) Urine Blood Moderate H (Negative) Urine Nitrite Positive H (Negative) Ur Leukocyte Esterase Large H (Negative) Urine RBC 11 H (0-5) /hpf Urine WBC 91 H (0-5) /hpf Urine WBC Clumps Few H (None) /hpf Urine Bacteria Occasional H (None) /hpf Urine Mucus Occasional H (None) /hpf 04/18/21 04/18/21 Range/Units 06:44 06:44 MCV 100.2 H (80.0-100.0) fL Plt Count 141 L (150-450) k/uL Lymphocytes # 0.7 L (1.0-4.8) k/uL PT (9.0-12.0) sec INR (<1.2) Carbon Dioxide 31 H (22-30) mmol/L BUN 28 H (7-17) mg/dL Creatinine 1.25 H (0.52-1.04) mg/dL Glucose 122 H (74-99) mg/dL Procalcitonin (0.02-0.09) ng/mL Urine Appearance (Clear) Urine Protein (Negative) Urine Blood (Negative) Urine Nitrite (Negative) Ur Leukocyte Esterase (Negative) Urine RBC (0-5) /hpf Urine WBC (0-5) /hpf Urine WBC Clumps (None) /hpf Urine Bacteria (None) /hpf Urine Mucus (None) /hpf
--- NOTE | 2021-04-18 14:41 | P.CNPUL ---
History of Present Illness Consult date: 04/18/21 Reason for consult: dyspnea Chief complaint: Shortness of breath, UTI, A. fib with RVR History of present illness: 70-year-old white female patient with past medical history of proximal A. fib, hypertension, hyperlipidemia, rheumatoid arthritis, sleep apnea, chronic back pain, anxiety/panic disorder, lifetime nonsmoker who presented to the emergency department on 04/17/2021 for evaluation of shortness of breath not feeling well. Patient reports fevers of up to 102.3, denied any cough, denied any phlegm production, she did feel shortness of breath for the past 3 days, she felt somewhat nauseous, however he denied any epigastric pain, no vomiting or diarrhea. No chest pain or pressure. She was noted to be in A. fib with RVR with a heart rate from 100 to 1:30 BPM, she follows with Dr. [facility]ste[facility]. She was started on Cardizem infusion for rate control. She was also diagnosed with acute urinary tract infection, chest x-ray and emergency department showed no active cardiopulmonary disease. Labs in the emergency department showed a white blood cell count 9.1, hemoglobin 14.8, INR of 1.7, sodium is 134, potassium of 4.4 renal profile B1 is 19 creatinine was 0.72, 3 sets of troponins were negative, proBNP was 3010, Procan SR level was 0.69, urinalysis showed evidence of urinary tract infection, patient was tested for COVID-19 and was found to be negative. We started on Rocephin for empiric antibiotic coverage, urine culture has been sent, she was given some IV fluids in view of acute sepsis related to acute urinary tract infection. Cardiology has been consulted. Review of Systems All systems: negative Constitutional: Denies chills, Denies fever Eyes: denies blurred vision, denies pain Ears, nose, mouth and throat: Denies headache, Denies sore throat Cardiovascular: Reports dyspnea on exertion, Denies chest pain, Denies shortness of breath Respiratory: Reports dyspnea, Denies cough Gastrointestinal: Denies abdominal pain, Denies diarrhea, Denies nausea, Denies vomiting Genitourinary: Denies dysuria, Denies hematuria Musculoskeletal: Denies myalgias Integumentary: Denies pruritus, Denies rash Neurological: Denies numbness, Denies weakness Psychiatric: Denies anxiety, Denies depression Endocrine: Denies fatigue, Denies weight change Past Medical History Past Medical History: Atrial Fibrillation, Asthma, Eye Disorder, GERD/Reflux, Hearing Disorder / Deafness, Hyperlipidemia, Hypertension, Osteoarthritis (OA), Rheumatoid Arthritis (RA), Sleep Apnea/CPAP/BIPAP Additional Past Medical History / Comment(s): HX BACK PAIN, hx Sciaticia bilateral legs. Hx FX lower back. ADIE'S TONIC PUPIL/FIXED PUPILS- BILATERAL EYES, HAS LENS IMPLANT IN RT EYE. HX "PRE-CANCER OF BREAST." OVERACTIVE BLADDER. DEAF RT EAR. CPAP use., Varicose veins. Swelling in top of feet, discoloration around left ankle, neck pain radiates to arms and hands. History of Any Multi-Drug Resistant Organisms: None Reported Past Surgical History: Bladder Surgery, Cholecystectomy, Heart Catheterization, Hysterectomy, Joint Replacement, Orthopedic Surgery Additional Past Surgical History / Comment(s): RT KNEE REPLACEMENT, VANESSA BREAST MASTECTOMY W/ RECONSTRUCTION. IMPLANTS VANESSA BREAST, RT EYE LENS IMPLANT, EXC VANESSA CATARACTS WITH LENS IMPLANT. RT. CARPAL TUNNEL RELEASE, arthroscopy of knee, pain clinic procedure. Past Anesthesia/Blood Transfusion Reactions: Postoperative Nausea & Vomiting (PONV) Additional Past Anesthesia/Blood Transfusion Reaction / Comment(s): Mother- PONV. Past Psychological History: Anxiety, Panic Disorder Smoking Status: Never smoker Past Alcohol Use History: Rare Past Drug Use History: None Reported - Past Family History Brother(s) Family Medical History: Cancer Additional Family Medical History / Comment(s): Testicular Cancer. Prostate cancer. Medications and Allergies Home Medications Medication Instructions Recorded Confirmed Type Simvastatin [Zocor] 20 mg PO HS 12/09/14 04/17/21 History LORazepam [Ativan] 0.5 mg PO HS PRN 01/19/17 04/17/21 History Meloxicam [Mobic] 7.5 mg PO Q48H 01/19/17 04/17/21 History Mometasone Furoate [Nasonex Nasal 1 - 2 spray EA NOSTRIL DAILY PRN 01/19/17 04/17/21 History [facility]] amLODIPine [Norvasc] 5 mg PO DAILY 01/19/17 04/17/21 History Albuterol Inhaler [Ventolin Hfa 1 - 2 puff INHALATION Q6H PRN 08/24/20 04/17/21 History Inhaler] Fexofenadine/Pseudoephedrine 1 tab PO DAILY PRN 08/24/20 04/17/21 History [Emma-D 24 Hour Tablet] Metoprolol Tartrate [Lopressor] 50 mg PO TID 08/24/20 04/17/21 History Warfarin [Coumadin] 6 mg PO HS 08/24/20 04/17/21 History Citalopram Hydrobromide [CeleXA] 40 mg PO DAILY 11/25/20 04/17/21 History Cholecalciferol (Vitamin D3) 75 mcg PO DAILY 04/17/21 04/17/21 History [Vitamin D3 (3000 Iu)] Allergies Allergy/AdvReac Type Severity Reaction Status Date / Time tocilizumab [From Actemra] Allergy Severe Dyspnea, Verified 04/17/21 07:26 sores, itching, sore throat meperidine HCl [From Demerol] AdvReac Nausea Verified 04/17/21 07:26 Physical Exam Vitals: Vital Signs Temp Pulse Pulse Pulse Resp BP BP 04/18/21 13:54 111 H 18 04/18/21 11:01 101.4 F H 111 H 18 111/77 04/18/21 08:38 04/18/21 07:58 108 H 18 04/18/21 07:48 99.5 F 108 H 18 116/69 04/18/21 04:00 99.2 F 88 18 95/65 04/18/21 02:00 79 20 04/18/21 00:00 98.8 F 79 16 101/64 04/17/21 20:00 100.5 F H 84 84 18 115/59 04/17/21 18:37 99.5 F 92 19 82/62 04/17/21 15:58 102.1 F H 411 H 19 138/93 Pulse Ox 04/18/21 13:54 04/18/21 11:01 93 L 04/18/21 08:38 94 L 04/18/21 07:58 04/18/21 07:48 93 L 04/18/21 04:00 93 L 04/18/21 02:00 04/18/21 00:00 95 04/17/21 20:00 88 L 04/17/21 18:37 95 04/17/21 15:58 94 L Intake and Output 04/17/21 04/18/21 04/18/21 22:59 06:59 14:59 Intake Total 115 Balance 115 Intake: Intake, IV Titration 115 Amount Diltiazem 125 mg In 15 Sodium Chloride 0.9% 100 ml @ 5 MG/HR 5 mls/hr IV .Q24H [facility] Rx#:[id number] Sodium Chloride 0.9% 1, 100 000 ml @ 10 mls/hr IV . Q24H [facility] Rx#:[id number] Other: Voiding Method Bedside Commode Bedside Commode # Voids 1 3 GENERAL EXAM: Alert, very pleasant, 70-year-old white female, 2 L oxygen and the pulse ox of 93-94% comfortable in no apparent distress. HEAD: Normocephalic/atraumatic. EYES: Normal reaction of pupils, equal size. Conjunctiva pink, sclera white. NOSE: Clear with pink turbinates. THROAT: No erythema or exudates. NECK: No masses, no JVD, no thyroid enlargement, no adenopathy. CHEST: No chest wall deformity. Symmetrical expansion. LUNGS: Equal air entry with no crackles, wheeze, rhonchi or dullness. CVS: Irregular rate and rhythm, normal S1 and S2, no gallops, no murmurs, no rubs ABDOMEN: Soft, nontender. No hepatosplenomegaly, normal bowel sounds, no guarding or rigidity. EXTREMITIES: No clubbing, mild pretibial and pedal edema no cyanosis, 2+ pulses and upper and lower extremities. MUSCULOSKELETAL: Muscle strength and tone normal. SPINE: No scoliosis or deformity SKIN: No rashes CENTRAL NERVOUS SYSTEM: Alert and oriented -3. No focal deficits, tone is normal in all 4 extremities. PSYCHIATRIC: Alert and oriented -3. Appropriate affect. Intact judgment and insight. Results - Laboratory Findings CBC and BMP: 04/18/21 06:44 04/18/21 06:44 PT/INR, D-dimer PT 13.7 sec (9.0-12.0) H 04/18/21 06:44 INR 1.3 (<1.2) H 04/18/21 06:44 Abnormal lab findings: Abnormal Labs 04/17/21 04/17/21 04/17/21 01:01 01:01 01:01 Hct 46.3 H MCV Plt Count Lymphocytes # 0.6 L PT 17.2 H INR 1.7 H Sodium 134 L Carbon Dioxide BUN 19 H Creatinine Glucose 156 H Magnesium 1.5 L Total Bilirubin 2.3 H Procalcitonin Urine Appearance Urine Protein Urine Blood Urine Nitrite Ur Leukocyte Esterase Urine RBC Urine WBC Urine WBC Clumps Urine Bacteria Urine Mucus 04/17/21 04/18/21 04/18/21 23:46 06:44 06:44 Hct MCV Plt Count Lymphocytes # PT 13.7 H INR 1.3 H Sodium Carbon Dioxide BUN Creatinine Glucose Magnesium Total Bilirubin Procalcitonin 0.69 H Urine Appearance Cloudy H Urine Protein 1+ H Urine Blood Moderate H Urine Nitrite Positive H Ur Leukocyte Esterase Large H Urine RBC 11 H Urine WBC 91 H Urine WBC Clumps Few H Urine Bacteria Occasional H Urine Mucus Occasional H 04/18/21 04/18/21 06:44 06:44 Hct MCV 100.2 H Plt Count 141 L Lymphocytes # 0.7 L PT INR Sodium Carbon Dioxide 31 H BUN 28 H Creatinine 1.25 H Glucose 122 H Magnesium Total Bilirubin Procalcitonin Urine Appearance Urine Protein Urine Blood Urine Nitrite Ur Leukocyte Esterase Urine RBC Urine WBC Urine WBC Clumps Urine Bacteria Urine Mucus - Diagnostic Findings Chest x-ray: report reviewed, image reviewed Assessment and Plan Plan: Assessment: #1. Acute hypoxic respiratory failure related to acute exacerbation of CHF with unknown ejection fraction, and component of urinary tract infection with sepsis #2. A. fib with RVR, patient is currently on Cardizem infusion for rate control #3. History of paroxysmal atrial fibrillation #4. Acute urinary tract infection #5. GERD/reflux #6. Rheumatoid arthritis #7. Sleep apnea #8. Never smoker #9. Anxiety/panic disorder Plan: DC the IV fluids Chest x-ray has been reviewed and the more consistent with acute exacerbation of CHF with unknown LV function Cardiology is following Obtain echocardiogram Continue current antibiotics for acute urinary tract infection Heart rate control medications per cardiology I performed a history & physical examination of the patient and discussed their management with my nurse practitioner, Latoya Patel. I reviewed the nurse practitioner's note and agree with the documented findings and plan of care. Lung sounds are positive for diffuse wheezes throughout the lung watson. The findings and the impression was discussed with the patient. I attest to the documentation by the nurse practitioner. Time with Patient: Greater than 30
[2021-04-18] MEDS ORDERED: WARFARIN 3 MG TAB PO ONE (18:00)
[2021-04-18] MEDS: HEPARIN SOD,PORK IN 0.45% NACL 25,000 UNIT in 0.45% NACL 1 250ML.BAG IV SCH (18:05)
[2021-04-18] MEDS: ATORVASTATIN 10 MG TAB PO SCH (21:42)
--- NOTE | 2021-04-18 23:47 | P.PN ---
Subjective Progress Note Date: 04/18/21 Patient is a 70-year-old female with a known history of hypertension, hyperlipidemia, osteoarthritis, rheumatoid arthritis, obstructive sleep apnea on CPAP at home, paroxysmal atrial fibrillation,, Anxiety and panic disorder and history of cardiac catheterization presents to ER with complaints of shortness of breath, fever and chills for the past 2 days. Patient states that she has not been feeling very well last 2 days. Patient states that she had Covid diagnosed on February 28, 2021. She did take Tylenol for fever at home. She is also having nausea and episode of vomiting. Denies any complaints of chest pain. No leg swelling. No abdominal pain or diarrhea or dysuria. On admission patient was tachycardic and T-max was 102.3. Patient denied any neck stiffness. No headache or dizziness. Chest x-ray showed no active cardiopulmonary disease. There is clearing of a small infiltrate right lung base compared to old exam. EKG showed atrial fibrillation with rapid ventricular response. Laboratory data showed WBC 9.1 hemoglobin 14.8 and platelets 154 INR 1.7 Sodium 134 potassium 4.4 chloride 100 BUN 19 and creatinine 0.72 blood sugar is 156 and magnesium 1.5 Troponin 0 0.022, 0.0250.019 proBNP 3010 Coronavirus PCR not detected. 04/18/2021 Patient is currently lying in the bed. Awake alert and oriented. Patient was febrile last night with T-max 100.5. Urinalysis came out positive with cloudiness and moderate blood and positive nitrite and large leukoesterase with elevated RBCs and WBCs. Patient was started on ceftriaxone and follow-up urine culture report. Blood cultures will be ordered if the patient continues to have fever. Patient is on Cardizem drip for heart rate control. INR is subtherapeutic patient was started on heparin drip for bridging. Patient denied any complaints of chest pain. No complaints of shortness of breath. No nausea vomiting abdominal pain or diarrhea. Cardiology and pulmonary is on board. REVIEW OF SYSTEMS CONSTITUTIONAL: does have fever and chills. CARDIOVASCULAR: Denies chest pain, shortness of breath, orthopnea, PND or palpitations. RESPIRATORY: Denies cough. GASTROINTESTINAL: Denies abdominal pain, diarrhea, constipation, nausea or vomiting. MUSCULOSKELETAL: Denies myalgias. NEUROLOGIC: Denies numbness, tingling or weakness. ENDOCRINE: Denies fatigue, weight change, polydipsia or polyurina. GENITOURINARY: Denies burning, hematuria or urgency with micturation. HEMATOLOGIC: Denies history of anemia or bleeding. current medications reviewed. Objective - Vital Signs Vital signs: Vital Signs Temp 101.3 F H 04/18/21 21:32 Pulse 83 04/18/21 21:32 Resp 16 04/18/21 21:32 BP 125/84 04/18/21 21:32 Pulse Ox 94 L 04/18/21 21:32 Intake & Output 04/18/21 04/18/21 04/19/21 06:59 18:59 06:59 Intake Total 115 125 Balance 115 125 Intake: Intake, IV Titration 115 125 Amount Diltiazem 125 mg In 15 125 Sodium Chloride 0.9% 100 ml @ 5 MG/HR 5 mls/hr IV .Q24H [facility] Rx#:[id number] Sodium Chloride 0.9% 1, 100 000 ml @ 75 mls/hr IV . [id number] [facility] Rx#:[id number] Other: Voiding Method Bedside Commode Bedside Commode Bedside Commode # Voids 1 3 1 - Exam PHYSICAL EXAMINATION: Patient is lying in the bed comfortably, no acute distress, awake alert and oriented.. HEENT: Normocephalic. Neck is supple. Pupils reactive. Nostrils clear. Oral cavity is moist. Neck reveals no JVD, carotid bruits, or thyromegaly. CHEST EXAMINATION: Trachea is central. Symmetrical expansion.Bibasilar diminished sounds. CARDIAC: Normal S1, S2 with no gallops. No murmurs ABDOMEN: Soft. Bowel sounds normal. No organomegaly. No abdominal bruits. Extremities: reveal no edema. No clubbing or cyanosis Neurologically awake, alert, oriented x3 with well-coordinated movements. No focal deficits noted Skin: No rash or skin lesions. Psychiatric: Cooperative. Nonsuicidal Musculoskeletal: No joint swelling or deformity. Normal range of motion. - Labs CBC & Chem 7: 04/18/21 06:44 04/18/21 06:44 Labs: Abnormal Lab Results - Last 24 Hours (Table) 04/17/21 04/18/21 04/18/21 Range/Units 23:46 06:44 06:44 MCV (80.0-100.0) fL Plt Count (150-450) k/uL Lymphocytes # (1.0-4.8) k/uL PT 13.7 H (9.0-12.0) sec INR 1.3 H (<1.2) Carbon Dioxide (22-30) mmol/L BUN (7-17) mg/dL Creatinine (0.52-1.04) mg/dL Glucose (74-99) mg/dL Procalcitonin 0.69 H (0.02-0.09) ng/mL Urine Appearance Cloudy H (Clear) Urine Protein 1+ H (Negative) Urine Blood Moderate H (Negative) Urine Nitrite Positive H (Negative) Ur Leukocyte Esterase Large H (Negative) Urine RBC 11 H (0-5) /hpf Urine WBC 91 H (0-5) /hpf Urine WBC Clumps Few H (None) /hpf Urine Bacteria Occasional H (None) /hpf Urine Mucus Occasional H (None) /hpf 04/18/21 04/18/21 Range/Units 06:44 06:44 MCV 100.2 H (80.0-100.0) fL Plt Count 141 L (150-450) k/uL Lymphocytes # 0.7 L (1.0-4.8) k/uL PT (9.0-12.0) sec INR (<1.2) Carbon Dioxide 31 H (22-30) mmol/L BUN 28 H (7-17) mg/dL Creatinine 1.25 H (0.52-1.04) mg/dL Glucose 122 H (74-99) mg/dL Procalcitonin (0.02-0.09) ng/mL Urine Appearance (Clear) Urine Protein (Negative) Urine Blood (Negative) Urine Nitrite (Negative) Ur Leukocyte Esterase (Negative) Urine RBC (0-5) /hpf Urine WBC (0-5) /hpf Urine WBC Clumps (None) /hpf Urine Bacteria (None) /hpf Urine Mucus (None) /hpf Microbiology - Last 24 Hours (Table) 04/17/21 23:46 Urine Culture - Preliminary Urine,Voided Assessment and Plan Assessment: Atrial fibrillation with rapid ventricular rate Shortness of breath likely secondary to acute CHF with preserved ejection fraction. Elevated BNP. Acute urinary tract infection. Sepsis secondary to UTI Rheumatoid arthritis Paroxysmal atrial fibrillation on anticoagulation with Coumadin Hypertension Hyperlipidemia Obstructive sleep apnea on CPAP at home History of overactive bladder Anxiety and panic disorder Coumadin monitoring /Subtherapeutic INR level. Plan: Patient was started on Cardizem drip due to atrial fibrillation with rapid regular rate. started back on metoprolol. Increase the dose to 75 mg 3 times daily as per cardiology recommendations. Continue with Coumadin monitoring. Patient was started on ceftriaxone for urinary tract infection. Follow-up blood cultures and urine cultures. COVID-19 PCR is negative. Follow-up culture reports. Procalcitonin level 0.67. Continued home medications and follow-up closely. Coumadin dosing as per pharmacy. Time with Patient: Greater than 30
[2021-04-19] MEDS ORDERED: HEPARIN SODIUM 1,000 UN/ML (10ML VL) IV PRN (00:48)
--- NOTE | 2021-04-19 07:30 | XR ---
EXAMINATION TYPE: XR chest 1V DATE OF EXAM: 04/19/2021 CLINICAL HISTORY: Difficulty breathing progress study. TECHNIQUE: Single AP portable upright view of the chest is obtained. COMPARISON: Chest x-ray from 2 days earlier FINDINGS: Stable cardiomegaly. Diminished inspiration on current study. Chronic parenchymal changes are present without suspicious new focal airspace opacity, pleural effusion, or pneumothorax seen nicol aterally. Degenerative changes bilateral glenohumeral joints. IMPRESSION: Cardiomegaly and chronic changes without acute pulmonary process.
[2021-04-19 08:19] LABS: Basophils % (A) 0 %; Eosinophils # (A) 0.1 k/uL (0-0.7); Eosinophils % (A) 1 %; HCT 45.5 % (34.0-46.0); HGB 14.3 gm/dL (11.4-16.0); Hypochromasia Slight; Lymphocytes % (A) 10 %; MCH 31.4 pg (25.0-35.0); MCHC 31.4 g/dL (31.0-37.0); MCV 99.9 fL (80.0-100.0); Monocytes # (A) 0.8 k/uL (0-1.0); Monocytes % (A) 8 %; Neutrophils # (A) 7.7 k/uL (1.3-7.7); Neutrophils % (A) 77 %; Platelet Count 157 k/uL (150-450); RBC 4.55 m/uL (3.80-5.40); WBC 9.9 k/uL (3.8-10.6)
[2021-04-19] MEDS: CITALOPRAM HYDROBROMIDE 20 MG TAB PO SCH (08:31)
[2021-04-19] MEDS: HYDROcodone/APAP 5-325MG 1 EACH TAB PO PRN (08:31)
[2021-04-19] MEDS: METOPROLOL TARTRATE 25 MG TAB PO SCH ×3 (08:32→21:26)
[2021-04-19 08:34] LABS: INR 1.5 (<1.2); Partial Thromboplastin Time 51.4 sec (22.0-30.0); Prothrombin Time 15.4 sec (9.0-12.0)
[2021-04-19 08:55] LABS: Calcium 8.6 mg/dL (8.4-10.2); Potassium 4.2 mmol/L (3.5-5.1)
[2021-04-19] MEDS: VERAPAMIL 40 MG TAB PO SCH ×3 (11:45→23:15)
--- NOTE | 2021-04-19 12:23 | ECHOF ---
Referral Reason:dyspnea MEASUREMENTS -------- HEIGHT: 170.2 cm WEIGHT: 136.1 kg BP: IVSd: 1.4 cm (0.6 - 1.1) LVIDd: 4.8 cm (3.9 - 5.3) LVPWd: 1.8 cm (0.6 - 1.1) IVSs: 1.7 cm LVIDs: 4.0 cm LVPWs: 1.8 cm LA Diam: 4.3 cm (2.7 - 3.8) LAESV Index (A-L): 29.03 ml/m AV maxP.84 mmHg AV meanP.51 mmHg FINDINGS -------- Atrial fibrillation. Morbid Obesity The left ventricular size is normal. There is moderate concentric left ventricular hypertrophy. O verall left ventricular systolic function is low-normal with, an EF between 50 - 55 %. The right ventricle is normal in size. The left atrium is moderately dilated. The right atrial size is normal. 5.0mg OF Lumason UTLIZED: 2 OR MORE WALL SEGMENTS NOT VISUALIZED. There is mild aortic valve sclerosis. There is mild aortic regurgitation. There is moderate aorti c stenosis present. Peak/mean gradient across the Aortic Valve is 21.84mmHg / 12.51mmHg. Mild mitral annular calcification present. Mild mitral regurgitation is present. Mild tricuspid regurgitation present. Right ventricular systolic pressure is normal at < 35 mmHg. There is no pulmonic regurgitation present. There is no pericardial effusion. CONCLUSIONS -------- 1. Morbid Obesity 2. The left ventricular size is normal. 3. There is moderate concentric left ventricular hypertrophy. 4. Overall left ventricular systolic function is low-normal with, an EF between 50 - 55 %. 5. The right ventricle is normal in size. 6. The left atrium is moderately dilated. 7. The right atrial size is normal. 8. 5.0mg OF Lumason UTLIZED: 2 OR MORE WALL SEGMENTS NOT VISUALIZED. 9. There is mild aortic valve sclerosis. 10. There is mild aortic regurgitation. 11. There is moderate aortic stenosis present. 12. Peak/mean gradient across the Aortic Valve is 21.84mmHg / 12.51mmHg. 13. Mild mitral annular calcification present. 14. Mild mitral regurgitation is present. 15. Mild tricuspid regurgitation present. 16. There is no pulmonic regurgitation present. 17. There is no pericardial effusion. SINGE WINDER: Shelia Salazar RDCS
--- NOTE | 2021-04-19 12:51 | P.PN ---
Subjective Progress Note Date: 04/19/21 HISTORY OF PRESENT ILLNESS: Patient is a pleasant 70-year-old female with history of paroxysmal atrial fibrillation, hypertension, depression who presents with 3 days of not feeling well. She states she has been having fevers with fever today up to 102.3. She denies any cough however has been somewhat more short of breath as well as her last 3 days. She has felt somewhat nauseous and denies any diarrhea or epigastric pain. She denies any actual chest pain or pressure. She is feeling fairly short of breath and therefore came to emergency department. She was noted to be in A. fib with RVR with heart rates from 100 up to 130s. She follows in the office with Dr. Grossman. She had initially been on the metoprolol 50mg daily and then this was increased to twice a day and then 3 times a day. Denies any changes in her medications. She was started on a Cardizem drip yessy ntted at 5 with heart rates somewhat better controlled however 120s to 130s currently. 04/18/2021 Patient examined in the emergency room. Patient denies chest pain or pressure. Reports mild SOB. She remains in atrial fibrillation with a heart rate around 80-100. She remains on a cardizem drip at 5mg/hr. 04/19/2021 Patient examined this morning at the bedside. Patient denies chest pain or pressure. Denies SOB. She remains in atrial fibrillation with a heart rate around 100-100. Her Cardizem drip has been discontinued. Echocardiogram completed revealing ejection fraction 50-55%, mild aortic regurgitation, moderate aortic stenosis, mild mitral regurgitation, and mild tricuspid regurgitation. PHYSICAL EXAM: VITAL SIGNS: Reviewed. GENERAL: Well-developed in no acute distress. NECK: Supple. No JVD or thyromegaly LUNGS: Respirations even and unlabored. Lungs essentially clear to auscultation bilaterally. HEART: Irregular rate and rhythm. S1 and S2 heard. EXTREMITIES: Normal range of motion. No clubbing or cyanosis. Peripheral pulses intact. No lower extremity edema ASSESSMENT: Fever Urinary tract infection Paroxysmal atrial fibrillation with RVR Shortness of breath Hypertension Valvular heart disease PLAN: Continue current cardiac medications Continue metoprolol Add Verapamil 40mg TID Continue telemetry monitoring Further recommendations pending patient course Nurse practitioner note has been reviewed by physician. Signing provider agrees with the documented findings, assessment, and plan of care. Objective - Vital Signs Vital signs: Vital Signs Temp 98.4 F 04/19/21 11:43 Pulse 75 04/19/21 11:43 Resp 18 04/19/21 11:43 BP 127/71 04/19/21 11:43 Pulse Ox 95 04/19/21 11:43 Intake & Output 04/18/21 04/19/21 04/19/21 18:59 06:59 18:59 Intake Total 125 66.392 120 Balance 125 66.392 120 Intake: Intake, IV Titration 125 66.392 Amount Diltiazem 125 mg In 125 Sodium Chloride 0.9% 100 ml @ 5 MG/HR 5 mls/hr IV .Q24H [facility] Rx#:[id number] Heparin Sod,Pork in 0.45% 66.392 NaCl 25,000 unit In 0.45 % NaCl 1 250ml.bag @ 7.3 UNITS/KG/HR 9.934 mls/hr IV .Q24H [facility] Rx#: [id number] Oral 120 Other: Voiding Method Bedside Commode Bedside Commode # Voids 3 2 - Labs CBC & Chem 7: 04/19/21 07:46 04/19/21 07:46 Labs: Abnormal Lab Results - Last 24 Hours (Table) 04/19/21 04/19/21 04/19/21 Range/Units 00:12 07:46 07:46 PT 15.4 H (9.0-12.0) sec INR 1.5 H (<1.2) APTT 32.7 H 51.4 H (22.0-30.0) sec BUN 23 H (7-17) mg/dL Glucose 117 H (74-99) mg/dL Microbiology - Last 24 Hours (Table) 04/17/21 23:46 Urine Culture - Preliminary Urine,Voided Gram Neg Bacilli
[2021-04-19] MEDS: HEPARIN SOD,PORK IN 0.45% NACL 25,000 UNIT in 0.45% NACL 1 250ML.BAG IV SCH (16:30)
--- NOTE | 2021-04-19 17:04 | P.PN ---
Subjective Progress Note Date: 04/19/21 Principal diagnosis: Urinary tract infection. 70-year-old white female patient with past medical history of proximal A. fib, hypertension, hyperlipidemia, rheumatoid arthritis, sleep apnea, chronic back pain, anxiety/panic disorder, lifetime nonsmoker who presented to the emergency department on 04/17/2021 for evaluation of shortness of breath not feeling well. Patient reports fevers of up to 102.3, denied any cough, denied any phlegm production, she did feel shortness of breath for the past 3 days, she felt somewhat nauseous, however he denied any epigastric pain, no vomiting or diarrhea. No chest pain or pressure. She was noted to be in A. fib with RVR with a heart rate from 100 to 1:30 BPM, she follows with Dr. [facility]ste[facility]. She was started on Cardizem infusion for rate control. She was also diagnosed with acute urinary tract infection, chest x-ray and emergency department showed no active cardiopulmonary disease. Labs in the emergency department showed a white blood cell count 9.1, hemoglobin 14.8, INR of 1.7, sodium is 134, potassium of 4.4 renal profile B1 is 19 creatinine was 0.72, 3 sets of troponins were negative, proBNP was 3010, Procan SR level was 0.69, urinalysis showed evidence of urinary tract infection, patient was tested for COVID-19 and was found to be negative. We started on Rocephin for empiric antibiotic coverage, urine culture has been sent, she was given some IV fluids in view of acute sepsis related to acute urinary tract infection. Cardiology has been consulted. Progress note dated 04/19/2021. This is a 70-year-old female sees my partner as a primary. The patient was seen in the emergency department yesterday, with complaints of shortness of breath, lower extremity edema, and generally just not feeling well. The patient was found to have atrial fibrillation with RVR, CHF, and a urinary tract infection. Currently, the patient's on 2 L nasal cannula. She's getting Rocephin for her urinary tract infection. Her saturations are 95%. Her urine is showing evidence of gram-negative bacilli. White count 9.9, hemoglobin 14.3, hematocrit 45.5, and platelet count 157,000. PTT was 51.4. INR was 1.5. Sodium potassium chloride CO2 anion gap, all normal. BUN 23 with a creatinine of 0.88. The patient is currently on IV Rocephin for her urinary tract infection. Chest x- ray in my opinion is a bit better than it was on April 17. Objective - Vital Signs Vital signs: Vital Signs Temp 98.2 F 04/19/21 16:00 Pulse 75 04/19/21 16:00 Resp 20 04/19/21 16:00 BP 121/62 04/19/21 16:00 Pulse Ox 93 L 04/19/21 16:00 Intake & Output 04/18/21 04/19/21 04/19/21 18:59 06:59 18:59 Intake Total 125 66.392 543.608 Balance 125 66.392 543.608 Intake: Intake, IV Titration 125 66.392 183.608 Amount Diltiazem 125 mg In 125 Sodium Chloride 0.9% 100 ml @ 5 MG/HR 5 mls/hr IV .Q24H [facility] Rx#:[id number] Heparin Sod,Pork in 0.45% 66.392 183.608 NaCl 25,000 unit In 0.45 % NaCl 1 250ml.bag @ 7.3 UNITS/KG/HR 9.934 mls/hr IV .Q24H [facility] Rx#: [id number] Oral 360 Other: Voiding Method Bedside Commode Bedside Commode # Voids 3 2 - Exam No acute distress, oriented 3. Nasal O2 at 2 L noted. HEENT examination is grossly unremarkable. Mucous membranes are moist. No oral lesions. Neck supple. Full range of motion. No adenopathy thyromegaly or neck vein distention. Cardiovascular examination reveals an irregular rhythm and rate. S1-S2 normal. No S3 or S4. No discernible murmur noted. Heart rate 75 bpm. Lungs reveal mild bibasilar crackles. Breath sounds equal bilaterally. No rhonchi. Abdomen soft bowel sounds are heard. No masses or tenderness. Extremities are intact. No cyanosis or clubbing. Mild edema appreciated. Skin is without rash or lesion. Neurologic examination is brief but nonfocal. - Labs CBC & Chem 7: 04/19/21 07:46 04/19/21 07:46 Labs: Abnormal Lab Results - Last 24 Hours (Table) 01/04/22 01/04/22 01/04/22 Range/Units 00:12 07:46 07:46 PT 15.4 H (9.0-12.0) sec INR 1.5 H (<1.2) APTT 32.7 H 51.4 H (22.0-30.0) sec BUN 23 H (7-17) mg/dL Glucose 117 H (74-99) mg/dL Microbiology - Last 24 Hours (Table) 04/17/21 23:46 Urine Culture - Preliminary Urine,Voided Gram Neg Bacilli Assessment and Plan Assessment: #1. Acute hypoxic respiratory failure related to acute exacerbation of CHF with unknown ejection fraction, and component of urinary tract infection with sepsis. #2. A. fib with RVR, patient is currently on Cardizem infusion for rate control. #3. History of paroxysmal atrial fibrillation. #4. Acute urinary tract infection, with gram negative bacilli. #5. GERD/reflux. #6. Rheumatoid arthritis. #7. Sleep apnea. #8. Never smoker. #9. Anxiety/panic disorder. Plan: Plan dated 04/19/2021. The patient's on 2 L. She is resting comfortably. The patient's currently on Rocephin. She is also getting Coumadin. The patient is still in atrial fibrill ation. We will continue to follow and make recommendations where appropriate. Follow with my partner, who serves as her primary care physician. Additional recommendations and suggestions are forthcoming. The gram-negative bacilli in her urine, has not yet been identified. Time with Patient: Less than 30
[2021-04-19] MEDS ORDERED: WARFARIN 7.5 MG TAB PO ONE (18:00)
[2021-04-19] MEDS: ATORVASTATIN 10 MG TAB PO SCH (21:25)
[2021-04-20 07:44] LABS: Basophils % (A) 0 %; Eosinophils # (A) 0.1 k/uL (0-0.7); Eosinophils % (A) 1 %; HCT 40.4 % (34.0-46.0); HGB 12.7 gm/dL (11.4-16.0); Hypochromasia Slight; Lymphocytes # (A) 0.9 k/uL (1.0-4.8); Lymphocytes % (A) 15 %; MCH 31.7 pg (25.0-35.0); MCHC 31.3 g/dL (31.0-37.0); Mean Platelet Volume 9.9; Monocytes # (A) 0.5 k/uL (0-1.0); Monocytes % (A) 9 %; Neutrophils # (A) 4.3 k/uL (1.3-7.7); Neutrophils % (A) 71 %; Platelet Count 149 k/uL (150-450); RDW 13.5 % (11.5-15.5); WBC 6.1 k/uL (3.8-10.6)
[2021-04-20 07:50] LABS: INR 1.8 (<1.2); Partial Thromboplastin Time 55.2 sec (22.0-30.0); Prothrombin Time 18.1 sec (9.0-12.0)
[2021-04-20] MEDS: METOPROLOL TARTRATE 25 MG TAB PO SCH ×3 (08:15→20:44)
[2021-04-20] MEDS: VERAPAMIL 40 MG TAB PO SCH ×3 (08:15→21:06)
[2021-04-20] MEDS: CITALOPRAM HYDROBROMIDE 20 MG TAB PO SCH (08:15)
[2021-04-20 08:28] LABS: Calcium 8.4 mg/dL (8.4-10.2); Potassium 4.3 mmol/L (3.5-5.1)
[2021-04-20] MEDS: FUROSEMIDE 20 MG TAB PO SCH ×2 (10:59→16:42)
--- NOTE | 2021-04-20 12:22 | P.PN ---
Subjective Progress Note Date: 04/20/21 HISTORY OF PRESENT ILLNESS: Patient is a pleasant 70-year-old female with history of paroxysmal atrial fibrillation, hypertension, depression who presents with 3 days of not feeling well. She states she has been having fevers with fever today up to 102.3. She denies any cough however has been somewhat more short of breath as well as her last 3 days. She has felt somewhat nauseous and denies any diarrhea or epigastric pain. She denies any actual chest pain or pressure. She is feeling fairly short of breath and therefore came to emergency department. She was noted to be in A. fib with RVR with heart rates from 100 up to 130s. She follows in the office with Dr. Grossman. She had initially been on the metoprolol 50mg daily and then this was increased to twice a day and then 3 times a day. Denies any changes in her medications. She was started on a Cardizem drip amrike ntted at 5 with heart rates somewhat better controlled however 120s to 130s currently. 04/18/2021 Patient examined in the emergency room. Patient denies chest pain or pressure. Reports mild SOB. She remains in atrial fibrillation with a heart rate around 80-100. She remains on a cardizem drip at 5mg/hr. 04/19/2021 Patient examined this morning at the bedside. Patient denies chest pain or pressure. Denies SOB. She remains in atrial fibrillation with a heart rate around 100-110. Her Cardizem drip has been discontinued. Echocardiogram completed revealing ejection fraction 50-55%, mild aortic regurgitation, moderate aortic stenosis, mild mitral regurgitation, and mild tricuspid regurgitation. 04/20/2021 Patient examined this morning at the bedside. Denies chest pain or pressure. She does report some shortness of breath with ambulation. She remains in atrial fibrillation with a heart rate around 100. INR 1.8. Patient remains on IV heparin. PHYSICAL EXAM: VITAL SIGNS: Reviewed. GENERAL: Well-developed in no acute distress. NECK: Supple. No JVD or thyromegaly LUNGS: Respirations even and unlabored. Lungs essentially clear to auscultation bilaterally. HEART: Irregular rate and rhythm. S1 and S2 heard. EXTREMITIES: Normal range of motion. No clubbing or cyanosis. Peripheral pulses intact. No lower extremity edema ASSESSMENT: Fever Urinary tract infection Paroxysmal atrial fibrillation with RVR Shortness of breath Possible acute diastolic congestive heart failure Hypertension Valvular heart disease PLAN: Continue current cardiac medications Per Dr. Chaney, may discontinue IV heparin Continue Coumadin Add Lasix 20 mg twice a day Continue telemetry monitoring Further recommendations pending patient course Nurse practitioner note has been reviewed by physician. Signing provider agrees with the documented findings, assessment, and plan of care. Objective - Vital Signs Vital signs: Vital Signs Temp 97.5 F L 04/20/21 08:00 Pulse 76 04/20/21 10:55 Resp 16 04/20/21 10:55 BP 115/54 04/20/21 10:55 Pulse Ox 94 L 04/20/21 10:55 Intake & Output 04/19/21 04/20/21 04/20/21 18:59 06:59 18:59 Intake Total 783.608 Output Total 300 1 Balance 483.608 -1 Intake: Intake, IV Titration 183.608 Amount Heparin Sod,Pork in 0.45% 183.608 NaCl 25,000 unit In 0.45 % NaCl 1 250ml.bag @ 7.3 UNITS/KG/HR 9.934 mls/hr IV .Q24H [facility] Rx#: [id number] Oral 600 Output: Urine 300 1 Other: Voiding Method Bedside Commode # Voids 1 1 - Labs CBC & Chem 7: 04/20/21 06:54 04/20/21 06:54 Labs: Abnormal Lab Results - Last 24 Hours (Table) 04/20/21 04/20/21 04/20/21 Range/Units 06:54 06:54 06:54 MCV 101.0 H (80.0-100.0) fL Plt Count 149 L (150-450) k/uL Lymphocytes # 0.9 L (1.0-4.8) k/uL PT 18.1 H (9.0-12.0) sec INR 1.8 H (<1.2) APTT 55.2 H (22.0-30.0) sec BUN 22 H (7-17) mg/dL Glucose 101 H (74-99) mg/dL Microbiology - Last 24 Hours (Table) 04/17/21 23:46 Urine Culture - Final Urine,Voided Escherichia coli 04/19/21 00:12 Blood Culture - Preliminary Blood No Growth after 24 hours
--- NOTE | 2021-04-20 16:11 | P.PN ---
Subjective Progress Note Date: 04/20/21 Principal diagnosis: Urinary tract infection. 70-year-old white female patient with past medical history of proximal A. fib, hypertension, hyperlipidemia, rheumatoid arthritis, sleep apnea, chronic back pain, anxiety/panic disorder, lifetime nonsmoker who presented to the emergency department on 04/17/2021 for evaluation of shortness of breath not feeling well. Patient reports fevers of up to 102.3, denied any cough, denied any phlegm production, she did feel shortness of breath for the past 3 days, she felt somewhat nauseous, however he denied any epigastric pain, no vomiting or diarrhea. No chest pain or pressure. She was noted to be in A. fib with RVR with a heart rate from 100 to 1:30 BPM, she follows with Dr. Este[facility]. She was started on Cardizem infusion for rate control. She was also diagnosed with acute urinary tract infection, chest x-ray and emergency department showed no active cardiopulmonary disease. Labs in the emergency department showed a white blood cell count 9.1, hemoglobin 14.8, INR of 1.7, sodium is 134, potassium of 4.4 renal profile B1 is 19 creatinine was 0.72, 3 sets of troponins were negative, proBNP was 3010, Procan SR level was 0.69, urinalysis showed evidence of urinary tract infection, patient was tested for COVID-19 and was found to be negative. We started on Rocephin for empiric antibiotic coverage, urine culture has been sent, she was given some IV fluids in view of acute sepsis related to acute urinary tract infection. Cardiology has been consulted. Progress note dated 04/19/2021. This is a 70-year-old female sees my partner as a primary. The patient was seen in the emergency department yesterday, with complaints of shortness of breath, lower extremity edema, and generally just not feeling well. The patient was found to have atrial fibrillation with RVR, CHF, and a urinary tract infection. Currently, the patient's on 2 L nasal cannula. She's getting Rocephin for her urinary tract infection. Her saturations are 95%. Her urine is showing evidence of gram-negative bacilli. White count 9.9, hemoglobin 14.3, hematocrit 45.5, and platelet count 157,000. PTT was 51.4. INR was 1.5. Sodium potassium chloride CO2 anion gap, all normal. BUN 23 with a creatinine of 0.88. The patient is currently on IV Rocephin for her urinary tract infection. Chest x- ray in my opinion is a bit better than it was on April 17. Progress note dated 04/20/2021. 70-year-old female was admitted to the hospital with a diagnosis of urinary tract infection, as well as congestive heart failure, and atrial fibrillation with RVR. The patient is doing much better. She remains on O2 at 2 L. She's not receiving any IV fluids. The patient is still in atrial fibrillation, but her rate is controlled. Her urine did show evidence of gram-negative bacilli. She was placed on Rocephin. Clinically, she's feeling much improved. Not completely back to baseline, but certainly much better. Labs today show a white count 6.1, hemoglobin 12.7, hematocrit 40.4, and platelet count 149,000. PT 18.1 with an INR 1.8. PTT was 55.2. Sodium, potassium, chloride, and CO2 all normal. Anion gap normal. BUN 22 with a creatinine 0.83. Urine from April 17 was positive for Escherichia coli. Objective - Vital Signs Vital signs: Vital Signs Temp 97.5 F L 04/20/21 08:00 Pulse 76 04/20/21 10:55 Resp 16 04/20/21 10:55 BP 115/54 04/20/21 10:55 Pulse Ox 94 L 04/20/21 10:55 Intake & Output 04/19/21 04/20/21 04/20/21 18:59 06:59 18:59 Intake Total 783.608 240 Output Total 300 1 Balance 483.608 239 Intake: Intake, IV Titration 183.608 Amount Heparin Sod,Pork in 0.45% 183.608 NaCl 25,000 unit In 0.45 % NaCl 1 250ml.bag @ 7.3 UNITS/KG/HR 9.934 mls/hr IV .Q24H [facility] Rx#: [id number] Oral 600 240 Output: Urine 300 1 Other: Voiding Method Bedside Commode # Voids 1 1 - Exam No acute distress, oriented 3. Nasal O2 at 2 L noted. HEENT examination is grossly unremarkable. Mucous membranes are moist. No oral lesions. Neck supple. Full range of motion. No adenopathy thyromegaly or neck vein distention. Cardiovascular examination reveals an irregular rhythm and rate. S1-S2 normal. No S3 or S4. No discernible murmur noted. Heart rate 72 bpm. Lungs reveal mild bibasilar crackles. Breath sounds equal bilaterally. No rhonchi. Abdomen soft bowel sounds are heard. No masses or tenderness. Extremities are intact. No cyanosis or clubbing. Mild edema appreciated. Skin is without rash or lesion. Neurologic examination is brief but nonfocal. - Labs CBC & Chem 7: 04/20/21 06:54 04/20/21 06:54 Labs: Abnormal Lab Results - Last 24 Hours (Table) 04/20/21 04/20/21 04/20/21 Range/Units 06:54 06:54 06:54 MCV 101.0 H (80.0-100.0) fL Plt Count 149 L (150-450) k/uL Lymphocytes # 0.9 L (1.0-4.8) k/uL PT 18.1 H (9.0-12.0) sec INR 1.8 H (<1.2) APTT 55.2 H (22.0-30.0) sec BUN 22 H (7-17) mg/dL Glucose 101 H (74-99) mg/dL Microbiology - Last 24 Hours (Table) 04/17/21 23:46 Urine Culture - Final Urine,Voided Escherichia coli 04/19/21 00:12 Blood Culture - Preliminary Blood No Growth after 24 hours Assessment and Plan Assessment: #1. Acute hypoxic respiratory failure related to acute exacerbation of CHF with unknown ejection fraction, and component of urinary tract infection with sepsis. #2. A. fib with RVR, patient is currently still in atrial fibrillation, with a rate that is controlled. #3. History of paroxysmal atrial fibrillation. #4. Acute urinary tract infection, secondary to Escherichia coli. #5. GERD/reflux. #6. Rheumatoid arthritis. #7. Sleep apnea/morbid obesity. #8. Never smoker. #9. Anxiety/panic disorder. Plan: Plan dated 04/19/2021. The patient's on 2 L. She is resting comfortably. The patient's currently on Rocephin. She is also getting Coumadin. The patient is still in atrial fibrillation. We will continue to follow and make recommendations where appropriate. Follow with my partner, who serves as her primary care physician. Additional recommendations and suggestions are forthcoming. The gram-negative bacilli in her urine, has not yet been identified. Plan dated 04/20/2021. The patient's doing much better. The patient is still in atrial fibrillation, but her rate is less than 80. She is receiving Rocephin for her Escherichia coli urinary tract infection. Her lower extremities are still a bit puffy. She remains on 2 L. She is feeling much better. She is hoping to be discharged soon. Maybe the next 24-48 hours. The patient should follow-up with my partner, who sees her as a primary. Additional recommendations and suggestions are forthcoming. Prognosis is guarded. Time with Patient: Less than 30
[2021-04-20] MEDS ORDERED: WARFARIN 7.5 MG TAB PO ONE (18:00)
[2021-04-20] MEDS: ATORVASTATIN 10 MG TAB PO SCH (20:44)
[2021-04-21 02:17] VITALS: TEMP 97.6
[2021-04-21] MEDS: FUROSEMIDE 20 MG TAB PO SCH (08:21)
[2021-04-21] MEDS: METOPROLOL TARTRATE 25 MG TAB PO SCH (08:21)
[2021-04-21] MEDS: VERAPAMIL 40 MG TAB PO SCH (08:21)
[2021-04-21] MEDS: CITALOPRAM HYDROBROMIDE 20 MG TAB PO SCH (08:21)
[2021-04-21 08:56] LABS: Basophils % (A) 0 %; Eosinophils # (A) 0.2 k/uL (0-0.7); Eosinophils % (A) 4 %; HCT 41.2 % (34.0-46.0); HGB 13.1 gm/dL (11.4-16.0); Hypochromasia Slight; Lymphocytes # (A) 0.9 k/uL (1.0-4.8); Lymphocytes % (A) 17 %; MCH 31.7 pg (25.0-35.0); MCHC 31.8 g/dL (31.0-37.0); MCV 99.7 fL (80.0-100.0); Mean Platelet Volume 9.9; Monocytes # (A) 0.4 k/uL (0-1.0); Monocytes % (A) 7 %; Neutrophils # (A) 3.6 k/uL (1.3-7.7); Neutrophils % (A) 68 %; Platelet Count 177 k/uL (150-450); RBC 4.13 m/uL (3.80-5.40); RDW 13.3 % (11.5-15.5); WBC 5.3 k/uL (3.8-10.6)
[2021-04-21 09:10] LABS: INR 2.3 (<1.2); Prothrombin Time 22.7 sec (9.0-12.0)
[2021-04-21 09:27] LABS: Calcium 8.8 mg/dL (8.4-10.2); Potassium 4.2 mmol/L (3.5-5.1)
--- NOTE | 2021-04-21 11:09 | P.PN ---
Subjective Progress Note Date: 04/19/21 Patient is a 70-year-old female with a known history of hypertension, hyperlipidemia, osteoarthritis, rheumatoid arthritis, obstructive sleep apnea on CPAP at home, paroxysmal atrial fibrillation,, Anxiety and panic disorder and history of cardiac catheterization presents to ER with complaints of shortness of breath, fever and chills for the past 2 days. Patient states that she has not been feeling very well last 2 days. Patient states that she had Covid diagnosed on February 28, 2021. She did take Tylenol for fever at home. She is also having nausea and episode of vomiting. Denies any complaints of chest pain. No leg swelling. No abdominal pain or diarrhea or dysuria. On admission patient was tachycardic and T-max was 102.3. Patient denied any neck stiffness. No headache or dizziness. Chest x-ray showed no active cardiopulmonary disease. There is clearing of a small infiltrate right lung base compared to old exam. EKG showed atrial fibrillation with rapid ventricular response. Laboratory data showed WBC 9.1 hemoglobin 14.8 and platelets 154 INR 1.7 Sodium 134 potassium 4.4 chloride 100 BUN 19 and creatinine 0.72 blood sugar is 156 and magnesium 1.5 Troponin 0 0.022, 0.0250.019 proBNP 3010 Coronavirus PCR not detected. 04/18/2021 Patient is currently lying in the bed. Awake alert and oriented. Patient was febrile last night with T-max 100.5. Urinalysis came out positive with cloudiness and moderate blood and positive nitrite and large leukoesterase with elevated RBCs and WBCs. Patient was started on ceftriaxone and follow-up urine culture report. Blood cultures will be ordered if the patient continues to have fever. Patient is on Cardizem drip for heart rate control. INR is subtherapeutic patient was started on heparin drip for bridging. Patient denied any complaints of chest pain. No complaints of shortness of breath. No nausea vomiting abdominal pain or diarrhea. Cardiology and pulmonary is on board. 04/19/2021 Patient is currently lying in the bed. Awake alert and oriented x3. Shortness of breath is improving. No complaints of chest pain. Patient has been afebrile. Heart rate is around 100. Still in atrial fibrillation. 2D echocardiogram showed atrial fraction 50 to 55%. Mild AR mild MR and mild TR and moderate aortic stenosis. Cardiology and pulmonary is on board. Cardizem drip has been discontinued. Patient was started on verapamil. Continued on metoprolol 75 mg 3 times daily. Otherwise patient is on antibiotics with ceftriaxone for urinary tract infection. Urine culture showed E. coli. Pansensitive. Denied any nausea vomiting abdomen pain or diarrhea. Improving symptomatically. No cough or sputum production. REVIEW OF SYSTEMS CONSTITUTIONAL: does have fever and chills. CARDIOVASCULAR: Denies chest pain, shortness of breath, orthopnea, PND or palpitations. RESPIRATORY: Denies cough. GASTROINTESTINAL: Denies abdominal pain, diarrhea, constipation, nausea or vomiting. MUSCULOSKELETAL: Denies myalgias. NEUROLOGIC: Denies numbness, tingling or weakness. ENDOCRINE: Denies fatigue, weight change, polydipsia or polyurina. GENITOURINARY: Denies burning, hematuria or urgency with micturation. HEMATOLOGIC: Denies history of anemia or bleeding. current medications reviewed. Objective - Vital Signs Vital signs: Vital Signs Temp 98.2 F 04/19/21 16:00 Pulse 75 04/19/21 16:00 Resp 20 04/19/21 16:00 BP 121/62 04/19/21 16:00 Pulse Ox 93 L 04/19/21 16:00 Intake & Output 04/19/21 04/19/21 04/20/21 06:59 18:59 06:59 Intake Total 66.392 783.608 Output Total 300 Balance 66.392 483.608 Intake: Intake, IV Titration 66.392 183.608 Amount Heparin Sod,Pork in 0.45% 66.392 183.608 NaCl 25,000 unit In 0.45 % NaCl 1 250ml.bag @ 7.3 UNITS/KG/HR 9.934 mls/hr IV .Q24H [facility] Rx#: [id number] Oral 600 Output: Urine 300 Other: Voiding Method Bedside Commode # Voids 2 - Exam PHYSICAL EXAMINATION: Patient is lying in the bed comfortably, no acute distress, awake alert and oriented.. HEENT: Normocephalic. Neck is supple. Pupils reactive. Nostrils clear. Oral cavity is moist. Neck reveals no JVD, carotid bruits, or thyromegaly. CHEST EXAMINATION: Trachea is central. Symmetrical expansion.Bibasilar diminished sounds. CARDIAC: Normal S1, S2 with no gallops. No murmurs ABDOMEN: Soft. Bowel sounds normal. No organomegaly. No abdominal bruits. Extremities: reveal no edema. No clubbing or cyanosis Neurologically awake, alert, oriented x3 with well-coordinated movements. No focal deficits noted Skin: No rash or skin lesions. Psychiatric: Cooperative. Nonsuicidal Musculoskeletal: No joint swelling or deformity. Normal range of motion. - Labs CBC & Chem 7: 04/21/21 08:30 04/21/21 08:30 Labs: Abnormal Lab Results - Last 24 Hours (Table) 04/19/21 04/19/21 04/19/21 Range/Units 00:12 07:46 07:46 PT 15.4 H (9.0-12.0) sec INR 1.5 H (<1.2) APTT 32.7 H 51.4 H (22.0-30.0) sec BUN 23 H (7-17) mg/dL Glucose 117 H (74-99) mg/dL Microbiology - Last 24 Hours (Table) 04/17/21 23:46 Urine Culture - Preliminary Urine,Voided Gram Neg Bacilli Assessment and Plan Assessment: Atrial fibrillation with rapid ventricular rate Shortness of breath likely secondary to acute CHF with preserved ejection fraction. Elevated BNP. E. coli urinary tract infection. Sepsis secondary to UTI Rheumatoid arthritis Paroxysmal atrial fibrillation on anticoagulation with Coumadin Hypertension Hyperlipidemia Obstructive sleep apnea on CPAP at home History of overactive bladder Anxiety and panic disorder Coumadin monitoring /Subtherapeutic INR level. Plan: Patient was started on Cardizem drip due to atrial fibrillation with rapid regular rate. started back on metoprolol. Increase the dose to 75 mg 3 times daily as per cardiology recommendations. Continue with Coumadin monitoring. Patient was started on ceftriaxone for urinary tract infection. Urine culture showed E. coli and pansensitive. COVID-19 PCR is negative. Follow-up culture reports. Procalcitonin level 0.67. Continued home medications and follow-up closely. Coumadin dosing as per pharmacy. Time with Patient: Greater than 30
--- NOTE | 2021-04-21 11:11 | P.PN ---
Subjective Progress Note Date: 04/20/21 Patient is a 70-year-old female with a known history of hypertension, hyperlipidemia, osteoarthritis, rheumatoid arthritis, obstructive sleep apnea on CPAP at home, paroxysmal atrial fibrillation,, Anxiety and panic disorder and history of cardiac catheterization presents to ER with complaints of shortness of breath, fever and chills for the past 2 days. Patient states that she has not been feeling very well last 2 days. Patient states that she had Covid diagnosed on February 28, 2021. She did take Tylenol for fever at home. She is also having nausea and episode of vomiting. Denies any complaints of chest pain. No leg swelling. No abdominal pain or diarrhea or dysuria. On admission patient was tachycardic and T-max was 102.3. Patient denied any neck stiffness. No headache or dizziness. Chest x-ray showed no active cardiopulmonary disease. There is clearing of a small infiltrate right lung base compared to old exam. EKG showed atrial fibrillation with rapid ventricular response. Laboratory data showed WBC 9.1 hemoglobin 14.8 and platelets 154 INR 1.7 Sodium 134 potassium 4.4 chloride 100 BUN 19 and creatinine 0.72 blood sugar is 156 and magnesium 1.5 Troponin 0 0.022, 0.0250.019 proBNP 3010 Coronavirus PCR not detected. 04/18/2021 Patient is currently lying in the bed. Awake alert and oriented. Patient was febrile last night with T-max 100.5. Urinalysis came out positive with cloudiness and moderate blood and positive nitrite and large leukoesterase with elevated RBCs and WBCs. Patient was started on ceftriaxone and follow-up urine culture report. Blood cultures will be ordered if the patient continues to have fever. Patient is on Cardizem drip for heart rate control. INR is subtherapeutic patient was started on heparin drip for bridging. Patient denied any complaints of chest pain. No complaints of shortness of breath. No nausea vomiting abdominal pain or diarrhea. Cardiology and pulmonary is on board. 04/19/2021 Patient is currently lying in the bed. Awake alert and oriented x3. Shortness of breath is improving. No complaints of chest pain. Patient has been afebrile. Heart rate is around 100. Still in atrial fibrillation. 2D echocardiogram showed atrial fraction 50 to 55%. Mild AR mild MR and mild TR and moderate aortic stenosis. Cardiology and pulmonary is on board. Cardizem drip has been discontinued. Patient was started on verapamil. Continued on metoprolol 75 mg 3 times daily. Otherwise patient is on antibiotics with ceftriaxone for urinary tract infection. Urine culture showed E. coli. Pansensitive. Denied any nausea vomiting abdomen pain or diarrhea. Improving symptomatically. No cough or sputum production. 04/20/2021 Patient is currently sitting in the recliner. No complaints of chest pain. Denied any cough or sputum production. Shortness of breath is improving. Still having some exertional dyspnea. Heart rate is not 100s. Patient has been guided on IV heparin due to subtherapeutic INR level. INR is 1.8 today. Patient is metoprolol and verapamil. Continue with ceftriaxone while in the hospital for E. coli urinary tract infection. Will change to oral antibiotic upon discharge. Pulmonary and cardiology is on board. Anticipate discharge in next 24 to 48 hours. Improving clinically. Patient was started on Lasix 20 mg twice daily. REVIEW OF SYSTEMS CONSTITUTIONAL: does have fever and chills. CARDIOVASCULAR: Denies chest pain, shortness of breath, orthopnea, PND or palpitations. RESPIRATORY: Denies cough. GASTROINTESTINAL: Denies abdominal pain, diarrhea, constipation, nausea or vomiting. MUSCULOSKELETAL: Denies myalgias. NEUROLOGIC: Denies numbness, tingling or weakness. ENDOCRINE: Denies fatigue, weight change, polydipsia or polyurina. GENITOURINARY: Denies burning, hematuria or urgency with micturation. HEMATOLOGIC: Denies history of anemia or bleeding. current medications reviewed. Objective - Vital Signs Vital signs: Vital Signs Temp 97.5 F L 04/20/21 08:00 Pulse 68 04/20/21 19:54 Resp 18 04/20/21 19:54 BP 88/52 04/20/21 19:54 Pulse Ox 95 04/20/21 19:54 Intake & Output 04/20/21 04/20/21 04/21/21 06:59 18:59 06:59 Intake Total 240 Output Total 1 Balance 239 Intake: Oral 240 Output: Urine 1 Other: Voiding Method Bedside Commode Toilet # Voids 1 3 - Exam PHYSICAL EXAMINATION: Patient is lying in the bed comfortably, no acute distress, awake alert and oriented.. HEENT: Normocephalic. Neck is supple. Pupils reactive. Nostrils clear. Oral cavity is moist. Neck reveals no JVD, carotid bruits, or thyromegaly. CHEST EXAMINATION: Trachea is central. Symmetrical expansion.Bibasilar diminished sounds. CARDIAC: Normal S1, S2 with no gallops. No murmurs ABDOMEN: Soft. Bowel sounds normal. No organomegaly. No abdominal bruits. Extremities: reveal no edema. No clubbing or cyanosis Neurologically awake, alert, oriented x3 with well-coordinated movements. No focal deficits noted Skin: No rash or skin lesions. Psychiatric: Cooperative. Nonsuicidal Musculoskeletal: No joint swelling or deformity. Normal range of motion. - Labs CBC & Chem 7: 04/21/21 08:30 04/21/21 08:30 Labs: Abnormal Lab Results - Last 24 Hours (Table) 04/20/21 04/20/21 04/20/21 Range/Units 06:54 06:54 06:54 MCV 101.0 H (80.0-100.0) fL Plt Count 149 L (150-450) k/uL Lymphocytes # 0.9 L (1.0-4.8) k/uL PT 18.1 H (9.0-12.0) sec INR 1.8 H (<1.2) APTT 55.2 H (22.0-30.0) sec BUN 22 H (7-17) mg/dL Glucose 101 H (74-99) mg/dL Microbiology - Last 24 Hours (Table) 04/17/21 23:46 Urine Culture - Final Urine,Voided Escherichia coli 04/19/21 00:12 Blood Culture - Preliminary Blood No Growth after 24 hours Assessment and Plan Assessment: Atrial fibrillation with rapid ventricular rate Shortness of breath likely secondary to acute CHF with preserved ejection fraction. Elevated BNP. E. coli urinary tract infection. Sepsis secondary to UTI Rheumatoid arthritis Paroxysmal atrial fibrillation on anticoagulation with Coumadin Hypertension Hyperlipidemia Obstructive sleep apnea on CPAP at home History of overactive bladder Anxiety and panic disorder Coumadin monitoring /Subtherapeutic INR level. Plan: Patient was started on Cardizem drip due to atrial fibrillation with rapid regular rate. started back on metoprolol. Increase the dose to 75 mg 3 times daily as per cardiology recommendations. Continue with Coumadin monitoring. Patient was started on Lasix 20 mg twice daily. Patient was started on ceftriaxone for urinary tract infection. Urine culture showed E. coli and pansensitive. COVID-19 PCR is negative. Follow-up culture reports. Procalcitonin level 0.67. Continued home medications and follow-up closely. Coumadin dosing as per pharmacy. Time with Patient: Greater than 30
[2021-04-21 11:16] VITALS: BP 113/75; PULSE 77; RESP 16
--- NOTE | 2021-04-21 13:14 | P.PN ---
Subjective Progress Note Date: 04/21/21 HISTORY OF PRESENT ILLNESS: Patient is a pleasant 70-year-old female with history of paroxysmal atrial fibrillation, hypertension, depression who presents with 3 days of not feeling well. She states she has been having fevers with fever today up to 102.3. She denies any cough however has been somewhat more short of breath as well as her last 3 days. She has felt somewhat nauseous and denies any diarrhea or epigastric pain. She denies any actual chest pain or pressure. She is feeling fairly short of breath and therefore came to emergency department. She was noted to be in A. fib with RVR with heart rates from 100 up to 130s. She follows in the office with Dr. Grossman. She had initially been on the metoprolol 50mg daily and then this was increased to twice a day and then 3 times a day. Denies any changes in her medications. She was started on a Cardizem drip amrike ntly at 5 with heart rates somewhat better controlled however 120s to 130s currently. 04/18/2021 Patient examined in the emergency room. Patient denies chest pain or pressure. Reports mild SOB. She remains in atrial fibrillation with a heart rate around 80-100. She remains on a cardizem drip at 5mg/hr. 04/19/2021 Patient examined this morning at the bedside. Patient denies chest pain or pressure. Denies SOB. She remains in atrial fibrillation with a heart rate around 100-110. Her Cardizem drip has been discontinued. Echocardiogram completed revealing ejection fraction 50-55%, mild aortic regurgitation, moderate aortic stenosis, mild mitral regurgitation, and mild tricuspid regurgitation. 04/20/2021 Patient examined this morning at the bedside. Denies chest pain or pressure. She does report some shortness of breath with ambulation. She remains in atrial fibrillation with a heart rate around 100. INR 1.8. Patient remains on IV heparin. 04/21/2021 Patient examined this morning at the bedside. Patient denies shortness of breath. She denies chest pain or pressure. She remains in atrial fibrillation with controlled ventricular rates. Vital signs are stable. PHYSICAL EXAM: VITAL SIGNS: Reviewed. GENERAL: Well-developed in no acute distress. NECK: Supple. No JVD or thyromegaly LUNGS: Respirations even and unlabored. Lungs essentially clear to auscultation bilaterally. HEART: Irregular rate and rhythm. S1 and S2 heard. EXTREMITIES: Normal range of motion. No clubbing or cyanosis. Peripheral pulses intact. No lower extremity edema ASSESSMENT: Fever Urinary tract infection Paroxysmal atrial fibrillation with RVR Shortness of breath Possible acute diastolic congestive heart failure Hypertension Valvular heart disease PLAN: Continue current cardiac medications Continue telemetry monitoring Patient is stable for discharge from a cardiac standpoint Nurse practitioner note has been reviewed by physician. Signing provider agrees with the documented findings, assessment, and plan of care. Objective - Vital Signs Vital signs: Vital Signs Temp 97.6 F 04/21/21 00:00 Pulse 77 04/21/21 11:15 Resp 16 04/21/21 11:15 BP 113/75 04/21/21 11:15 Pulse Ox 95 04/21/21 11:15 Intake & Output 04/20/21 04/21/21 04/21/21 18:59 06:59 18:59 Intake Total 240 180 Output Total 1 Balance 239 180 Weight 134.9 kg Intake: Oral 240 180 Output: Urine 1 Other: Voiding Method Toilet Toilet # Voids 3 2 - Labs CBC & Chem 7: 04/21/21 08:30 04/21/21 08:30 Labs: Abnormal Lab Results - Last 24 Hours (Table) 04/21/21 04/21/21 04/21/21 Range/Units 08:30 08:30 08:30 Lymphocytes # 0.9 L (1.0-4.8) k/uL PT 22.7 H (9.0-12.0) sec INR 2.3 H (<1.2) Carbon Dioxide 33 H (22-30) mmol/L BUN 22 H (7-17) mg/dL Glucose 134 H (74-99) mg/dL Microbiology - Last 24 Hours (Table) 04/19/21 00:12 Blood Culture - Preliminary Blood No Growth after 48 hours 04/17/21 23:46 Urine Culture - Final Urine,Voided Escherichia coli
--- NOTE | 2021-04-21 14:26 | P.PN ---
Subjective Progress Note Date: 04/21/21 Principal diagnosis: Urinary tract infection. 70-year-old white female patient with past medical history of proximal A. fib, hypertension, hyperlipidemia, rheumatoid arthritis, sleep apnea, chronic back pain, anxiety/panic disorder, lifetime nonsmoker who presented to the emergency department on 04/17/2021 for evaluation of shortness of breath not feeling well. Patient reports fevers of up to 102.3, denied any cough, denied any phlegm production, she did feel shortness of breath for the past 3 days, she felt somewhat nauseous, however he denied any epigastric pain, no vomiting or diarrhea. No chest pain or pressure. She was noted to be in A. fib with RVR with a heart rate from 100 to 1:30 BPM, she follows with Dr. [facility]ste[facility] She was started on Cardizem infusion for rate control. She was also diagnosed with acute urinary tract infection, chest x-ray and emergency department showed no active cardiopulmonary disease. Labs in the emergency department showed a white blood cell count 9.1, hemoglobin 14.8, INR of 1.7, sodium is 134, potassium of 4.4 renal profile B1 is 19 creatinine was 0.72, 3 sets of troponins were negative, proBNP was 3010, Procan SR level was 0.69, urinalysis showed evidence of urinary tract infection, patient was tested for COVID-19 and was found to be negative. We started on Rocephin for empiric antibiotic coverage, urine culture has been sent, she was given some IV fluids in view of acute sepsis related to acute urinary tract infection. Cardiology has been consulted. Progress note dated 04/19/2021. This is a 70-year-old female sees my partner as a primary. The patient was seen in the emergency department yesterday, with complaints of shortness of breath, lower extremity edema, and generally just not feeling well. The patient was found to have atrial fibrillation with RVR, CHF, and a urinary tract infection. Currently, the patient's on 2 L nasal cannula. She's getting Rocephin for her urinary tract infection. Her saturations are 95%. Her urine is showing evidence of gram-negative bacilli. White count 9.9, hemoglobin 14.3, hematocrit 45.5, and platelet count 157,000. PTT was 51.4. INR was 1.5. Sodium potassium chloride CO2 anion gap, all normal. BUN 23 with a creatinine of 0.88. The patient is currently on IV Rocephin for her urinary tract infection. Chest x- ray in my opinion is a bit better than it was on April 17. Progress note dated 04/20/2021. 70-year-old female was admitted to the hospital with a diagnosis of urinary tract infection, as well as congestive heart failure, and atrial fibrillation with RVR. The patient is doing much better. She remains on O2 at 2 L. She's not receiving any IV fluids. The patient is still in atrial fibrillation, but her rate is controlled. Her urine did show evidence of gram-negative bacilli. She was placed on Rocephin. Clinically, she's feeling much improved. Not completely back to baseline, but certainly much better. Labs today show a white count 6.1, hemoglobin 12.7, hematocrit 40.4, and platelet count 149,000. PT 18.1 with an INR 1.8. PTT was 55.2. Sodium, potassium, chloride, and CO2 all normal. Anion gap normal. BUN 22 with a creatinine 0.83. Urine from April 17 was positive for Escherichia coli. Progress note dated 04/21/2021. 71-year-old female, who was seen in room 376. She remains on 2 L nasal O2. She's not receiving any IV fluids. She was admitted a few days ago, with urinary tract infection, atrial fibrillation with RVR, and congestive heart failure. She's doing much better. Her primary care provider is Dr. Gonzalez. The patient is feeling much better. She's currently on Rocephin for her urinary tract infection which turned out to be Escherichia coli. White count 5.3, hemoglobin 13.1, hematocrit 41.2, and platelet count 177,000. PT/INR were 22.7 2.3. Sodium 140, potassium 4.2, chlorides 102, CO2 33, anion gap 5, BUN 22, and creatinine 0.84. Current medications are reviewed. The patient's on Tylenol, Lipitor, Rocephin, Celexa, Lasix, [place], metoprolol, Narcan, Zofran, verapamil, and Coumadin. Objective - Vital Signs Vital signs: Vital Signs Temp 97.6 F 04/21/21 00:00 Pulse 77 04/21/21 11:15 Resp 16 04/21/21 11:15 BP 113/75 04/21/21 11:15 Pulse Ox 95 04/21/21 11:15 Intake & Output 04/20/21 04/21/21 04/21/21 18:59 06:59 18:59 Intake Total 240 360 Output Total 1 Balance 239 360 Weight 134.9 kg Intake: Oral 240 360 Output: Urine 1 Other: Voiding Method Toilet Toilet # Voids 3 2 - Exam No acute distress, oriented 3. Nasal O2 at 2 L noted. Saturations are 95%. HEENT examination is grossly unremarkable. Mucous membranes are moist. No oral lesions. Neck supple. Full range of motion. No adenopathy thyromegaly or neck vein distention. Cardiovascular examination reveals an irregular rhythm and rate. S1-S2 normal. No S3 or S4. No discernible murmur noted. Heart rate 77 bpm. Lungs reveal mild bibasilar crackles. Breath sounds equal bilaterally. No rhonchi. Abdomen soft bowel sounds are heard. No masses or tenderness. Extremities are intact. No cyanosis or clubbing. Mild edema appreciated. Skin is without rash or lesion. Neurologic examination is brief but nonfocal. - Labs CBC & Chem 7: 04/21/21 08:30 04/21/21 08:30 Labs: Abnormal Lab Results - Last 24 Hours (Table) 04/21/21 04/21/21 04/21/21 Range/Units 08:30 08:30 08:30 Lymphocytes # 0.9 L (1.0-4.8) k/uL PT 22.7 H (9.0-12.0) sec INR 2.3 H (<1.2) Carbon Dioxide 33 H (22-30) mmol/L BUN 22 H (7-17) mg/dL Glucose 134 H (74-99) mg/dL Microbiology - Last 24 Hours (Table) 04/19/21 00:12 Blood Culture - Preliminary Blood No Growth after 48 hours 04/17/21 23:46 Urine Culture - Final Urine,Voided Escherichia coli Assessment and Plan Assessment: #1. Acute hypoxic respiratory failure related to acute exacerbation of CHF with unknown ejection fraction, and component of urinary tract infection with sepsis. #2. A. fib with RVR, patient is currently still in atrial fibrillation, with a rate that is controlled. #3. History of paroxysmal atrial fibrillation. #4. Acute urinary tract infection, secondary to Escherichia coli. #5. GERD/reflux. #6. Rheumatoid arthritis. #7. Sleep apnea/morbid obesity. #8. Never smoker. #9. Anxiety/panic disorder. Plan: Plan dated 04/19/2021. The patient's on 2 L. She is resting comfortably. The patient's currently on Rocephin. She is also getting Coumadin. The patient is still in atrial fibrillation. We will continue to follow and make recommendations where appropriate. Follow with my partner, who serves as her primary care physician. Additional recommendations and suggestions are forthcoming. The gram-negative bacilli in her urine, has not yet been identified. Plan dated 04/20/2021. The patient's doing much better. The patient is still in atrial fibrillation, but her rate is less than 80. She is receiving Rocephin for her Escherichia coli urinary tract infection. Her lower extremities are still a bit puffy. She remains on 2 L. She is feeling much better. She is hoping to be discharged soon. Maybe the next 24-48 hours. The patient should follow-up with my partner, who sees her as a primary. Additional recommendations and suggestions are forthcoming. Prognosis is guarded. Plan dated 04/21/2021. The patient's doing much better. The patient's labs, x-rays, and medications are reviewed. She remains on Rocephin for her Escherichia coli urinary tract infection. The patient will need to follow my partner post discharge. The patient will need a follow-up urinalysis as well. Additional recommendations and suggestions are forthcoming. We'll continue to follow. There is some consideration the patient could be discharged today. No formal decision has been made as yet. Prognosis is guarded. We will continue to follow. Time with Patient: Less than 30
[2021-04-21] MEDS ORDERED: WARFARIN 3 MG TAB PO SCH (18:00)
--- NOTE | 2021-04-25 10:21 | CDI ---
Documentation Clarification Form Date: 04/25/21 From: Hermila Benavides Admit Date: 04/17/2021 03:12:00 AM Patient Name: Lisbet Jha Visit Number: [id number] Discharge Date: 04/21/2021 03:47:00 PM ATTENTION: The Clinical Documentation Specialists (CDI) and [facility] Coding Staff appreciate your assistance in clarifying documentation. Please respond to the clarification below the line at the bottom and electronically sign. The CDI & [facility] Coding staff will review the response and follow-up if needed. Please note: Queries are made part of the Legal Health Record. If you have any questions, please contact the author of this message via ITS. Dr. Denise Lewis, Sepsis secondary to UTI is documented in the 04/18 progress note. For each diagnosis, documentation must be clear to determine if the condition was present at the time of the patients inpatient admission or developed during the hospital stay. Additional clarification regarding the [insert diagnosis] is requested. History/Risk Factors: acute hypoxic respiratory failure, acute diastolic CHF, hypertensive heart disease, morbid obesity Clinical Indicators: Admitted on 04/17 @ 312. 04/17 @800 VS-T 102.3, P 123, R 18, BP 116/72 O2 97 ON 3 liters Treatment: 04/18 @ 309 IV Ceftriaxone stareted Definition of Present on Admission (POA): A diagnosis present at the time the order for admission to inpatient status was written. Please clarify if the sepsis was POA [ ] Y = Yes, the condition was present at the time of the order for inpatient admission. [ ] N = No, the condition was not present at the time of the order for inpatient admission. [ ] W = Clinically undetermined if the condition was present at the time of the order for inpatient admission. Y MTDD
--- NOTE | 2021-05-09 17:04 | P.DS ---
Providers Date of admission: 04/17/21 03:12 Expected date of discharge: 04/21/21 Attending physician: Denise Lewis Consults: 04/17/21 02:45 Consult Physician Urgent Consulting Provider: Poli Grossman Consult Reason/Comments: AFIB rvr Do you want consulting provider notified?: Yes 04/17/21 16:11 Consult Physician Routine Consulting Provider: Lucia Gonzalez Consult Reason/Comments: knew the pt Do you want consulting provider notified?: Yes Primary care physician: Lucia Gonzalez Hospital Course: Discharge diagnosis Atrial fibrillation with rapid ventricular rate. rate controlled. Shortness of breath likely secondary to acute CHF with preserved ejection fraction. Elevated BNP. E. coli urinary tract infection. Sepsis secondary to UTI Rheumatoid arthritis Paroxysmal atrial fibrillation on anticoagulation with Coumadin Hypertension Hyperlipidemia Obstructive sleep apnea on CPAP at home History of overactive bladder Anxiety and panic disorder Coumadin monitoring /Subtherapeutic INR level. Hospital course Patient is a 70-year-old female with a known history of hypertension, hyperlipidemia, osteoarthritis, rheumatoid arthritis, obstructive sleep apnea on CPAP at home, paroxysmal atrial fibrillation,, Anxiety and panic disorder and history of cardiac catheterization presents to ER with complaints of shortness of breath, fever and chills for the past 2 days. Patient states that she has not been feeling very well last 2 days. Patient states that she had Covid diagnosed on February 28, 2021. She did take Tylenol for fever at home. She is also having nausea and episode of vomiting. Denies any complaints of chest pain. No leg swelling. No abdominal pain or diarrhea or dysuria. On admission patient was tachycardic and T-max was 102.3. Patient denied any neck stiffness. No headache or dizziness. Chest x-ray showed no active cardiopulmonary disease. There is clearing of a small infiltrate right lung base compared to old exam. EKG showed atrial fibrillation with rapid ventricular response. Laboratory data showed WBC 9.1 hemoglobin 14.8 and platelets 154 INR 1.7 Sodium 134 potassium 4.4 chloride 100 BUN 19 and creatinine 0.72 blood sugar is 156 and magnesium 1.5 Troponin 0 0.022, 0.0250.019 proBNP 3010 Coronavirus PCR not detected. 04/18/2021 Patient is currently lying in the bed. Awake alert and oriented. Patient was febrile last night with T-max 100.5. Urinalysis came out positive with cloudiness and moderate blood and positive nitrite and large leukoesterase with elevated RBCs and WBCs. Patient was started on ceftriaxone and follow-up urine culture report. Blood cultures will be ordered if the patient continues to have fever. Patient is on Cardizem drip for heart rate control. INR is subtherapeutic patient was started on heparin drip for bridging. Patient denied any complaints of chest pain. No complaints of shortness of breath. No nausea vomiting abdominal pain or diarrhea. Cardiology and pulmonary is on board. 04/19/2021 Patient is currently lying in the bed. Awake alert and oriented x3. Shortness of breath is improving. No complaints of chest pain. Patient has been afebrile. Heart rate is around 100. Still in atrial fibrillation. 2D echocardiogram showed atrial fraction 50 to 55%. Mild AR mild MR and mild TR and moderate aortic stenosis. Cardiology and pulmonary is on board. Cardizem drip has been discontinued. Patient was started on verapamil. Continued on metoprolol 75 mg 3 times daily. Otherwise patient is on antibiotics with ceftriaxone for urinary tract infection. Urine culture showed E. coli. Pansensitive. Denied any nausea vomiting abdomen pain or diarrhea. Improving symptomatically. No cough or sputum production. 04/20/2021 Patient is currently sitting in the recliner. No complaints of chest pain. Denied any cough or sputum production. Shortness of breath is improving. Still having some exertional dyspnea. Heart rate is not 100s. Patient has been guided on IV heparin due to subtherapeutic INR level. INR is 1.8 today. Patient is metoprolol and verapamil. Continue with ceftriaxone while in the hospital for E. coli urinary tract infection. Will change to oral antibiotic upon discharge. Pulmonary and cardiology is on board. Anticipate discharge in next 24 to 48 hours. Improving clinically. Patient was started on Lasix 20 mg twice daily. 04/21/2021 Patient is currently resting in bed. Awake alert oriented x3. Denies any complaints of chest pain or shortness of breath. Currently heart rate is controlled. Otherwise patient remains in atrial fibrillation. Patient is also being continued on antibiotics for E. coli urinary tract infection. Hemodynamically stable. No nausea vomiting or abdominal pain. No other acute overnight issues. Patient is being discharged home today. Cleared from pulmonary and cardiology standpoint. Heart rate is controlled with metoprolol and verapamil. PHYSICAL EXAMINATION: Patient is lying in the bed comfortably, no acute distress, awake alert and oriented.. HEENT: Normocephalic. Neck is supple. Pupils reactive. Nostrils clear. Oral cavity is moist. Neck reveals no JVD, carotid bruits, or thyromegaly. CHEST EXAMINATION: Trachea is central. Symmetrical expansion.Bibasilar diminished sounds. CARDIAC: Normal S1, S2 with no gallops. No murmurs ABDOMEN: Soft. Bowel sounds normal. No organomegaly. No abdominal bruits. Extremities: reveal no edema. No clubbing or cyanosis Neurologically awake, alert, oriented x3 with well-coordinated movements. No focal deficits noted Skin: No rash or skin lesions. Psychiatric: Cooperative. Nonsuicidal Musculoskeletal: No joint swelling or deformity. Normal range of motion. Vital signs: Vital Signs Temp 97.6 F 04/21/21 00:00 Pulse 77 04/21/21 11:15 Resp 16 04/21/21 11:15 BP 113/75 04/21/21 11:15 Pulse Ox 95 04/21/21 11:15 Intake & Output 04/20/21 04/21/21 04/21/21 18:59 06:59 18:59 Intake Total 240 360 Output Total 1 Balance 239 360 Weight 134.9 kg Intake: Oral 240 360 Output: Urine 1 Other: Voiding Method Toilet Toilet # Voids 3 2 Patient Condition at Discharge: Fair Plan - Discharge Summary New Discharge Prescriptions: New Metoprolol Tartrate [Lopressor] 75 mg PO TID #270 tab Verapamil [Isoptin] 40 mg PO TID #90 tab Continue Simvastatin [Zocor] 20 mg PO HS Mometasone Furoate [Nasonex 50 mcg Nasal [place]] 1 - 2 spray EA NOSTRIL DAILY PRN PRN Reason: ALLERGIES Fexofenadine/Pseudoephedrine [Emma-D 24 Hour Tablet] 1 tab PO DAILY PRN PRN Reason: Allergic Reaction Citalopram Hydrobromide [CeleXA] 40 mg PO DAILY Albuterol Inhaler [Ventolin Hfa Inhaler] 1 - 2 puff INHALATION Q6H PRN PRN Reason: Asthma Cholecalciferol (Vitamin D3) [Vitamin D3 (3000 Iu)] 75 mcg PO DAILY Discontinued Meloxicam [Mobic] 7.5 mg PO Q48H amLODIPine [Norvasc] 5 mg PO DAILY Metoprolol Tartrate [Lopressor] 50 mg PO TID No Action Furosemide [Lasix] 20 mg PO BID Warfarin Sodium 6 mg PO HS LORazepam [Ativan] 0.5 mg PO HS PRN PRN Reason: ANXIETY/SLEEP Acetaminophen Tab [Tylenol Tab] 500 mg PO Q6H PRN PRN Reason: Pain Or Fever > 100.5 Discharge Medication List Simvastatin [Zocor] 20 mg PO HS 12/09/14 [History] Mometasone Furoate [Nasonex 50 mcg Nasal [place]] 1 - 2 spray EA NOSTRIL DAILY PRN 01/19/17 [History] Albuterol Inhaler [Ventolin Hfa Inhaler] 1 - 2 puff INHALATION Q6H PRN 08/24/20 [History] Fexofenadine/Pseudoephedrine [Emma-D 24 Hour Tablet] 1 tab PO DAILY PRN 08/24/20 [History] Citalopram Hydrobromide [CeleXA] 40 mg PO DAILY 11/25/20 [History] Cholecalciferol (Vitamin D3) [Vitamin D3 (3000 Iu)] 75 mcg PO DAILY 04/17/21 [History] Metoprolol Tartrate [Lopressor] 75 mg PO TID #270 tab 04/21/21 [Rx] Verapamil [Isoptin] 40 mg PO TID #90 tab 04/21/21 [Rx] Acetaminophen Tab [Tylenol Tab] 500 mg PO Q6H PRN 05/04/21 [History] Furosemide [Lasix] 20 mg PO BID 05/04/21 [History] LORazepam [Ativan] 0.5 mg PO HS PRN 05/04/21 [History] Warfarin Sodium 6 mg PO HS 05/04/21 [History] Follow up Appointment(s)/Referral(s): Lucia Gonzalez MD [Primary Care Provider] - 05/11/21 1:45 pm (Sunday) Poli Grossman MD [STAFF PHYSICIAN] - 05/02/21 3:00 pm (Sunday at [facility] [place]) [facility] [NON-STAFF] - Minerva Albright DO [REFERRING] - 1-2 days (Unable to get through. Please call to schedule an appointment) Patient Instructions/Handouts: A-fib (Atrial Fibrillation) (DC), Safe Use of Anticoagulants (DC) Activity/Diet/Wound Care/Special Instructions: Pt will need home O2 at 2L n/c due to CHF. Discharge Disposition: HOME SELF-CARE
== END 2021-04-21 15:47 | disposition home or self-care (01) | DRG 871 ==
LOC: EC 00:30 → 3SCARD 03:12
PROVIDERS: ADMIT Internal Medicine; ATTEND Internal Medicine
DX: A41.51 Sepsis due to Escherichia coli [E. coli] (principal); J96.01 Acute respiratory failure with hypoxia; I50.31 Acute diastolic (congestive) heart failure; N39.0 Urinary tract infection, site not specified; Z68.42 Body mass index [BMI] 45.0-49.9, adult; I11.0 Hypertensive heart disease with heart failure; E66.01 Morbid (severe) obesity due to excess calories; M06.9 Rheumatoid arthritis, unspecified; I48.0 Paroxysmal atrial fibrillation; Z20.822 Contact with and (suspected) exposure to COVID-19; E83.42 Hypomagnesemia; E78.5 Hyperlipidemia, unspecified; J45.909 Unspecified asthma, uncomplicated; K21.9 Gastro-esophageal reflux disease without esophagitis; I08.3 Combined rheumatic disorders of mitral, aortic and tricuspid valves; G47.33 Obstructive sleep apnea (adult) (pediatric); F32.A Depression, unspecified; G89.29 Other chronic pain; M54.32 Sciatica, left side; M54.31 Sciatica, right side; M54.2 Cervicalgia; M19.90 Unspecified osteoarthritis, unspecified site; H91.91 Unspecified hearing loss, right ear; N32.81 Overactive bladder; I83.90 Asymptomatic varicose veins of unspecified lower extremity; R79.1 Abnormal coagulation profile; F41.0 Panic disorder [episodic paroxysmal anxiety]; Z79.01 Long term (current) use of anticoagulants; Z79.1 Long term (current) use of non-steroidal anti-inflammatories (NSAID); Z79.899 Other long term (current) drug therapy; Z87.81 Personal history of (healed) traumatic fracture; Z87.19 Personal history of other diseases of the digestive system; Z90.710 Acquired absence of both cervix and uterus; Z90.49 Acquired absence of other specified parts of digestive tract; Z98.42 Cataract extraction status, left eye; Z98.41 Cataract extraction status, right eye; Z96.1 Presence of intraocular lens; Z96.651 Presence of right artificial knee joint; Z87.448 Personal history of other diseases of urinary system; Z87.39 Personal history of other diseases of the musculoskeletal system and connective tissue; Z85.3 Personal history of malignant neoplasm of breast; Z86.16 Personal history of COVID-19; Z90.13 Acquired absence of bilateral breasts and nipples; Z86.2 Personal history of diseases of the blood and blood-forming organs and certain disorders involving the immune mechanism; Z98.890 Other specified postprocedural states; Z88.5 Allergy status to narcotic agent; Z88.8 Allergy status to other drugs, medicaments and biological substances; Z80.43 Family history of malignant neoplasm of testis
CPT/HCPCS: 36415; 71045; 71046; 72050; 80048; 80053; 81001; 83735; 83880; 84145; 84484; 85025; 85610; 85730; 87040; 87077; 87086; 87186; 87635; 93005; 93306; 94760; 96361; 96374; 96375; 99291

== ENCOUNTER 2021-05-04 14:42 | Emergency (ER) | payer MEDICARE, BC ==
[2021-05-04 15:04] VITALS: RESP 18
[2021-05-04 16:00] LABS: Basophils % (A) 0 %; Eosinophils # (A) 0.2 k/uL (0-0.7); Eosinophils % (A) 3 %; HGB 13.5 gm/dL (11.4-16.0); Lymphocytes # (A) 1.4 k/uL (1.0-4.8); Lymphocytes % (A) 22 %; MCH 31.5 pg (25.0-35.0); MCHC 32.1 g/dL (31.0-37.0); MCV 98.1 fL (80.0-100.0); Mean Platelet Volume 10.3; Monocytes # (A) 0.5 k/uL (0-1.0); Monocytes % (A) 8 %; Neutrophils % (A) 64 %; Platelet Count 206 k/uL (150-450); RBC 4.29 m/uL (3.80-5.40); WBC 6.2 k/uL (3.8-10.6)
[2021-05-04 16:09] LABS: INR 2.1 (<1.2); Partial Thromboplastin Time 29.8 sec (22.0-30.0); Prothrombin Time 20.7 sec (9.0-12.0)
[2021-05-04 16:13] LABS: Albumin 3.6 g/dL (3.5-5.0); Calcium 9.2 mg/dL (8.4-10.2); Magnesium 1.7 mg/dL (1.6-2.3); Potassium 4.9 mmol/L (3.5-5.1); Total Protein 6.6 g/dL (6.3-8.2)
--- NOTE | 2021-05-04 17:01 | ED ---
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 fib presents emergency Department with lightheadedness. Patient recently hospitalized as she was not feeling well and was found to be in A. fib with RVR. Her medications were adjusted. She states that she was on Toprol 50 mg 3 times a day and was increased to 75 mg 3 times a day. They also added verapamil 40 mg 3 times a day. Patient follows with Dr. Estevez. Today at 1:00 she had sudden onset of the sensation that she w as lightheaded. Symptoms became worse when she got up and tried to ambulate around. Her [id number] checked her pulse and it was 38. Because of this he did call EMS. Patient feels as if the medication changes are making her heart rate to low. She tried to call Dr. Estevez however has not heard back from his office. She denies any chest pain. No headache, visual changes, numbness tingling or weakness in her extremities. No diarrhea. Admits to good oral intake. 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 - Related Data Home Medications Medication Instructions Recorded Confirmed Simvastatin [Zocor] 20 mg PO HS 12/09/14 05/04/21 Mometasone Furoate [Nasonex 50 mcg 1 - 2 spray EA NOSTRIL DAILY PRN 01/19/17 05/04/21 Nasal [place]] Albuterol Inhaler [Ventolin Hfa 1 - 2 puff INHALATION Q6H PRN 08/24/20 05/04/21 Inhaler] Fexofenadine/Pseudoephedrine 1 tab PO DAILY PRN 08/24/20 05/04/21 [Emma-D 24 Hour Tablet] Citalopram Hydrobromide [CeleXA] 40 mg PO DAILY 11/25/20 05/04/21 Cholecalciferol (Vitamin D3) 75 mcg PO DAILY 04/17/21 05/04/21 [Vitamin D3 (3000 Iu)] Acetaminophen Tab [Tylenol Tab] 500 mg PO Q6H PRN 05/04/21 05/04/21 Furosemide [Lasix] 20 mg PO BID 05/04/21 05/04/21 LORazepam [Ativan] 0.5 mg PO HS PRN 05/04/21 05/04/21 Warfarin Sodium 6 mg PO HS 05/04/21 05/04/21 Previous Rx's Medication Instructions Recorded Metoprolol Tartrate [Lopressor] 75 mg PO TID #270 tab 04/21/21 Verapamil [Isoptin] 40 mg PO TID #90 tab 04/21/21 Allergies Allergy/AdvReac Type Severity Reaction Status Date / Time tocilizumab [From Actemra] Allergy Severe Dyspnea, Verified 05/04/21 16:05 sores, itching, sore throat meperidine HCl [From Demerol] AdvReac Nausea Verified 05/04/21 16:05 Review of Systems ROS Statement: Those systems with pertinent positive or pertinent negative responses have been documented in the HPI. ROS Other: All systems not noted in ROS Statement are negative. Past Medical History Past Medical History: Atrial Fibrillation, Asthma, Eye Disorder, GERD/Reflux, Hearing Disorder / Deafness, Hyperlipidemia, Hypertension, Osteoarthritis (OA), Rheumatoid Arthritis (RA), Sleep Apnea/CPAP/BIPAP Additional Past Medical History / Comment(s): HX BACK PAIN, hx Sciaticia bilateral legs. Hx FX lower back. ADIE'S TONIC PUPIL/FIXED PUPILS- BILATERAL EYES, HAS LENS IMPLANT IN RT EYE. HX "PRE-CANCER OF BREAST." OVERACTIVE BLADDER. DEAF RT EAR. CPAP use., Varicose veins. Swelling in top of feet, discoloration around left ankle, neck pain radiates to arms and hands. History of Any Multi-Drug Resistant Organisms: None Reported Past Surgical History: Bladder Surgery, Cholecystectomy, Heart Catheterization, Hysterectomy, Joint Replacement, Orthopedic Surgery Additional Past Surgical History / Comment(s): RT KNEE REPLACEMENT, VANESSA BREAST MASTECTOMY W/ RECONSTRUCTION. IMPLANTS VANESSA BREAST, RT EYE LENS IMPLANT, EXC VANESSA CATARACTS WITH LENS IMPLANT. RT. CARPAL TUNNEL RELEASE, arthroscopy of knee, pain clinic procedure. Past Anesthesia/Blood Transfusion Reactions: Postoperative Nausea & Vomiting (PONV) Additional Past Anesthesia/Blood Transfusion Reaction / Comment(s): Mother- PONV. Past Psychological History: Anxiety, Panic Disorder Smoking Status: Never smoker Past Alcohol Use History: Rare Past Drug Use History: None Reported - Past Family History Brother(s) Family Medical History: Cancer Additional Family Medical History / Comment(s): Testicular Cancer. Prostate cancer. General Exam Limitations: no limitations General appearance: alert, in no apparent distress Head exam: Present: atraumatic, normocephalic, normal inspection Eye exam: Present: normal appearance, PERRL, EOMI. Absent: scleral icterus, conjunctival injection, periorbital swelling ENT exam: Present: normal exam, mucous membranes moist Neck exam: Present: normal inspection. Absent: tenderness, meningismus, lymphadenopathy Respiratory exam: Present: normal lung sounds bilaterally. Absent: respiratory distress, wheezes, rales, rhonchi, stridor Cardiovascular Exam: Present: normal rhythm, bradycardia, normal heart sounds. Absent: systolic murmur, diastolic murmur, rubs, gallop, clicks GI/Abdominal exam: Present: soft, normal bowel sounds. Absent: distended, tenderness, guarding, rebound, rigid Extremities exam: Present: normal inspection, full ROM, normal capillary refill. Absent: tenderness, pedal edema, joint swelling, calf tenderness Back exam: Present: normal inspection Neurological exam: Present: alert, oriented X3, CN II-XII intact Psychiatric exam: Present: normal affect, normal mood Skin exam: Present: warm, dry, intact, normal color. 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 ] Respiratory 20 18 Rate Blood Pressure 139/70 110/63 Blood Pressure [Left Arm Sitting] Blood Pressure [Left Arm Standing] Blood Pressure [Left Arm Supine] O2 Sat by Pulse 95 95 Oximetry 05/04/21 05/04/21 05/04/21 16:00 17:29 17:33 Temperature Pulse Rate 64 60 Pulse Rate [ Dry House Worker ] Respiratory 18 18 Rate Blood Pressure 120/71 Blood Pressure 128/70 [Left Arm Sitting] Blood Pressure 127/87 [Left Arm Standing] Blood Pressure 126/79 [Left Arm Supine] O2 Sat by Pulse 98 98 Oximetry 05/04/21 18:18 Temperature 98.3 F Pulse Rate 63 Pulse Rate [ Dry House Worker ] Respiratory 18 Rate Blood Pressure 111/67 Blood Pressure [Left Arm Sitting] Blood Pressure [Left Arm Standing] Blood Pressure [Left Arm Supine] O2 Sat by Pulse 95 Oximetry EKG Findings - EKG Comments: EKG Findings:: EKG demonstrates normal sinus rhythm with a ventricular rate of 64. IA interval 194. QRS 126. QTC of 455. No acute ST segment elevations or depressions concerning for ischemic changes Medical Decision Making - Medical Decision Making Upon arrival patient was placed into trauma 3. Thorough history and physical exam is performed. 12-lead EKG is obtained care patient does have a sinus bradycardia with a rate anywhere between 55 and 65. Laboratory studies were conducted. Magnesium still mildly low at 1.7. INR is therapeutic at 2.1. I did call and speak with Dr. Zapata. He is similar with the patient. Recommend that she stop her verapamil and only take it if she has a heart rate greater than 100. Patient does agree to this medication change. 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 Return for any new or worsening symptoms. Patient agreed to the plan and was discharged home in stable condition - Lab Data Result diagrams: 05/04/21 15:50 05/04/21 15:50 Lab Results 05/04/21 05/04/21 05/04/21 Range/Units 15:50 15:50 15:50 WBC 6.2 (3.8-10.6) k/uL RBC 4.29 (3.80-5.40) m/uL Hgb 13.5 (11.4-16.0) gm/dL Hct 42.0 (34.0-46.0) % MCV 98.1 (80.0-100.0) fL MCH 31.5 (25.0-35.0) pg MCHC 32.1 (31.0-37.0) g/dL RDW 13.0 (11.5-15.5) % Plt Count 206 (150-450) k/uL MPV 10.3 Neutrophils % 64 % Lymphocytes % 22 % Monocytes % 8 % Eosinophils % 3 % Basophils % 0 % Neutrophils # 4.0 (1.3-7.7) k/uL Lymphocytes # 1.4 (1.0-4.8) k/uL Monocytes # 0.5 (0-1.0) k/uL Eosinophils # 0.2 (0-0.7) k/uL Basophils # 0.0 (0-0.2) k/uL PT 20.7 H (9.0-12.0) sec INR 2.1 H (<1.2) APTT 29.8 (22.0-30.0) sec Sodium 137 (137-145) mmol/L Potassium 4.9 (3.5-5.1) mmol/L Chloride 103 (98-107) mmol/L Carbon Dioxide 25 (22-30) mmol/L Anion Gap 9 mmol/L BUN 23 H (7-17) mg/dL Creatinine 0.88 (0.52-1.04) mg/dL Est GFR (CKD-EPI)AfAm 76 (>60 ml/min/1.73 sqM) Est GFR (CKD-EPI)NonAf 66 (>60 ml/min/1.73 sqM) Glucose 105 H (74-99) mg/dL Calcium 9.2 (8.4-10.2) mg/dL Magnesium 1.7 (1.6-2.3) mg/dL Total Bilirubin 2.0 H (0.2-1.3) mg/dL AST 28 (14-36) U/L ALT 15 (4-34) U/L Alkaline Phosphatase 59 (38-126) U/L Troponin I (0.000-0.034) ng/mL Total Protein 6.6 (6.3-8.2) g/dL Albumin 3.6 (3.5-5.0) g/dL 05/04/21 Range/Units 15:50 WBC (3.8-10.6) k/uL RBC (3.80-5.40) m/uL Hgb (11.4-16.0) gm/dL Hct (34.0-46.0) % MCV (80.0-100.0) fL MCH (25.0-35.0) pg MCHC (31.0-37.0) g/dL RDW (11.5-15.5) % Plt Count (150-450) k/uL MPV Neutrophils % % Lymphocytes % % Monocytes % % Eosinophils % % Basophils % % Neutrophils # (1.3-7.7) k/uL Lymphocytes # (1.0-4.8) k/uL Monocytes # (0-1.0) k/uL Eosinophils # (0-0.7) k/uL Basophils # (0-0.2) k/uL PT (9.0-12.0) sec INR (<1.2) APTT (22.0-30.0) sec Sodium (137-145) mmol/L Potassium (3.5-5.1) mmol/L Chloride (98-107) mmol/L Carbon Dioxide (22-30) mmol/L Anion Gap mmol/L BUN (7-17) mg/dL Creatinine (0.52-1.04) mg/dL Est GFR (CKD-EPI)AfAm (>60 ml/min/1.73 sqM) Est GFR (CKD-EPI)NonAf (>60 ml/min/1.73 sqM) Glucose (74-99) mg/dL Calcium (8.4-10.2) mg/dL Magnesium (1.6-2.3) mg/dL Total Bilirubin (0.2-1.3) mg/dL AST (14-36) U/L ALT (4-34) U/L Alkaline Phosphatase (38-126) U/L Troponin I <0.012 (0.000-0.034) ng/mL Total Protein (6.3-8.2) g/dL Albumin (3.5-5.0) g/dL Disposition Clinical Impression: Pre-syncope, Bradycardia Disposition: HOME SELF-CARE Condition: Stable Instructions (If sedation given, give patient instructions): Dizziness (ED) Additional Instructions: Please stop taking the Verapamil daily - only take it if your heart rate is above 100. Follow-up with your cupola worker. Return to the emergency department for any new or worsening symptoms Is patient prescribed a controlled substance at d/c from ED?: No Referrals: Lucia Gonzalez MD [Primary Care Provider] - 1-2 days Poli Grossman MD [STAFF PHYSICIAN] - 1-2 days Time of Disposition: 18:06
[2021-05-04 18:20] VITALS: BP 111/67; PULSE 63; TEMP 98.3
== END 2021-05-04 18:20 | disposition home or self-care (01) ==
LOC: EC 14:42
DX: R00.1 Bradycardia, unspecified (principal); R55 Syncope and collapse; I48.91 Unspecified atrial fibrillation; J45.909 Unspecified asthma, uncomplicated; K21.9 Gastro-esophageal reflux disease without esophagitis; E78.5 Hyperlipidemia, unspecified; I10 Essential (primary) hypertension; M06.9 Rheumatoid arthritis, unspecified; F41.9 Anxiety disorder, unspecified; Z88.1 Allergy status to other antibiotic agents; Z85.3 Personal history of malignant neoplasm of breast; Z90.49 Acquired absence of other specified parts of digestive tract; Z90.710 Acquired absence of both cervix and uterus; Z96.651 Presence of right artificial knee joint
CPT/HCPCS: 36415; 80053; 83735; 84484; 85025; 85610; 85730; 93005; 99284

== ENCOUNTER → 2021-05-06 | Outpatient (CLI) | payer MEDICARE, BC ==
[2021-05-06 14:43] LABS: Chol/HDL Ratio 3.04 Ratio; LDL Cholesterol,Calculated 68.4 mg/dL (0.0-131.0)
[2021-05-06 23:23] LABS: Appearance,Urine Cloudy (Clear); Color,Urine Yellow (Yellow); PH, Urine 7.5 (4.5-8.0); Specific Gravity,Urine 1.014 (1.001-1.030)
== END | disposition home or self-care (01) ==
LOC: LABWHC1 09:34
PROVIDERS: ATTEND Nurse Practitioner Adult Health
DX: E78.5 Hyperlipidemia, unspecified (principal); N39.0 Urinary tract infection, site not specified
CPT/HCPCS: 36415; 80061; 81001; 83036; 87077; 87086; 87186

== ENCOUNTER → 2021-06-01 | Outpatient (CLI) | payer MEDICARE, BC ==
--- NOTE | 2021-06-01 11:13 | BD ---
EXAMINATION TYPE: Axial Bone Density DATE OF EXAM: 06/01/2021 COMPARISON: 02.27.2017 CLINICAL HISTORY: 70 YR OLD FEMALE......ICD-10 CODE: M85.859 OSTEOPENIA IN HIP Height: 64.6 Weight: 286 FRAX RISK QUESTIONS: Glucocorticoids (More than 3mos): YES (Ex: prednisone, prednisolone, methylprednisolone, dexamethasone, and hydrocortisone). History of Fracture in Adulthood: YES RISK FACTORS HISTORY OF: Spine Fracture: SACRAL FX, UNDIAGNOSED UNTIL IMAGE TAKEN Surgery to Spine INJECTIONS FOR PAIN Postmenopausal woman: YES, AT AGE 45 HYST Take estrogen and/or progesterone medications: YES, FOR ABOUT 2 YRS Hyperparathyroidism: NO Adrenal Insufficiency: NO MEDICATIONS: Prednisone or other steroids: YES, FOR ASTHMA FOR MANY YRS Additional Medications: BP MEDS, CELEXA, STATIN FOR CHOLESTEROL, VIT D, TYLENOL, CARDIAC MEDS Additional History: HX OF BREAST REDUCTION AND IMPLANTS, ARTHRITIS, RT TKR, MULTIPLE FX ON RT SIDE IN HER 20s TRAUMATIC, A- FIB EXAM MEASUREMENTS: Bone mineral densitometry was performed using the Zeer System. Bone mineral density as measured about the Lumbar spine is: ----- L1-L4(G/cm2): 1.064 T Score Values are as follows: ----- L1: -1.7 ----- L2: -1.4 ----- L3: 0.0 ----- L4: -1.2 ----- L1-L4: -1.0 Bone mineral density has: Decreased -9.5% since study of: 02.27.2017 Bone mineral density about the R hip (g/cm2): 0.778 Bone mineral density about the L hip (g/cm2): 0.942 T Score values are as follows: -----R Neck: -1.7 -----L Neck: -1.2 -----R Total: -1.8 -----L Total: -0.5 Bone mineral density has: Increased 0.4% since study of: 02.27.2017 FRAX%s: THERE IS A 22.2% CHANCE FOR A MAJOR OSTEOPOROTIC FX AND A 4.2% FOR HER HIPS.....PROBABILI TY FOR FX IN 10 YRS TIME IMPRESSION: There is pulmonary venous congestion with cardiomegaly. Mild interstitial edema difficult to exclude. NOTE: T-SCORE=SD OF THE YOUNG ADULT MEAN.
--- NOTE | 2021-06-02 14:15 | MM ---
Reason for exam: screening (asymptomatic). Last mammogram was performed 3 years and 1 month ago. History: Patient is postmenopausal, history of high-risk lesion on a previous biopsy, and had first child at age 34. Family history of breast cancer in grandmother at age 60. Silicone gel implants in both breasts, 2005. Saline implants in both breasts, 1995. Reduction of the left breast. Reduction of the right breast. 4 excisional biopsies of the left breast. 2 excisional biopsies of the right breast. Took estrogen for 13 years beginning at age 45. Physical Findings: A clinical breast exam by your physician is recommended on an annual basis and results should be correlated with mammographic findings. MG 3D Screen Mammo Imp/Cad Bilateral CC, MLO, and ID view(s) were taken. Prior study comparison: April 26, 2018, bilateral MG 3d diag mammo imp w/cad VANESSA. February 27, 2017, bilateral MG screening mammo implant/CAD. There are scattered fibroglandular densities. There are benign appearing vascular calcifications bilaterally. Bilateral subglandular implants redemonstrated. ASSESSMENT: Benign, BI-RAD 2 RECOMMENDATION: Routine screening mammogram of both breasts in 1 year.
== END | disposition home or self-care (01) ==
LOC: RADBDWWP 09:43
PROVIDERS: ATTEND Obstetrics & Gynecology
DX: Z12.31 Encounter for screening mammogram for malignant neoplasm of breast (principal); M85.851 Other specified disorders of bone density and structure, right thigh; I87.8 Other specified disorders of veins; Z78.0 Asymptomatic menopausal state; Z80.3 Family history of malignant neoplasm of breast
CPT/HCPCS: 77063; 77067; 77080

== ENCOUNTER 2022-01-31 07:41 | Day surgery (SDC) | payer MEDICARE, BC ==
[2022-01-30 08:33] VITALS: BMI 46.0
[~2022-01-31 07:41] MED LIST changes: +LACTATED RINGERS 1,000 ML IV SCH; -SODIUM CHLORIDE 0.9% 500 ML 500 ML in EMPTY BAG 1 BAG IV PRN
[2022-01-31 08:19] VITALS: TEMP 98
[2022-01-31] MEDS ORDERED: ONDANSETRON 4 MG/2 ML VIAL IVP ONE (08:25)
[2022-01-31] MEDS ORDERED: ONDANSETRON 4 MG/2 ML VIAL ONE (08:27)
[2022-01-31] MEDS ORDERED: LIDOCAINE 2% INJ 20 MG/ML (2 ML VIAL) ONE (08:31)
[2022-01-31] MEDS ORDERED: PROPOFOL 10 MG/ML 20 ML VIAL IV ONE (08:31)
--- NOTE | 2022-01-31 08:37 | P.GSHP ---
History of Present Illness H&P Date: 01/31/22 Chief Complaint: Colon cancer screening 71-year-old female here today for colonoscopy. She has a history of colon polyps. No bowel complaints. No family history of colon cancer. Past Medical History Past Medical History: Atrial Fibrillation, Asthma, Eye Disorder, GERD/Reflux, Hearing Disorder / Deafness, Hyperlipidemia, Hypertension, Osteoarthritis (OA), Sleep Apnea/CPAP/BIPAP Additional Past Medical History / Comment(s): HX BACK PAIN, hx Sciaticia bilateral legs. Hx FX lower back. ADIE'S TONIC PUPIL/FIXED PUPILS- BILATERAL EYES, HAS LENS IMPLANT IN RT EYE. HX "PRE-CANCER OF BREAST." OVERACTIVE BL ADDER. DEAF RT EAR. CPAP use., Varicose veins. Swelling in top of feet, discoloration around left ankle, neck pain radiates to arms and hands. FELL 01/24/22 AND BROKE LT 2ND TOE, FOOT BRUISED AND SWOLLEN History of Any Multi-Drug Resistant Organisms: None Reported Past Surgical History: Bladder Surgery, Cholecystectomy, Heart Catheterization, Hysterectomy, Joint Replacement, Orthopedic Surgery Additional Past Surgical History / Comment(s): RT KNEE REPLACEMENT, VANESSA BREAST MASTECTOMY W/ RECONSTRUCTION. IMPLANTS VANESSA BREAST, RT EYE LENS IMPLANT, EXC VANESSA CATARACTS WITH LENS IMPLANT. RT. CARPAL TUNNEL RELEASE, arthroscopy of knee, pain clinic procedure, COLONOSCOPY Past Anesthesia/Blood Transfusion Reactions: Postoperative Nausea & Vomiting (PONV) Additional Past Anesthesia/Blood Transfusion Reaction / Comment(s): Mother- PONV. Smoking Status: Never smoker - Past Family History Brother(s) Family Medical History: Cancer Additional Family Medical History / Comment(s): Testicular Cancer. Prostate cancer. Medications and Allergies Home Medications Medication Instructions Recorded Confirmed Type Mometasone Furoate [Nasonex 50 mcg 1 - 2 spray EA NOSTRIL DAILY PRN 01/19/17 01/31/22 History Nasal [place]] Fexofenadine/Pseudoephedrine 1 tab PO DAILY PRN 08/24/20 01/31/22 History [Emma-D 24 Hour Tablet] Metoprolol Tartrate [Lopressor] 75 mg PO TID #270 tab 04/21/21 01/31/22 Rx Acetaminophen Tab [Tylenol Tab] 500 mg PO Q6H PRN 05/04/21 01/31/22 History Furosemide [Lasix] 20 mg PO BID PRN 05/04/21 01/31/22 History LORazepam [Ativan] 0.5 mg PO HS PRN 05/04/21 01/31/22 History Warfarin Sodium 6 mg PO HS 05/04/21 01/31/22 History Cholecalciferol [Vitamin D3 (125 125 mcg PO DAILY 01/30/22 01/31/22 History Mcg = 5000 Iu)] Fluticasone Nasal [place] [Flonase 2 spray EA NOSTRIL DAILY 01/30/22 01/31/22 History Nasal [place]] Losartan [Cozaar] 25 mg PO BID 01/30/22 01/31/22 History Simvastatin [Zocor] 40 mg PO HS 01/30/22 01/31/22 History buPROPion SR [Wellbutrin SR] 150 mg PO BID 01/30/22 01/31/22 History Allergies Allergy/AdvReac Type Severity Reaction Status Date / Time tocilizumab [From Actemra] Allergy Severe Dyspnea, Verified 01/31/22 08:02 sores, itching, sore throat meperidine HCl [From Demerol] AdvReac Nausea Verified 01/31/22 08:02 Surgical - Exam Vital Signs Temp Pulse Resp BP Pulse Ox 98.0 F 65 14 191/87 94 L 01/31/22 08:13 01/31/22 08:13 01/31/22 08:13 01/31/22 08:13 01/31/22 08:13 The patient denies any acute changes in vision or hearing, no dysphagia or odynophagia, no chest pain or shortness of breath, no dysuria or hematuria, no headache, no runny nose, no rectal bleeding or melena, no unexplained weight loss Assessment and Plan (1) Colon cancer screening Narrative/Plan: Will proceed with colonoscopy at this time Current Visit: Yes Status: Acute Code(s): Z12.11 - ENCOUNTER FOR SCREENING FOR MALIGNANT NEOPLASM OF COLON SNOMED Code(s): 166754072
--- NOTE | 2022-01-31 08:53 | P.PCN ---
Date of Procedure: 01/31/22 Procedure(s) Performed: PREOPERATIVE DIAGNOSIS: Screening, history of polyps POSTOPERATIVE DIAGNOSIS: Right colon polyp 3, hemorrhoids PROCEDURE: Colonoscopy with snare polypectomy ANESTHESIA: MAC SURGEON: Villa Ray M.D. SPECIMENS: Polyps ENDOSCOPIC PROCEDURE: The patient was placed on the endoscopy table in the left decubitus position. The Olympus colonoscope was inserted into the anus and passed under direct visualization to the base of the cecum. The appendiceal orifice was visualized. From that point the scope was slowly withdrawn inspecting all surfaces carefully. There were no neoplastic inflammatory or polypoid lesions throughout the cecum. In the ascending colon and hepatic flex ure there were 3 small polyps removed using the snare with cautery technique. The remainder of the transverse descending sigmoid and rectum was normal. There was no visible diverticulosis. Patient had significant internal and external hemorrhoids with mild inflammatory change. The patient was taken to the recovery room in stable condition per anesthesia guidelines. RECOMMENDATIONS: Resume diet. Increase fiber. Repeat colonoscopy 5 years.
[2022-01-31 09:12] VITALS: BP 148/71; PULSE 63; RESP 16
== END 2022-01-31 09:49 | disposition home or self-care (01) ==
LOC: ORWHC2ENDO 07:41
PROVIDERS: ATTEND Surgery
DX: Z12.11 Encounter for screening for malignant neoplasm of colon (principal); D12.2 Benign neoplasm of ascending colon; K64.4 Residual hemorrhoidal skin tags; I48.91 Unspecified atrial fibrillation; J45.909 Unspecified asthma, uncomplicated; K21.9 Gastro-esophageal reflux disease without esophagitis; Z86.69 Personal history of other diseases of the nervous system and sense organs; I10 Essential (primary) hypertension; E78.5 Hyperlipidemia, unspecified; M19.90 Unspecified osteoarthritis, unspecified site; Z90.49 Acquired absence of other specified parts of digestive tract; Z96.659 Presence of unspecified artificial knee joint; Z90.710 Acquired absence of both cervix and uterus; Z98.890 Other specified postprocedural states; Z80.42 Family history of malignant neoplasm of prostate; Z80.43 Family history of malignant neoplasm of testis; Z79.51 Long term (current) use of inhaled steroids; Z86.010 Personal history of colon polyps
CPT/HCPCS: 88305; 45385; J2405; J2704; J2001

== ENCOUNTER 2022-03-17 11:56 | Inpatient (IN) | payer MEDICARE, BC ==
[2022-03-17 12:45] LABS: Basophils % (A) 1 %; Eosinophils # (A) 0.2 k/uL (0-0.7); Eosinophils % (A) 3 %; HCT 46.7 % (34.0-46.0); HGB 15.5 gm/dL (11.4-16.0); Lymphocytes # (A) 1.2 k/uL (1.0-4.8); Lymphocytes % (A) 18 %; MCHC 33.1 g/dL (31.0-37.0); MCV 96.8 fL (80.0-100.0); Monocytes # (A) 0.5 k/uL (0-1.0); Monocytes % (A) 7 %; Neutrophils # (A) 4.7 k/uL (1.3-7.7); Neutrophils % (A) 68 %; Platelet Count 161 k/uL (150-450); RBC 4.82 m/uL (3.80-5.40); RDW 12.4 % (11.5-15.5); WBC 6.9 k/uL (3.8-10.6)
[2022-03-17 12:59] LABS: INR 2.9 (<1.2); Partial Thromboplastin Time 35.8 sec (22.0-30.0); Prothrombin Time 27.9 sec (9.0-12.0)
[2022-03-17 13:19] LABS: Albumin 3.9 g/dL (3.5-5.0); Calcium 8.7 mg/dL (8.4-10.2); Potassium 4.5 mmol/L (3.5-5.1); Total Bilirubin 1.9 mg/dL (0.2-1.3); Total Protein 6.4 g/dL (6.3-8.2)
[2022-03-17] MEDS ORDERED: SODIUM CHLORIDE 0.9% 1,000 ML IV STA (18:13)
--- NOTE | 2022-03-17 18:37 | XR ---
EXAMINATION TYPE: XR chest 2V DATE OF EXAM: 03/17/2022 COMPARISON: 05/11/2021 HISTORY: Syncope TECHNIQUE: 2 views FINDINGS: There is no heart failure or confluent pneumonic infiltrate. Costophrenic angles are clear. There are chest leads. Bony thorax is intact. IMPRESSION: No active cardiopulmonary disease. There is clearing of the atelectasis in the left lung compared to old exam.
--- NOTE | 2022-03-17 18:45 | CT ---
EXAMINATION TYPE: CT brain wo con DATE OF EXAM: 03/17/2022 COMPARISON: 08/26/2019 HISTORY: syncope CT DLP: 1208.4 mGycm Automated exposure control for dose reduction was used. Images of the brain obtained with no contrast. Ventricles have normal size. There is no mass effect or midline shift. No sign of intracranial hemorr genaro. Calvarium is intact. No evidence of cerebral edema. IMPRESSION: Negative unenhanced head CT scan. No change.
[2022-03-17 18:50] LABS: Appearance,Urine Clear (Clear); Bacteria,Urine Rare /hpf; Bilirubin,Urine Negative (Negative); Blood,Urine Trace (Negative); Color,Urine Yellow; Glucose,Urine (UA) Negative (Negative); Hyaline Casts,Urine 3 /lpf (0-2); Ketones,Urine Negative (Negative); Leukocyte Esterase,Urine Moderate (Negative); Mucus,Urine Rare /hpf; Nitrite,Urine Negative (Negative); Protein,Urine Negative (Negative); RBC,Urine <1 /hpf (0-5); Specific Gravity,Urine 1.023 (1.001-1.035); Squamous Epithelial Cell,Urine 4 /hpf (0-4); Urobilinogen,Urine <2.0 mg/dL (<2.0); WBC,Urine 11 /hpf (0-5)
[2022-03-17] MEDS ORDERED: NALOXONE 0.4 MG/ML 1 ML VIAL IV PRN (19:35)
[2022-03-17] MEDS ORDERED: ACETAMINOPHEN TAB 500 MG TAB PO PRN (19:38)
[2022-03-17] MEDS ORDERED: FUROSEMIDE 20 MG TAB PO PRN (19:38)
[2022-03-17] MEDS ORDERED: LORazepam 0.5 MG TAB PO PRN (19:38)
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
[2022-03-17] MEDS: ATORVASTATIN 20 MG TAB PO SCH (21:17)
[2022-03-17] MEDS: LOSARTAN 25 MG TAB PO SCH (21:20)
[2022-03-17] MEDS: METOPROLOL TARTRATE 25 MG TAB PO SCH (21:20)
[2022-03-17] MEDS: WARFARIN 3 MG TAB PO SCH (21:20)
[2022-03-18] MEDS: buPROPion XL 150 MG TAB.ER.24H PO SCH ×2 (06:20→16:55)
[2022-03-18 08:39] LABS: Basophils # (A) 0.03 X 10*3/uL (0.00-0.10); Basophils % (A) 0.4 %; Eosinophils # (A) 0.16 X 10*3/uL (0.04-0.35); Eosinophils % (A) 2.1 %; HCT 48.5 % (37.2-46.3); HGB 15.2 g/dL (12.0-15.0); Immature Grans, Automated 0.1 %; Lymphocytes # (A) 1.67 X 10*3/uL (0.90-5.00); Lymphocytes % (A) 21.5 %; MCH 30.8 pg (27.0-32.0); MCHC 31.3 g/dL (32.0-37.0); MCV 98.4 fL (80.0-97.0); Mean Platelet Volume 12.2 fL (9.5-12.2); Monocytes # (A) 0.79 X 10*3/uL (0.20-1.00); Monocytes % (A) 10.2 %; NRBC Per 100 WBC 0 /100 WBCS (0.0-0.0); Neutrophils # (A) 5.12 X 10*3/uL (1.80-7.70); Neutrophils % (A) 65.7 %; Platelet Count 187 X 10*3/uL (140-440); RBC 4.93 X 10*6/uL (4.10-5.20); RDW 12.7 % (11.5-14.5); WBC 7.78 X 10*3/uL (4.50-10.00)
[2022-03-18 08:55] LABS: African American GFR (CKD) 70.8 (60.0-200.0); Anion Gap 7.5 mmol/L (10.00-18.00); BUN/Creat Ratio 23.9 Ratio (12.00-20.00); Blood Urea Nitrogen 22.2 mg/dL (9.0-27.0); Calcium 9.2 mg/dL (8.7-10.3); Carbon Dioxide 28.5 mmol/L (20.0-27.5); Non-African American GFR(CKD) 61.1 (60.0-200.0); Potassium 4.4 mmol/L (3.5-5.5)
[2022-03-18 10:06] LABS: INR 2.11 (0.90-1.11); Prothrombin Time 23.2 sec (9.9-11.9)
[2022-03-18] MEDS: LOSARTAN 25 MG TAB PO SCH ×2 (10:22→20:34)
[2022-03-18] MEDS: METOPROLOL TARTRATE 25 MG TAB PO SCH ×3 (11:16→20:32)
[2022-03-18] MEDS ORDERED: LORATADINE-PSEUDOEPH 5-120 MG 1 EACH TAB.ER.12H PO PRN (13:11)
[2022-03-18] MEDS ORDERED: PUMP EA NOSTRIL PRN (13:11)
[2022-03-18] MEDS ORDERED: MOMETASONE FUROATE EA NOSTRIL PRN (13:11)
[2022-03-18] MEDS: FLUTICASONE 50MCG/SPRAY NASAL 16GM EA NOSTRIL SCH (13:14)
[2022-03-18] MEDS ORDERED: LOPERAMIDE 2 MG CAP PO PRN (14:49)
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
--- NOTE | 2022-03-18 15:17 | CA ---
Transthoracic Echo Report Name: Lisbet Jha Age: 71 Gender: F : 1950 Exam Date: 03/18/2022 12:12 Exam Location: [facility] Ht (in): 65 Wt (lb): 283 Ordering Physician: Pat Toledo Attending/Referring Phys: Full Stack Engineer Shelia Salazar RDCS Procedure CPT: Indications: Syncope Cardiac Hx: Technical Quality: Contrast 1: Total Dose (mL): Contrast 2: Total Dose (mL): MEASUREMENTS (Male / Female) Normal Values 2D ECHO LV Diastolic Diameter PLAX 4.0 cm 4.2 - 5.9 / 3.9 - 5.3 cm LV Systolic Diameter PLAX 2.8 cm IVS Diastolic Thickness 1.2 cm 0.6 - 1.0 / 0.6 - 0.9 cm LVPW Diastolic Thickness 1.6 cm 0.6 - 1.0 / 0.6 - 0.9 cm LV Relative Wall Thickness 0.7 RV Internal Dim ED PLAX 2.9 cm LA Systolic Diameter LX 3.7 cm 3.0 - 4.0 / 2.7 - 3.8 cm LA Volume 66.7 cm??? 18 - 58 / 22 - 52 cm??? M-MODE Aortic Root Diameter MM 2.6 cm LA Systolic Diameter MM 3.6 cm LA Ao Ratio MM 1.4 MV E Point Septal Separation 0.3 cm DOPPLER AV Peak Velocity 223.7 cm/s AV Peak Gradient 20.0 mmHg AV Mean Velocity 176.7 cm/s AV Mean Gradient 14.1 mmHg AV Velocity Time Integral 44.3 cm LVOT Peak Velocity 103.0 cm/s LVOT Peak Gradient 4.2 mmHg LVOT Velocity Time Integral 14.6 cm TR Peak Velocity 262.3 cm/s TR Peak Gradient 27.5 mmHg Right Ventricular Systolic Press 32.1 mmHg FINDINGS Left Ventricle Mildly increased septal wall thickness. Moderately increased posterior wall thickness. Left ventricular ejection fraction is estimated at 55%. Right Ventricle Normal right ventricular size and function. Right ventricular systolic pressure within normal limits. Right Atrium Normal right atrial size. Left Atrium Moderately increased left atrial volume. Mildly increased left atrial area. Mitral Valve Structurally normal mitral valve. Mild mitral regurgitation. Aortic Valve Trileaflet aortic valve. Mild aortic stenosis with a peak gradient of 20 mmHg and a mean gradient of 14mild aortic regurgitation. Tricuspid Valve Structurally normal tricuspid valve. Mild tricuspid regurgitation. Pulmonic Valve Structurally normal pulmonic valve. Pericardium Normal pericardium. Aorta Normal size aortic root and proximal ascending aorta. CONCLUSIONS Normal LV systolic function Mild aortic stenosis Left atrial enlargement Mild mitral regurgitation Previewed by: Dr. Jak Dc MD (Electronically Signed) Final Date: 18 March 2022 15:16
[2022-03-18] MEDS: OXYBUTYNIN CHLORIDE 5 MG TAB PO SCH (16:50)
[2022-03-18] MEDS: ATORVASTATIN 20 MG TAB PO SCH (20:34)
[2022-03-18] MEDS: WARFARIN 3 MG TAB PO SCH (20:34)
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
[2022-03-19] MEDS: buPROPion XL 150 MG TAB.ER.24H PO SCH ×2 (06:16→18:10)
[2022-03-19 08:58] LABS: Basophils # (A) 0.02 X 10*3/uL (0.00-0.10); Basophils % (A) 0.2 %; Eosinophils # (A) 0.16 X 10*3/uL (0.04-0.35); Eosinophils % (A) 1.8 %; HCT 47.7 % (37.2-46.3); HGB 15.3 g/dL (12.0-15.0); Immature Grans, Automated 0.1 %; Lymphocytes # (A) 1.41 X 10*3/uL (0.90-5.00); Lymphocytes % (A) 16.2 %; MCH 31.4 pg (27.0-32.0); MCHC 32.1 g/dL (32.0-37.0); MCV 97.9 fL (80.0-97.0); Mean Platelet Volume 12.1 fL (9.5-12.2); Monocytes # (A) 0.81 X 10*3/uL (0.20-1.00); Monocytes % (A) 9.3 %; NRBC Per 100 WBC 0 /100 WBCS (0.0-0.0); Neutrophils # (A) 6.28 X 10*3/uL (1.80-7.70); Neutrophils % (A) 72.4 %; Platelet Count 188 X 10*3/uL (140-440); RBC 4.87 X 10*6/uL (4.10-5.20); RDW 12.8 % (11.5-14.5); WBC 8.69 X 10*3/uL (4.50-10.00)
[2022-03-19] MEDS: LOSARTAN 25 MG TAB PO SCH ×2 (09:14→21:35)
[2022-03-19] MEDS: METOPROLOL TARTRATE 25 MG TAB PO SCH (09:14)
[2022-03-19] MEDS: CHOLECALCIFEROL 125 MCG (5000 IU) TABLET PO SCH (09:14)
[2022-03-19] MEDS: OXYBUTYNIN CHLORIDE 5 MG TAB PO SCH (09:14)
[2022-03-19] MEDS: FLUTICASONE 50MCG/SPRAY NASAL 16GM EA NOSTRIL SCH (09:15)
[2022-03-19 09:42] LABS: INR 2.54 (0.90-1.11); Prothrombin Time 27.7 sec (9.9-11.9)
[2022-03-19 09:49] LABS: African American GFR (CKD) 51.9 (60.0-200.0); Albumin 3.7 g/dL (3.8-4.9); Albumin/Globulin Ratio 1.67 (1.60-3.17); Anion Gap 8.1 mmol/L (10.00-18.00); BUN/Creat Ratio 17.67 Ratio (12.00-20.00); Blood Urea Nitrogen 21.2 mg/dL (9.0-27.0); Calcium 9.3 mg/dL (8.7-10.3); Carbon Dioxide 28.3 mmol/L (20.0-27.5); Globulin 2.2 g/dL (1.6-3.3); Non-African American GFR(CKD) 44.8 (60.0-200.0); Potassium 4.6 mmol/L (3.5-5.5); Total Protein 5.9 g/dL (6.2-8.2)
--- NOTE | 2022-03-19 12:08 | PN ---
PROGRESS NOTE SUBJECTIVE: This is a 71-year-old lady who is admitted to 6th floor having had an episode of syncope, has paroxysmal episodes of atrial fibrillation and developed atrial fibrillation initially with poorly controlled ventricular rate, but subsequently had well controlled ventricular rate and had pauses the longest of which was about 4.2 seconds. The patient's syncope could be related to the atrial fibrillation with the pause. I advised her to undergo a permanent pacemaker, hopefully this can be done tomorrow. INR today is 2.1. OBJECTIVE: GENERAL: Comfortable at rest. VITAL SIGNS: Stable. NECK : There is no jugular venous distention. CHEST: Reveals good air entry bilaterally. HEART: Reveals first and second heart sounds, irregular rhythm. No murmur. ABDOMEN: Soft . EXTREMITIES: Did not reveal any edema. Peripheral pulses are felt. Her echocardiogram on this admission shows that the LV function is normal. She has mild aortic stenosis. Troponins are negative. I will obtain a TSH on her today. ASSESSMENT: 1. Syncope, probably secondary to bradycardia. 2. Paroxysmal atrial fibrillation. PLAN: The patient will undergo permanent pacemaker tomorrow. MMODL / IJN: [id number] /
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
--- NOTE | 2022-03-19 14:00 | P.EPCON ---
Electrophysiology Consult - EP Consult Electrophysiology Consult: This is Dr. Zapata dictating an electrophysiology consult on this patient The patient was interviewed and examined IMPRESSION / ASSESSMENT: Tachycardia bradycardia syndrome Paroxysmal A. fib with RVR, symptomatic Sudden pauses noted during atrial fibrillation lasting greater than 4 seconds Pauses associated with presyncope, nausea or sweatiness PLAN: Dual-chamber pacemaker implantation Later tilt table testing prior to discharge Continue warfarin Management of atrial fibrillation with antiarrhythmic therapy thereafter Consideration for PVI 3 months after permanent pacemaker implantation HPI Patient has been complaining of recurrent presyncopal spells These are of sudden onset and she may be standing or sitting at this time She is nauseous and sweaty and collapses briefly occasionally She had a worse spell prior to coming to the hospital In the hospital we have documented A. fib with RVR, paroxysmal We have documented a sudden pauses during atrial fibrillation a very symptomatic and associated with presyncope These pauses severe and significant Labs and normal TSH is normal ROS: No fever chills or rigors, no cough, phlegm or expectoration, no nausea, vomiting or diarrhea, no hematuria, dysuria, no musculoskeletal complaints, no strokes or seizures, no skin lesions. EXAMINATION: Heart rates 70-100 beats a minute Afebrile Blood pressure 132/57 mmHg Irregular rhythm Soft ejection systolic murmur of aortic stenosis Abdomen is soft Clear lungs REVIEW OF LABS, ECG & MEDICAL DATA Normal white count, normal hemoglobin INR 2.54 Creatinine 1.2 Potassium normal TSH normal Electrolytes normal
[2022-03-19] MEDS: methocarbamoL 500 MG TAB PO SCH ×2 (14:18→21:35)
[2022-03-19] MEDS: SODIUM CHLORIDE 0.9% 1,000 ML IV SCH ×2 (15:00→16:53)
[2022-03-19] MEDS ORDERED: WARFARIN 3 MG TAB PO SCH (21:00)
[2022-03-19] MEDS: WARFARIN 3 MG TAB PO SCH (21:35)
[2022-03-19] MEDS: ATORVASTATIN 20 MG TAB PO SCH (21:35)
[2022-03-19] MEDS: METOPROLOL TARTRATE 50 MG TAB PO SCH (21:36)
[2022-03-20] MEDS: buPROPion XL 150 MG TAB.ER.24H PO SCH ×2 (06:14→21:40)
[2022-03-20] MEDS ORDERED: ceFAZolin 3 GM in SODIUM CHLORIDE 0.9% 100 ML IVPB PRN (07:00)
[2022-03-20] MEDS ORDERED: ceFAZolin 1 GM in SODIUM CHLORIDE 0.9% IRRIG BTL 250 ML IRRIGATION PRN (07:00)
[2022-03-20] MEDS: LOSARTAN 25 MG TAB PO SCH ×2 (08:57→21:40)
[2022-03-20] MEDS: METOPROLOL TARTRATE 50 MG TAB PO SCH ×2 (08:57→21:40)
[2022-03-20] MEDS: CHOLECALCIFEROL 125 MCG (5000 IU) TABLET PO SCH (08:57)
[2022-03-20] MEDS: FLUTICASONE 50MCG/SPRAY NASAL 16GM EA NOSTRIL SCH (08:57)
[2022-03-20] MEDS: methocarbamoL 500 MG TAB PO SCH ×2 (08:57→21:40)
[2022-03-20 09:00] LABS: Basophils # (A) 0.01 X 10*3/uL (0.00-0.10); Basophils % (A) 0.1 %; Eosinophils # (A) 0.13 X 10*3/uL (0.04-0.35); Eosinophils % (A) 1.4 %; HCT 47.4 % (37.2-46.3); HGB 15.1 g/dL (12.0-15.0); Immature Grans, Automated 0.4 %; Lymphocytes # (A) 1.69 X 10*3/uL (0.90-5.00); Lymphocytes % (A) 18.2 %; MCH 30.4 pg (27.0-32.0); MCHC 31.9 g/dL (32.0-37.0); MCV 95.4 fL (80.0-97.0); Mean Platelet Volume 12.8 fL (9.5-12.2); Monocytes # (A) 1.19 X 10*3/uL (0.20-1.00); Monocytes % (A) 12.8 %; NRBC Per 100 WBC 0 /100 WBCS (0.0-0.0); Neutrophils # (A) 6.21 X 10*3/uL (1.80-7.70); Neutrophils % (A) 67.1 %; Platelet Count 185 X 10*3/uL (140-440); RBC 4.97 X 10*6/uL (4.10-5.20); RDW 12.7 % (11.5-14.5); WBC 9.27 X 10*3/uL (4.50-10.00)
[2022-03-20] MEDS: OXYBUTYNIN CHLORIDE 5 MG TAB PO SCH (09:00)
[2022-03-20 09:17] LABS: African American GFR (CKD) 64.7 (60.0-200.0); Albumin 3.6 g/dL (3.8-4.9); Albumin/Globulin Ratio 1.64 (1.60-3.17); Anion Gap 9.9 mmol/L (10.00-18.00); BUN/Creat Ratio 18.9 Ratio (12.00-20.00); Blood Urea Nitrogen 18.9 mg/dL (9.0-27.0); Calcium 8.8 mg/dL (8.7-10.3); Carbon Dioxide 24.1 mmol/L (20.0-27.5); Globulin 2.2 g/dL (1.6-3.3); Non-African American GFR(CKD) 55.8 (60.0-200.0); Potassium 4.3 mmol/L (3.5-5.5); Total Bilirubin 2.2 mg/dL (0.30-1.20); Total Protein 5.8 g/dL (6.2-8.2)
[2022-03-20 09:51] LABS: INR 3.16 (0.90-1.11); Prothrombin Time 34.2 sec (9.9-11.9)
[2022-03-20] MEDS: SODIUM CHLORIDE 0.9% 1,000 ML IV SCH ×4 (10:55→10:57)
[2022-03-20] MEDS ORDERED: fentaNYL (PF) 50 MCG/ML 2 ML AMP ONE (17:23)
[2022-03-20] MEDS ORDERED: MIDAZOLAM 2 MG/2 ML VIAL ONE (17:23)
[2022-03-20] MEDS ORDERED: LACTATED RINGERS 1,000 ML IV ONE (17:25)
--- NOTE | 2022-03-20 17:38 | P.PN ---
Subjective Patient is doing well from a cardiac standpoint. She has had no further syncopal spells However her UA was abnormal for E. coli and she was started on ceftriaxone last night She has absolutely no fever chills She does have abdominal discomfort and some diarrhea No urinary tract symptoms On examination Blood pressure 133/60 mmHg pulse rate in the 60s and 70s afebrile Breath sounds are reduced bilaterally Heart sounds. Irregular Impression Tachybradycardia syndrome with significant pauses associated with syncope over the last year Documented pauses greater than 5 seconds, of sudden onset during atrial fibrillation Abnormal urine with E. coli but no white count no fever chills Start IV ceftriaxone and patient remains well Give ceftriaxone dose earlier today at 11 AM Proceed with permanent pacing later on in the evening today Objective - Vital Signs Vital signs: Vital Signs Temp 98.3 F 03/20/22 15:00 Pulse 66 03/20/22 15:00 Resp 16 03/20/22 15:00 BP 133/69 03/20/22 15:00 Pulse Ox 98 03/20/22 15:00 FiO2 Intake & Output 03/19/22 03/20/22 03/20/22 18:59 06:59 18:59 Intake Total 354 50 650 Balance 354 50 650 Intake: Intake, IV Titration 50 650 Amount Sodium Chloride 0.9% 1, 600 000 ml @ 50 mls/hr IV . Q20H NABEEL Rx#:[id number] cefTRIAXone 1 gm In 50 50 Sodium Chloride 0.9% 50 ml @ 100 mls/hr IVPB Q24H NABEEL Rx#:[id number] Oral 354 Other: Voiding Method Toilet Toilet Bedside Commode # Voids 2 1 # Bowel Movements 1 - Labs CBC & Chem 7: 03/20/22 06:03 03/20/22 06:03 Labs: Abnormal Lab Results - Last 24 Hours (Table) 03/20/22 03/20/22 03/20/22 Range/Units 06:03 06:03 06:03 Hgb 15.1 H (12.0-15.0) g/dL Hct 47.4 H (37.2-46.3) % MCHC 31.9 L (32.0-37.0) g/dL MPV 12.8 H (9.5-12.2) fL Monocytes # 1.19 H (0.20-1.00) X 10*3/uL PT 34.2 H (9.9-11.9) sec INR 3.16 H (0.90-1.11) Anion Gap 9.90 L (10.00-18.00) mmol/L Est GFR (CKD-EPI)NonAf 55.8 L (60.0-200.0) Total Bilirubin 2.20 H (0.30-1.20) mg/dL Total Protein 5.8 L (6.2-8.2) g/dL Albumin 3.6 L (3.8-4.9) g/dL Microbiology - Last 24 Hours (Table) 03/17/22 18:29 Urine Culture - Final Urine,Clean Catch Escherichia coli
[2022-03-20] MEDS ORDERED: SODIUM CHLORIDE 0.9% 1,000 ML IV ONE (17:40)
[2022-03-20] MEDS ORDERED: IOPAMIDOL-370 50ML BTL INJ ONE ×2 (17:40)
[2022-03-20] MEDS ORDERED: WARFARIN 0.5 MG TAB PO ONE (18:00)
[2022-03-20] MEDS ORDERED: LIDOCAINE 1% INJ 10MG/ML (30 ML VIAL-PF) SQ ONE ×2 (18:15→18:58)
--- NOTE | 2022-03-20 19:42 | P.EPPROC ---
- EP Procedure Note Electrophysiology Procedure Note: Diagnosis Symptomatic bradycardia with syncope Tachybradycardia syndrome with sudden long pauses up to 5-6 seconds Procedure Dual-chamber pacemaker implantation Left upper extremity venogram Details Patient was brought to the EP lab in a fasting state. Written informed consent was obtained prior to the procedure. Left upper extremity venogram was performed 15 mL IV dye injected Patent left axillary and subclavian vein Conscious sedation provided. IV antibiotics administered. Local anesthesia administered. A 4 cm incision made in the pectoral area. Subfascial pocket made. Venous accesses obtained at the level of the second rib Venous sheaths placed. Leads placed in the right heart Atrial lead position the right atrial appendage. [employer] clinical specialist medical device tendril 52 cm model #2088 TC Screwed in the right atrial appendage. Pacing threshold 1 warted 0.4 ms, P waves greater than 5 mV and pacing impedance 490 ohms 10 V test negative RV lead position in the RV apex. Tendril STS, model #2088 TC, 58 cm in length Screwed in the RV apex/just above it Pacing threshold 0.5 V at 0.4 ms, R waves greater than 9 mV and pacing impedance 1075 ohms 10 V test negative Device vp talent management: [employer], ASSURITY MRI Dual-chamber pacemaker device connected to the leads and placed in the subfascial pocket Patient tolerated the procedure well without acute complications Pacemaker programming DDD 60-1:30 VIP mode on During the procedure, during RV lead placement and taking deep breaths to check stability, patient went back to sinus rhythm Thereafter she had very frequent PACs and atrial couplets and triplets, arrhythmogenic PACs Plan After 3 months proceed with pulmonary vein isolation Continue anticoagulation
--- NOTE | 2022-03-20 19:44 | P.PRLE ---
RE: Lisbet Jha Dear Gretchen Lisbet underwent successful dual-chamber pacemaker implantation for management of tachybradycardia syndrome I started her on metoprolol 50 g twice daily along with flecainide 100 mg twice daily During the procedure she went into sinus rhythm after that she had very frequent PACs atrial couplets and triplets, arrhythmogenic PACs She will benefit from pulmonary vein isolation and I would recommend this only after 3 months of implantation of this pacemaker She should continue anticoagulation Thank you for entrusting me with the care of the patient Warm regards Sincerely Omer Zapata
[2022-03-20] MEDS: FLECAINIDE 50 MG TAB PO SCH (21:40)
[2022-03-20] MEDS: ATORVASTATIN 20 MG TAB PO SCH (21:40)
[2022-03-21 06:54] LABS: Prothrombin Time 38.7 sec (9.0-12.0)
[2022-03-21] MEDS: LOSARTAN 25 MG TAB PO SCH ×2 (08:30→20:48)
[2022-03-21] MEDS: buPROPion XL 150 MG TAB.ER.24H PO SCH ×2 (08:30→17:08)
[2022-03-21] MEDS: METOPROLOL TARTRATE 50 MG TAB PO SCH ×2 (08:30→20:48)
[2022-03-21] MEDS: methocarbamoL 500 MG TAB PO SCH ×2 (08:30→20:48)
[2022-03-21] MEDS: CHOLECALCIFEROL 125 MCG (5000 IU) TABLET PO SCH (08:30)
[2022-03-21] MEDS: FLECAINIDE 50 MG TAB PO SCH ×2 (08:30→20:48)
[2022-03-21] MEDS: FLUTICASONE 50MCG/SPRAY NASAL 16GM EA NOSTRIL SCH (08:31)
[2022-03-21] MEDS: OXYBUTYNIN CHLORIDE 5 MG TAB PO SCH (08:36)
--- NOTE | 2022-03-21 08:54 | XR ---
EXAMINATION TYPE: XR chest 1V portable DATE OF EXAM: 03/21/2022 Comparison: 03/17/2022 Clinical History: 71-year-old female Lead placement check Findings: Left anterior chest wall pacemaker generator with right atrial and ventricular leads. No appreciable pneumothorax. Heart remains mildly enlarged. Eventration anterior right hemidiaphragm is unchanged. H yperinflation. No consolidation or pleural effusion. Impression: Mild cardiomegaly and COPD. No acute process seen.
--- NOTE | 2022-03-21 10:40 | P.PN ---
Subjective Progress Note Date: 03/21/22 History of present illness: This is a 71-year-old female patient brought into the hospital due to syncopal episodes and palpitations. The patient was diagnosed with tachybradycardia syndrome with long pauses up to 5-6 seconds is status post dual-chamber pacemaker implantation. She is also being treated for E. coli urinary tract infection. Patient denies any concerns this morning. We have started her on flecainide 100 mg twice daily to suppress tachycardia and plan is for an ablation in 3 months. Repeat INR today 4.0. 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 Repeat EKG to be obtained as well. Chest x-ray this morning finds mild cardiomegaly and COPD. No acute process. The patient has maintained in a left arm sling as she is not to move her shoulder above her head. ekg monitor is atrial paced rhythm. Physical examination: Gen: This is a 71-year-old female. She is resting bed appears to be comfortable and in no acute distress VS: Reviewed HEENT: Head is atraumatic, normocephalic. Pupils equal, round. Sclerae is anicteric. NECK: Supple. No JVD. No lymphadenopathy. No thyromegaly. LUNGS: Clear to auscultation. No wheezes or rhonchi. No intercostal retract ions. HEART: Regular rate and rhythm. systolic murmur. ABDOMEN: Soft. Bowel sounds are present. No masses. No tenderness. EXTREMITIES: No pedal edema. No calf tenderness. Dorsalis pedis +2 bilaterally NEUROLOGICAL: Patient is awake, alert and oriented x3. Cranial nerves 2 through 12 are grossly intact. Assessment: Tachycardia bradycardic syndrome with significant pauses associated with syncope over the past year status post permanent pacemaker Paroxysmal atrial fibrillation on Coumadin Hypertension E. coli urinary tract infection Hyperlipidemia Plan: Patient continued on IV antibiotics for UTI Patient has been started on flecainide 100 mg twice daily and Lopressor has been decreased to 50 mg twice daily Repeat INR in the morning, pharmacy is dosing Coumadin Nurse practitioner note has been reviewed, I agree with the documented findings and plan of care. Patient was seen and examined. Objective - Vital Signs Vital signs: Vital Signs Temp 98.1 F 03/21/22 07:48 Pulse 65 03/21/22 07:48 Resp 17 03/21/22 07:48 BP 124/80 03/21/22 07:48 Pulse Ox 94 L 03/21/22 07:48 FiO2 Intake & Output 03/20/22 03/21/22 03/21/22 18:59 06:59 18:59 Intake Total 1100 550 Balance 1100 550 Intake: IV 450 Intake, IV Titration 650 50 Amount Sodium Chloride 0.9% 1, 600 000 ml @ 50 mls/hr IV . Q20H NABEEL Rx#:[id number] ceFAZolin 2 gm In Sodium 50 Chloride 0.9% 50 ml @ 100 mls/hr IVPB Q6HR NABEEL Rx# :[id number] cefTRIAXone 1 gm In 50 Sodium Chloride 0.9% 50 ml @ 100 mls/hr IVPB Q24H NABEEL Rx#:[id number] Oral 500 Other: Voiding Method Toilet Bedside Commode # Voids 0 - Labs CBC & Chem 7: 03/20/22 06:03 03/20/22 06:03 Labs: Abnormal Lab Results - Last 24 Hours (Table) 03/20/22 03/20/22 03/20/22 Range/Units 06:03 06:03 06:03 Hgb 15.1 H (12.0-15.0) g/dL Hct 47.4 H (37.2-46.3) % MCHC 31.9 L (32.0-37.0) g/dL MPV 12.8 H (9.5-12.2) fL Monocytes # 1.19 H (0.20-1.00) X 10*3/uL PT 34.2 H (9.9-11.9) sec INR 3.16 H (0.90-1.11) Anion Gap 9.90 L (10.00-18.00) mmol/L Est GFR (CKD-EPI)NonAf 55.8 L (60.0-200.0) Total Bilirubin 2.20 H (0.30-1.20) mg/dL Total Protein 5.8 L (6.2-8.2) g/dL Albumin 3.6 L (3.8-4.9) g/dL 03/21/22 Range/Units 06:21 Hgb (12.0-15.0) g/dL Hct (37.2-46.3) % MCHC (32.0-37.0) g/dL MPV (9.5-12.2) fL Monocytes # (0.20-1.00) X 10*3/uL PT 38.7 H (9.9-11.9) sec INR 4.0 H (0.90-1.11) Anion Gap (10.00-18.00) mmol/L Est GFR (CKD-EPI)NonAf (60.0-200.0) Total Bilirubin (0.30-1.20) mg/dL Total Protein (6.2-8.2) g/dL Albumin (3.8-4.9) g/dL
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
[2022-03-21] MEDS: ACETAMINOPHEN TAB 325 MG TAB PO PRN (20:48)
[2022-03-21] MEDS: ATORVASTATIN 20 MG TAB PO SCH (20:48)
[2022-03-22] MEDS: buPROPion XL 150 MG TAB.ER.24H PO SCH (05:53)
[2022-03-22] MEDS: ACETAMINOPHEN TAB 325 MG TAB PO PRN ×2 (05:53→16:35)
[2022-03-22 07:17] LABS: INR 2.3 (<1.2); Prothrombin Time 22.1 sec (9.0-12.0)
[2022-03-22 08:15] VITALS: RESP 16
[2022-03-22] MEDS: methocarbamoL 500 MG TAB PO SCH (09:20)
[2022-03-22] MEDS: FLECAINIDE 50 MG TAB PO SCH (09:20)
[2022-03-22] MEDS: OXYBUTYNIN CHLORIDE 5 MG TAB PO SCH (09:21)
[2022-03-22] MEDS: CHOLECALCIFEROL 125 MCG (5000 IU) TABLET PO SCH (09:21)
[2022-03-22] MEDS: LOSARTAN 25 MG TAB PO SCH (09:21)
[2022-03-22] MEDS: FLUTICASONE 50MCG/SPRAY NASAL 16GM EA NOSTRIL SCH (09:21)
[2022-03-22] MEDS: METOPROLOL TARTRATE 50 MG TAB PO SCH (09:21)
--- NOTE | 2022-03-22 11:46 | P.PN ---
Subjective Patient is doing well She is resting comfortably in a She has no more abdominal discomfort now after starting IV antibiotics for urinary tract infection Her pacemaker site is healed well aligned is a mild stroke age There's been no progression in the swelling Heart sounds are normal Breath sounds are clear She maintains sinus rhythm on flecainide 100 mg twice daily Blood pressure 124/60 318/76. His mercury Afebrile Heart rates in the 60s Normal heart sounds Impression Morbid obesity Paroxysmal atrial fibrillation with tachybradycardia syndrome Sudden long pauses during atrial fibrillation with syncope Recurrent syncope for one year with a workup that did not document pauses such as noted here Status post successful dual-chamber pacemaker implantation Institution of recommend 100 mg twice daily and maintains sinus rhythm line pacemaker function is normal She remains on IV antibiotics for UTI Her INR was high and fluctuates I would recommend ELIQUIS or Pradaxa Follow-up with Dr. Estevez Consideration for A. fib ablation after 3-4 months During pacemaker implantation vein noted that she was experiencing frequent PVCs and short runs of atrial tachycardia after she converted spontaneously to sinus rhythm Very frequent arrhythmogenic atrial premature beats Objective - Vital Signs Vital signs: Vital Signs Temp 97.6 F 03/22/22 08:00 Pulse 60 03/22/22 08:00 Resp 16 03/22/22 08:00 BP 164/79 03/22/22 08:00 Pulse Ox 99 03/22/22 08:00 FiO2 Intake & Output 03/21/22 03/22/22 03/22/22 18:59 06:59 18:59 Intake Total 400 Balance 400 Intake: Oral 400 Other: Voiding Method Toilet Toilet Toilet Bedside Commode Bedside Commode Bedside Commode # Voids 1 3 - Labs CBC & Chem 7: 03/20/22 06:03 03/20/22 06:03 Labs: Abnormal Lab Results - Last 24 Hours (Table) 03/22/22 Range/Units 06:38 PT 22.1 H (9.0-12.0) sec INR 2.3 H (<1.2)
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
[2022-03-22] MEDS ORDERED: BACLOFEN 10 MG TAB PO PRN (15:14)
[2022-03-22 15:55] VITALS: BP 137/67; PULSE 71; TEMP 98
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
[2022-03-22] MEDS ORDERED: APIXABAN 5 MG TAB PO SCH (21:00)
== END 2022-03-22 16:39 | disposition home or self-care (01) | DRG 243 ==
LOC: EC 11:56 → 6NMEDSUR 19:35 → OBSVTOIN 03-20 09:02
PROVIDERS: ADMIT Internal Medicine; ATTEND Internal Medicine
PROC: 02H63JZ Insertion of Pacemaker Lead into Right Atrium, Percutaneous Approach (ICD-10-PCS; 2022-03-20)
PROC: 02HK3JZ Insertion of Pacemaker Lead into Right Ventricle, Percutaneous Approach (ICD-10-PCS; 2022-03-20)
PROC: 0JH606Z Insertion of Pacemaker, Dual Chamber into Chest Subcutaneous Tissue and Fascia, Open Approach (ICD-10-PCS; principal; 2022-03-20 09:30)
DX: I49.5 Sick sinus syndrome (principal); F33.1 Major depressive disorder, recurrent, moderate; I45.89 Other specified conduction disorders; Z68.42 Body mass index [BMI] 45.0-49.9, adult; N39.0 Urinary tract infection, site not specified; I47.1 Supraventricular tachycardia; I11.9 Hypertensive heart disease without heart failure; M06.9 Rheumatoid arthritis, unspecified; J44.9 Chronic obstructive pulmonary disease, unspecified; E66.01 Morbid (severe) obesity due to excess calories; B96.20 Unspecified Escherichia coli [E. coli] as the cause of diseases classified elsewhere; E78.5 Hyperlipidemia, unspecified; H91.91 Unspecified hearing loss, right ear; I48.0 Paroxysmal atrial fibrillation; E55.9 Vitamin D deficiency, unspecified; G47.33 Obstructive sleep apnea (adult) (pediatric); R73.03 Prediabetes; K58.0 Irritable bowel syndrome with diarrhea; N32.81 Overactive bladder; M54.41 Lumbago with sciatica, right side; K21.9 Gastro-esophageal reflux disease without esophagitis; I08.3 Combined rheumatic disorders of mitral, aortic and tricuspid valves; I49.1 Atrial premature depolarization; I49.3 Ventricular premature depolarization; Z96.651 Presence of right artificial knee joint; Z79.01 Long term (current) use of anticoagulants; Z79.899 Other long term (current) drug therapy; Z88.8 Allergy status to other drugs, medicaments and biological substances; Z88.5 Allergy status to narcotic agent; Z85.3 Personal history of malignant neoplasm of breast; Z90.13 Acquired absence of bilateral breasts and nipples
CPT/HCPCS: 33208; 36415; 70450; 71045; 71046; 80048; 80053; 81001; 84443; 84484; 85025; 85610; 85730; 87077; 87086; 87186; 93005; 93306; 96360; 96361; 99285

== ENCOUNTER 2022-04-24 11:57 | Emergency (ER) | payer MEDICARE, BC ==
--- NOTE | 2022-04-24 12:01 | ED ---
General Adult HPI - General Source: patient, EMS, RN notes reviewed Mode of arrival: EMS Limitations: no limitations <Akbar Osullivan - Last Filed: 04/24/22 11:58> - General Source: patient, family, EMS, RN notes reviewed Mode of arrival: EMS Limitations: no limitations - History of Present Illness MD Complaint: neck pain, headache <Nevaeh Christy - Last Filed: 04/24/22 18:01> - General Chief complaint: Neck Pain/Injury Stated complaint: neck & shoulder pain, High BP Time Seen by Provider: 04/24/22 11:58 - History of Present Illness Initial comments: 71-year-old female presents emergency Department chief complaint of hypertension, left-sided neck pain, nausea. Patient states symptoms started today. She states she is 4 weeks status post pacemaker by Dr. Zapata. Patient states that she has had increase in nausea and pain on the left side of her neck, into the base of her head. Patient states that she has no current anterior chest pain. Patient states that she her blood pressure continued to be elevated and presented to the emergency dept via EMS (Akbar Osullivan) On my evaluation of the patient, her history is consistent with that listed above. (Nevaeh Christy) - Related Data Home Medications Medication Instructions Recorded Confirmed Mometasone Furoate [Nasonex 50 mcg 1 - 2 spr EA NOSTRIL DAILY PRN 01/19/17 04/24/22 Nasal [place]] Fexofenadine/Pseudoephedrine 1 tab PO DAILY PRN 08/24/20 04/24/22 [Emma-D 24 Hour Tablet] Acetaminophen Tab [Tylenol] 500 mg PO Q6H PRN 05/04/21 04/24/22 Furosemide [Lasix] 20 mg PO DAILY PRN 05/04/21 04/24/22 LORazepam [Ativan] 0.5 mg PO HS PRN 05/04/21 04/24/22 Cholecalciferol [Vitamin D3 (125 125 mcg PO DAILY 01/30/22 04/24/22 Mcg = 5000 Iu)] Losartan [Cozaar] 25 mg PO BID 01/30/22 04/24/22 Simvastatin [Zocor] 40 mg PO HS 01/30/22 04/24/22 buPROPion XL [Wellbutrin XL] 150 mg PO AC-BID 03/17/22 04/24/22 Apixaban [Eliquis] 5 mg PO BID 03/22/22 04/24/22 Fluticasone Propion/Salmeterol 1 puff INHALATION RT-BID 04/24/22 04/24/22 [Advair 250-50 Diskus] Previous Rx's Medication Instructions Recorded Flecainide [Tambocor] 100 mg PO Q12HR #60 tab 03/21/22 Metoprolol Tartrate [Lopressor] 50 mg PO BID #0 03/21/22 Oxybutynin Chloride [Ditropan] 10 mg PO DAILY #30 tab 03/21/22 methocarbamoL [Robaxin] 500 mg PO BID #60 tab 03/21/22 Baclofen 5 mg PO BID PRN 30 Days #60 tablet 03/22/22 Ketorolac [Toradol] 10 mg PO Q6HR PRN #12 tab 04/24/22 Metoclopramide [Reglan] 10 mg PO Q6H PRN #20 tab 04/24/22 Ondansetron Odt [Zofran Odt] 4 mg PO Q8HR PRN #15 tab 04/24/22 diazePAM [Valium] 2 mg PO Q8HR PRN 3 Days #9 tab 04/24/22 Allergies Allergy/AdvReac Type Severity Reaction Status Date / Time tocilizumab [From Actemra] Allergy Severe Dyspnea, Verified 04/24/22 13:52 sores, itching, sore throat meperidine HCl [From Demerol] AdvReac Nausea Verified 04/24/22 13:52 Review of Systems ROS Other: All systems not noted in ROS Statement are negative. <Akbar Osullivan - Last Filed: 04/24/22 11:58> ROS Other: All systems not noted in ROS Statement are negative. <Nevaeh Christy - Last Filed: 04/24/22 18:01> ROS Statement: Those systems with pertinent positive or pertinent negative responses have been documented in the HPI. Past Medical History Past Medical History: Atrial Fibrillation, Asthma, Eye Disorder, GERD/Reflux, H earing Disorder / Deafness, Hyperlipidemia, Hypertension, Osteoarthritis (OA), Rheumatoid Arthritis (RA), Sleep Apnea/CPAP/BIPAP Additional Past Medical History / Comment(s): HX BACK PAIN, hx Sciaticia bilateral legs. Hx FX lower back. ADIE'S TONIC PUPIL/FIXED PUPILS- BILATERAL EYES, HAS LENS IMPLANT IN RT EYE. HX "PRE-CANCER OF BREAST." OVERACTIVE BLADDER. DEAF RT EAR. CPAP use., Varicose veins. Swelling in top of feet, discoloration around left ankle, neck pain radiates to arms and hands. History of Any Multi-Drug Resistant Organisms: None Reported Past Surgical History: Bladder Surgery, Cholecystectomy, Heart Catheterization, Hysterectomy, Joint Replacement, Orthopedic Surgery Additional Past Surgical History / Comment(s): RT KNEE REPLACEMENT, VANESSA BREAST MASTECTOMY W/ RECONSTRUCTION. IMPLANTS VANESSA BREAST, RT EYE LENS IMPLANT, EXC VANESSA CATARACTS WITH LENS IMPLANT. RT. CARPAL TUNNEL RELEASE, arthroscopy of knee, pain clinic procedure. Past Anesthesia/Blood Transfusion Reactions: Postoperative Nausea & Vomiting (PONV) Additional Past Anesthesia/Blood Transfusion Reaction / Comment(s): Mother- PONV. Past Psychological History: Anxiety, Panic Disorder Smoking Status: Never smoker Past Alcohol Use History: None Reported Past Drug Use History: None Reported - Past Family History Brother(s) Family Medical History: Cancer Additional Family Medical History / Comment(s): Testicular Cancer. Prostate cancer. <Akbar Osullivan - Last Filed: 04/24/22 11:58> General Exam Limitations: no limitations General appearance: alert, in no apparent distress Head exam: Present: atraumatic, normocephalic, normal inspection Eye exam: Present: normal appearance, PERRL, EOMI. Absent: scleral icterus, conjunctival injection, periorbital swelling Neck exam: Present: tenderness (Posterior and left side of the neck), other (She has full range of motion, however it is limited by pain). Absent: meningismus Respiratory exam: Present: normal lung sounds bilaterally. Absent: respiratory distress, wheezes, rales, rhonchi, stridor Cardiovascular Exam: Present: regular rate, normal rhythm, normal heart sounds. Absent: systolic murmur, diastolic murmur, rubs, gallop, clicks Neurological exam: Present: alert, oriented X3, CN II-XII intact Psychiatric exam: Present: normal affect, normal mood Skin exam: Present: warm, dry, intact, normal color. Absent: rash <Nevaeh Christy - Last Filed: 04/24/22 18:01> Course Vital Signs 01/09/23 01/09/23 01/09/23 12:15 14:57 15:11 Temperature 97.5 F L Pulse Rate 60 61 60 Respiratory 16 18 16 Rate Blood Pressure 147/86 161/95 161/87 O2 Sat by Pulse 95 100 91 L Oximetry 04/24/22 15:58 Temperature Pulse Rate 61 Respiratory 18 Rate Blood Pressure 154/87 O2 Sat by Pulse Oximetry Medical Decision Making - Lab Data Result diagrams: 04/24/22 13:45 04/24/22 13:45 - Radiology Data Radiology results: report reviewed, image reviewed <Nevaeh Christy - Last Filed: 04/24/22 18:01> - Medical Decision Making This is a 71-year-old female who presents to the emergency department for a headache and neck pain. Was pt. sent in by a medical professional or institution? @ -No Did you speak to anyone other than the patient for history? @ -Her family Did you review nursing and triage notes? @ -Agree, accurate with regards to the patient's symptoms. Were old charts reviewed? @ -No Differential Diagnosis? @ -Differential Headache: Migraine, tension, cluster, carbon monoxide, central venous thrombosis, pension karma temporal arteritis, acute closure glaucoma, intercranial hemorrhage, mastoiditis, sinusitis, head injury, this is not meant to be an all-inclusive list. EKG interpreted by me (3pts min.)? @ -Electronic atrial and ventricular pacemaker. Ventricular rate 60 bpm, CO interval 263 ms, QRS duration 201 ms, QTC [address] interpreted by me (1pt min.)? @ -Computed tomography scan of the brain and C-spine obtained. Computed tomography scan of the brain identifies no acute intracranial hemorrhage or mass effect. Computed tomography scan of the C-spine identifies no acute fractures or dislocations. What testing was considered but not performed? (CT, X-rays, U/S, labs)? Why? @ -None What meds were considered but not given? Why? @ -None Did you discuss the management of the patient with other professionals? @ -No Did you reconcile home meds? @ -No Was smoking cessation discussed for >3mins.? @ -No Was critical care preformed (if so, how long)? @ -No Were there social determinants of health that impacted care today? How? (H omelessness, low income, unemployed, alcoholism, drug addiction, transportation, low edu. Level, literacy, decrease access to med. care, shelter, rehab)? @ -No Was there de-escalation of care discussed even if they declined? (Discuss DNR or withdrawal of care, Hospice)? @ -No What co-morbidities impacted this encounter? (DM, HTN, Smoking, COPD, CAD, Cancer, CVA, Hep., AIDS, mental health diagnosis, sleep apnea, morbid obesity)? @ -Atrial fibrillation, HTN, Morbid obesity, asthma, rheumatoid arthritis, osteoarthritis Was patient admitted / discharged? @ -Discharged. Lab work obtained and found to be nonactionable. Computed tomography scan of the brain and c-spine obtained with no acute findings noted. Patient was given Reglan, Toradol, Decadron, and Valium, which she states significantly improved her symptoms. Given the reproducible tenderness, lack of abnormal findings on the imaging and lab work, and the improvement with medications, symptoms are most consistent with a muscular strain. Rx for zofran, reglan, toradol, and valium provided with dosing instructions reviewed. She was advised that the Valium can be sedating and she should limit how much she takes this, especially if she is taking her Ativan that night. Drug Therapy requiring intensive monitoring for toxicity (Heparin, Nitro, Insulin, Cardizem)? @ -None Were any procedures done? @ -None Diagnosis/symptom? @ -Neck pain Acute, or Chronic, or Acute on Chronic? @ -Acute Uncomplicated (without systemic symptoms) or Complicated (systemic symptoms)? @ -Uncomplicated Side effects of treatment? @ -None Exacerbation, Progression, or Severe Exacerbation] @ -Not applicable Poses a threat to life or bodily function? @ -May pose a threat to her function based on the severity of symptoms. Diagnosis/symptom? @ -Headache Acute, or Chronic, or Acute on Chronic? @ -Acute Uncomplicated (without systemic symptoms) or Complicated (systemic symptoms)? @ -Uncomplicated Side effects of treatment? @ -None Exacerbation, Progression, or Severe Exacerbation] @ -Not applicable Poses a threat to life or bodily function? @ -May pose a threat to her function based on the severity of symptoms. Return precautions reviewed in depth, the patient is instructed to return to the emergency department with any new, worsening, or concerning symptoms. Patient verbalized understanding. This case was discussed in detail with the attending ED physician. Presentation, findings, and treatment plan discussed in detail as well. (Nevaeh Christy) - Lab Data Lab Results 04/24/22 04/24/22 04/24/22 Range/Units 13:45 13:45 13:45 WBC 9.6 (3.8-10.6) k/uL RBC 4.78 (3.80-5.40) m/uL Hgb 15.6 (11.4-16.0) gm/dL Hct 47.6 H (34.0-46.0) % MCV 99.5 (80.0-100.0) fL MCH 32.6 (25.0-35.0) pg MCHC 32.7 (31.0-37.0) g/dL RDW 12.5 (11.5-15.5) % Plt Count 163 (150-450) k/uL MPV 10.1 Neutrophils % 83 % Lymphocytes % 9 % Monocytes % 5 % Eosinophils % 2 % Basophils % 0 % Neutrophils # 8.0 H (1.3-7.7) k/uL Lymphocytes # 0.8 L (1.0-4.8) k/uL Monocytes # 0.5 (0-1.0) k/uL Eosinophils # 0.2 (0-0.7) k/uL Basophils # 0.0 (0-0.2) k/uL ESR 13 (0-20) mm/hr PT 11.6 (9.0-12.0) sec INR 1.1 (<1.2) APTT 28.0 (22.0-30.0) sec Sodium 141 (137-145) mmol/L Potassium 5.0 (3.5-5.1) mmol/L Chloride 107 (98-107) mmol/L Carbon Dioxide 29 (22-30) mmol/L Anion Gap 5 mmol/L BUN 22 H (7-17) mg/dL Creatinine 0.92 (0.52-1.04) mg/dL Est GFR (CKD-EPI)AfAm 72 (>60 ml/min/1.73 sqM) Est GFR (CKD-EPI)NonAf 62 (>60 ml/min/1.73 sqM) Glucose 120 H (74-99) mg/dL Calcium 9.1 (8.4-10.2) mg/dL Total Bilirubin 2.6 H (0.2-1.3) mg/dL AST 25 (14-36) U/L ALT 20 (4-34) U/L Alkaline Phosphatase 76 (38-126) U/L Troponin I (0.000-0.034) ng/mL C-Reactive Protein 0.5 (<1.0) mg/dL Total Protein 6.9 (6.3-8.2) g/dL Albumin 3.9 (3.5-5.0) g/dL 04/24/22 Range/Units 13:45 WBC (3.8-10.6) k/uL RBC (3.80-5.40) m/uL Hgb (11.4-16.0) gm/dL Hct (34.0-46.0) % MCV (80.0-100.0) fL MCH (25.0-35.0) pg MCHC (31.0-37.0) g/dL RDW (11.5-15.5) % Plt Count (150-450) k/uL MPV Neutrophils % % Lymphocytes % % Monocytes % % Eosinophils % % Basophils % % Neutrophils # (1.3-7.7) k/uL Lymphocytes # (1.0-4.8) k/uL Monocytes # (0-1.0) k/uL Eosinophils # (0-0.7) k/uL Basophils # (0-0.2) k/uL ESR (0-20) mm/hr PT (9.0-12.0) sec INR (<1.2) APTT (22.0-30.0) sec Sodium (137-145) mmol/L Potassium (3.5-5.1) mmol/L Chloride (98-107) mmol/L Carbon Dioxide (22-30) mmol/L Anion Gap mmol/L BUN (7-17) mg/dL Creatinine (0.52-1.04) mg/dL Est GFR (CKD-EPI)AfAm (>60 ml/min/1.73 sqM) Est GFR (CKD-EPI)NonAf (>60 ml/min/1.73 sqM) Glucose (74-99) mg/dL Calcium (8.4-10.2) mg/dL Total Bilirubin (0.2-1.3) mg/dL AST (14-36) U/L ALT (4-34) U/L Alkaline Phosphatase (38-126) U/L Troponin I <0.012 (0.000-0.034) ng/mL C-Reactive Protein (<1.0) mg/dL Total Protein (6.3-8.2) g/dL Albumin (3.5-5.0) g/dL Disposition <Akbar Osullivan - Last Filed: 04/24/22 11:58> Is patient prescribed a controlled substance at d/c from ED?: Yes When asked, does pt state using other controlled substances?: Yes If prescribed controlled substance>3 days was MAPS reviewed?: Prescribed <3 Days <Nevaeh Christy - Last Filed: 04/24/22 18:01> Clinical Impression: Neck pain, Headache Disposition: HOME SELF-CARE Instructions (If sedation given, give patient instructions): Cervical Strain (ED), Acute Headache (ED), Neck Pain (ED) Additional Instructions: Return to the emergency department with any new, worsening, or concerning symptoms. You can take the Valium 2-3x daily for pain, tightness, or spasms in the neck. Be aware that this may be sedating, especially if taken in conjunction with the lorazepam. The toradol can be used every 6 hours as needed for pain, do not take this with any other [id number] anti-inflammatories such as ibuprofen. You may take Tylenol with this. The Reglan and Zofran can be used as needed for nausea and vomiting. You can alternate with these medications or take either one of them, whichever you find more beneficial. Follow up with your primary care provider in 1-2 days. Prescriptions: Metoclopramide [Reglan] 10 mg PO Q6H PRN #20 tab PRN Reason: Nausea And Vomiting Ketorolac [Toradol] 10 mg PO Q6HR PRN #12 tab PRN Reason: Pain diazePAM [Valium] 2 mg PO Q8HR PRN 3 Days #9 tab PRN Reason: Pain Ondansetron Odt [Zofran Odt] 4 mg PO Q8HR PRN #15 tab PRN Reason: Nausea And Vomiting Referrals: Gretchen Rosado MD [Primary Care Provider] - 1-2 days
[2022-04-24 12:19] VITALS: TEMP 97.5
[2022-04-24] MEDS ORDERED: METOCLOPRAMIDE 5 MG/ML 2 ML VIAL IVP STA (13:14)
[2022-04-24] MEDS ORDERED: DEXAMETHASONE SOD PHOSPHATE 10 MG/ML 1 ML VIAL IVP STA (13:18)
[2022-04-24] MEDS ORDERED: KETOROLAC 15 MG/ML 1 ML VIAL IVP STA (13:18)
[2022-04-24 13:59] LABS: Basophils % (A) 0 %; Eosinophils # (A) 0.2 k/uL (0-0.7); Eosinophils % (A) 2 %; HCT 47.6 % (34.0-46.0); HGB 15.6 gm/dL (11.4-16.0); Lymphocytes # (A) 0.8 k/uL (1.0-4.8); Lymphocytes % (A) 9 %; MCH 32.6 pg (25.0-35.0); MCHC 32.7 g/dL (31.0-37.0); MCV 99.5 fL (80.0-100.0); Mean Platelet Volume 10.1; Monocytes # (A) 0.5 k/uL (0-1.0); Monocytes % (A) 5 %; Neutrophils % (A) 83 %; Platelet Count 163 k/uL (150-450); RBC 4.78 m/uL (3.80-5.40); RDW 12.5 % (11.5-15.5); WBC 9.6 k/uL (3.8-10.6)
[2022-04-24 14:10] LABS: Albumin 3.9 g/dL (3.5-5.0); C Reactive Protein 0.5 mg/dL (<1.0); Calcium 9.1 mg/dL (8.4-10.2); INR 1.1 (<1.2); Prothrombin Time 11.6 sec (9.0-12.0); Total Bilirubin 2.6 mg/dL (0.2-1.3); Total Protein 6.9 g/dL (6.3-8.2)
--- NOTE | 2022-04-24 14:17 | CT ---
EXAMINATION TYPE: CT brain cspine wo con CT DLP: 1767.2 mGycm, Automated exposure control for dose reduction was used. DATE OF EXAM: 04/24/2022 2:12 PM COMPARISON: 03/17/2022. CLINICAL INDICATION:Female, 71 years old with history of headache and neck pain; left side neck pain and stiffness TECHNIQUE: Brain: Multiple axial CT images of the brain were obtained without IV contrast. Cspine: Axial CT images from the skull base to the inferior aspect of T2 we obtained without intraven ous contrast. Coronal and sagittal reformatted images were also reviewed. FINDINGS: Brain: Extra-axial spaces: No abnormal extra-axial fluid collections. Ventricular system: Dilatation in proportion to cerebral atrophy. Cerebral parenchyma: Cerebral atrophy. No acute intraparenchymal hemorrhage or mass effect. The marie -white junction is well differentiated. Scattered hypoattenuating areas are seen within the white mat ter. Cerebellum: Unremarkable. Mass effect: No evidence of midline shift. Intracranial vasculature: Atherosclerotic calcifications of the intracranial vessels. Soft tissues: Normal. Calvarium/osseous structures: No depressed skull fracture. Paranasal sinuses and mastoid air cells: Clear. Visualized orbits: Bilateral aphakia Cervical spine: Fracture: None. Osseous structures: Multilevel degenerative disc disease changes with endplate spurring and disc oste ophyte complex's. Vertebral alignment: Grade 1 anterolisthesis of C4 on C5. Spinal canal/Neural Foramina: Disc osteophyte complexes at C4-C5 and C5-C6. With at least mild spinal canal stenosis. No evidence for significant neural foraminal stenosis. Neck soft tissues: Prevertebral soft tissues are within normal limits. Other: The airway is patent. The lung apices are clear. IMPRESSION: No acute intracranial process. No evidence of cervical spine fracture. Moderate multilevel degenerative disc disease.
[2022-04-24 15:28] LABS: Erythrocyte Sedimentation Rate 13 mm/hr (0-20)
[2022-04-24 16:00] VITALS: BP 154/87; PULSE 61; RESP 18
== END 2022-04-24 16:00 | disposition home or self-care (01) ==
LOC: EC 11:57
DX: M54.2 Cervicalgia (principal); R51.9 Headache, unspecified; I48.91 Unspecified atrial fibrillation; J45.909 Unspecified asthma, uncomplicated; K21.9 Gastro-esophageal reflux disease without esophagitis; E78.5 Hyperlipidemia, unspecified; I10 Essential (primary) hypertension; M06.9 Rheumatoid arthritis, unspecified; F41.9 Anxiety disorder, unspecified; M19.90 Unspecified osteoarthritis, unspecified site; Z88.8 Allergy status to other drugs, medicaments and biological substances; Z88.5 Allergy status to narcotic agent; Z79.899 Other long term (current) drug therapy; Z79.01 Long term (current) use of anticoagulants
CPT/HCPCS: 36415; 93005; 80053; 85652; 84484; 85025; 85610; 85730; 86140; 72125; 70450; 99285; 96374; 96375 ×3; J1100; J2765; J3360; J1885

== ENCOUNTER → 2022-05-10 | Outpatient (CLI) | payer MEDICARE, BC ==
--- NOTE | 2022-05-10 10:21 | US ---
EXAMINATION TYPE: US liver DATE OF EXAM: 05/10/2022 COMPARISON: NONE CLINICAL HISTORY: R17 JAUNDACE. elevated bilirubin, cholecystectomy, no symptoms, no jaundice per pat ient TECHNIQUE: Multiple sonographic images of the right upper quadrant are obtained. FINDINGS: EXAM MEASUREMENTS: Liver Length: 19.1 cm Gallbladder Wall: Surgically absent CBD: 0.6 cm Right Kidney: 10.5 x 4.7 x 5.2 cm PROTECTION ENGINEER NOTES:large habitus with bowel gas Pancreas: limited views appear wnl Liver: limited views, enlarged, difficult to penetrate Gallbladder: Surgically absent CBD: wnl Right Kidney: wnl The visualized portion of the pancreas is unremarkable. The liver is enlarged and difficult to penetr ate. The parenchyma demonstrates coarsened echotexture. No gross evidence of focal lesion. No definit e surface nodularity. The common bile duct is within normal limits. The gallbladder is surgically abs ent. Right kidney is unremarkable without evidence of hydronephrosis, shadowing calculi, or contour d eforming solid mass. IMPRESSION: 1. No acute process. 2. Hepatomegaly with coarsened echotexture suggesting nonspecific hepatocellular disease. No gross ev idence of focal lesion. 3. Postcholecystectomy changes.
== END | disposition home or self-care (01) ==
LOC: RADUSWWP 07:33
PROVIDERS: ATTEND Internal Medicine
DX: R16.0 Hepatomegaly, not elsewhere classified (principal); R17 Unspecified jaundice; Z90.49 Acquired absence of other specified parts of digestive tract
CPT/HCPCS: 76705

== ENCOUNTER 2022-07-31 20:51 | Observation (INO) | payer MEDICARE, BC ==
[2022-07-31 21:18] VITALS: TEMP 98
[2022-07-31] MEDS ORDERED: ASPIRIN 81 MG PO STA (22:04)
[2022-07-31 22:30] LABS: Basophils % (A) 0 %; Eosinophils # (A) 0.3 k/uL (0-0.7); Eosinophils % (A) 4 %; HCT 47.6 % (34.0-46.0); HGB 15.2 gm/dL (11.4-16.0); Lymphocytes # (A) 1.3 k/uL (1.0-4.8); Lymphocytes % (A) 18 %; MCH 31.1 pg (25.0-35.0); MCV 97.5 fL (80.0-100.0); Mean Platelet Volume 9.8; Monocytes # (A) 0.5 k/uL (0-1.0); Monocytes % (A) 7 %; Neutrophils # (A) 4.9 k/uL (1.3-7.7); Neutrophils % (A) 67 %; Platelet Count 183 k/uL (150-450); RBC 4.89 m/uL (3.80-5.40); RDW 12.5 % (11.5-15.5); WBC 7.3 k/uL (3.8-10.6)
--- NOTE | 2022-07-31 22:39 | XR ---
EXAMINATION TYPE: XR chest 2V DATE OF EXAM: 07/31/2022 COMPARISON: 03/21/2022 INDICATION: Chest pain short of breath TECHNIQUE: Frontal and lateral views of the chest are obtained. FINDINGS: The heart size is mildly prominent. The pulmonary vasculature is prominent. The lungs are clear. Pacemaker overlies the left chest. IMPRESSION: 1. Mild cardiomegaly with volume overload.
[2022-07-31 22:42] LABS: Calcium 9.1 mg/dL (8.4-10.2); Magnesium 1.7 mg/dL (1.6-2.3); Total Bilirubin 1.9 mg/dL (0.2-1.3); Total Protein 7.1 g/dL (6.3-8.2)
[2022-07-31 22:45] LABS: Potassium 4.7 mmol/L (3.5-5.1)
[2022-07-31 23:19] LABS: Partial Thromboplastin Time 26.1 sec (22.0-30.0); Prothrombin Time 10.9 sec (9.0-12.0)
[2022-07-31] MEDS ORDERED: FUROSEMIDE 10 MG/ML 4 ML VIAL IV STA (23:25)
[2022-07-31 23:34] VITALS: BP 152/73; PULSE 55; RESP 14
[2022-08-01] MEDS ORDERED: LORazepam 0.5 MG TAB PO PRN (00:08)
[2022-08-01] MEDS ORDERED: FUROSEMIDE 10 MG/ML 4 ML VIAL IV SCH (00:15)
[2022-08-01 00:35] LABS: Appearance,Urine Clear (Clear); Bilirubin,Urine Negative (Negative); Blood,Urine Negative (Negative); Color,Urine Light Yellow; Glucose,Urine (UA) Negative (Negative); Ketones,Urine Negative (Negative); Leukocyte Esterase,Urine Negative (Negative); Nitrite,Urine Negative (Negative); Protein,Urine Trace (Negative); Specific Gravity,Urine 1.011 (1.001-1.035); Urobilinogen,Urine <2.0 mg/dL (<2.0)
--- NOTE | 2022-08-01 00:47 | ED ---
General Adult HPI - General Chief complaint: Chest Pain Stated complaint: Chest Tightness, Shortness of Breath, Pacemaker Time Seen by Provider: 07/31/22 21:38 Source: patient Mode of arrival: wheelchair Limitations: no limitations - History of Present Illness Initial comments: This patient is a 72-year-old woman who presents with the chief complaint that she feels like she can't take a deep breath than. She noticed around 4 PM that she felt like he she couldn't take a full breath. Symptoms developed while at rest. She states that she tried to take it easy in fact she tried to take a brief nap and she rested until around 8 PM when she got up and noticed that she was not feeling any better. She states that it feels like there is something restricting her breath. She was reluctant to say that it was chest pain, preferring to call it a heavy sensation. She did not have other anginal symptoms, no diaphoresis, palpitations, lightheadedness or syncope, nausea or vomiting. -: hour(s) Location: chest Quality: other (Heavy) Consistency: constant Improves with: none Worsens with: none Associated Symptoms: shortness of breath Treatments Prior to Arrival: none - Related Data Home Medications Medication Instructions Recorded Confirmed Mometasone Furoate [Nasonex 50 mcg 1 - 2 spr EA NOSTRIL DAILY PRN 01/19/17 07/31/22 Nasal [place]] Furosemide [Lasix] 20 mg PO DAILY PRN 05/04/21 07/31/22 LORazepam [Ativan] 0.5 mg PO HS PRN 05/04/21 07/31/22 Cholecalciferol [Vitamin D3 (125 125 mcg PO DAILY 01/30/22 07/31/22 Mcg = 5000 Iu)] Simvastatin [Zocor] 40 mg PO HS 01/30/22 07/31/22 buPROPion XL [Wellbutrin XL] 150 mg PO BID 03/17/22 07/31/22 Apixaban [Eliquis] 5 mg PO BID 03/22/22 07/31/22 Losartan Potassium 50 mg PO BID 07/31/22 07/31/22 Metoprolol Tartrate [Lopressor] 50 mg PO TID 07/31/22 07/31/22 Oxybutynin Chloride [Ditropan] 5 mg PO BID 07/31/22 07/31/22 Triamcinolone 0.025% Cream 1 applic TOPICAL BID 07/31/22 07/31/22 [Kenalog 0.025% Cream] Previous Rx's Medication Instructions Recorded Flecainide [Tambocor] 100 mg PO Q12HR #60 tab 03/21/22 Baclofen 5 mg PO BID PRN 30 Days #60 tablet 03/22/22 Allergies Allergy/AdvReac Type Severity Reaction Status Date / Time tocilizumab [From Actemra] Allergy Severe Dyspnea, Verified 07/31/22 22:16 sores, itching, sore throat meperidine HCl [From Demerol] AdvReac Nausea Verified 07/31/22 22:16 Review of Systems ROS Statement: Those systems with pertinent positive or pertinent negative responses have been documented in the HPI. ROS Other: All systems not noted in ROS Statement are negative. Constitutional: Denies: fever, chills, weakness Respiratory: Reports: dyspnea. Denies: cough, wheezes, hemoptysis Cardiovascular: Reports: chest pain, orthopnea. Denies: palpitations, edema, syncope Gastrointestinal: Denies: abdominal pain, nausea, vomiting, diarrhea, melena, hematochezia Genitourinary: Denies: dysuria, hematuria Musculoskeletal: Denies: back pain Skin: Denies: rash Neurological: Denies: headache, weakness Past Medical History Past Medical History: Atrial Fibrillation, Asthma, Eye Disorder, GERD/Reflux, Hearing Disorder / Deafness, Hyperlipidemia, Hypertension, Osteoarthritis (OA), Rheumatoid Arthritis (RA), Sleep Apnea/CPAP/BIPAP Additional Past Medical History / Comment(s): HX BACK PAIN, hx Sciaticia bilateral legs. Hx FX lower back. ADIE'S TONIC PUPIL/FIXED PUPILS- BILATERAL EYES, HAS LENS IMPLANT IN RT EYE. HX "PRE-CANCER OF BREAST." OVERACTIVE BLADDER. DEAF RT EAR. CPAP use., Varicose veins. Swelling in top of feet, discoloration around left ankle, neck pain radiates to arms and hands. History of Any Multi-Drug Resistant Organisms: None Reported Past Surgical History: Bladder Surgery, Cholecystectomy, Heart Catheterization, Hysterectomy, Joint Replacement, Orthopedic Surgery, Pacemaker Additional Past Surgical History / Comment(s): RT KNEE REPLACEMENT, VANESSA BREAST MASTECTOMY W/ RECONSTRUCTION. IMPLANTS VANESSA BREAST, RT EYE LENS IMPLANT, EXC VANESSA CATARACTS WITH LENS IMPLANT. RT. CARPAL TUNNEL RELEASE, arthroscopy of knee, pain clinic procedure. Past Anesthesia/Blood Transfusion Reactions: Postoperative Nausea & Vomiting (PONV) Additional Past Anesthesia/Blood Transfusion Reaction / Comment(s): Mother- PONV. Past Psychological History: Anxiety, Panic Disorder Smoking Status: Never smoker Past Alcohol Use History: None Reported Past Drug Use History: None Reported - Past Family History Brother(s) Family Medical History: Cancer Additional Family Medical History / Comment(s): Testicular Cancer. Prostate cancer. General Exam Limitations: no limitations General appearance: alert, in no apparent distress Head exam: Present: atraumatic, normocephalic Eye exam: Present: normal appearance. Absent: scleral icterus, conjunctival inj ection Neck exam: Present: normal inspection Respiratory exam: Present: rales (Trace crackles at the bases bilaterally). Absent: respiratory distress, wheezes, rhonchi, stridor, accessory muscle use Cardiovascular Exam: Present: normal rhythm, bradycardia, normal heart sounds. Absent: systolic murmur, diastolic murmur, rubs, gallop GI/Abdominal exam: Present: soft. Absent: distended, tenderness, guarding, rebound, rigid, mass Extremities exam: Present: normal inspection, normal capillary refill. Absent: pedal edema, calf tenderness Back exam: Present: normal inspection. Absent: CVA tenderness (R), CVA tenderness (L) Neurological exam: Present: alert Skin exam: Present: warm, dry, intact, normal color. Absent: rash Course Vital Signs 07/31/22 07/31/22 07/31/22 21:12 22:13 22:15 Temperature 98.0 F Pulse Rate 57 L 56 L Pulse Rate [ 55 L Sitting Formal Service Waiter] Respiratory 20 23 Rate Blood Pressure 186/109 185/86 O2 Sat by Pulse 94 L 93 L Oximetry 07/31/22 07/31/22 07/31/22 22:30 22:45 23:00 Temperature Pulse Rate 55 L 55 L Pulse Rate [ Sitting Formal Service Waiter] Respiratory 22 18 Rate Blood Pressure 180/89 168/82 166/85 O2 Sat by Pulse 93 L 90 L 90 L Oximetry 07/31/22 07/31/22 23:15 23:30 Temperature Pulse Rate 55 L 55 L Pulse Rate [ Sitting Formal Service Waiter] Respiratory 17 14 Rate Blood Pressure 168/70 152/73 O2 Sat by Pulse 94 L 92 L Oximetry Medical Decision Making - Lab Data Result diagrams: 07/31/22 21:56 07/31/22 21:56 Lab Results 07/31/22 07/31/22 07/31/22 Range/Units 21:56 21:56 21:56 WBC 7.3 (3.8-10.6) k/uL RBC 4.89 (3.80-5.40) m/uL Hgb 15.2 (11.4-16.0) gm/dL Hct 47.6 H (34.0-46.0) % MCV 97.5 (80.0-100.0) fL MCH 31.1 (25.0-35.0) pg MCHC 32.0 (31.0-37.0) g/dL RDW 12.5 (11.5-15.5) % Plt Count 183 (150-450) k/uL MPV 9.8 Neutrophils % 67 % Lymphocytes % 18 % Monocytes % 7 % Eosinophils % 4 % Basophils % 0 % Neutrophils # 4.9 (1.3-7.7) k/uL Lymphocytes # 1.3 (1.0-4.8) k/uL Monocytes # 0.5 (0-1.0) k/uL Eosinophils # 0.3 (0-0.7) k/uL Basophils # 0.0 (0-0.2) k/uL PT 10.9 (9.0-12.0) sec INR 1.0 (<1.2) APTT 26.1 (22.0-30.0) sec Sodium 138 (137-145) mmol/L Potassium 4.7 (3.5-5.1) mmol/L Chloride 106 (98-107) mmol/L Carbon Dioxide 27 (22-30) mmol/L Anion Gap 5 mmol/L BUN 25 H (7-17) mg/dL Creatinine 1.15 H (0.52-1.04) mg/dL Est GFR (CKD-EPI)AfAm 54 (>60 ml/min/1.73 sqM) Est GFR (CKD-EPI)NonAf 47 (>60 ml/min/1.73 sqM) Glucose 103 H (74-99) mg/dL Calcium 9.1 (8.4-10.2) mg/dL Magnesium 1.7 (1.6-2.3) mg/dL Total Bilirubin 1.9 H (0.2-1.3) mg/dL AST 29 (14-36) U/L ALT 17 (4-34) U/L Alkaline Phosphatase 82 (38-126) U/L Troponin I (0.000-0.034) ng/mL NT-Pro-B Natriuret Pep pg/mL Total Protein 7.1 (6.3-8.2) g/dL Albumin 4.0 (3.5-5.0) g/dL Urine Color Urine Appearance (Clear) Urine pH (5.0-8.0) Ur Specific [place] (1.001-1.035) Urine Protein (Negative) Urine Glucose (UA) (Negative) Urine Ketones (Negative) Urine Blood (Negative) Urine Nitrite (Negative) Urine Bilirubin (Negative) Urine Urobilinogen (<2.0) mg/dL Ur Leukocyte Esterase (Negative) 07/31/22 07/31/22 07/31/22 Range/Units 21:56 21:56 23:53 WBC (3.8-10.6) k/uL RBC (3.80-5.40) m/uL Hgb (11.4-16.0) gm/dL Hct (34.0-46.0) % MCV (80.0-100.0) fL MCH (25.0-35.0) pg MCHC (31.0-37.0) g/dL RDW (11.5-15.5) % Plt Count (150-450) k/uL MPV Neutrophils % % Lymphocytes % % Monocytes % % Eosinophils % % Basophils % % Neutrophils # (1.3-7.7) k/uL Lymphocytes # (1.0-4.8) k/uL Monocytes # (0-1.0) k/uL Eosinophils # (0-0.7) k/uL Basophils # (0-0.2) k/uL PT (9.0-12.0) sec INR (<1.2) APTT (22.0-30.0) sec Sodium (137-145) mmol/L Potassium (3.5-5.1) mmol/L Chloride (98-107) mmol/L Carbon Dioxide (22-30) mmol/L Anion Gap mmol/L BUN (7-17) mg/dL Creatinine (0.52-1.04) mg/dL Est GFR (CKD-EPI)AfAm (>60 ml/min/1.73 sqM) Est GFR (CKD-EPI)NonAf (>60 ml/min/1.73 sqM) Glucose (74-99) mg/dL Calcium (8.4-10.2) mg/dL Magnesium (1.6-2.3) mg/dL Total Bilirubin (0.2-1.3) mg/dL AST (14-36) U/L ALT (4-34) U/L Alkaline Phosphatase (38-126) U/L Troponin I <0.012 (0.000-0.034) ng/mL NT-Pro-B Natriuret Pep 824 pg/mL Total Protein (6.3-8.2) g/dL Albumin (3.5-5.0) g/dL Urine Color Light Yellow Urine Appearance Clear (Clear) Urine pH 6.0 (5.0-8.0) Ur Specific [place] 1.011 (1.001-1.035) Urine Protein Trace H (Negative) Urine Glucose (UA) Negative (Negative) Urine Ketones Negative (Negative) Urine Blood Negative (Negative) Urine Nitrite Negative (Negative) Urine Bilirubin Negative (Negative) Urine Urobilinogen <2.0 (<2.0) mg/dL Ur Leukocyte Esterase Negative (Negative) Disposition Clinical Impression: Congestive heart failure Disposition: Left Against Medical Advice Condition: Fair Is patient prescribed a controlled substance at d/c from ED?: No
[2022-08-01] MEDS ORDERED: APIXABAN 5 MG TAB PO SCH (09:00)
[2022-08-01] MEDS ORDERED: FLECAINIDE 50 MG TAB PO SCH (09:00)
[2022-08-01] MEDS ORDERED: METOPROLOL TARTRATE 50 MG TAB PO SCH (09:00)
[2022-08-01] MEDS ORDERED: CHOLECALCIFEROL 125 MCG (5000 IU) TABLET PO SCH (09:00)
[2022-08-01] MEDS ORDERED: OXYBUTYNIN CHLORIDE 5 MG TAB PO SCH (09:00)
[2022-08-01] MEDS ORDERED: buPROPion XL 150 MG TAB.ER.24H PO SCH (09:00)
[2022-08-01] MEDS ORDERED: LOSARTAN 50 MG TAB PO SCH (09:00)
[2022-08-01] MEDS ORDERED: ATORVASTATIN 20 MG TAB PO SCH (21:00)
== END 2022-08-01 01:36 | disposition left against medical advice (07) ==
LOC: EC 20:51 → 6NMEDSUR 08-01 00:06
PROVIDERS: ADMIT Internal Medicine; ATTEND Internal Medicine
DX: R07.89 Other chest pain (principal); R06.02 Shortness of breath; Z79.01 Long term (current) use of anticoagulants; Z79.899 Other long term (current) drug therapy; Z88.5 Allergy status to narcotic agent; Z88.8 Allergy status to other drugs, medicaments and biological substances; I48.91 Unspecified atrial fibrillation; Z53.29 Procedure and treatment not carried out because of patient's decision for other reasons; J45.909 Unspecified asthma, uncomplicated; K21.9 Gastro-esophageal reflux disease without esophagitis; H91.90 Unspecified hearing loss, unspecified ear; E78.5 Hyperlipidemia, unspecified; I10 Essential (primary) hypertension; M19.90 Unspecified osteoarthritis, unspecified site; M06.9 Rheumatoid arthritis, unspecified; G47.30 Sleep apnea, unspecified; M54.32 Sciatica, left side; M54.31 Sciatica, right side; H00-H59 Diseases of the eye and adnexa; N32.81 Overactive bladder; H91.91 Unspecified hearing loss, right ear; I83.90 Asymptomatic varicose veins of unspecified lower extremity; Z90.710 Acquired absence of both cervix and uterus; Z96.651 Presence of right artificial knee joint; Z95.0 Presence of cardiac pacemaker; Z90.13 Acquired absence of bilateral breasts and nipples; Z98.42 Cataract extraction status, left eye; Z98.41 Cataract extraction status, right eye; Z96.1 Presence of intraocular lens
CPT/HCPCS: 96374; 99285; 36415; 93005; 83880; 80053; 83735; 84484; 85025; 85610; 85730; 81003; 71046; G0378; J1940

== ENCOUNTER → 2022-10-06 | Outpatient (CLI) | payer MEDICARE, BC ==
--- NOTE | 2022-10-09 08:25 | MM ---
Reason for Exam: Screening (asymptomatic). Last mammogram was performed 1 year(s) and 4 month(s) ago. Patient History: Menarche at age 10. First Full-Term at age 34. Late child-bearing (after 28). Left ovary removed at age 45. Right ovary removed at age 45. Hysterectomy at age 45. Postmenopausal. Estrogen for 13 years from age 45 until age 58. Reduction on the Right side. Reduction on the Left side. Excisional Biopsy on the Right side. Excisional Biopsy on the Right side. Excisional Biopsy on the Left side. Excisional Biopsy on the Left side. Excisional Biopsy on the Left side. Excisional Biopsy on the Left side. 2005, Bilateral Implants. 1995, Bilateral Implants. Maternal grandmother had breast cancer, age 60. Risk Values: [place] 5 year model risk: 3.7%. NCI Lifetime model risk: 8.3%. Prior Study Comparison: 02/27/2017 Bilateral Screening Mammogram, [facility]. 04/26/2018 Bilateral Diagnostic Mammogram, [facility]. 06/01/2021 Bilateral Screening Mammogram, [facility]. Tissue Density: There are scattered fibroglandular densities. Findings: Analyzed By CAD. Pattern appears symmetrical and stable. Benign linear calcifications are within the left breast. Bilateral breast prostheses are present. No suspicious groups of microcalcifications, spiculated or lobular masses, architectural distortion or other secondary signs of malignancy are mammographically apparent. Overall Assessment: Benign, BI-RAD 2 Management: Screening Mammogram of both breasts in 1 year. A negative mammogram report should not preclude additional follow up of suspicious palpable abnormalities. Patient should continue monthly self breast exam. A clinical breast exam by your physician is recommended on an annual basis and results should be correlated with mammographic findings. Electronically signed and approved by: Dinh Adkins D.O. Radiologis
== END | disposition home or self-care (01) ==
LOC: RADMAMWWP 06:51
PROVIDERS: ATTEND Internal Medicine
DX: Z12.31 Encounter for screening mammogram for malignant neoplasm of breast (principal); Z78.0 Asymptomatic menopausal state; Z80.3 Family history of malignant neoplasm of breast
CPT/HCPCS: 77063; 77067

== ENCOUNTER 2023-04-11 07:17 | Observation (INO) | payer MEDICARE, BC ==
[2023-04-11] MEDS ORDERED: hydrALAZINE HCL 20 MG/ML 1 ML VIAL IVP STA (07:48)
--- NOTE | 2023-04-11 08:44 | ED ---
General Adult HPI - General Chief complaint: Recheck/Abnormal Lab/Rx Stated complaint: Numbness,High Heart Rate,History of Pacemaker Time Seen by Provider: 04/11/23 07:31 Source: patient, RN notes reviewed, old records reviewed Mode of arrival: ambulatory Limitations: no limitations - History of Present Illness Initial comments: Patient is a 72-year-old female who presents emergency Department complaining of hypertension, as well as bilateral arm tingling sensation, Patient was also complaining of some abnormal chest discomfort that she is having hard time describing.. States it all started this morning and she initially woke up. Woke up again at 6 and she was still having some symptoms after they began at approximately 4 AM. Checked her blood pressure was elevated so she took her blood pressure medications early. States systolics over 200. He presents for further evaluation at this time. Denies any chest pain. States she just has a feeling of generalized body sensation that is difficult to explain. Denies any clarissa back pain. Denies any headaches or blurry vision. Denies any weakness or numbness currently. Denies any abdominal pain, nausea, vomiting. No other acute complaints at this time. Presents for further evaluation. - Related Data Home Medications Medication Instructions Recorded Confirmed Mometasone Furoate [Nasonex 50 mcg 1 - 2 spr EA NOSTRIL DAILY PRN 01/19/17 04/11/23 Nasal Prentiss] Cholecalciferol [Vitamin D3 (125 125 mcg PO DAILY 01/30/22 04/11/23 Mcg = 5000 Iu)] Simvastatin [Zocor] 40 mg PO HS 01/30/22 04/11/23 buPROPion XL [Wellbutrin XL] 150 mg PO BID 03/17/22 04/11/23 Apixaban [Eliquis] 5 mg PO BID 03/22/22 04/11/23 Losartan Potassium 50 mg PO BID 07/31/22 04/11/23 Metoprolol Tartrate [Lopressor] 50 mg PO BID 07/31/22 04/11/23 oxyBUTYnin chloride [Ditropan] 5 mg PO BID 07/31/22 04/11/23 Acetaminophen Tab [Tylenol Tab] 500 mg PO Q6H PRN 04/11/23 04/11/23 Amoxic-Pot Clav 875-125Mg 1 tab PO Q12HR 04/11/23 04/11/23 [Augmentin 875-125] Ezetimibe [Zetia] 10 mg PO DAILY 04/11/23 04/11/23 Fexofenadine/Pseudoephedrine 1 tab PO DAILY PRN 04/11/23 04/11/23 [Emma-D 24 Hour Tablet] Fluticasone Nasal Prentiss [Flonase 2 spray EA NOSTRIL DAILY PRN 04/11/23 04/11/23 Nasal Prentiss] LORazepam [Ativan] 0.5 mg PO HS PRN 04/11/23 04/11/23 busPIRone HCl [Buspar] 5 mg PO BID 04/11/23 04/11/23 Previous Rx's Medication Instructions Recorded Flecainide [Tambocor] 100 mg PO Q12HR #60 tab 03/21/22 Baclofen 5 mg PO BID PRN 30 Days #60 tablet 03/22/22 Allergies Allergy/AdvReac Type Severity Reaction Status Date / Time tocilizumab [From Actemra] Allergy Severe Dyspnea, Verified 04/11/23 11:45 sores, itching, sore throat meperidine HCl [From Demerol] AdvReac Nausea Verified 04/11/23 11:45 Review of Systems ROS Statement: Those systems with pertinent positive or pertinent negative responses have been documented in the HPI. Review of Systems: CONST: Denies fever EYES: Denies blurry vision ENT: Denies nasal congestion C/V: Denies Chest pain RESP: Denies shortness of breath GI: Denies abdominal pain : Denies dysuria SKIN: Denies rash. MSK: Denies joint pain. NEURO: Denies headache ROS Other: All systems not noted in ROS Statement are negative. Past Medical History Past Medical History: Atrial Fibrillation, Asthma, Eye Disorder, GERD/Reflux, Hearing Disorder / Deafness, Hyperlipidemia, Hypertension, Osteoarthritis (OA), Rheumatoid Arthritis (RA), Sleep Apnea/CPAP/BIPAP Additional Past Medical History / Comment(s): HX BACK PAIN, hx Sciaticia bilateral legs. Hx FX lower back. ADIE'S TONIC PUPIL/FIXED PUPILS- BILATERAL EYES, HAS LENS IMPLANT IN RT EYE. HX "PRE-CANCER OF BREAST." OVERACTIVE BLADDER. DEAF RT EAR. CPAP use., Varicose veins. Swelling in top of feet, discoloration around left ankle, neck pain radiates to arms and hands. History of Any Multi-Drug Resistant Organisms: None Reported Past Surgical History: Bladder Surgery, Cholecystectomy, Heart Catheterization, Hysterectomy, Joint Replacement, Orthopedic Surgery, Pacemaker Additional Past Surgical History / Comment(s): RT KNEE REPLACEMENT, VANESSA BREAST MASTECTOMY W/ RECONSTRUCTION. IMPLANTS VANESSA BREAST, RT EYE LENS IMPLANT, EXC VANESSA CATARACTS WITH LENS IMPLANT. RT. CARPAL TUNNEL RELEASE, arthroscopy of knee, pain clinic procedure. Past Anesthesia/Blood Transfusion Reactions: Postoperative Nausea & Vomiting (PONV) Additional Past Anesthesia/Blood Transfusion Reaction / Comment(s): Mother- PONV. Past Psychological History: Anxiety, Panic Disorder Smoking Status: Never smoker Past Alcohol Use History: None Reported Past Drug Use History: None Reported - Past Family History Brother(s) Family Medical History: Cancer Additional Family Medical History / Comment(s): Testicular Cancer. Prostate cancer. General Exam - General Exam Comments Initial Comments: General: Appears in no acute distress. HEAD: Normal with no signs of head trauma. EYES: PERRLA, EOMI, conjunctiva normal, no discharge. Pupils are 3 mm and equal bilaterally. ENT: Hearing grossly intact, normal oropharynx. RESPIRATORY: Clear breath sounds bilaterally. No wheezes, rales, or rhonchi. C/V: Regular rate and rhythm. S1 and S2 auscultated, no edema, peripheral pulses 2+ and intact throughout ABD: Abd is soft, nontender, nondistended EXT: Normal range of motion, no obvious deformity SKIN: No rashes or lesions observed on exposed skin. NEURO: Alert and oriented x 4. Cranial nerves II-XII intact. No focal sensory or strength deficits. NIH of 0. GCS of 15. Limitations: no limitations Course Vital Signs 04/11/23 04/11/23 04/11/23 07:21 09:48 12:05 Temperature 98.1 F Pulse Rate 62 55 L 55 L Respiratory 18 18 18 Rate Blood Pressure 233/86 194/87 190/81 O2 Sat by Pulse 98 96 94 L Oximetry Medical Decision Making - Medical Decision Making Was pt. sent in by a medical professional or institution (, PA, DOG TRAINER, urgent care, hospital, or long term...) When possible be specific @ -No Did you speak to anyone other than the patient for history (EMS, parent, family, police, friend...)? What history was obtained from this source @ -No Did you review nursing and triage notes (agree or disagree)? Why? @ -I reviewed and agree with nursing and triage notes Were old charts reviewed (outside hosp., previous admission, EMS record, old EKG, old radiological studies, urgent care reports/EKG's, long term records)? Report findings @ -No old charts were reviewed Differential Diagnosis (chest pain, altered mental status, abdominal pain women, abdominal pain men, vaginal bleeding, weakness, fever, dyspnea, syncope, headache, dizziness, GI bleed, back pain, seizure, CVA, palpatations, mental health, musculoskeletal)? @ -ACS, infection, dehydration, uncontrolled hypertension, aortic injury. This list is not all inclusive. EKG interpreted by me (3pts min.). @ -As above X-rays interpreted by me (1pt min.). @ -None done CT interpreted by me (1pt min.). @ - U/S interpreted by me (1pt. min.). @ -None done What testing was considered but not performed or refused? (CT, X-rays, U/S, labs)? Why? @ -Considered chest x-ray however patient is already receiving CT imaging of the chest. What meds were considered but not given or refused? Why? @ -Considered additional antihypertensive medications however patient's repeat blood pressure is improved. Systolics now in the 160s. Did you discuss the management of the patient with other professionals (professionals i.e. , PA, DOG TRAINER, lab, RT, psych nurse, web content & social media manager, heat plant specialist, teacher, loan review officer, bilingual patient support caseworker)? Give summary @ -Discussed with Dr. temple who accepted the admission. Was smoking cessation discussed for >3mins.? @ -No Was critical care preformed (if so, how long)? @ -No Were there social determinants of health that impacted care today? How? (Homelessness, low income, unemployed, alcoholism, drug addiction, transportation, low edu. Level, literacy, decrease access to med. care, correction, rehab)? @ -No Was there de-escalation of care discussed even if they declined (Discuss DNR or withdrawal of care, Hospice)? DNR status @ -No What co-morbidities impacted this encounter? (DM, HTN, Smoking, COPD, CAD, Cancer, CVA, ARF, Chemo, Hep., AIDS, mental health diagnosis, sleep apnea, morbid obesity)? @ -None Was patient admitted / discharged? Hospital course, mention meds given and route, prescriptions, significant lab abnormalities, going to OR and other pertinent info. @ -Based on patient's presentation and physical exam, presents complaining of nonspecific symptoms. Only definitive symptom upon arrival was hypertension. She was placed in a fast track room as all other beds were taken up at this time. Labs were obtained. Bedtime with repeated blood pressure, believe her home antihypertensives which she took approximately 1 hour prior to arrival began to work as her blood pressure is now systolics 160s. We will hold off on any additional antihypertensive medications. However due to her hypertension, as well as nonspecific sensory type symptoms, we will obtain CT brain as well as CT of the order. Patient was in agreement this plan. No signs otherwise within acceptable limits. EKG shows a paced rhythm with no obvious acute ischemic process.Patient's imaging unremarkable. No evidence of dissection. There was a long delay in CT angiogram read from radiology.CT brain without any septal limits. Pulmonary nodule seen on CT. Patient was made aware of this. Workup unremarkable. Initial troponin is undetectable. On reevaluation, patient is still feeling somewhat nauseous. Blood pressure is improved. States the chest discomfort comes and goes. Currently has none. Due to her history, heart score is moderate and we will admit the patient at this time. She was in agreement with this plan. She is given 324 mg of aspirin at this time. Cardiology consulted. I spoke with the admitting physician, Dr. Temple who is covering for Dr. Rosado who accepted the patient. Undiagnosed new problem with uncertain prognosis? @ -No Drug Therapy requiring intensive monitoring for toxicity (Heparin, Nitro, Insulin, Cardizem)? @ -No Were any procedures done? @ -No Diagnosis/symptom? @ -Atypical chest pain, hypertension Acute, or Chronic, or Acute on Chronic? @ -Acute Uncomplicated (without systemic symptoms) or Complicated (systemic symptoms)? @ -Complicated Side effects of treatment? @ -none Exacerbation, Progression, or Severe Exacerbation] @ -no Poses a threat to life or bodily function? @ -yes - Lab Data Result diagrams: 04/11/23 09:45 04/11/23 08:04 Lab Results 04/11/23 04/11/23 04/11/23 Range/Units 08:04 08:04 08:40 WBC (3.8-10.6) k/uL RBC (3.80-5.40) m/uL Hgb (11.4-16.0) gm/dL Hct (34.0-46.0) % MCV (80.0-100.0) fL MCH (25.0-35.0) pg MCHC (31.0-37.0) g/dL RDW (11.5-15.5) % Plt Count (150-450) k/uL MPV Neutrophils % % Lymphocytes % % Monocytes % % Eosinophils % % Basophils % % Neutrophils # (1.3-7.7) k/uL Lymphocytes # (1.0-4.8) k/uL Monocytes # (0-1.0) k/uL Eosinophils # (0-0.7) k/uL Basophils # (0-0.2) k/uL PT 10.9 (10.0-12.5) sec INR 1.0 (<1.2) APTT 26.6 (22.0-30.0) sec Sodium 139 (137-145) mmol/L Potassium 4.5 (3.5-5.1) mmol/L Chloride 104 (98-107) mmol/L Carbon Dioxide 26 (22-30) mmol/L Anion Gap 9 mmol/L BUN 21 H (7-17) mg/dL Creatinine 0.80 (0.52-1.04) mg/dL Est GFR (CKD-EPI)AfAm 84 (>60 ml/min/1.73 sqM) Est GFR (CKD-EPI)NonAf 73 (>60 ml/min/1.73 sqM) Glucose 116 H (74-99) mg/dL Calcium 8.8 (8.4-10.2) mg/dL Magnesium 1.8 (1.6-2.3) mg/dL Total Bilirubin 1.5 H (0.2-1.3) mg/dL AST 30 (14-36) U/L ALT 23 (4-34) U/L Alkaline Phosphatase 85 (38-126) U/L Troponin I <0.012 (0.000-0.034) ng/mL Total Protein 6.4 (6.3-8.2) g/dL Albumin 3.6 (3.5-5.0) g/dL Urine Color Urine Appearance (Clear) Urine pH (5.0-8.0) Ur Specific [place] (1.001-1.035) Urine Protein (Negative) Urine Glucose (UA) (Negative) Urine Ketones (Negative) Urine Blood (Negative) Urine Nitrite (Negative) Urine Bilirubin (Negative) Urine Urobilinogen (<2.0) mg/dL Ur Leukocyte Esterase (Negative) Influenza Type A (PCR) (Not Detectd) Influenza Type B (PCR) (Not Detectd) RSV (PCR) (Not Detectd) SARS-CoV-2 (PCR) (Not Detectd) 04/11/23 04/11/23 04/11/23 Range/Units 08:47 08:47 09:45 WBC 6.9 (3.8-10.6) k/uL RBC 4.40 (3.80-5.40) m/uL Hgb 14.3 (11.4-16.0) gm/dL Hct 44.2 (34.0-46.0) % MCV 100.6 H (80.0-100.0) fL MCH 32.5 (25.0-35.0) pg MCHC 32.3 (31.0-37.0) g/dL RDW 12.3 (11.5-15.5) % Plt Count 171 (150-450) k/uL MPV 9.5 Neutrophils % 72 % Lymphocytes % 16 % Monocytes % 6 % Eosinophils % 3 % Basophils % 0 % Neutrophils # 5.0 (1.3-7.7) k/uL Lymphocytes # 1.1 (1.0-4.8) k/uL Monocytes # 0.4 (0-1.0) k/uL Eosinophils # 0.2 (0-0.7) k/uL Basophils # 0.0 (0-0.2) k/uL PT (10.0-12.5) sec INR (<1.2) APTT (22.0-30.0) sec Sodium (137-145) mmol/L Potassium (3.5-5.1) mmol/L Chloride (98-107) mmol/L Carbon Dioxide (22-30) mmol/L Anion Gap mmol/L BUN (7-17) mg/dL Creatinine (0.52-1.04) mg/dL Est GFR (CKD-EPI)AfAm (>60 ml/min/1.73 sqM) Est GFR (CKD-EPI)NonAf (>60 ml/min/1.73 sqM) Glucose (74-99) mg/dL Calcium (8.4-10.2) mg/dL Magnesium (1.6-2.3) mg/dL Total Bilirubin (0.2-1.3) mg/dL AST (14-36) U/L ALT (4-34) U/L Alkaline Phosphatase (38-126) U/L Troponin I (0.000-0.034) ng/mL Total Protein (6.3-8.2) g/dL Albumin (3.5-5.0) g/dL Urine Color Light Yellow Urine Appearance Clear (Clear) Urine pH 7.0 (5.0-8.0) Ur Specific [place] 1.030 (1.001-1.035) Urine Protein Negative (Negative) Urine Glucose (UA) Negative (Negative) Urine Ketones Negative (Negative) Urine Blood Negative (Negative) Urine Nitrite Negative (Negative) Urine Bilirubin Negative (Negative) Urine Urobilinogen <2.0 (<2.0) mg/dL Ur Leukocyte Esterase Negative (Negative) Influenza Type A (PCR) Not Detected (Not Detectd) Influenza Type B (PCR) Not Detected (Not Detectd) RSV (PCR) Not Detected (Not Detectd) SARS-CoV-2 (PCR) Not Detected (Not Detectd) - EKG Data -: EKG Interpreted by Me EKG Comments: 12-lead Electrocardiogram Interpretation Note EKG was reviewed and interpreted by myself. 12-lead ECG performed at 0735 is interpreted by me as revealing paced rhythm at a rate of 55 beats per minute. Atypical axis. [place] interval is 266 ms, QRS duration is 202 ms, QTc is 496 ms.. There were no ST or T wave abnormalities to suggest myocardial ischemia or injury. R wave progression across the precordium was satisfactory. By my interpretation this EKG is non-diagnostic for acute ischemia. Disposition Clinical Impression: Chest pain, Hypertension Disposition: ADMITTED IP TO THIS HOSP Condition: Stable Time of Disposition: 11:51
[2023-04-11 09:09] LABS: Appearance,Urine Clear (Clear); Bilirubin,Urine Negative (Negative); Blood,Urine Negative (Negative); Color,Urine Light Yellow; Glucose,Urine (UA) Negative (Negative); Ketones,Urine Negative (Negative); Leukocyte Esterase,Urine Negative (Negative); Nitrite,Urine Negative (Negative); Protein,Urine Negative (Negative); Urobilinogen,Urine <2.0 mg/dL (<2.0)
--- NOTE | 2023-04-11 09:14 | CT ---
EXAMINATION TYPE: CT brain wo con CT DLP: 1095.4 mGycm, Automated exposure control for dose reduction was used. DATE OF EXAM: 04/11/2023 8:47 AM COMPARISON: None. CLINICAL INDICATION:Female, 72 years old with history of bilateral arm numbness. HTN., bilateral arm numbness TECHNIQUE: Brain: Axial CT images of the brain were obtained with coronal and sagittal reformats created and rev iewed. Contrast used: None. Oral contrast used: None. FINDINGS: The axial images submitted exclude portions of the inferior posterior fossa, however these are seen o n the coronal and sagittal series. Extra-axial spaces: No abnormal extra-axial fluid collections. Ventricular system: Appear dilated in proportion to the degree of cerebral atrophy. Cerebral parenchyma: No increased attenuation to suggest acute intraparenchymal hemorrhage. The gra y-white matter interface appears maintained. Mild generalized brain atrophy. White matter unremarka ble by CT. Cerebellum: No acute abnormality. Mass effect: No evidence of mass effect or midline shift. Intracranial vasculature: Unremarkable Soft tissues: Normal. Visualized orbits: Orbital contents appear grossly intact. There has likely been previous lens surg roseann. Calvarium/osseous structures: No evidence of calvarial fracture. Paranasal sinuses and mastoid air cells: Mild scattered paranasal sinus mucosal disease. MRI is more sensitive for detecting acute processes such as infarct, and may be considered if clinica lly warranted. IMPRESSION: No acute intracranial CT abnormality.
[2023-04-11 09:58] LABS: Basophils % (A) 0 %; Eosinophils # (A) 0.2 k/uL (0-0.7); Eosinophils % (A) 3 %; HCT 44.2 % (34.0-46.0); HGB 14.3 gm/dL (11.4-16.0); Lymphocytes # (A) 1.1 k/uL (1.0-4.8); Lymphocytes % (A) 16 %; MCH 32.5 pg (25.0-35.0); MCHC 32.3 g/dL (31.0-37.0); MCV 100.6 fL (80.0-100.0); Mean Platelet Volume 9.5; Monocytes # (A) 0.4 k/uL (0-1.0); Monocytes % (A) 6 %; Neutrophils % (A) 72 %; Platelet Count 171 k/uL (150-450); RDW 12.3 % (11.5-15.5); WBC 6.9 k/uL (3.8-10.6)
[2023-04-11 10:09] LABS: ALT 23 U/L (4-34); AST 30 U/L (14-36); African American GFR (CKD) 84 (>60 ml/min/1.73 sqM); Albumin 3.6 g/dL (3.5-5.0); Alkaline Phosphatase 85 U/L (38-126); Anion Gap 9 mmol/L; Blood Urea Nitrogen 21 mg/dL (7-17); Calcium 8.8 mg/dL (8.4-10.2); Carbon Dioxide 26 mmol/L (22-30); Chloride 104 mmol/L (98-107); Glucose 116 mg/dL (74-99); Magnesium 1.8 mg/dL (1.6-2.3); Non-African American GFR(CKD) 73 (>60 ml/min/1.73 sqM); Potassium 4.5 mmol/L (3.5-5.1); Sodium 139 mmol/L (137-145); Total Bilirubin 1.5 mg/dL (0.2-1.3); Total Protein 6.4 g/dL (6.3-8.2)
[2023-04-11 10:14] LABS: Partial Thromboplastin Time 26.6 sec (22.0-30.0); Prothrombin Time 10.9 sec (10.0-12.5)
--- NOTE | 2023-04-11 11:45 | CT ---
EXAMINATION TYPE: CT angio thor/abd pel aorta CT DLP: 3736.8 mGycm, Automated exposure control for dose reduction was used. DATE OF EXAM: 04/11/2023 8:48 AM COMPARISON: . CLINICAL INDICATION:Female, 72 years old with history of back pain, arm numbness, HTN. eval for disse ction; PHH, back pain, arm numbness, HTN. eval for dissection TECHNIQUE: Dissection protocol: Noncontrast CT followed by postcontrast CT images of the chest, abdom en, and pelvis obtained during arterial phase. 3-D reformats and maximum intensity projection format were performed on a separate workstation. Contrast used:100 mL of Isovue 370 without and with IV Contrast, Oral contrast used: without Oral Contrast FINDINGS: ARTERIAL VASCULATURE: Overall there is a moderate amount of calcified plaque throughout the aorta, in cluding the aortic valve, coronary arteries, and major branches in the abdomen and pelvis. No aortic intramural hematoma. Some plaque at the origins of the arch branch vessels with mild stenoses. Aorta otherwise enhances normally without evidence of dissection. Calcific plaque with mild narrowing of the origins of the celiac and superior mesenteric arteries. Th ere appear to be single bilateral renal arteries with mild proximal calcific plaque and no significan t stenosis. Mildly tortuous abdominal aorta without evidence of aneurysm. Mild/moderate infrarenal at herosclerotic calcific plaque. The bifurcation appears patent. The bilateral iliac arterial trees dorian w relatively mild calcific disease and appear patent without evidence of significant stenosis, aneury sm, or stenosis. PULMONARY ARTERIAL VASCULATURE: Suboptimal contrast timing for evaluation of the pulmonary arteries, however there is no large central/saddle embolus seen. Evaluation of segmental branches and beyond is limited but no PE is suggested. The pulmonary trunk is significantly enlarged measuring 4.6 cm trans verse. VENOUS SYSTEM: A left chest permanent transvenous pacemaker is present with its lead tips in the RA a nd RV. Lungs/pleura: Emphysematous bleb at the left lung apex measures up to 22 mm. Semicircular subpleural nodule in the right upper lobe laterally image 50 series 506 measures 5 mm. Another 4 mm nodule image 33, and another image 37. No sizable nodules of concern. A 13 mm groundglass focus in the right uppe r lobe above the fissure image 58. No confluent airspace consolidation, pleural effusion, or pneumoth orax. Mildly prominent pleural fat. Heart: Heart appears mildly enlarged. Grossly preserved enhancement of its chambers. There is no an cardial effusion. Mediastinum: No gross evidence of adenopathy. Lower Neck: No significant findings. Dense focal calcification in the right thyroid towards the isthm us. Chest wall: Bilateral prepectoral breast implants; intracapsular rupture cannot be excluded from this study. No evidence of axillary adenopathy. Abdomen: Liver: Unremarkable. Gallbladder and Bile ducts: Status post cholecystectomy. Nondilated biliary tree. Pancreas: Mild fatty infiltration otherwise unremarkable. Spleen: Unremarkable. Adrenal glands: Mildly thickened without evidence of mass.. Kidneys and Ureters: Developmental transverse lie of the right kidney. A 2-3 mm calculus in the infer ior right kidney. A 1.5 cm hypodensity in the posterior right kidney most suggestive of a cyst. Left kidney shows no visible calculi or cortical lesion. No hydronephrosis bilaterally. There seems to be mild bilateral cortical thinning. Bladder: Unremarkable. Reproductive: Uterus not seen, correlate for hysterectomy. Ovaries not clearly identified. No evidenc e of pelvic mass.. Stomach and Bowel: Stomach and small bowel are nondistended, there is no evidence of obstruction. The appendix appears within normal limits. Mild/moderate stool throughout the colon and scattered divert icula without evidence of diverticulitis. Peritoneum: No evidence of pneumoperitoneum, free fluid, or adenopathy. Musculoskeletal: Osseous mineralization appears slightly diminished. There are moderate diffuse degen erative changes. Mild/moderate spinal canal and neural foraminal stenoses at multiple lumbar levels. No clearly acute osseous abnormality. Lymph nodes: No evidence of lymphadenopathy. Abdominal wall/soft tissues: Tiny fat-containing umbilical hernia. Scarring along the ventral midline abdominal pelvic wall. IMPRESSION: * Moderate diffuse calcific atherosclerotic disease involving the aorta and branches, including the coronary arteries. * No evidence of aortic dissection or aneurysm. * Mild cardiomegaly with dual lead pacemaker in place. No signs of CHF. * A few subcentimeter pulmonary nodules, as well as an approximately 13 mm groundglass focus in the right upper lobe. Recommend short-term follow up CT chest in about 4-6 months to reassess. * Significantly enlarged pulmonary trunk, can be seen with pulmonary hypertension. * Multiple other chronic and likely incidental findings, as detailed above.
[2023-04-11] MEDS ORDERED: ASPIRIN 81 MG PO STA (11:50)
[2023-04-11] MEDS ORDERED: ONDANSETRON 4 MG/2 ML VIAL IVP STA (11:50)
[2023-04-11] MEDS ORDERED: NALOXONE 0.4 MG/ML 1 ML VIAL IV PRN (12:01)
[2023-04-11] MEDS ORDERED: BACLOFEN 10 MG TAB PO PRN (12:02)
[2023-04-11] MEDS ORDERED: ACETAMINOPHEN TAB 500 MG TAB PO PRN (12:02)
[2023-04-11] MEDS ORDERED: FLUTICASONE 50MCG/SPRAY NASAL 16GM EA NOSTRIL PRN (12:02)
[2023-04-11] MEDS ORDERED: LORazepam 0.5 MG TAB PO PRN (12:02)
[2023-04-11] MEDS: hydrALAZINE HCL 20 MG/ML 1 ML VIAL IVP STA ×2 (13:07→13:11)
[2023-04-11] MEDS ORDERED: MOMETASONE FUROATE EA NOSTRIL PRN (13:29)
[2023-04-11] MEDS ORDERED: LORATADINE-PSEUDOEPH 5-120 MG 1 EACH TAB.ER.12H PO PRN (13:29)
[2023-04-11] MEDS ORDERED: PUMP EA NOSTRIL PRN (13:29)
[2023-04-11] MEDS: PANTOPRAZOLE 40 MG/10 ML VIAL IVP SCH ×2 (13:47→21:16)
--- NOTE | 2023-04-11 14:06 | ED ---
Medical Decision Making - Medical Decision Making Diagnosis/symptom? @ -Pulmonary nodules Acute, or Chronic, or Acute on Chronic? @ -Unknown Uncomplicated (without systemic symptoms) or Complicated (systemic symptoms)? @ -Uncomplicated Side effects of treatment? @ -none Exacerbation, Progression, or Severe Exacerbation] @ -no Poses a threat to life or bodily function? @ -Unknown - Lab Data Result diagrams: 04/11/23 09:45 04/11/23 08:04 Lab Results 04/11/23 04/11/23 04/11/23 Range/Units 08:04 08:04 08:40 WBC (3.8-10.6) k/uL RBC (3.80-5.40) m/uL Hgb (11.4-16.0) gm/dL Hct (34.0-46.0) % MCV (80.0-100.0) fL MCH (25.0-35.0) pg MCHC (31.0-37.0) g/dL RDW (11.5-15.5) % Plt Count (150-450) k/uL MPV Neutrophils % % Lymphocytes % % Monocytes % % Eosinophils % % Basophils % % Neutrophils # (1.3-7.7) k/uL Lymphocytes # (1.0-4.8) k/uL Monocytes # (0-1.0) k/uL Eosinophils # (0-0.7) k/uL Basophils # (0-0.2) k/uL PT 10.9 (10.0-12.5) sec INR 1.0 (<1.2) APTT 26.6 (22.0-30.0) sec Sodium 139 (137-145) mmol/L Potassium 4.5 (3.5-5.1) mmol/L Chloride 104 (98-107) mmol/L Carbon Dioxide 26 (22-30) mmol/L Anion Gap 9 mmol/L BUN 21 H (7-17) mg/dL Creatinine 0.80 (0.52-1.04) mg/dL Est GFR (CKD-EPI)AfAm 84 (>60 ml/min/1.73 sqM) Est GFR (CKD-EPI)NonAf 73 (>60 ml/min/1.73 sqM) Glucose 116 H (74-99) mg/dL Calcium 8.8 (8.4-10.2) mg/dL Magnesium 1.8 (1.6-2.3) mg/dL Total Bilirubin 1.5 H (0.2-1.3) mg/dL AST 30 (14-36) U/L ALT 23 (4-34) U/L Alkaline Phosphatase 85 (38-126) U/L Troponin I <0.012 (0.000-0.034) ng/mL Total Protein 6.4 (6.3-8.2) g/dL Albumin 3.6 (3.5-5.0) g/dL Urine Color Urine Appearance (Clear) Urine pH (5.0-8.0) Ur Specific [place] (1.001-1.035) Urine Protein (Negative) Urine Glucose (UA) (Negative) Urine Ketones (Negative) Urine Blood (Negative) Urine Nitrite (Negative) Urine Bilirubin (Negative) Urine Urobilinogen (<2.0) mg/dL Ur Leukocyte Esterase (Negative) Influenza Type A (PCR) (Not Detectd) Influenza Type B (PCR) (Not Detectd) RSV (PCR) (Not Detectd) SARS-CoV-2 (PCR) (Not Detectd) 04/11/23 04/11/23 04/11/23 Range/Units 08:47 08:47 09:45 WBC 6.9 (3.8-10.6) k/uL RBC 4.40 (3.80-5.40) m/uL Hgb 14.3 (11.4-16.0) gm/dL Hct 44.2 (34.0-46.0) % MCV 100.6 H (80.0-100.0) fL MCH 32.5 (25.0-35.0) pg MCHC 32.3 (31.0-37.0) g/dL RDW 12.3 (11.5-15.5) % Plt Count 171 (150-450) k/uL MPV 9.5 Neutrophils % 72 % Lymphocytes % 16 % Monocytes % 6 % Eosinophils % 3 % Basophils % 0 % Neutrophils # 5.0 (1.3-7.7) k/uL Lymphocytes # 1.1 (1.0-4.8) k/uL Monocytes # 0.4 (0-1.0) k/uL Eosinophils # 0.2 (0-0.7) k/uL Basophils # 0.0 (0-0.2) k/uL PT (10.0-12.5) sec INR (<1.2) APTT (22.0-30.0) sec Sodium (137-145) mmol/L Potassium (3.5-5.1) mmol/L Chloride (98-107) mmol/L Carbon Dioxide (22-30) mmol/L Anion Gap mmol/L BUN (7-17) mg/dL Creatinine (0.52-1.04) mg/dL Est GFR (CKD-EPI)AfAm (>60 ml/min/1.73 sqM) Est GFR (CKD-EPI)NonAf (>60 ml/min/1.73 sqM) Glucose (74-99) mg/dL Calcium (8.4-10.2) mg/dL Magnesium (1.6-2.3) mg/dL Total Bilirubin (0.2-1.3) mg/dL AST (14-36) U/L ALT (4-34) U/L Alkaline Phosphatase (38-126) U/L Troponin I (0.000-0.034) ng/mL Total Protein (6.3-8.2) g/dL Albumin (3.5-5.0) g/dL Urine Color Light Yellow Urine Appearance Clear (Clear) Urine pH 7.0 (5.0-8.0) Ur Specific [place] 1.030 (1.001-1.035) Urine Protein Negative (Negative) Urine Glucose (UA) Negative (Negative) Urine Ketones Negative (Negative) Urine Blood Negative (Negative) Urine Nitrite Negative (Negative) Urine Bilirubin Negative (Negative) Urine Urobilinogen <2.0 (<2.0) mg/dL Ur Leukocyte Esterase Negative (Negative) Influenza Type A (PCR) Not Detected (Not Detectd) Influenza Type B (PCR) Not Detected (Not Detectd) RSV (PCR) Not Detected (Not Detectd) SARS-CoV-2 (PCR) Not Detected (Not Detectd) Disposition Clinical Impression: Chest pain, Hypertension, Pulmonary nodule Disposition: ADMITTED IP TO THIS [facility] Condition: Stable
[2023-04-11] MEDS ORDERED: ATORVASTATIN 20 MG TAB PO SCH (21:00)
[2023-04-11] MEDS: AMOXIC-POT CLAV 875-125MG 1 EACH TAB PO SCH (21:13)
[2023-04-11] MEDS: buPROPion XL 150 MG TAB.ER.24H PO SCH (21:14)
[2023-04-11] MEDS: FLECAINIDE 50 MG TAB PO SCH (21:14)
[2023-04-11] MEDS: APIXABAN 5 MG TAB PO SCH (21:15)
[2023-04-11] MEDS: oxyBUTYnin chloride 5 MG TAB PO SCH (21:15)
[2023-04-11] MEDS: busPIRone HCl 5 MG TAB PO SCH (21:16)
[2023-04-11] MEDS: LOSARTAN 50 MG TAB PO SCH (21:16)
[2023-04-11] MEDS: METOPROLOL TARTRATE 50 MG TAB PO SCH (21:23)
--- NOTE | 2023-04-11 23:25 | HP ---
HISTORY AND PHYSICAL CHIEF COMPLAINT: Paresthesia as well as numbness and high heart rate. HISTORY OF PRESENT ILLNESS: This is a 72-year-old woman with a past medical history of multiple medical problems including atrial ablation with pacemaker, woke up today around 4 a.m. with paresthesia, feeling nauseous, tingling of the arms. Blood pressure was only 165/115. Because of persistent symptoms, the patient came to [facility] and admitted for further evaluation and treatment. There is no history of any fever, rigors, or chills. No history of headache or loss of consciousness. The patient had some vague chest discomfort also. Evaluation including thoracic aortic CT and brain CT were negative. EKG showed no acute abnormality. PAST MEDICAL HISTORY: Reviewed include atrial fibrillation, pacemaker, asthma, rest of the history and chart is also reviewed. Dr. Grossman is following the patient in the outpatient setting. HOME MEDICATIONS: Reviewed include Tylenol, doses and rest of medications reviewed. ALLERGIES: Demerol. FAMILY HISTORY: History of cancer in the family. SOCIAL HISTORY: No history of smoking or alcohol intake. REVIEW OF SYSTEMS: A 14-point review is negative except as mentioned. PHYSICAL EXAMINATION: VITAL SIGNS: Pulse is 55, blood pressure 190/81, respirations 18. HEENT: Conjunctivae normal. NECK: No jugular venous distention. CARDIOVASCULAR: S1, S2 muffled. RESPIRATION: Diminished at the bases. ABDOMEN: Soft. LEGS: No edema. No swelling. NERVOUS SYSTEM: No focal deficit. SKIN: No ulcer, rash, bleeding. JOINTS: No active deforming arthropathy. LYMPHATICS: No lymph node palpable in neck, axillae or groin. LABORATORY DATA: Labs are reviewed. ASSESSMENT: 1. Chest discomfort and paresthesia, possible rule out coronary artery disease. 2. Atrial fibrillation. 3. Pacemaker. 4. Asthma. 5. Hypertension. 6. Hyperlipidemia. 7. History of rheumatoid arthritis. 8. Subcentimeter pulmonary nodules on the right, for outpatient followup. RECOMMENDATIONS AND DISCUSSION: 1. Recommended to continue current management, continue symptomatic treatment, rule out myocardial infarction. 2. Unstable angina protocol. Cardiology consultation. I would also recommend pulmonary consult as an outpatient for evaluation and followup of the pulmonary nodules. Other than that, repeat labs to be ordered. Resume the home medications once they are confirmed. We will follow the patient closely with you. Prognosis guarded. Further recommendations to follow. MMODL / IJN: [id number] /
[2023-04-12] MEDS ORDERED: MAG HYDROX/AL HYDROX/SIMETH 30 ML, HYOSCYAMINE ELIXIR 10 ML PO ONE ×2 (07:36)
[2023-04-12] MEDS ORDERED: ONDANSETRON 4 MG/2 ML VIAL IVP PRN (07:38)
[2023-04-12 07:42] VITALS: TEMP 97.8
[2023-04-12] MEDS ORDERED: REGADENOSON 0.4 MG/5 ML SYRINGE IV PRN (07:50)
[2023-04-12] MEDS ORDERED: CAFFEINE CITRATE 60 MG/3 ML VIAL IV PRN (07:50)
[2023-04-12] MEDS ORDERED: AMINOPHYLLINE 500 MG/20 ML VIAL IV PRN (07:50)
--- NOTE | 2023-04-12 07:50 | P.CRDCN ---
History of Present Illness History of present illness: HISTORY OF PRESENTING ILLNESS Patient is pleasant 72-year-old female with history of paroxysmal atrial fibrillation, tachybradycardia syndrome status post permanent pacemaker, GERD, rheumatoid arthritis, sleep apnea who presents secondary to elevated blood pressures and "not feeling well ". She admits she has been feeling nauseous and denies any actual chest pain or abdominal pain however on further questioning admits to some epigastric discomfort. She admits symptoms have been fairly persistent off and on for last month. Denies any obvious association with exertion however does have some dyspnea on exertion. She denies any palpitations and his been in atrial paced rhythm on EKG and telemetry. She denies any recent changes to medications. Her main concern was she usually ch ecks her blood pressure. Times a week and since she was not feeling well she checked her blood pressure was extremely elevated in the 180 to 190s and on presentation 223 systolic. She admits she has never had blood pressures as high. Additionally she was having some headache and arm tingling sensation on both sides. Denies missing any medications or new medications. REVIEW OF SYSTEMS At the time of my exam: CONSTITUTIONAL: Denies fever or chills. CARDIOVASCULAR: Denies chest pain, shortness of breath, orthopnea, PND or palpitations. RESPIRATORY: Denies cough. GASTROINTESTINAL: Denies abdominal pain, diarrhea, constipation, nausea or vomiting. MUSCULOSKELETAL: Denies myalgias. NEUROLOGIC: Denies numbness, tingling or weakness. ENDOCRINE: Denies fatigue, weight change, polydipsia or polyurina. GENITOURINARY: Denies burning, hematuria or urgency with micturation. HEMATOLOGIC: Denies history of anemia or bleeding. PHYSICAL EXAMINATION Vital signs reviewed. CONSTITUTIONAL: No apparent distress. HEENT: Head is normocephalic. Pupils are equal, round. Sclerae anicteric. Mucous membranes of the mouth are moist. No JVD. No carotid bruit. CHEST EXAMINATION: Lungs are clear to auscultation. No chest wall tenderness is noted on palpation or with deep breathing. HEART EXAMINATION: Regular rate and rhythm. S1, S2 heard. No murmurs, gallops or rub. ABDOMEN: Soft, nontender. Positive bowel sounds. EXTREMITIES: 2+ peripheral pulses, no lower extremity edema and no calf tenderness. NEUROLOGIC EXAMINATION: Patient is awake, alert and oriented x3. ASSESSMENT 1. Hypertensive urgency 2. Headache and arm tingling sensation, may be related to hypertension versus other 3. Nausea/epigastric discomfort, appears most likely GI related 4. Dyspnea on exertion 5. Paroxysmal atrial fibrillation 6. Tachybradycardia syndrome status post dual-chamber permanent pacemaker 7. Obstructive sleep apnea PLAN Patient with nausea for approximately a month as well as some vague epigastric discomfort which appears likely more GI related. Give GI cocktail and monitor response. She admits she has been on amlodipine in the past and may have been discontinued secondary to mild lower extremity edema however no real improvement after discontinuing. Restart amlodipine. She also takes Lasix on an as needed basis however start chlorthalidone as she may be more salt sensitive. Continue remainder of home medications. Discussed full evaluation given multiple vague symptoms and we will check Lexiscan stress test. Further recommendations to follow. Past Medical History Past Medical History: Atrial Fibrillation, Asthma, Eye Disorder, GERD/Reflux, Hearing Disorder / Deafness, Hyperlipidemia, Hypertension, Osteoarthritis (OA), Rheumatoid Arthritis (RA), Sleep Apnea/CPAP/BIPAP Additional Past Medical History / Comment(s): HX BACK PAIN, hx Sciaticia bilateral legs. Hx FX lower back. ADIE'S TONIC PUPIL/FIXED PUPILS- BILATERAL EYES, HAS LENS IMPLANT IN RT EYE. HX "PRE-CANCER OF BREAST." OVERACTIVE BLADDER. DEAF RT EAR. CPAP use., Varicose veins. Swelling in top of feet, discoloration around left ankle, neck pain radiates to arms and hands. History of Any Multi-Drug Resistant Organisms: None Reported Past Surgical History: Bladder Surgery, Cholecystectomy, Heart Catheterization, Hysterectomy, Joint Replacement, Orthopedic Surgery, Pacemaker Additional Past Surgical History / Comment(s): RT KNEE REPLACEMENT, VANESSA BREAST MASTECTOMY W/ RECONSTRUCTION. IMPLANTS VANESSA BREAST, RT EYE LENS IMPLANT, EXC VANESSA CATARACTS WITH LENS IMPLANT. RT. CARPAL TUNNEL RELEASE, arthroscopy of knee, pain clinic procedure. Past Anesthesia/Blood Transfusion Reactions: Postoperative Nausea & Vomiting (PONV) Additional Past Anesthesia/Blood Transfusion Reaction / Comment(s): Mother- PONV. Type of Cardiac Device: Permanent Pacemaker Device Placement Date:: 03/24/22 Past Psychological History: Anxiety, Panic Disorder Smoking Status: Never smoker Past Alcohol Use History: None Reported Past Drug Use History: None Reported - Past Family History Brother(s) Family Medical History: Cancer Additional Family Medical History / Comment(s): Testicular Cancer. Prostate cancer. Medications and Allergies Home Medications Medication Instructions Recorded Confirmed Type Mometasone Furoate [Nasonex 50 mcg 1 - 2 spr EA NOSTRIL DAILY PRN 01/19/17 04/11/23 History Nasal Levels] Cholecalciferol [Vitamin D3 (125 125 mcg PO DAILY 01/30/22 04/11/23 History Mcg = 5000 Iu)] Simvastatin [Zocor] 40 mg PO HS 01/30/22 04/11/23 History buPROPion XL [Wellbutrin XL] 150 mg PO BID 03/17/22 04/11/23 History Flecainide [Tambocor] 100 mg PO Q12HR #60 tab 03/21/22 04/11/23 Rx Apixaban [Eliquis] 5 mg PO BID 03/22/22 04/11/23 History Baclofen 5 mg PO BID PRN 30 Days #60 tablet 03/22/22 04/11/23 Rx Losartan Potassium 50 mg PO BID 07/31/22 04/11/23 History Metoprolol Tartrate [Lopressor] 50 mg PO BID 07/31/22 04/11/23 History oxyBUTYnin chloride [Ditropan] 5 mg PO BID 07/31/22 04/11/23 History Acetaminophen Tab [Tylenol Tab] 500 mg PO Q6H PRN 04/11/23 04/11/23 History Amoxic-Pot Clav 875-125Mg 1 tab PO Q12HR 04/11/23 04/11/23 History [Augmentin 875-125] Ezetimibe [Zetia] 10 mg PO DAILY 04/11/23 04/11/23 History Fexofenadine/Pseudoephedrine 1 tab PO DAILY PRN 04/11/23 04/11/23 History [Emma-D 24 Hour Tablet] Fluticasone Nasal Levels [Flonase 2 spray EA NOSTRIL DAILY PRN 04/11/23 04/11/23 History Nasal Levels] LORazepam [Ativan] 0.5 mg PO HS PRN 04/11/23 04/11/23 History busPIRone HCl [Buspar] 5 mg PO BID 04/11/23 04/11/23 History Allergies Allergy/AdvReac Type Severity Reaction Status Date / Time tocilizumab [From Actemra] Allergy Severe Dyspnea, Verified 04/11/23 11:45 sores, itching, sore throat meperidine HCl [From Demerol] AdvReac Nausea Verified 04/11/23 11:45 Physical Exam Vitals: Vital Signs Temp Pulse Pulse Resp BP BP Pulse Ox 04/12/23 07:00 97.8 F 59 L 20 189/75 95 04/12/23 02:00 58 L 04/12/23 01:53 98.0 F 58 L 18 183/81 98 04/11/23 23:28 55 L 04/11/23 22:30 182/96 04/11/23 21:51 97.7 F 55 L 18 220/103 96 04/11/23 21:12 57 L 18 191/92 97 04/11/23 13:00 54 L 18 159/77 94 L 04/11/23 12:05 55 L 18 190/81 94 L 04/11/23 09:48 55 L 18 194/87 96 Intake and Output 04/11/23 04/12/23 04/12/23 22:59 06:59 14:59 Other: Voiding Method Toilet # Voids 1 2 Weight 127.006 kg Results 04/11/23 09:45 04/11/23 08:04 Cardiac Enzymes 04/11/23 04/11/23 04/11/23 Range/Units 08:04 08:04 14:46 AST 30 (14-36) U/L Troponin I <0.012 <0.012 (0.000-0.034) ng/mL 04/11/23 Range/Units 17:59 AST (14-36) U/L Troponin I <0.012 (0.000-0.034) ng/mL Coagulation 04/11/23 Range/Units 08:40 PT 10.9 (10.0-12.5) sec APTT 26.6 (22.0-30.0) sec CBC 04/11/23 Range/Units 09:45 WBC 6.9 (3.8-10.6) k/uL RBC 4.40 (3.80-5.40) m/uL Hgb 14.3 (11.4-16.0) gm/dL Hct 44.2 (34.0-46.0) % Plt Count 171 (150-450) k/uL Comprehensive Metabolic Panel 12/27/23 Range/Units 08:04 Sodium 139 (137-145) mmol/L Potassium 4.5 (3.5-5.1) mmol/L Chloride 104 (98-107) mmol/L Carbon Dioxide 26 (22-30) mmol/L BUN 21 H (7-17) mg/dL Creatinine 0.80 (0.52-1.04) mg/dL Glucose 116 H (74-99) mg/dL Calcium 8.8 (8.4-10.2) mg/dL AST 30 (14-36) U/L ALT 23 (4-34) U/L Alkaline Phosphatase 85 (38-126) U/L Total Protein 6.4 (6.3-8.2) g/dL Albumin 3.6 (3.5-5.0) g/dL Current Medications Generic Name Dose Route Start Last Admin Trade Name Freq PRN Reason Stop Dose Admin Acetaminophen 500 mg 04/11/23 12:02 Acetaminophen Tab 500 Mg Tab PO Q6H PRN Pain or Fever > 100.5 Amlodipine Besylate 10 mg 04/12/23 09:00 Amlodipine 10 Mg Tab PO DAILY [facility] Amoxicillin/Clavulanate Potassium 1 each 04/11/23 21:00 04/11/23 21:13 Amoxic-Pot Clav 875-125mg 1 Each Tab PO 1 each Q12HR NABEEL Administration Protocol Apixaban 5 mg 04/11/23 21:00 04/11/23 21:15 Apixaban 5 Mg Tab PO 5 mg BID NABEEL Administration Protocol Atorvastatin Calcium 20 mg 04/11/23 21:00 04/11/23 21:15 Atorvastatin 20 Mg Tab PO 20 mg HS NABEEL Administration Baclofen 5 mg 04/11/23 12:02 Baclofen 10 Mg Tab PO BID PRN pain Bupropion HCl 150 mg 04/11/23 21:00 04/11/23 21:14 Bupropion Xl 150 Mg Tab.Er.24h PO 150 mg BID NABEEL Administration Buspirone HCl 5 mg 04/11/23 21:00 04/11/23 21:16 Buspirone Hcl 5 Mg Tab PO 5 mg BID NABEEL Administration Chlorthalidone 25 mg 04/12/23 09:00 Chlorthalidone 25 Mg Tab PO DAILY NABEEL Cholecalciferol 125 mcg 04/12/23 09:00 Cholecalciferol 125 Mcg (5000 Iu) Tablet PO DAILY NABEEL Ezetimibe 10 mg 04/12/23 09:00 Ezetimibe 10 Mg Tab PO DAILY NABEEL Flecainide Acetate 100 mg 04/11/23 21:00 04/11/23 21:14 Flecainide 50 Mg Tab PO 100 mg Q12HR NABEEL Administration Fluticasone Propionate 2 spray 04/11/23 12:02 Fluticasone 50mcg/Levels Nasal 16gm EA NOSTRIL DAILY PRN Allergy Symptoms Loratadine/Pseudoephedrine Sulfate 1 each 04/11/23 13:29 Loratadine-Pseudoeph 5-120 Mg 1 Each Tab.Er.12h PO BID PRN ALLERGY SYMPTOMS Lorazepam 0.5 mg 04/11/23 12:02 Lorazepam 0.5 Mg Tab PO HS PRN Anxiety Losartan Potassium 50 mg 04/11/23 21:00 04/11/23 21:16 Losartan 50 Mg Tab PO 50 mg BID NABEEL Administration Metoprolol Tartrate 50 mg 04/11/23 21:00 04/11/23 21:23 Metoprolol Tartrate 50 Mg Tab PO 50 mg BID NABEEL Administration Naloxone HCl 0.2 mg 04/11/23 12:01 Naloxone 0.4 Mg/Ml 1 Ml Vial IV Q2M PRN Opioid Reversal Ondansetron HCl 4 mg 04/12/23 07:38 Ondansetron 4 Mg/2 Ml Vial IVP Q6HR PRN Nausea And Vomiting Oxybutynin Chloride 5 mg 04/11/23 21:00 04/11/23 21:15 Oxybutynin Chloride 5 Mg Tab PO 5 mg BID NABEEL Administration Pantoprazole Sodium 40 mg 04/11/23 13:30 04/11/23 21:16 Pantoprazole 40 Mg/10 Ml Vial IVP 40 mg BID NABEEL Administration Intake and Output 04/11/23 04/12/23 04/12/23 22:59 06:59 14:59 Other: Voiding Method Toilet # Voids 1 2 Weight 127.006 kg 04/11/23 09:45 04/11/23 08:04
[2023-04-12] MEDS: PANTOPRAZOLE 40 MG/10 ML VIAL IVP SCH (08:02)
[2023-04-12] MEDS: LOSARTAN 50 MG TAB PO SCH (08:03)
[2023-04-12] MEDS: APIXABAN 5 MG TAB PO SCH (08:03)
[2023-04-12] MEDS: buPROPion XL 150 MG TAB.ER.24H PO SCH (08:04)
[2023-04-12] MEDS: busPIRone HCl 5 MG TAB PO SCH (08:04)
[2023-04-12] MEDS: AMOXIC-POT CLAV 875-125MG 1 EACH TAB PO SCH (08:04)
[2023-04-12 08:45] LABS: Blood Urea Nitrogen 14.4 mg/dL (9.0-27.0); Chloride 107 mmol/L (96-109); Glucose 102 mg/dL (70-110); Potassium 4.6 mmol/L (3.5-5.5); Sodium 144 mmol/L (135-145)
[2023-04-12 08:46] LABS: ALT 19 U/L (8-44); AST 19 U/L (13-35); Albumin 3.7 g/dL (3.8-4.9); Albumin/Globulin Ratio 1.61 Ratio (1.60-3.17); Alkaline Phosphatase 78 U/L (41-126); Calcium 9.5 mg/dL (8.7-10.3); Carbon Dioxide 27.9 mmol/L (21.6-31.8); Globulin 2.3 g/dL (1.6-3.3); Total Bilirubin 1.3 mg/dL (0.3-1.2)
[2023-04-12] MEDS ORDERED: CHLORTHALIDONE 25 MG TAB PO SCH (09:00)
[2023-04-12] MEDS ORDERED: EZETIMIBE 10 MG TAB PO SCH (09:00)
[2023-04-12] MEDS ORDERED: amLODIPine 10 MG TAB PO SCH (09:00)
[2023-04-12] MEDS ORDERED: CHOLECALCIFEROL 125 MCG (5000 IU) TABLET PO SCH (09:00)
[2023-04-12 09:08] LABS: Basophils # (A) 0.02 X 10*3/uL (0.00-0.10); Basophils % (A) 0.3 %; Eosinophils # (A) 0.17 X 10*3/uL (0.04-0.35); Eosinophils % (A) 2.2 %; HCT 47.8 % (37.2-46.3); Lymphocytes # (A) 1.17 X 10*3/uL (0.90-5.00); Lymphocytes % (A) 15.2 %; MCH 31.7 pg (27.0-32.0); MCHC 31.4 g/dL (32.0-37.0); MCV 101.1 FL (80.0-97.0); Mean Platelet Volume 12.4 FL (9.5-12.2); Monocytes # (A) 0.89 X 10*3/uL (0.20-1.00); Monocytes % (A) 11.6 %; NRBC Per 100 WBC 0 X 10*3/uL (0.00-0.01); Neutrophils # (A) 5.42 X 10*3/uL (1.80-7.70); Neutrophils % (A) 70.3 %; Platelet Count 167 X 10*3/uL (140-440); RBC 4.73 X 10*6/uL (4.10-5.20); RDW 12.3 % (11.5-14.5)
[2023-04-12] MEDS: oxyBUTYnin chloride 5 MG TAB PO SCH (12:19)
[2023-04-12] MEDS: FLECAINIDE 50 MG TAB PO SCH (12:19)
[2023-04-12] MEDS: METOPROLOL TARTRATE 50 MG TAB PO SCH (12:20)
--- NOTE | 2023-04-12 12:29 | NM ---
EXAMINATION TYPE: NM stress lexiscan cardiolite DATE OF EXAM: 04/12/2023 COMPARISON: NONE CLINICAL INDICATION: Female, 72 years old with history of re: SOB; TECHNIQUE: After the intravenous administration of 10.7 mCi Tc 99m Sestamibi - Cardiolite resting SP ECT images acquired 45 minutes post injection. The patient received 0.4mg Lexiscan, 27.1 mCi Tc 99m Sestamibi - Stress images obtained [address] injection FINDINGS: Review of stress and rest SPECT images demonstrates subtle reversibility along the anteroseptal wall. However, this finding is not corroborated on the polar maps. Gated analysis shows mild global hypoki nesis with an estimated left ventricular ejection fraction of 45 %. TID is calculated at 0.9, within normal limits. IMPRESSION: 1. Subtle reversibility along the anteroseptal wall not corroborated on the polar maps. Equivocal bet ween inducible ischemia and attenuation artifact. Further evaluation as clinically indicated. 2. Diminished LVEF of 45%. Left ventricle chamber appears slightly dilated.
--- NOTE | 2023-04-12 13:42 | CA ---
Exercise Stress Test Report Name: Lisbet Jha Exam Date: 04/12/2023 10:04 Exam Location: [facility] Ht (in): 66 Wt (lb): 280 BSA: 2.31 Ordering Phys: Gabriele Butterfield DO Referring Phys: BRIAN, Technologist: Kareem Singh Age: 72 Gender: F : 1950 Procedure CPT: Indications: Reflex order-Stress test ICD-10 Codes: Patient History: DIFFICULTY IN BREATHING, PALPITATIONS, HTN, ELEVATED CHOLESTEROL LEVELS, FAMILY HX OF HEART DISEASE Medications: Meds past 24 hrs: Pretest Chest Pain: STRESS TEST Persantine Protocol Exercise Duration (min:sec): 02:[address] Depressions (mm): Angina Score: Carpenter Score: Resting HR (bpm): 57 Peak HR (bpm): 69 Resting BP (mmHg): 152 / 86 Peak BP (mmHg): 152 / 86 MPHR: 146 Target HR: 124 % MPHR: 47 METS: 1.0 Total Dose: Peak Dose: Atropine: Double Product: 37397 BP Response: Stress Termination: INFUSION COMPLETE Stress Symptoms: DIFFICULTY IN BREATHING,CHEST TIGHTNESS Stress Summary: ECG ANALYSIS Resting ECG: Stress ECG: CONCLUSIONS At baseline EKG showed ventricular paced rhythm with nonspecific left bundle branch morphology. Patient recieved IV infusion of Lexiscan 0.4mg and at peak infusion EKG showed no significant changes. Conclusions: 1. Nonspecific stress EKG portion secondary baseline EKG abnormalities 2. Nuclear imaging to be reported separately. Dr. Gabriele Butterfield DO (Electronically Signed) Final Date: 12 April 2023 13:42
[2023-04-12 15:03] VITALS: BP 143/84; PULSE 55; RESP 17
--- NOTE | 2023-04-13 23:07 | P.DS ---
Providers Date of admission: 04/11/23 12:02 Attending physician: Dagoberto Temple MD Consults: 04/11/23 12:01 Consult Physician Routine Consulting Provider: [facility] Consult Reason/Comments: chest pain Do you want consulting provider notified?: Yes Primary care physician: Gretchen Rosado Hospital Course: Final Diagnosis -Hypertensive urgency on admission improved -Headache and arm tingling sensation improved and likely from hypertension -Nausea/epigastric discomfort, appears most likely GI related and possibly underlying viral illness. -Dyspnea on exertion -Paroxysmal atrial fibrillation anticoagulated with eliquis -Tachybradycardia syndrome status post dual-chamber permanent pacemaker -Obstructive sleep apnea -Hx of asthma with no acute exacerbation -Hx rheumatoid arthritis -Hx GERD Full Code Discharge Disposition Patient is stable for discharge home. Patient has been cleared by cardiology. Recommending to restart amlodipdine 10 mg daily for blood pressure control, and recommending to begin chlorthalidone daily for BP control. Patient to continue on protonix daily and zofran for the nausea and GI symptoms patient may have underlying viral illness contributing to the nausea. Follow up with PCP Dr Rosado in 1 to 2 days and also follow up with known territory sales representative Dr. Grossman in 1 to [address] follow up 4 to 6 months for scattered pulmonary nodules. Hospital Course This is a 72 year old female with medical history of atrial fibrillation, asthma, hypertension, hyperlipidemia, rheumatoid arthritis, back pain, cardia catheterization, tachybrady syndrome with permanent pacemaker. Comes in with complaints of elevated blood pressures and "not feeling well ". She admits she has been feeling nauseous with no reports of abdominal pain however on further questioning admits to some epigastric discomfort and feeling achy all over. No fever or chills. She denies chest pain, denies dizziness or lightheadedness. She admits symptoms have been fairly persistent off and on for last month. Denies any obvious association with exertion however does have some dyspnea on exertion. She denies any palpitations. States her blood pressure at home has been over 200 on the top number. Patient also reports headache and tingling sensation in the arms bilaterally. Patient had brain CT done on admission showing no acute intracranial abnormality. EKG reveals atrial paced rhythm. Had a thoracic aorta CT reveals moderate diffuse calcific atherosclerotic disease involving the aorta and branches including the coronary arteries, there is no evidence of aneurysm or aortic dissection. Mild cardiomegaly with dual lead pacemaker in place. No signs of CHF. A few subcentimeter pulmonary nodules as well as an approximately 13 mm groundglass focus in the right upper lobe. Recommend shorterm CT follow 4 to 6 months. There is significantly enlarged pulmonary trunk can be seen in pulmonary hypertension. There is mild/moderate spinal canal and neural foraminal stenosis at multiple lumbar levels. Cardiology recommending lexiscan stress test which reveals subtle reversibility along the anteroseptal wall not corroborated on the polar maps. Equivocal between inducible ischemia and attenuation artifact. Diminished EF of 45%. Left ventricle appears slightly dilated. Cardiology reviewed and felt no acute findings and were recommending medical management as above for blood pressure control and cardiology follow up outpatient. Patient has no chest pain no shortness of breath. The tingling sensations and headache have also improved. Nausea has improved with supportive care. Recommending to discharge home with close PCP follow up. Please see medication reconciliation for a list of current medications. Thank you for allowing us to participate in the care of this patient. The impression and plan of care has been dictated by Sienna Alonzo, Nurse Practitioner as directed. Dr. Lakshmi MD I have performed a history and physical examination and medical decision making of this patient, discussed the same with the dictator, and agree with the dictators assessment and plan as written, documented as a scribe. Based on total visit time, I have performed more than 50% of this visit. Patient Condition at Discharge: Fair Plan - Discharge Summary Discharge Rx Participant: Yes New Discharge Prescriptions: New Chlorthalidone [Hygroton] 25 mg PO DAILY #30 tab amLODIPine [Norvasc] 10 mg PO DAILY #30 tab Pantoprazole [Protonix] 40 mg PO DAILY #14 tab Ondansetron [Zofran] 4 mg PO Q12HR PRN #8 tab PRN Reason: Nausea Continue Mometasone Furoate [Nasonex 50 mcg Nasal [place]] 1 - 2 spr EA NOSTRIL DAILY PRN PRN Reason: Allergy Symptoms Cholecalciferol [Vitamin D3 (125 Mcg = 5000 Iu)] 125 mcg PO DAILY Baclofen 5 mg PO BID PRN 30 Days #60 tablet PRN Reason: pain Apixaban [Eliquis] 5 mg PO BID oxyBUTYnin chloride [Ditropan] 5 mg PO BID Metoprolol Tartrate [Lopressor] 50 mg PO BID Losartan Potassium 50 mg PO BID Amoxic-Pot Clav 875-125Mg [Augmentin 875-125] 1 tab PO Q12HR Acetaminophen Tab [Tylenol] 500 mg PO Q6H PRN PRN Reason: Pain Or Fever > 100.5 Simvastatin [Zocor] 40 mg PO HS buPROPion XL [Wellbutrin XL] 150 mg PO BID Flecainide [Tambocor] 100 mg PO Q12HR #60 tab Ezetimibe [Zetia] 10 mg PO DAILY busPIRone HCl [Buspar] 5 mg PO BID LORazepam [Ativan] 0.5 mg PO HS PRN PRN Reason: Anxiety Fluticasone Nasal [place] [Flonase Nasal [place]] 2 spray EA NOSTRIL DAILY PRN PRN Reason: Allergy Symptoms Discontinued Fexofenadine/Pseudoephedrine [Emma-D 24 Hour Tablet] 1 tab PO DAILY PRN PRN Reason: Allergy Symptoms Discharge Medication List Mometasone Furoate [Nasonex 50 mcg Nasal [place]] 1 - 2 spr EA NOSTRIL DAILY PRN 01/19/17 [History] Cholecalciferol [Vitamin D3 (125 Mcg = 5000 Iu)] 125 mcg PO DAILY 01/30/22 [History] Simvastatin [Zocor] 40 mg PO HS 01/30/22 [History] buPROPion XL [Wellbutrin XL] 150 mg PO BID 03/17/22 [History] Flecainide [Tambocor] 100 mg PO Q12HR #60 tab 03/21/22 [Rx] Apixaban [Eliquis] 5 mg PO BID 03/22/22 [History] Baclofen 5 mg PO BID PRN 30 Days #60 tablet 03/22/22 [Rx] Losartan Potassium 50 mg PO BID 07/31/22 [History] Metoprolol Tartrate [Lopressor] 50 mg PO BID 07/31/22 [History] oxyBUTYnin chloride [Ditropan] 5 mg PO BID 07/31/22 [History] Acetaminophen Tab [Tylenol] 500 mg PO Q6H PRN 04/11/23 [History] Amoxic-Pot Clav 875-125Mg [Augmentin 875-125] 1 tab PO Q12HR 04/11/23 [History] Ezetimibe [Zetia] 10 mg PO DAILY 04/11/23 [History] Fluticasone Nasal [place] [Flonase Nasal [place]] 2 spray EA NOSTRIL DAILY PRN 04/11/23 [History] LORazepam [Ativan] 0.5 mg PO HS PRN 04/11/23 [History] busPIRone HCl [Buspar] 5 mg PO BID 04/11/23 [History] Chlorthalidone [Hygroton] 25 mg PO DAILY #30 tab 04/12/23 [Rx] Ondansetron [Zofran] 4 mg PO Q12HR PRN #8 tab 04/12/23 [Rx] Pantoprazole [Protonix] 40 mg PO DAILY #14 tab 04/12/23 [Rx] amLODIPine [Norvasc] 10 mg PO DAILY #30 tab 04/12/23 [Rx] Follow up Appointment(s)/Referral(s): Gretchen Rosado MD [Primary Care Provider] - 1-2 days (please call for an appointment ) Poli Grossman MD [STAFF PHYSICIAN] - 1 Week (office will call you with an appointment time ) Patient Instructions/Handouts: Chest Pain (GEN), Hypertension (GEN) Activity/Diet/Wound Care/Special Instructions: Continue on Zofran twice a day for nausea as needed Diet as tolerated Limited activity until f/u with Dr. Rosado and Dr Grossman Discharge Disposition: HOME SELF-CARE
== END 2023-04-12 16:45 | disposition home or self-care (01) ==
LOC: EC 07:17 → 6NMEDSUR 12:02
PROVIDERS: ADMIT Internal Medicine; ATTEND Internal Medicine
DX: I16.0 Hypertensive urgency (principal); R51.9 Headache, unspecified; R20.2 Paresthesia of skin; R07.89 Other chest pain; I10 Essential (primary) hypertension; R10.13 Epigastric pain; R11.0 Nausea; R06.09 Other forms of dyspnea; I48.0 Paroxysmal atrial fibrillation; G47.33 Obstructive sleep apnea (adult) (pediatric); R91.8 Other nonspecific abnormal finding of lung field; J45.909 Unspecified asthma, uncomplicated; K21.9 Gastro-esophageal reflux disease without esophagitis; E78.5 Hyperlipidemia, unspecified; F41.0 Panic disorder [episodic paroxysmal anxiety]; M06.9 Rheumatoid arthritis, unspecified; I49.5 Sick sinus syndrome; Z20.822 Contact with and (suspected) exposure to COVID-19; Z95.0 Presence of cardiac pacemaker; Z79.01 Long term (current) use of anticoagulants; Z79.899 Other long term (current) drug therapy
CPT/HCPCS: 96376 ×2; 96374; 96375; 99285; 36415; 93005; 93017; 80053 ×2; 83735; 84484; 85025 ×2; 85610; 85730; 81003; 87636; 70450; 71275; 74174; 78452; G0378 ×2; A9500; J2405 ×2; J2785; C9113 ×2; Q9967

== ENCOUNTER 2023-04-16 11:24 | Emergency (ER) | payer MEDICARE, BC ==
[2023-04-16] MEDS ORDERED: SODIUM CHLORIDE 0.9% 1,000 ML IV STA (11:55)
[2023-04-16] MEDS ORDERED: MAG HYDROX/AL HYDROX/SIMETH 30 ML, HYOSCYAMINE ELIXIR 10 ML PO STA ×2 (11:56)
--- NOTE | 2023-04-16 11:59 | ED ---
General Adult HPI - General Chief complaint: Headache Stated complaint: re-check Time Seen by Provider: 04/16/23 11:42 Source: patient, RN notes reviewed Mode of arrival: ambulatory Limitations: no limitations - History of Present Illness Initial comments: Patient is 72-year-old female presented ER with chief complaint of nausea. Patient was recently hospitalized for chest pain and was sent home with [facility]. Patient states since then she's been feeling nauseous and having difficulty keeping things down. Patient reports that she is also having neck stiffness making it difficult to move her neck. Patient reports that she has arthritis and has received shots in her neck for this and she believes it is wearing off. Patient also endorses headache. Patient denies any chest pain, shortness of breath. She also states that her abdomen is hurting in the epigastric region. Patient was worked up while inpatient for it and it was recommended she receive an EGD for further evaluation. Patient reports that she is having bowel movements denies any urinary symptoms. Patient denies any fevers, chills, night sweats. - Related Data Home Medications Medication Instructions Recorded Confirmed Mometasone Furoate [Nasonex 50 mcg 1 - 2 spr EA NOSTRIL DAILY PRN 01/19/17 04/11/23 Nasal [place]] Cholecalciferol [Vitamin D3 (125 125 mcg PO DAILY 01/30/22 04/11/23 Mcg = 5000 Iu)] Simvastatin [Zocor] 40 mg PO HS 01/30/22 04/11/23 buPROPion XL [Wellbutrin XL] 150 mg PO BID 03/17/22 04/11/23 Apixaban [Eliquis] 5 mg PO BID 03/22/22 04/11/23 Losartan Potassium 50 mg PO BID 07/31/22 04/11/23 Metoprolol Tartrate [Lopressor] 50 mg PO BID 07/31/22 04/11/23 oxyBUTYnin chloride [Ditropan] 5 mg PO BID 07/31/22 04/11/23 Acetaminophen Tab [Tylenol] 500 mg PO Q6H PRN 04/11/23 04/11/23 Amoxic-Pot Clav 875-125Mg 1 tab PO Q12HR 04/11/23 04/11/23 [Augmentin 875-125] Ezetimibe [Zetia] 10 mg PO DAILY 04/11/23 04/11/23 Fluticasone Nasal [place] [Flonase 2 spray EA NOSTRIL DAILY PRN 04/11/23 04/11/23 Nasal [place]] LORazepam [Ativan] 0.5 mg PO HS PRN 04/11/23 04/11/23 busPIRone HCl [Buspar] 5 mg PO BID 04/11/23 04/11/23 Previous Rx's Medication Instructions Recorded Flecainide [Tambocor] 100 mg PO Q12HR #60 tab 03/21/22 Baclofen 5 mg PO BID PRN 30 Days #60 tablet 03/22/22 Chlorthalidone [Hygroton] 25 mg PO DAILY #30 tab 04/12/23 Ondansetron [Zofran] 4 mg PO Q12HR PRN #8 tab 04/12/23 Pantoprazole [Protonix] 40 mg PO DAILY #14 tab 04/12/23 amLODIPine [Norvasc] 10 mg PO DAILY #30 tab 04/12/23 Allergies Allergy/AdvReac Type Severity Reaction Status Date / Time tocilizumab [From Actemra] Allergy Severe Dyspnea, Verified 04/16/23 11:28 sores, itching, sore throat meperidine HCl [From Demerol] AdvReac Nausea Verified 04/16/23 11:28 Review of Systems ROS Statement: Those systems with pertinent positive or pertinent negative responses have been documented in the HPI. ROS Other: All systems not noted in ROS Statement are negative. Past Medical History Past Medical History: Atrial Fibrillation, Asthma, Eye Disorder, GERD/Reflux, Hearing Disorder / Deafness, Hyperlipidemia, Hypertension, Osteoarthritis (OA), Rheumatoid Arthritis (RA), Sleep Apnea/CPAP/BIPAP Additional Past Medical History / Comment(s): HX BACK PAIN, hx Sciaticia bilateral legs. Hx FX lower back. ADIE'S TONIC PUPIL/FIXED PUPILS- BILATERAL EYES, HAS LENS IMPLANT IN RT EYE. HX "PRE-CANCER OF BREAST." OVERACTIVE BLADDER. DEAF RT EAR. CPAP use., Varicose veins. Swelling in top of feet, discoloration around left ankle, neck pain radiates to arms and hands. History of Any Multi-Drug Resistant Organisms: None Reported Past Surgical History: Bladder Surgery, Cholecystectomy, Heart Catheterization, Hysterectomy, Joint Replacement, Orthopedic Surgery, Pacemaker Additional Past Surgical History / Comment(s): RT KNEE REPLACEMENT, VANESSA BREAST MASTECTOMY W/ RECONSTRUCTION. IMPLANTS VANESSA BREAST, RT EYE LENS IMPLANT, EXC VANESSA CATARACTS WITH LENS IMPLANT. RT. CARPAL TUNNEL RELEASE, arthroscopy of knee, pain clinic procedure. Past Anesthesia/Blood Transfusion Reactions: Postoperative Nausea & Vomiting (PONV) Additional Past Anesthesia/Blood Transfusion Reaction / Comment(s): Mother- PONV. Type of Cardiac Device: Permanent Pacemaker Device Placement Date:: 03/24/22 Past Psychological History: Anxiety, Panic Disorder Smoking Status: Never smoker Past Alcohol Use History: None Reported Past Drug Use History: None Reported - Past Family History Brother(s) Family Medical History: Cancer Additional Family Medical History / Comment(s): Testicular Cancer. Prostate cancer. General Exam Limitations: no limitations General appearance: alert, in no apparent distress Eye exam: Present: normal appearance, PERRL, EOMI. Absent: scleral icterus, conjunctival injection, periorbital swelling Respiratory exam: Present: normal lung sounds bilaterally. Absent: respiratory distress, wheezes, rales, rhonchi, stridor Cardiovascular Exam: Present: irregular rhythm, normal heart sounds GI/Abdominal exam: Present: soft, tenderness (epigastric ), normal bowel sounds Neurological exam: Present: alert, oriented X3, CN II-XII intact Psychiatric exam: Present: normal affect, normal mood Skin exam: Present: warm, dry, intact, normal color. Absent: rash Course Vital Signs 04/16/23 04/16/23 04/16/23 11:26 13:00 16:00 Temperature 98.2 F 7 F L Pulse Rate 67 56 L 62 Respiratory 18 18 18 Rate Blood Pressure 117/88 141/67 151/74 O2 Sat by Pulse 95 97 98 Oximetry Medical Decision Making - Medical Decision Making Was pt. sent in by a medical professional or institution (, PA, [facility]ANQU[facility] STEWARD, urgent care, hospital, or correction...) When possible be specific @ -No Did you speak to anyone other than the patient for history (EMS, parent, family, police, friend...)? What history was obtained from this source @ -No Did you review nursing and triage notes (agree or disagree)? Why? @ -I reviewed and agree with nursing and triage notes Were old charts reviewed (outside hosp., previous admission, EMS record, old EKG, old radiological studies, urgent care reports/EKG's, correction records)? Report findings @ -No old charts were reviewed Differential Diagnosis (chest pain, altered mental status, abdominal pain women, abdominal pain men, vaginal bleeding, weakness, fever, dyspnea, syncope, headac he, dizziness, GI bleed, back pain, seizure, CVA, palpatations, mental health, musculoskeletal)? @ -Differential Headache: Migraine, tension, cluster, carbon monoxide, central venous thrombosis, pension karma temporal arteritis, acute closure glaucoma, intercranial hemorrhage, mastoiditis, sinusitis, head injury, this is not meant to be an all-inclusive list. EKG interpreted by me (3pts min.). @ -None X-rays interpreted by me (1pt min.). @ -Cervical spine x-ray shows no acute fractures or dislocations. There is mild to moderate degenerative disc disease present. CT interpreted by me (1pt min.). @ -None done U/S interpreted by me (1pt. min.). @ -None done What testing was considered but not performed or refused? (CT, X-rays, U/S, labs)? Why? @ -CT brain was considered but patient refused. What meds were considered but not given or refused? Why? @ -None Did you discuss the management of the patient with other professionals (professionals i.e. , PA, BANQUET STEWARD, lab, RT, psych nurse, oncology social work, swift tender, teacher, jail officer, case making machine operator)? Give summary @ -No Was smoking cessation discussed for >3mins.? @ -No Was critical care preformed (if so, how long)? @ -No Were there social determinants of health that impacted care today? How? (Homelessness, low income, unemployed, alcoholism, drug addiction, tra nsportation, low edu. Level, literacy, decrease access to med. care, residential, rehab)? @ -No Was there de-escalation of care discussed even if they declined (Discuss DNR or withdrawal of care, Hospice)? DNR status @ -No What co-morbidities impacted this encounter? (DM, HTN, Smoking, COPD, CAD, Cancer, CVA, ARF, Chemo, Hep., AIDS, mental health diagnosis, sleep apnea, morbid obesity)? @ -None Was patient admitted / discharged? Hospital course, mention meds given and route, prescriptions, significant lab abnormalities, going to OR and other pertinent info. @ -Discharge. Patient is 72-year-old female presented ER chief complaint of a stiff neck and nausea. Upon examination, patient's vitals were stable and patient was afebrile. Patient was resting comfortably in exam room. She reported epigastric pain which was mildly tender to palpation. Labs obtained in the ER were unimpressive. Cervical spine x-ray show no acute fractures or dislocations. Patient received 1 L IV fluids, Maalox, Toradol, Dilaudid, Zofran, Reglan. I discussed imaging and lab findings with patient and family, at bedside. Further discussion with the patient she stated that she went to the dentist and laying in the chair for an extended period of time aggravated her neck which she b mauricioeves started to cause her current symptoms and that the shot wore off. Patient states that she has taken muscle relaxer and the past which has helped. Patient was concerned that she was unable to get into see her neurologist soon to receive another shot for her neck pain. Referral for neurology was given. Patient will be sent home with a starter pack of Flexeril for muscle spams. Return parameters were discussed. Patient will be discharged in stable condition with follow-up to neurology/PCP. Patient expressed understanding and agreement with the care plan. Undiagnosed new problem with uncertain prognosis? @ -No Drug Therapy requiring intensive monitoring for toxicity (Heparin, Nitro, Insulin, Cardizem)? @ -No Were any procedures done? @ -No Diagnosis/symptom? @ -Neck pain/muslce spam/nausea Acute, or Chronic, or Acute on Chronic? @ -Chronic Uncomplicated (without systemic symptoms) or Complicated (systemic symptoms)? @ -Uncomplicated Side effects of treatment? @ -No Exacerbation, Progression, or Severe Exacerbation? @ -No Poses a threat to life or bodily function? How? (Chest pain, [place], [place], pneumonia, PE, COPD, DKA, ARF, appy, cholecystitis, CVA, Diverticulitis, Homicidal, Suicidal, threat to staff... and all critical care pts) @ -No - Lab Data Result diagrams: 04/16/23 12:04 04/16/23 13:00 Lab Results 04/16/23 04/16/23 04/16/23 Range/Units 12:04 12:04 13:00 WBC 10.4 (3.8-10.6) k/uL RBC 4.88 (3.80-5.40) m/uL Hgb 15.7 (11.4-16.0) gm/dL Hct 48.4 H (34.0-46.0) % MCV 99.1 (80.0-100.0) fL MCH 32.2 (25.0-35.0) pg MCHC 32.5 (31.0-37.0) g/dL RDW 12.1 (11.5-15.5) % Plt Count 193 (150-450) k/uL MPV 9.9 Sodium 138 (137-145) mmol/L Potassium 4.3 (3.5-5.1) mmol/L Chloride 99 (98-107) mmol/L Carbon Dioxide 27 (22-30) mmol/L Anion Gap 12 mmol/L BUN 25 H (7-17) mg/dL Creatinine 1.04 (0.52-1.04) mg/dL Est GFR (CKD-EPI)AfAm 61 (>60 ml/min/1.73 sqM) Est GFR (CKD-EPI)NonAf 53 (>60 ml/min/1.73 sqM) Glucose 128 H (74-99) mg/dL Calcium 9.2 (8.4-10.2) mg/dL Total Bilirubin 1.6 H (0.2-1.3) mg/dL AST 30 (14-36) U/L ALT 28 (4-34) U/L Alkaline Phosphatase 87 (38-126) U/L Total Protein 6.4 (6.3-8.2) g/dL Albumin 3.8 (3.5-5.0) g/dL Influenza Type A (PCR) Not Detected (Not Detectd) Influenza Type B (PCR) Not Detected (Not Detectd) RSV (PCR) Not Detected (Not Detectd) SARS-CoV-2 (PCR) Not Detected (Not Detectd) - Radiology Data Radiology results: report reviewed, image reviewed Disposition Clinical Impression: Stiff neck Disposition: HOME SELF-CARE Condition: Stable Additional Instructions: Please return to the Emergency Department if symptoms worsen or any other concerns. Is patient prescribed a controlled substance at d/c from ED?: No Referrals: Gretchen Rosado MD [Primary Care Provider] - 1-2 days Cole Rivas MD [STAFF PHYSICIAN] - 1-2 days Time of Disposition: 15:36
[2023-04-16 12:11] VITALS: RESP 18
[2023-04-16 12:36] LABS: HCT 48.4 % (34.0-46.0); HGB 15.7 gm/dL (11.4-16.0); MCH 32.2 pg (25.0-35.0); MCHC 32.5 g/dL (31.0-37.0); MCV 99.1 fL (80.0-100.0); Mean Platelet Volume 9.9; Platelet Count 193 k/uL (150-450); RBC 4.88 m/uL (3.80-5.40); RDW 12.1 % (11.5-15.5); WBC 10.4 k/uL (3.8-10.6)
[2023-04-16] MEDS ORDERED: ONDANSETRON 4 MG/2 ML VIAL IVP STA (13:37)
[2023-04-16] MEDS ORDERED: HYDROmorphone 0.5 MG/0.5 ML SYRINGE IVP STA (13:37)
[2023-04-16 13:43] LABS: ALT 28 U/L (4-34); AST 30 U/L (14-36); African American GFR (CKD) 61 (>60 ml/min/1.73 sqM); Albumin 3.8 g/dL (3.5-5.0); Alkaline Phosphatase 87 U/L (38-126); Anion Gap 12 mmol/L; Blood Urea Nitrogen 25 mg/dL (7-17); Calcium 9.2 mg/dL (8.4-10.2); Carbon Dioxide 27 mmol/L (22-30); Chloride 99 mmol/L (98-107); Glucose 128 mg/dL (74-99); Non-African American GFR(CKD) 53 (>60 ml/min/1.73 sqM); Potassium 4.3 mmol/L (3.5-5.1); Sodium 138 mmol/L (137-145); Total Bilirubin 1.6 mg/dL (0.2-1.3); Total Protein 6.4 g/dL (6.3-8.2)
[2023-04-16 14:38] VITALS: TEMP 7
--- NOTE | 2023-04-16 14:45 | XR ---
EXAMINATION TYPE: XR cervical spine comp DATE OF EXAM: 04/16/2023 2:39 PM CLINICAL INDICATION:Female, 72 years old with history of pain; [facility] COMPARISON: 04/17/2021 TECHNIQUE: The cervical spine was imaged in frontal, lateral, odontoid and bilateral oblique. FINDINGS: The osseous structures show normal alignment without evidence of an acute fracture. There are osteoph ytes noted throughout the cervical spine on the anterior and lateral aspects of the vertebral bodies. The intervertebral disk spaces are narrowed at multiple levels. Pedicles are intact. Soft tissues a re within normal limits. The odontoid appears intact. IMPRESSION: 1. No fracture or dislocation. 2. Mild degenerative disc disease changes of the cervical spine.
[2023-04-16] MEDS ORDERED: METOCLOPRAMIDE 5 MG/ML 2 ML VIAL IVP STA (15:04)
[2023-04-16] MEDS ORDERED: CYCLOBENZAPRINE 10MG STARTER 3 TAB BTL PO STA (15:13)
[2023-04-16 16:15] VITALS: BP 151/74; PULSE 62
== END 2023-04-16 16:04 | disposition home or self-care (01) ==
LOC: EC 11:24
DX: M43.6 Torticollis (principal); M50.30 Other cervical disc degeneration, unspecified cervical region; R11.0 Nausea; R10.13 Epigastric pain; I10 Essential (primary) hypertension; J45.909 Unspecified asthma, uncomplicated; I48.91 Unspecified atrial fibrillation; E78.5 Hyperlipidemia, unspecified; F41.9 Anxiety disorder, unspecified; Z20.822 Contact with and (suspected) exposure to COVID-19; Z79.01 Long term (current) use of anticoagulants; Z79.899 Other long term (current) drug therapy; Z90.49 Acquired absence of other specified parts of digestive tract; Z88.5 Allergy status to narcotic agent; Z88.8 Allergy status to other drugs, medicaments and biological substances
CPT/HCPCS: 36415; 80053; 85027; 87636; 72050; 99284; 96374; 96375 ×2; 96361 ×2; J2765; J2405; J1170

== ENCOUNTER 2023-05-04 10:13 | Day surgery (SDC) | payer MEDICARE, BC ==
[2023-05-01 10:17] VITALS: BMI 45.1
[~2023-05-04 10:13] MED LIST changes: +ALPRAZolam 0.25 MG TAB PO PRN; +ALPRAZolam 0.5 MG TAB PO PRN; +ASPIRIN 325 MG TAB PO STA; +HEPARIN SODIUM,PORCINE (1 ML) 2,500 UNIT in SODIUM CHLORIDE 0.9% 250 ML IRRIGATION PRN; +HEPARIN SODIUM,PORCINE 10,000 UNIT in SODIUM CHLORIDE 0.9% 1,000 ML IRRIGATION PRN; -LACTATED RINGERS 1,000 ML IV SCH; +NITROGLYCERIN SL TABS 0.4 MG TAB SUBLINGUAL PRN; +SODIUM CHLORIDE 0.9% 1,000 ML in EMPTY BAG 1 BAG IV SCH
[2023-05-04 11:20] VITALS: PULSE 54; RESP 18; TEMP 98.7
[2023-05-04] MEDS ORDERED: HEPARIN SODIUM 1,000 UN/ML (10ML VL) ONE (12:29)
[2023-05-04] MEDS ORDERED: VERAPAMIL 2.5 MG/ML 2 ML AMP ONE (12:29)
[2023-05-04] MEDS ORDERED: LIDOCAINE 1% INJ 10MG/ML (20 ML MDV) ONE (12:30)
[2023-05-04] MEDS ORDERED: LIDOCAINE 1% INJ 10MG/ML (20 ML MDV) SQ ONE (12:55)
[2023-05-04] MEDS ORDERED: VERAPAMIL SYRINGE (5 MG/10 ML) INTRAARTER ONE (12:58)
[2023-05-04] MEDS ORDERED: MIDAZOLAM 2 MG/2 ML VIAL IVP ONE (12:58)
[2023-05-04] MEDS ORDERED: HEPARIN SODIUM 1,000 UN/ML (10ML VL) IVP ONE (12:58)
[2023-05-04] MEDS ORDERED: IOPAMIDOL-370 100ML BTL INJ ONE (13:02)
--- NOTE | 2023-05-04 13:12 | P.PCN ---
Date of Procedure: 05/04/23 Operative Findings: CARDIAC CATHETERIZATION PERFORMING PHYSICIAN: Poli Grossman MD, RPVI PROCEDURE PERFORMED: 1. Selective right and left coronary angiogram 2. Left heart catheterization 3. Ultrasound-guided access of the right radial artery INDICATION: Chest discomfort and abnormal myocardial perfusion imaging stress test COMPLICATION: None APPROACH: Right radial artery LEVEL OF SEDATION: Moderate with a sedation length of 9 minutes PROCEDURE DESCRIPTION: After obtaining an informed consent, the patient was brought to cardiac veterinary laboratory technician. Local anesthesia was performed using lidocaine subcutaneously. The right radial artery was cannulated using Seldinger technique, the guidewire passed easily, following that we advanced a 5-Tanzanian sheath dilator assembly, the wire and dilator were removed and sheath was flushed. Following that, 2 mg of verapamil along with 3000 unit heparin were given. Selective right and left coronary angiogram using a 6-Tanzanian JR4 and JL 3.5 catheters. The procedure was completed there was no complication. SELECTIVE CORONARY ANGIOGRAM: The right coronary artery: Large-caliber vessel and a dominant vessel was mild disease only. Left main: Is angiographically normal The left circumflex: Large-caliber vessel codominant vessel. Its angiographically normal and gives rise into the obtuse marginal branches that appeared to be angiographically normal The left anterior descending artery: Large-caliber vessel. Its normal. Gives rise into a large diagonal branch which seems to be normal as well CONCLUSION: 1. Mild coronary artery disease POSTPROCEDURE MANAGEMENT: Medical treatment
[2023-05-04 14:58] VITALS: BP 164/81
== END 2023-05-04 16:36 | disposition home or self-care (01) ==
LOC: CATHCVL 10:13
PROVIDERS: ATTEND Internal Medicine Interventional Cardiology
DX: I25.10 Atherosclerotic heart disease of native coronary artery without angina pectoris (principal); I10 Essential (primary) hypertension; E78.5 Hyperlipidemia, unspecified; I48.0 Paroxysmal atrial fibrillation; I38 Endocarditis, valve unspecified; E66.3 Overweight; Z82.49 Family history of ischemic heart disease and other diseases of the circulatory system; Z79.01 Long term (current) use of anticoagulants; Z79.899 Other long term (current) drug therapy
CPT/HCPCS: 93454; 76937; C1769; C1894; J2250; J2001; J1644; Q9967

== ENCOUNTER 2023-07-29 07:45 | Emergency (ER) | payer MEDICARE, BC ==
--- NOTE | 2023-07-29 08:00 | ED ---
General Adult HPI - General Chief complaint: Nausea/Vomiting/Diarrhea Stated complaint: SOB Time Seen by Provider: 07/29/23 07:59 Source: patient, RN notes reviewed Mode of arrival: ambulatory Limitations: no limitations - History of Present Illness Initial comments: 73-year-old female presented to the ER with a chief complaint of shortness of breath. She states for the past 3 days she has been having increasing shortness of breath and peripheral edema. She states she took a water pill this morning. She also reports she has been taking her blood pressure which has been mildly elevated around 180s to 190s systolic. Diastolics in the 110s. She does report she takes losartan and metoprolol twice daily and did take them this morning. She also takes Eliquis as she has a pacemaker. Follows up with Dr. Estevez from cardiology. She is also endorsing a chest pressure with radiation to left shoulder and neck. She denies any home O2 use. She states has been difficult to lay flat and gets exertional dyspnea. Denies any fevers, cough, congestion, abdominal pain, constipation/diarrhea or urinary complaints. - Related Data Home Medications Medication Instructions Recorded Confirmed Mometasone Furoate [Nasonex 50 mcg 1 - 2 spr EA NOSTRIL DAILY PRN 01/19/17 05/04/23 Nasal [place]] Cholecalciferol [Vitamin D3 (125 125 mcg PO DAILY 01/30/22 05/04/23 Mcg = 5000 Iu)] Simvastatin [Zocor] 40 mg PO HS 01/30/22 05/04/23 buPROPion XL [Wellbutrin XL] 150 mg PO BID 03/17/22 05/04/23 Apixaban [Eliquis] 5 mg PO BID 03/22/22 05/04/23 Losartan Potassium 50 mg PO BID 07/31/22 05/04/23 Metoprolol Tartrate [Lopressor] 50 mg PO BID 07/31/22 05/04/23 oxyBUTYnin chloride [Ditropan] 5 mg PO BID 07/31/22 05/04/23 Acetaminophen Tab [Tylenol] 500 mg PO Q6H PRN 04/11/23 05/04/23 Ezetimibe [Zetia] 10 mg PO DAILY 04/11/23 05/04/23 Fluticasone Nasal [place] [Flonase 2 spray EA NOSTRIL DAILY PRN 04/11/23 05/04/23 Nasal [place]] LORazepam [Ativan] 0.5 mg PO HS PRN 04/11/23 05/04/23 busPIRone HCl [Buspar] 5 mg PO BID 04/11/23 05/04/23 tiZANidine HCL [Zanaflex] 4 mg PO BID PRN 05/01/23 05/04/23 Aspirin 81 mg PO DAILY 05/04/23 05/04/23 Previous Rx's Medication Instructions Recorded Flecainide [Tambocor] 100 mg PO Q12HR #60 tab 03/21/22 Chlorthalidone [Hygroton] 25 mg PO DAILY #30 tab 04/12/23 Ondansetron [Zofran] 4 mg PO Q12HR PRN #8 tab 04/12/23 Pantoprazole [Protonix] 40 mg PO DAILY #14 tab 04/12/23 Allergies Allergy/AdvReac Type Severity Reaction Status Date / Time tocilizumab [From Actemra] Allergy Severe Dyspnea, Verified 05/04/23 10:36 sores, itching, sore throat hydromorphone [From Dilaudid] AdvReac Nausea & Verified 05/04/23 10:36 Vomiting meperidine HCl [From Demerol] AdvReac Nausea Verified 05/04/23 10:36 Review of Systems ROS Statement: Those systems with pertinent positive or pertinent negative responses have been documented in the HPI. ROS Other: All systems not noted in ROS Statement are negative. Past Medical History Past Medical History: Atrial Fibrillation, Asthma, Eye Disorder, GERD/Reflux, Hearing Disorder / Deafness, Hyperlipidemia, Hypertension, Osteoarthritis (OA), Rheumatoid Arthritis (RA), Sleep Apnea/CPAP/BIPAP Additional Past Medical History / Comment(s): HX BACK PAIN, hx Sciaticia bilateral legs. Hx FX lower back. ADIE'S TONIC PUPIL/FIXED PUPILS- BILATERAL EYES, HAS LENS IMPLANT IN RT EYE. HX "PRE-CANCER OF BREAST." OVERACTIVE BLADDER. DEAF RT EAR. CPAP use., Varicose veins. Swelling in top of feet, discoloration around left ankle, neck pain radiates to arms and hands. History of Any Multi-Drug Resistant Organisms: None Reported Past Surgical History: Bladder Surgery, Cholecystectomy, Heart Catheterization, Hysterectomy, Joint Replacement, Orthopedic Surgery, Pacemaker Additional Past Surgical History / Comment(s): RT KNEE REPLACEMENT, VANESSA BREAST MASTECTOMY W/ RECONSTRUCTION. IMPLANTS VANESSA BREAST, RT EYE LENS IMPLANT, EXC VANESSA CATARACTS WITH LENS IMPLANT. RT. CARPAL TUNNEL RELEASE, arthroscopy of knee, pain clinic procedure. COLONOSCOPY Past Anesthesia/Blood Transfusion Reactions: Postoperative Nausea & Vomiting (PONV) Additional Past Anesthesia/Blood Transfusion Reaction / Comment(s): Mother- PONV. Type of Cardiac Device: Permanent Pacemaker Device Placement Date:: 03/24/22 Past Psychological History: Anxiety, Panic Disorder Smoking Status: Never smoker Past Alcohol Use History: None Reported Past Drug Use History: None Reported - Past Family History Brother(s) Family Medical History: Cancer Additional Family Medical History / Comment(s): Testicular Cancer. Prostate cancer. General Exam - General Exam Comments Initial Comments: Visual Physical Exam Vital signs reviewed General: Well-appearing, nontoxic, no acute distress. Head: Normocephalic, atraumatic Eyes: PERRLA, EOMI ENT: Airway patent Chest: Nonlabored breathing Skin: No visual rash, normal skin tone Neuro: Alert and oriented 3 Musculoskeletal: No gross abnormalities Limitations: no limitations General appearance: alert, in no apparent distress Head exam: Present: atraumatic, normocephalic, normal inspection Eye exam: Present: normal appearance, PERRL, EOMI. Absent: scleral icterus, conjunctival injection, periorbital swelling Respiratory exam: Present: normal lung sounds bilaterally. Absent: respiratory distress, wheezes, rales, rhonchi, stridor Cardiovascular Exam: Present: regular rate, normal rhythm, normal heart sounds. Absent: systolic murmur, diastolic murmur, rubs, gallop, clicks Extremities exam: Present: other (1+ bilateral pretibial pitting edema ) Neurological exam: Present: alert, oriented X3, CN II-XII intact Psychiatric exam: Present: normal affect, normal mood Skin exam: Present: warm, dry, intact, normal color. Absent: rash Course Vital Signs 07/29/23 07/29/23 07/29/23 07:48 09:00 10:18 Temperature 97.8 F 97.9 F Pulse Rate 55 L 53 L 57 L Respiratory 20 18 20 Rate Blood Pressure 194/75 187/87 175/91 O2 Sat by Pulse 98 98 Oximetry Medical Decision Making - Medical Decision Making I performed the quick note portion of this chart. Electronically signed by Kim Lewis PA-C Was pt. sent in by a medical professional or institution ([facility] Baron, ROLL THREADER OPERATOR, urgent care, hospital, or senior care...) When possible be specific @ -No Did you speak to anyone other than the patient for history (EMS, parent, family, police, friend...)? What history was obtained from this source @ -No Did you review nursing and triage notes (agree or disagree)? Why? @ -I reviewed and agree with nursing and triage notes Were old charts reviewed (outside hosp., previous admission, EMS record, old EKG, old radiological studies, urgent care reports/EKG's, senior care records)? Report findings @ -No old charts were reviewed Differential Diagnosis (chest pain, altered mental status, abdominal pain women, abdominal pain men, vaginal bleeding, weakness, fever, dyspnea, syncope, headache, dizziness, GI bleed, back pain, seizure, CVA, palpatations, mental health, musculoskeletal)? @ -Differential Dyspnea:Coronary syndrome, arrhythmia, tamponade, asthma, COPD, pulmonary embolism, pneumonia, pneumothorax, pulmonary effusion, anaphylaxis, diabetic ketoacidosis, flailed chest, pulmonary contusion, diaphragmatic rupture, anemia, neuromuscular, this is not meant to be an all-inclusive list. EKG interpreted by me (3pts min.). @ -As above X-rays interpreted by me (1pt min.). @ -Chest x-ray interpreted by me significant for mild cardiomegaly with mild pulmonary vascular congestion. Congestion similar to prior. CT interpreted by me (1pt min.). @ -None done U/S interpreted by me (1pt. min.). @ -None done What testing was considered but not performed or refused? (CT, X-rays, U/S, labs)? Why? @ -None What meds were considered but not given or refused? Why? @ -None Did you discuss the management of the patient with other professionals (professionals i.e. TY Baron, ROLL THREADER OPERATOR, lab, RT, psych nurse, manager social media, power screwdriver operator, teacher, ground intelligence officer, nurse case management)? Give summary @ -No Was smoking cessation discussed for >3mins.? @ -No Was critical care preformed (if so, how long)? @ -No Were there social determinants of health that impacted care today? How? (Homelessness, low income, unemployed, alcoholism, drug addiction, transportation, low edu. Level, literacy, decrease access to med. care, half-way, rehab)? @ -No Was there de-escalation of care discussed even if they declined (Discuss DNR or withdrawal of care, Hospice)? DNR status @ -No What co-morbidities impacted this encounter? (DM, HTN, Smoking, COPD, CAD, Cancer, CVA, ARF, Chemo, Hep., AIDS, mental health diagnosis, sleep apnea, morbid obesity)? @ -Advanced age, obese, history of heart failure, hypertension Was patient admitted / discharged? Hospital course, mention meds given and route, prescriptions, significant lab abnormalities, going to OR and other pertinent info. @ -Discharged. 73-year-old female presented to the ER with a chief complaint of hypertension and bilateral lower extremity edema. History and physical exam completed. Vitals stable. Patient no signs of acute distress and nontoxic-laz earing. Labs obtained unimpressive. BNP 750, troponin less than 0.012. EKG showed atrial paced rhythm. Chest x-ray negative for acute process. COVID, RSV, influenza negative. Results discussed with patient, all questions answered. Symptoms believed to be due to fluid overload. I advised patient to take Lasix daily and follow-up with PCP in the next 1 to 2 days for reevaluation. Strict return parameters discussed. Patient displaying medical decision-making abilities. Patient discharged in stable condition with follow- up to PCP. Patient verbally expressed understanding and agreement with care plan. Case discussed with ED attending, Dr. Sanders. Undiagnosed new problem with uncertain prognosis? @ -No Drug Therapy requiring intensive monitoring for toxicity (Heparin, Nitro, Insulin, Cardizem)? @ -No Were any procedures done? @ -No Diagnosis/symptom? @ -Hypertension/peripheral edema Acute, or Chronic, or Acute on Chronic? @ -Acute Uncomplicated (without systemic symptoms) or Complicated (systemic symptoms)? @ -Uncomplicated Side effects of treatment? @ -No Exacerbation, Progression, or Severe Exacerbation? @ -No Poses a threat to life or bodily function? How? (Chest pain, [place], [place], pneumonia, PE, COPD, DKA, ARF, appy, cholecystitis, CVA, Diverticulitis, Homicidal, Kaylene cidal, threat to staff... and all critical care pts) @ -No - Lab Data Result diagrams: 07/29/23 08:05 07/29/23 08:05 Lab Results 07/29/23 07/29/23 07/29/23 Range/Units 08:05 08:05 08:05 WBC 8.1 (3.8-10.6) k/uL RBC 4.53 (3.80-5.40) m/uL Hgb 14.2 (11.4-16.0) gm/dL Hct 46.2 H (34.0-46.0) % MCV 102.0 H (80.0-100.0) fL MCH 31.5 (25.0-35.0) pg MCHC 30.9 L (31.0-37.0) g/dL RDW 12.6 (11.5-15.5) % Plt Count 173 (150-450) k/uL MPV 8.9 Neutrophils % 76 % Lymphocytes % 13 % Monocytes % 5 % Eosinophils % 3 % Basophils % 0 % Neutrophils # 6.2 (1.3-7.7) k/uL Lymphocytes # 1.1 (1.0-4.8) k/uL Monocytes # 0.4 (0-1.0) k/uL Eosinophils # 0.2 (0-0.7) k/uL Basophils # 0.0 (0-0.2) k/uL PT 10.8 (10.0-12.5) sec INR 1.0 (<1.2) APTT 26.4 (22.0-30.0) sec Sodium 139 (137-145) mmol/L Potassium 4.4 (3.5-5.1) mmol/L Chloride 109 H (98-107) mmol/L Carbon Dioxide 26 (22-30) mmol/L Anion Gap 4 mmol/L BUN 25 H (7-17) mg/dL Creatinine 0.89 (0.52-1.04) mg/dL Est GFR (CKD-EPI)AfAm 73 (>60 ml/min/1.73 sqM) Est GFR (CKD-EPI)NonAf 64 (>60 ml/min/1.73 sqM) Glucose 132 H (74-99) mg/dL Plasma Lactic Acid Delgado (0.7-2.0) mmol/L Calcium 9.1 (8.4-10.2) mg/dL Magnesium 1.8 (1.6-2.3) mg/dL Total Bilirubin 1.2 (0.2-1.3) mg/dL AST 35 (14-36) U/L ALT 32 (4-34) U/L Alkaline Phosphatase 102 (38-126) U/L Troponin I (0.000-0.034) ng/mL NT-Pro-B Natriuret Pep 750 pg/mL Total Protein 6.3 (6.3-8.2) g/dL Albumin 3.6 (3.5-5.0) g/dL Influenza Type A (PCR) (Not Detectd) Influenza Type B (PCR) (Not Detectd) RSV (PCR) (Not Detectd) SARS-CoV-2 (PCR) (Not Detectd) 07/29/23 07/29/23 07/29/23 Range/Units 08:05 08:05 08:05 WBC (3.8-10.6) k/uL RBC (3.80-5.40) m/uL Hgb (11.4-16.0) gm/dL Hct (34.0-46.0) % MCV (80.0-100.0) fL MCH (25.0-35.0) pg MCHC (31.0-37.0) g/dL RDW (11.5-15.5) % Plt Count (150-450) k/uL MPV Neutrophils % % Lymphocytes % % Monocytes % % Eosinophils % % Basophils % % Neutrophils # (1.3-7.7) k/uL Lymphocytes # (1.0-4.8) k/uL Monocytes # (0-1.0) k/uL Eosinophils # (0-0.7) k/uL Basophils # (0-0.2) k/uL PT (10.0-12.5) sec INR (<1.2) APTT (22.0-30.0) sec Sodium (137-145) mmol/L Potassium (3.5-5.1) mmol/L Chloride (98-107) mmol/L Carbon Dioxide (22-30) mmol/L Anion Gap mmol/L BUN (7-17) mg/dL Creatinine (0.52-1.04) mg/dL Est GFR (CKD-EPI)AfAm (>60 ml/min/1.73 sqM) Est GFR (CKD-EPI)NonAf (>60 ml/min/1.73 sqM) Glucose (74-99) mg/dL Plasma Lactic Acid [place] 1.1 (0.7-2.0) mmol/L Calcium (8.4-10.2) mg/dL Magnesium (1.6-2.3) mg/dL Total Bilirubin (0.2-1.3) mg/dL AST (14-36) U/L ALT (4-34) U/L Alkaline Phosphatase (38-126) U/L Troponin I <0.012 (0.000-0.034) ng/mL NT-Pro-B Natriuret Pep pg/mL Total Protein (6.3-8.2) g/dL Albumin (3.5-5.0) g/dL Influenza Type A (PCR) Not Detected (Not Detectd) Influenza Type B (PCR) Not Detected (Not Detectd) RSV (PCR) Not Detected (Not Detectd) SARS-CoV-2 (PCR) Not Detected (Not Detectd) - EKG Data -: EKG Interpreted by Me EKG Comments: EKG taken at 8: 03 showing a paced atrial rhythm. No acute ST segment or T wave abnormalities. Ventricular rate 54, VT interval 274, QRS duration 161, QT/QTc 476/463. - Radiology Data Radiology results: report reviewed, image reviewed Disposition Clinical Impression: Hypertension Disposition: HOME SELF-CARE Condition: Stable Instructions (If sedation given, give patient instructions): Heart Failure (DC), How to Take a Blood Pressure (ED) Additional Instructions: Please take Lasix daily. Follow-up with PCP in the next 1 to 2 days. Return to the ER for any new or worsening concerns. Is patient prescribed a controlled substance at d/c from ED?: No Referrals: Gretchen Rosado MD [Primary Care Provider] - 1-2 days Time of Disposition: 10:05
[2023-07-29 08:36] LABS: Basophils % (A) 0 %; Eosinophils # (A) 0.2 k/uL (0-0.7); Eosinophils % (A) 3 %; HCT 46.2 % (34.0-46.0); HGB 14.2 gm/dL (11.4-16.0); Lymphocytes # (A) 1.1 k/uL (1.0-4.8); Lymphocytes % (A) 13 %; MCH 31.5 pg (25.0-35.0); MCHC 30.9 g/dL (31.0-37.0); Mean Platelet Volume 8.9; Monocytes # (A) 0.4 k/uL (0-1.0); Monocytes % (A) 5 %; Neutrophils # (A) 6.2 k/uL (1.3-7.7); Neutrophils % (A) 76 %; Platelet Count 173 k/uL (150-450); RBC 4.53 m/uL (3.80-5.40); RDW 12.6 % (11.5-15.5); WBC 8.1 k/uL (3.8-10.6)
[2023-07-29 08:44] LABS: Partial Thromboplastin Time 26.4 sec (22.0-30.0); Prothrombin Time 10.8 sec (10.0-12.5)
[2023-07-29 09:33] LABS: ALT 32 U/L (4-34); AST 35 U/L (14-36); African American GFR (CKD) 73 (>60 ml/min/1.73 sqM); Albumin 3.6 g/dL (3.5-5.0); Alkaline Phosphatase 102 U/L (38-126); Anion Gap 4 mmol/L; Blood Urea Nitrogen 25 mg/dL (7-17); Calcium 9.1 mg/dL (8.4-10.2); Carbon Dioxide 26 mmol/L (22-30); Chloride 109 mmol/L (98-107); Glucose 132 mg/dL (74-99); Magnesium 1.8 mg/dL (1.6-2.3); Non-African American GFR(CKD) 64 (>60 ml/min/1.73 sqM); Potassium 4.4 mmol/L (3.5-5.1); Sodium 139 mmol/L (137-145); Total Bilirubin 1.2 mg/dL (0.2-1.3); Total Protein 6.3 g/dL (6.3-8.2)
[2023-07-29 09:40] LABS: NT-Pro-B-Type Natriuretic Pept 750 pg/mL
--- NOTE | 2023-07-29 09:44 | XR ---
EXAMINATION TYPE: XR chest 2V DATE OF EXAM: 07/29/2023 8:40 AM CLINICAL INDICATION:Female, 73 years old with history of difficulty breathing; [facility] COMPARISON: 07/31/2022, 03/21/2022 TECHNIQUE: XR chest 2V. Frontal and lateral views of the chest.. FINDINGS: Lines/Tubes/Devices: No indwelling lines are seen. Two lead cardiac conduction device overlying the left hemithorax with l ead tips projecting over the right ventricle and right atrium. Heart/mediastinum: Heart appears mildly enlarged. Stable mediastinum with mild aortic tortuosity. Pulmonary vascularity: Mild vascular congestion, similar to previous. Lungs/Pleura: There is no evidence of pleural effusion, focal consolidation, or pneumothorax. Musculoskeletal: No acute osseous abnormality demonstrated in the limits of the exam. Degenerative c hanges of the dorsal spine. Partial eventration along the right hemidiaphragm. Other findings: None. IMPRESSION: Mild cardiomegaly with mild pulmonary vascular congestion.
[2023-07-29 11:23] VITALS: BP 175/91; PULSE 57; RESP 20; TEMP 97.9
== END 2023-07-29 10:18 | disposition home or self-care (01) ==
LOC: EC 07:45
DX: I11.0 Hypertensive heart disease with heart failure (principal); I50.9 Heart failure, unspecified; E66.9 Obesity, unspecified; Z88.5 Allergy status to narcotic agent; Z88.8 Allergy status to other drugs, medicaments and biological substances; Z68.42 Body mass index [BMI] 45.0-49.9, adult; Z79.01 Long term (current) use of anticoagulants
CPT/HCPCS: 36415; 71046; 80053; 83605; 83735; 83880; 84484; 85025; 85610; 85730; 87636; 93005; 99284

== ENCOUNTER → 2023-10-08 | Outpatient (CLI) | payer MEDICARE, BC ==
--- NOTE | 2023-10-09 13:07 | MM ---
Reason for Exam: Screening (asymptomatic). Last screening mammogram was performed 12 month(s) ago. Patient History: Menarche at age 10. First Full-Term at age 34. Late child-bearing (after 28). Left ovary removed at age 45. Right ovary removed at age 45. Hysterectomy at age 45. Postmenopausal. Estrogen for 13 years from age 45 until age 58. Reduction on the Right side. Reduction on the Left side. Excisional Biopsy on the Right side. Excisional Biopsy on the Right side. Excisional Biopsy on the Left side. Excisional Biopsy on the Left side. Excisional Biopsy on the Left side. Excisional Biopsy on the Left side. 2005, Bilateral Implants. 1995, Bilateral Implants. Maternal grandmother had breast cancer, age 60. Risk Values: Paloma 5 year model risk: 3.7%. NCI Lifetime model risk: 7.8%. Prior Study Comparison: 04/26/2018 Bilateral Diagnostic Mammogram, [facility]. 06/01/2021 Bilateral Screening Mammogram, [facility]. 10/06/2022 Bilateral MG 3D screen mammo imp/cad., [facility]. Tissue Density: The breasts are almost entirely fatty. Findings: Analyzed By CAD. Bilateral breast implants appear intact. Right breast: There is no suspicious group of microcalcifications or new suspicious mass. Benign-appearing calcifications right breast. Left breast: There is no suspicious group of microcalcifications or new suspicious mass. Benign-appearing calcifications left breast. Overall Assessment: Benign, BI-RAD 2 Management: Screening Mammogram of both breasts in [address] [facility] will attempt to contact patient to return for supplemental views and ultrasound if indicated. Patient should continue monthly self-breast exams. A clinical breast exam by your physician is recommended on an annual basis. This exam should not preclude additional follow-up of suspicious palpable abnormalities. Note on Paloma scores and lifetime risk: 1. A Paloma score greater than 3% is considered moderate risk. If this is the case, consider specialist referral to assess eligibility for a risk reducing agent. 2. If overall lifetime risk for the development of breast cancer is 20% or higher, the patient may qualify for future screening with alternating mammogram and breast MRI. Electronically signed and approved by: Ryan Owens DO
== END | disposition home or self-care (01) ==
LOC: RADMAMWWP 13:52
PROVIDERS: ATTEND Internal Medicine
DX: Z12.31 Encounter for screening mammogram for malignant neoplasm of breast (principal); Z78.0 Asymptomatic menopausal state; Z80.3 Family history of malignant neoplasm of breast
CPT/HCPCS: 77063; 77067

== ENCOUNTER 2023-12-25 03:35 | Emergency (ER) | payer MEDICARE, BC ==
[2023-12-25 03:44] VITALS: PULSE 55; TEMP 97.7
[2023-12-25 04:05] VITALS: RESP 16
[2023-12-25] MEDS: KETOROLAC 15 MG/ML 1 ML VIAL IM STA (04:24)
[2023-12-25] MEDS: MORPHINE SULFATE 4 MG/ML SYRINGE IM STA (04:32)
--- NOTE | 2023-12-25 05:27 | ED ---
General Adult HPI - General Chief complaint: Extremity Injury, Lower Stated complaint: Rt Hip Pain Time Seen by Provider: 12/25/23 03:59 Source: patient Mode of arrival: wheelchair Limitations: no limitations - History of Present Illness Initial comments: This patient is a 73-year-old woman who presents with pain to the lumbar back radiating to the hip. The patient states she has been having pains like this intermittently going back approximately 6 months to the time of a fall. She has been following and receiving what sounds like epidural shots. She states that when she was walking 2 days ago she stumbled and has had a flareup of the pain since that time. No loss of control of bladder or bowel function no weakness of the leg. Onset/Timin -: days(s) Location: buttocks Radiation: non-radiation Quality: aching Consistency: constant Improves with: immobilization Worsens with: movement Associated Symptoms: denies other symptoms Treatments Prior to Arrival: none - Related Data Home Medications Medication Instructions Recorded Confirmed Mometasone Furoate [Nasonex 50 mcg 1 - 2 spr EA NOSTRIL DAILY PRN 01/19/17 05/04/23 Nasal [place]] Cholecalciferol [Vitamin D3 (125 125 mcg PO DAILY 01/30/22 05/04/23 Mcg = 5000 Iu)] Simvastatin [Zocor] 40 mg PO HS 01/30/22 05/04/23 buPROPion XL [Wellbutrin XL] 150 mg PO BID 03/17/22 05/04/23 Apixaban [Eliquis] 5 mg PO BID 03/22/22 05/04/23 Losartan Potassium 50 mg PO BID 07/31/22 05/04/23 Metoprolol Tartrate [Lopressor] 50 mg PO BID 07/31/22 05/04/23 oxyBUTYnin chloride [Ditropan] 5 mg PO BID 07/31/22 05/04/23 Acetaminophen Tab [Tylenol] 500 mg PO Q6H PRN 04/11/23 05/04/23 Ezetimibe [Zetia] 10 mg PO DAILY 04/11/23 05/04/23 Fluticasone Nasal [place] [Flonase 2 spray EA NOSTRIL DAILY PRN 04/11/23 05/04/23 Nasal [place]] LORazepam [Ativan] 0.5 mg PO HS PRN 04/11/23 05/04/23 busPIRone HCl [Buspar] 5 mg PO BID 04/11/23 05/04/23 tiZANidine HCL [Zanaflex] 4 mg PO BID PRN 05/01/23 05/04/23 Aspirin 81 mg PO DAILY 05/04/23 05/04/23 Previous Rx's Medication Instructions Recorded Flecainide [Tambocor] 100 mg PO Q12HR #60 tab 03/21/22 Chlorthalidone [Hygroton] 25 mg PO DAILY #30 tab 04/12/23 Ondansetron [Zofran] 4 mg PO Q12HR PRN #8 tab 04/12/23 Pantoprazole [Protonix] 40 mg PO DAILY #14 tab 04/12/23 HYDROcodone/APAP 5-325MG [[place] 1 tab PO Q4HR PRN 3 Days #18 tab 12/25/23 5-325] HYDROcodone/APAP 5-325MG [[place] 5] 1 each PO Q6HR PRN #12 tab 12/25/23 methocarbamoL [Robaxin-750] 1,500 mg PO QID #30 tab 12/25/23 methocarbamoL [Robaxin-750] 1,500 mg PO TID #30 tab 12/25/23 Allergies Allergy/AdvReac Type Severity Reaction Status Date / Time tocilizumab [From Actemra] Allergy Severe Dyspnea, Verified 12/25/23 03:44 sores, itching, sore throat hydromorphone [From Dilaudid] AdvReac Nausea & Verified 12/25/23 03:44 Vomiting meperidine HCl [From Demerol] AdvReac Nausea Verified 12/25/23 03:44 Review of Systems ROS Statement: Those systems with pertinent positive or pertinent negative responses have been documented in the HPI. ROS Other: All systems not noted in ROS Statement are negative. Constitutional: Denies: fever, chills, weakness Respiratory: Denies: cough, dyspnea Cardiovascular: Denies: chest pain, edema Gastrointestinal: Denies: abdominal pain, vomiting, diarrhea Genitourinary: Denies: dysuria, frequency, hematuria Musculoskeletal: Reports: as per HPI, back pain Skin: Denies: rash Neurological: Denies: weakness, numbness, paresthesias Past Medical History Past Medical History: Atrial Fibrillation, Asthma, Eye Disorder, GERD/Reflux, Hearing Disorder / Deafness, Hyperlipidemia, Hypertension, Osteoarthritis (OA), Rheumatoid Arthritis (RA), Sleep Apnea/CPAP/BIPAP Additional Past Medical History / Comment(s): HX BACK PAIN, hx Sciaticia bilateral legs. Hx FX lower back. ADIE'S TONIC PUPIL/FIXED PUPILS- BILATERAL EYES, HAS LENS IMPLANT IN RT EYE. HX "PRE-CANCER OF BREAST." OVERACTIVE BLADDER. DEAF RT EAR. CPAP use., Varicose veins. Swelling in top of feet, discoloration around left ankle, neck pain radiates to arms and hands. History of Any Multi-Drug Resistant Organisms: None Reported Past Surgical History: Bladder Surgery, Cholecystectomy, Heart Catheterization, Hysterectomy, Joint Replacement, Orthopedic Surgery, Pacemaker Additional Past Surgical History / Comment(s): RT KNEE REPLACEMENT, VANESSA BREAST MASTECTOMY W/ RECONSTRUCTION. IMPLANTS VANESSA BREAST, RT EYE LENS IMPLANT, EXC VANESSA CATARACTS WITH LENS IMPLANT. RT. CARPAL TUNNEL RELEASE, arthroscopy of knee, pain clinic procedure. COLONOSCOPY Past Anesthesia/Blood Transfusion Reactions: Postoperative Nausea & Vomiting (PONV) Additional Past Anesthesia/Blood Transfusion Reaction / Comment(s): Mother- PONV. Type of Cardiac Device: Permanent Pacemaker Device Placement Date:: 03/24/22 Past Psychological History: Anxiety, Panic Disorder Smoking Status: Never smoker Past Alcohol Use History: None Reported Past Drug Use History: None Reported - Past Family History Brother(s) Family Medical History: Cancer Additional Family Medical History / Comment(s): Testicular Cancer. Prostate cancer. General Exam General appearance: alert, in no apparent distress Head exam: Present: atraumatic, normocephalic Neck exam: Present: normal inspection, full ROM Respiratory exam: Present: normal lung sounds bilaterally. Absent: respiratory distress, wheezes, rales, rhonchi, stridor, accessory muscle use Cardiovascular Exam: Present: regular rate, normal rhythm, normal heart sounds. Absent: systolic murmur, diastolic murmur, rubs, gallop GI/Abdominal exam: Present: soft. Absent: distended, tenderness, guarding, rebound, rigid, mass Extremities exam: Present: normal inspection, normal capillary refill. Absent: pedal edema, calf tenderness Back exam: Present: normal inspection. Absent: CVA tenderness (R), CVA tenderness (L) Neurological exam: Present: alert, reflexes normal. Absent: motor sensory deficit Skin exam: Present: warm, dry, intact, normal color. Absent: rash Course Vital Signs 12/25/23 12/25/23 12/25/23 03:39 04:01 05:00 Temperature 97.7 F Pulse Rate 55 L 55 L 55 L Respiratory 18 16 16 Rate Blood Pressure 184/86 130/69 O2 Sat by Pulse 96 96 95 Oximetry 12/25/23 05:47 Temperature Pulse Rate 55 L Respiratory 16 Rate Blood Pressure 131/60 O2 Sat by Pulse 95 Oximetry Medical Decision Making - Medical Decision Making Was pt. sent in by a medical professional or institution (, PA, PRODUCTION ADMINISTRATOR, urgent care, hospital, or [facility]...) When possible be specific @ -[No] Did you speak to anyone other than the patient for history (EMS, parent, family, police, friend...)? What history was obtained from this source @ -[No] Did you review nursing and triage notes (agree or disagree)? Why? @ -[I reviewed and agree with nursing and triage notes] Were old charts reviewed (outside hosp., previous admission, EMS record, old EKG, old radiological studies, urgent care reports/EKG's, [facility] records)? Report findings @ -[No old charts were reviewed] Differential Diagnosis (chest pain, altered mental status, abdominal pain women, abdominal pain men, vaginal bleeding, weakness, fever, dyspnea, syncope, headache, dizziness, GI bleed, back pain, seizure, CVA, palpatations, mental health, musculoskeletal)? @ -[Differential Musculoskeletal Muscular strain, contusion, ligament sprain, fracture, arthritis, septic arthritis, bursitis, cellulitis, muscle spasm, nerve compression, DVT, arterial occlusion, herpes zoster, electrolyte abnormality, tumor.... This is not meant to be in all inclusive list EKG interpreted by me (3pts min.). @ -[As above] X-rays interpreted by me (1pt min.). @ -[None done] CT interpreted by me (1pt min.). @ -[None done] U/S interpreted by me (1pt. min.). @ -[None done] What testing was considered but not performed or refused? (CT, X-rays, U/S, labs)? Why? @ -[None] What meds were considered but not given or refused? Why? @ -[None] Did you discuss the management of the patient with other professionals (professionals i.e. , PA, PRODUCTION ADMINISTRATOR, lab, RT, psych nurse, social security assessor, warehouse analyst, teacher, forest fire management officer, home health care case manager)? Give summary @ -[No] Was smoking cessation discussed for >3mins.? @ -[No] Was critical care preformed (if so, how long)? @ -[No] Were there social determinants of health that impacted care today? How? (Homelessness, low income, unemployed, alcoholism, drug addiction, transportation, low edu. Level, literacy, decrease access to med. care, group home, rehab)? @ -[No] Was there de-escalation of care discussed even if they declined (Discuss DNR or withdrawal of care, Hospice)? DNR status @ -[No] What co-morbidities impacted this encounter? (DM, HTN, Smoking, COPD, CAD, Cance r, CVA, ARF, Chemo, Hep., AIDS, mental health diagnosis, sleep apnea, morbid obesity)? @ -[None] Was patient admitted / discharged? Hospital course, mention meds given and route, prescriptions, significant lab abnormalities, going to OR and other pertinent info. @ -[Patient is 73-year-old woman with chronic intermittent low back and hip pain. She did receive analgesia here and has had improvement of her symptoms. There are no symptoms or exam signs concerning for cauda equina. The patient stable for further outpatient care. Undiagnosed new problem with uncertain prognosis? @ -[No] Drug Therapy requiring intensive monitoring for toxicity (Heparin, Nitro, Insulin, Cardizem)? @ -[No] Were any procedures done? @ -[No] Diagnosis/symptom? @ -[Acute on chronic back pain Acute, or Chronic, or Acute on Chronic? @ -[ Uncomplicated (without systemic symptoms) or Complicated (systemic symptoms)? @ -[Uncomplicated Side effects of treatment? @ -[No] Exacerbation, Progression, or Severe Exacerbation? @ -[No] Poses a threat to life or bodily function? How? (Chest pain, [place], SD, pneumonia, PE, COPD, DKA, ARF, appy, cholecystitis, CVA, Diverticulitis, Homicidal, Suicidal, threat to staff... and all critical care pts) @ -[No] Disposition Clinical Impression: Back pain Disposition: HOME SELF-CARE Condition: Good Instructions (If sedation given, give patient instructions): Back Pain (ED) Prescriptions: HYDROcodone/APAP 5-325MG [[place] 5] 1 each PO Q6HR PRN #12 tab PRN Reason: Pain HYDROcodone/APAP 5-325MG [[place] 5-325] 1 tab PO Q4HR PRN 3 Days #18 tab PRN Reason: Pain methocarbamoL [Robaxin-750] 1,500 mg PO TID #30 tab methocarbamoL [Robaxin-750] 1,500 mg PO QID #30 tab Is patient prescribed a controlled substance at d/c from ED?: No Referrals: Gretchen Rosado MD [Primary Care Provider] - 1-2 days
[2023-12-25] MEDS: ACET/COD 300 MG/30 MG STARTER PACK 6 TAB BTL PO STA (05:46)
[2023-12-25 05:48] VITALS: BP 131/60
== END 2023-12-25 05:50 | disposition home or self-care (01) ==
LOC: EC 03:35
CPT/HCPCS: 96372; 99283

== ENCOUNTER → 2023-12-27 | Outpatient (CLI) | payer MEDICARE, BC ==
--- NOTE | 2023-12-27 16:24 | XR ---
EXAMINATION TYPE: XR Hip Complete RT DATE OF EXAM: 12/27/2023 3:02 PM CLINICAL INDICATION: Female, 73 years old with history of M25.551 Right hip pain; [facility] COMPARISON: None. TECHNIQUE: XR Hip Complete RT; hip was examined in the frontal and lateral projections and a AP pelvi s. FINDINGS: No evidence for acute process, joint dislocation or significant soft tissue swelling. Osteo phyte formation of the superior acetabulum of the hip. There is joint space narrowing. IMPRESSION: 1. No evidence for acute process. 2. Moderate hip osteoarthrosis.
--- NOTE | 2023-12-27 16:25 | XR ---
EXAMINATION TYPE: XR femur RT DATE OF EXAM: 12/27/2023 3:02 PM CLINICAL INDICATION: Female, 73 years old with history of M25.551 Right hip pain; PH[facility] COMPARISON: None TECHNIQUE: XR femur RT examined in Frontal and lateral projections. FINDINGS: Right knee total knee arthroplasty. No evidence for hardware failure. Right hip degeneratio n with joint space narrowing and osteophyte formation. No evidence of acute osseous pathology, joint dislocation, or soft tissue swelling arthrosis course of the arterial vasculature. IMPRESSION: 1. Postangioplasty changes without evidence for hardware failure. No acute osseous pathology. 2. Mild degeneration changes of the hip.
--- NOTE | 2023-12-27 16:37 | XR ---
EXAMINATION TYPE: XR lumbar spine 2 or 3V DATE OF EXAM: 12/27/2023 3:02 PM CLINICAL INDICATION: Female, 73 years old with history of M25.551 Right hip pain; COMPARISON: None TECHNIQUE: XR lumbar spine 2 or 3V - Frontal, lateral and coned in L5-S1 lateral views of the spine. FINDINGS: No evidence of any acute osseous pathology. No evidence of loss of vertebral body height i s seen. There is normal alignment of the lumbar vertebral bodies. Scattered disc space narrowing. Mul tilevel marginal osteophyte formation throughout the visualized spine. There is facet joint arthropat hy throughout the spine. Scattered at least mild neural foraminal stenosis. Right upper quadrant: Dis cectomy clips. Arthrosis course of the arterial vasculature. IMPRESSION: 1. No acute fracture. 2. Severe multilevel disc degeneration with poor visualization of the neural foramen possibly related to high-grade stenosis versus overlapping bony tissues structures.
== END | disposition home or self-care (01) ==
LOC: RADXRMAIN 14:16
PROVIDERS: ATTEND Internal Medicine
DX: M25.551 Pain in right hip
CPT/HCPCS: 72100; 73502

== ENCOUNTER → 2024-01-03 | Outpatient (CLI) | payer MEDICARE, BC ==
[2024-01-03 13:08] LABS: African American GFR (CKD) 59 (>60 ml/min/1.73 sqM); Blood Urea Nitrogen 22 mg/dL (7-17); Non-African American GFR(CKD) 51 (>60 ml/min/1.73 sqM)
--- NOTE | 2024-01-13 23:19 | CT ---
EXAMINATION TYPE: CT brain wo/w con, CT iac wo/w con DATE OF EXAM: 01/03/2024 COMPARISON: None HISTORY: 89 year-old female H93.3X3, acoustic nerve disorder TECHNIQUE: CT of the brain before and after administration of 80 mL Isovue 300 IV contrast. Additiona l high-resolution scanning of the temporal bones before and after IV contrast. Coronal and sagittal r econstructions performed. CT DLP: 2059.8 (accession [id number]), 285.4 (accession [id number]) mGycm Automated exposure control for dose reduction was used. FINDINGS: Brain: There is no evidence of acute intracranial hemorrhage, acute ischemic changes, mass, mass-effect, or extra-axial fluid collection. There is no effacement of cerebral sulci or basal subarachnoid cister ns. There is no hydrocephalus. There is no midline shift. Hurley-white matter distinction is preserv ed. There is some patchy subcortical white matter hypodensity scattered in both cerebral hemispheres. Chucho ign basal ganglia calcifications particularly on the left. Mild apical scarring calcifications in the carotid siphons. Partially empty sella incidentally noted. Dural venous sinuses are patent. No enhancing intracranial lesions identified. Benign hyperostosis frontalis interna. There is some opacity posterior left sphenoid sinus. The globe s are intact. IACs: Incidental prominent periapical lucency right maxillary first molar. The skull base appears normal. Bilateral external auditory canals appear patent. The middle ear cavities as well as the mastoid air cells are well pneumatized. The adjacent dural haseeb ous sinus remains well opacified. There is no abnormality of middle ear ossicles. The round and oval windows are normal. There is no abnormality of bony labyrinths. No dehiscent of the superior semicircular canals. The cochlear and vestibular aqueducts are well visualized. The facial nerve canal is normal bilaterally. The internal auditory canal and meati are symmetrical bilaterally. There is no evidence of fractures. Additional tiny mucosal retention cyst medial wall of the left maxillary sinus. IMPRESSION: Brain: 1. Mild patchy burden of chronic small vessel ischemic disease. 2. No acute intracranial abnormality and no enhancing intracranial lesion seen. 3. Some left-sided sphenoid sinus disease. Correlate for any symptoms of acute sinusitis. IACs: 4. No specific CT abnormality of the temporal bones/IACs. Consider MRI if persistent clinical concern . 2. Prominent periapical lucency incidentally noted involving the right maxillary first molar. Correla te for any underlying periodontal disease. [facility], , 01/13/2024 11:17 PM
--- NOTE | 2024-01-13 23:29 | CT ---
EXAMINATION TYPE: CT lumbar spine wo con DATE OF EXAM: 01/03/2024 COMPARISON: None HISTORY: 73-year-old female M51.38 Chronic back pain. TECHNIQUE: Contiguous axial scanning of the lumbar spine without IV contrast. Coronal and sagittal re constructions performed. CT DLP: 1690.2 mGycm Automated exposure control for dose reduction was used. FINDINGS: Accentuated lower lumbar lordosis and Baastrup's disease. There is a transitional lumbosacral segment noted as a partially lumbarized S1 that demonstrates a hy pertrophied and degenerative assimilation joint with the remainder of the sacrum. Hypertrophic facet arthropathy is present throughout. Trace grade 1 retrolisthesis L2-L3 and trace grade 1 anterolisthesis L5-S1. Vertebral body heights are preserved. Severe degenerative disc disease from L1 through L4 levels with narrowed, desiccated, and bulging dis cs. There is overall mild narrowing of the spinal canal at L1-L2 and L3-L4. More moderate narrowing at L2 -L3. On the right, changes result in mild to moderate narrowing of the neuroforamen at L4-L5. At S1-S2, du e to the hypertrophied and degenerative assimilation joint, there may be a impingement of the intrafo raminal and extraforaminal S1 nerve root. On the left, changes of the left and moderate narrowing of the spinal canal at L2-L3, L3-L4, and L4-L 5. Mild at L5-S1. Suspect underlying cortical cyst lower pole right kidney measuring up to 1.6 cm. IMPRESSION: 1. TRANSITIONAL LUMBOSACRAL SEGMENT DENOTED A PARTIALLY LUMBARIZED S1. THIS SHOWS A DEGENERATED RI GHT-SIDED ASSIMILATION JOINT ARTICULATING WITH THE REMAINDER OF THE SACRUM. BONY HYPERTROPHY HERE AT S1-S2 MAY IMPINGE THE INTRAFORAMINAL AND EXTRAFORAMINAL RIGHT-SIDED S1 NERVE ROOT. 2. SEVERE DEGENERATIVE DISC DISEASE INVOLVING THE L1-L4 LEVELS, SEVERE MULTILEVEL HYPERTROPHIC FACET ARTHROPATHY, AND DEGENERATIVE GRADE 1 SPONDYLOLISTHESIS L2-L3 AND L5-S1. 3. MODERATE OVERALL SPINAL CANAL STENOSIS AT L2-L3 AND MILD AT BOTH L1-L2 AND L3-L4. 4. BAASTRUP'S DISEASE. [facility], , 01/13/2024 11:27 PM
== END | disposition home or self-care (01) ==
LOC: RADCTMAIN 12:17
PROVIDERS: ATTEND Internal Medicine
DX: M51.36 Other intervertebral disc degeneration, lumbar region
CPT/HCPCS: 36415; 70470; 70482; 72131; 82565; 84520

== ENCOUNTER → 2024-04-14 | Outpatient (CLI) | payer MEDICARE, BC ==
--- NOTE | 2024-04-17 22:02 | CT ---
EXAMINATION TYPE: CT abdomen pelvis wo con DATE OF EXAM: 04/14/2024 4:58 PM COMPARISON: 04/11/2023 CLINICAL INDICATION: Female, 73 years old with history of R10.13 EPIGASTRIC PAIN, Generalized abdomin al pain x3 months. TECHNIQUE: Axial images were obtained from above the diaphragm to the pubic rami in the axial plane a t 5 mm thick sections. Reconstructed images are reviewed on the computer in the coronal plane. CONTRAST: mL of . Study performed with Oral Contrast DLP: 1360.1 mGycm, Automated exposure control for dose reduction was used. FINDINGS: Limited CT sections are obtained the lung bases. The lung bases are clear. CT ABDOMEN: Liver: Normal Spleen: Normal Pancreas: Normal Adrenal glands: The adrenal glands are normal. Gallbladder: Surgically absent Kidneys: No masses are evident. No hydronephrosis is present. No cysts are present. No renal stone s are evident. Aorta: Vascular calcification is within the aorta. Inferior vena cava: Normal. CT PELVIS: Loops of bowel within the abdomen and pelvis are normal. There are loops of bowel which are incom pletely distended or lack oral contrast limiting their evaluation. Appendix: Not identified. No dilated tubular structure or inflammatory changes evident. Urinary bladder: Decompressed with limited evaluation Genitourinary structures: Uterus and ovaries are not identified Osseous structures: No suspicious lytic or sclerotic lesions. IMPRESSION: 1. No suspicious acute changes to account for epigastric pain [facility], , 04/17/2024 10:00 PM
== END | disposition home or self-care (01) ==
LOC: RADCTMAIN 14:25
PROVIDERS: ATTEND Internal Medicine
DX: R10.13 Epigastric pain (principal); R10.84 Generalized abdominal pain
CPT/HCPCS: 74176

== ENCOUNTER → 2024-05-01 | Outpatient (CLI) | payer MEDICARE, BC ==
--- NOTE | 2024-05-01 14:22 | US ---
EXAMINATION TYPE: US kidneys/renal and bladder DATE OF EXAM: 05/01/2024 COMPARISON: None CLINICAL INDICATION: Female, 73 years old with history of N18.30 CHRONIC KIDNEY DISEASE; Abnormal lab s. Hx of UTI- just finished antibiotics TECHNIQUE: Grayscale imaging of the bilateral kidneys and urinary bladder: FINDINGS: EXAM MEASUREMENTS: Right Kidney: 11.2 x 5.3 x 5.4 cm Left Kidney: 10.4 x 4.5 x 5.8 cm Right Kidney: Cortical thinning Left Kidney: Lobular cortex appearing, lower mid pole hypoechoic lesion, cyst vs prominent pyramid =1 .5 x 1.4 x 1.1 cm Bladder: Distended, anechoic Left jet seen There is no evidence for hydronephrosis at this point in time. No nephrolithiasis is seen. No cy s are identified. The urinary bladder is anechoic. IMPRESSION: 1. Mild cortical thinning suggestive of mild medical renal disease. 2. No solid renal mass, renal calcification or hydronephrosis. [facility], , 05/01/2024 2:19 PM
== END | disposition home or self-care (01) ==
LOC: RADUSWWP 13:12
PROVIDERS: ATTEND Internal Medicine
DX: N18.30 Chronic kidney disease, stage 3 unspecified (principal); Z87.440 Personal history of urinary (tract) infections
CPT/HCPCS: 76770

== ENCOUNTER → 2024-07-07 | Outpatient (CLI) | payer MEDICARE, BC ==
--- NOTE | 2024-07-07 16:56 | XR ---
EXAMINATION TYPE: XR knee complete LT DATE OF EXAM: 07/07/2024 4:40 PM COMPARISON: None CLINICAL INDICATION: Female, 73 years old with history of M25.562 PAIN IN LEFT KNEE; PHH, pain TECHNIQUE: XR knee complete LT 3 views submitted. FINDINGS: No evidence of any acute osseous pathology, soft tissue swelling, or joint effusion is no jacoby. Tricompartmental osteophyte formation involving the femoral condyles, tibial plateau and patella . Mild joint space narrowing. A fabella is present. Atherosclerosis of the arterial vasculature. IMPRESSION: 1. No acute osseous pathology. 2. Moderate tricompartmental osteoarthritic changes. [facility], , 07/07/2024 4:53 PM
== END | disposition home or self-care (01) ==
LOC: RADXRMAIN 16:19
PROVIDERS: ATTEND Internal Medicine
DX: M17.12 Unilateral primary osteoarthritis, left knee (principal)

== ENCOUNTER → 2024-07-21 | Outpatient (CLI) | payer MEDICARE, BC ==
--- NOTE | 2024-07-21 15:35 | US ---
EXAMINATION TYPE: US venous doppler duplex LE LT DATE OF EXAM: 07/21/2024 3:18 PM COMPARISON: NONE CLINICAL INDICATION: Female, 74 years old with history of M17.12 UNILATERAL PRIMARY OSTEOARTHRITIS, L EFT KNE; pt had a recent fall 2 weeks ago, injured left knee, left leg swelling, no hx of DVT, family hx of heart issues, currently on eliquis , Pain TECHNIQUE: The lower extremity deep venous system is examined utilizing real time linear array sonog james with graded compression, color doppler sonography, and spectral doppler. SIDE PERFORMED: Left FINDINGS: VESSELS IMAGED: Common Femoral Vein Deep Femoral Vein Greater Saphenous Vein * Femoral Vein Popliteal Vein Small Saphenous Vein * Proximal Calf Veins (* superficial vessels) slightly limited exam due to pt body habitus & severe edema Left Leg: appears negative for DVT, Color Doppler imaging shows patency of the vessels. Spectral wav eforms are within normal limits. Pop vs & calf veins limited due to severe edema. IMPRESSION: Suboptimal study without significant ultrasound evidence for acute DVT in the left lower extremity . [facility], , 07/21/2024 3:32 PM
== END | disposition home or self-care (01) ==
LOC: RADUSWWP 14:41
PROVIDERS: ATTEND Orthopaedic Surgery
DX: M17.12 Unilateral primary osteoarthritis, left knee (principal)